=== PATIENT | female | born 1935 | race Caucasian/White ===

== ENCOUNTER → 2017-06-11 | Outpatient (CLI) | payer OTHER ==
[~2017-06-11] MED LIST: ASPEC325 PO; CALC600T37 PO; CHOL1000 PO; FERR325T5 PO; GATI0.5S OP; GLUCTAB32 PO; MULT-506 PO; PRED1SUS3 OP
--- NOTE | 2017-06-11 15:39 | MAMMOGRAPHY REPORT ---
BILATERAL DIGITAL SCREENING MAMMOGRAM WITH CAD: 06/11/2017 CLINICAL HISTORY: Routine screening. Patient has no complaints. TECHNIQUE: Bilateral CC and MLO views were obtained. Current study was also evaluated with a Compute r Aided Detection (CAD) system. COMPARISON: Comparison is made to exams dated: 06/06/2016 mammogram, 05/17/2015 mammogram, 03/30/2014 ma mmogram, 03/10/2013 mammogram, 03/07/2012 mammogram, and 02/27/2011 mammogram - [facility] er. BREAST COMPOSITION: There are scattered areas of fibroglandular density in both breasts. FINDINGS: There is a stable gricelda-shaped metallic biopsy marker in the 9:00 anterior left breast. No n ew suspicious mass, architectural distortion or cluster of microcalcifications is seen. IMPRESSION: ACR BI-RADS CATEGORY 1: NEGATIVE There is no mammographic evidence of malignancy. A 1 year screening mammogram is recommended. The pa tient will receive written notification of the results. Approximately 10% of breast cancers are not detected with mammography. A negative mammographic report should not delay biopsy if a clinically suggestive mass is present. Vivienne Sam M.D. ay/:06/11/2017 15:25:33 Chemistry Lecturer: Katalina OLIVAREZ(Bryce)(Parker), [facility] letter sent: Normal 1/2 BI-RADS Code: ACR BI-RADS Category 1: Negative
== END | disposition home or self-care (01) ==
LOC: C.MAMM 13:15
PROVIDERS: ATTEND Family Medicine
DX: Z12.31 Encounter for screening mammogram for malignant neoplasm of breast (principal)

== ENCOUNTER → 2018-07-10 | Outpatient (CLI) | payer OTHER ==
--- NOTE | 2018-07-11 15:28 | MAMMOGRAPHY REPORT ---
BILATERAL DIGITAL SCREENING MAMMOGRAM TOMOSYNTHESIS WITH CAD: 07/10/2018 CLINICAL HISTORY: Routine screening. Patient has no complaints. TECHNIQUE: The study was acquired using full field digital technology and interpreted from soft copy. Breast tomosynthesis in addition to standard 2D mammography was performed. Current study was also ev aluated with a Computer Aided Detection (CAD) system. COMPARISON: Comparison is made to exams dated: 06/11/2017 mammogram, 06/06/2016 mammogram, 05/17/2015 ma mmogram, 03/10/2013 mammogram, 03/07/2012 mammogram, and 02/27/2011 mammogram - [facility] er. BREAST COMPOSITION: There are scattered areas of fibroglandular density in both breasts. FINDINGS: No suspicious masses, calcifications, or areas of architectural distortion are noted in either breast . There has been no significant interval change compared to prior exams. A biopsy clip is again note d within the left medial breast. Left lateral breast asymmetry on the CC view is stable compared to multiple prior exams. IMPRESSION: ACR BI-RADS CATEGORY 2: BENIGN There is no mammographic evidence of malignancy. A 1 year screening mammogram is recommended.( 019) The patient will receive written notification of the results. Some breast cancers are not detected with mammography. A negative mammographic report should not james y biopsy if a clinically suggestive mass is present. Kell Little M.D. /:07/10/2018 15:21:29 Lidar Scientist: RT Tab(R)(M), [facility] letter sent: Normal 1/2 BI-RADS Code: ACR BI-RADS Category 2: Benign
== END | disposition home or self-care (01) ==
LOC: C.MAMM 14:08
PROVIDERS: ATTEND Family Medicine
DX: Z12.31 Encounter for screening mammogram for malignant neoplasm of breast (principal)

== ENCOUNTER 2018-12-27 15:43 | Inpatient (IN) ==
[2018-12-27] MEDS ORDERED: CEFEPIME 2,000 MG in SYRINGE 7.5 ML IV STA (16:07)
[2018-12-27] MEDS ORDERED: SODIUM CHLORIDE 0.9% 1000ML 1,000 ML IV ONE (16:09)
--- NOTE | 2018-12-27 16:31 | XRay Report ---
XR chest 1V portable HISTORY: 83 years-old Female Sepsis acute sepsis COMPARISON: Chest radiograph and CTA chest 10/31/2018 TECHNIQUE: Portable AP view of the chest FINDINGS: Cardiac silhouette is enlarged, unchanged. Large hiatal hernia, notably within the inferior right hem ithorax. Right internal jugular catheter is noted with distal tip within the region of the inferior S VC. Lungs are hyperinflated without pneumothorax, large pleural effusion or overt pulmonary edema. Pa tchy ill-defined left basilar opacities are noted. The right lung appears generally clear. Degenerati ve changes of the shoulders and spine. Sigmoidal scoliosis of the thoracolumbar spine. IMPRESSION: 1. Asymmetric left basilar opacities suggest atelectasis or pneumonia. 2. Cardiomegaly without overt pulmonary edema. 3. Large hiatal hernia. The above report was generated using voice recognition software. It may contain grammatical, syntax o r spelling errors. Electronically signed by: Jhonny Berumen M.D. 12/27/2018 4:30 PM
--- NOTE | 2018-12-27 16:35 | Emergency Department Note ---
Entered by Lea Dent acting as a scribe for History of Present Illness General Chief complaint: Fever Stated complaint: FEVER,DIARRHEA,CONSTIPATION Time Seen by Provider: 12/27/18 15:56 Source: patient History of Present Illness Onset (ago): day(s) (yesterday) Location: abdomen, upper extremity and lower extremity Pain Consistency: + other (after getting chemo this past week for AML) Maximum Pain Intensity: 7 Quality: + other (fever of 100.6) Associated symptoms: + other (Positive diarrhea, constipation, chills. Negative bruising, flu like symptoms, recent falls. ); no cough, no headaches and no nausea/vomiting The patient is a 83 year old female who presents to the Emergency Room with complaints of a fever beginning yesterday. 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 She reports she developed chills and a fever of 100.6 and has a "strange combination" of diarrhea and constipation. Pt denies a cough, headache , bruising, flu like symptoms, nausea, vomiting, recent falls. Home Medications Home Medications Medication Instructions Recorded Confirmed Type biotin 1 mg PO DAILY 10/31/18 12/27/18 History calcium carbonate-vitamin D3 1 tab PO DAILY 10/31/18 12/27/18 History [Calcium 600 + D(3)] multivitamin 1 tab PO QAM 10/31/18 12/27/18 History acyclovir [Zovirax] 400 mg PO BID 12/27/18 12/27/18 History ferrous sulfate 325 mg PO BID 12/27/18 12/27/18 History furosemide 10 mg PO Q2D PRN 12/27/18 12/27/18 History isavuconazonium sulfate 372 mg PO DAILY 12/27/18 12/27/18 History levofloxacin 500 mg PO DAILY 12/27/18 12/27/18 History loratadine 5 mg PO DAILY PRN 12/27/18 12/27/18 History lutein 20 mg PO DAILY 12/27/18 12/27/18 History metoprolol tartrate 50 mg PO Q12H 12/27/18 12/27/18 History midostaurin 50 mg PO BIDM 12/27/18 12/27/18 History Allergies Allergy/AdvReac Type Severity Reaction Status Date / Time No Known Allergies Allergy Unknown Verified 12/18/18 07:13 Past Med/Surg History Social History Current Living Situation: Alone current occupational status: retired Feels Safe at Home: Yes Smoking Status: Former smoker Preferred Language: Bulgarian Review of Systems See HPI for pertinent positives & negatives. and A total of 10 systems reviewed and were otherwise negative Physical Exam Vital Signs Vital Signs - 24 hr 12/27/18 15:50 12/27/18 17:45 12/27/18 17:53 Temperature 36.9 C Temperature Source Oral Sepsis Recent Fever Within 48 Hours Yes Sepsis New/Unexplained Change in Mental Status No Sepsis Action Taken by Nursing No Action Required Pulse Rate 92 H 91 H 94 H Pulse Rate [Apical] Respiratory Rate 20 26 H 24 Respiratory Effort / Characteristics Non-Labored Respiratory Depth Normal Blood Pressure 129/63 129/64 Blood Pressure [Right Arm] Blood Pressure Mean 85 85 Blood Pressure Mean [Right Arm] Blood Pressure Position Sitting Pulse Oximetry 96 98 98 Oxygen Delivery Method Room Air 12/27/18 18:00 12/27/18 18:15 12/27/18 18:30 Temperature Temperature Source Sepsis Recent Fever Within 48 Hours Sepsis New/Unexplained Change in Mental Status Sepsis Action Taken by Nursing Pulse Rate 90 92 H 93 H Pulse Rate [Apical] Respiratory Rate 22 20 22 Respiratory Effort / Characteristics Respiratory Depth Blood Pressure 125/63 124/62 130/63 Blood Pressure [Right Arm] Blood Pressure Mean 83 82 85 Blood Pressure Mean [Right Arm] Blood Pressure Position Pulse Oximetry 97 97 97 Oxygen Delivery Method 12/27/18 20:04 Temperature Temperature Source Sepsis Recent Fever Within 48 Hours Sepsis New/Unexplained Change in Mental Status Sepsis Action Taken by Nursing Pulse Rate Pulse Rate [Apical] 85 Respiratory Rate 18 Respiratory Effort / Characteristics Respiratory Depth Blood Pressure Blood Pressure [Right Arm] 143/57 H Blood Pressure Mean Blood Pressure Mean [Right Arm] 85 Blood Pressure Position Pulse Oximetry 96 Oxygen Delivery Method Room Air General: Non ill appearing older female. No acute distress. HEENT: Normal cephalic atraumatic. Pupils are equal round and reactive to light. Extraocular movements are intact. Oropharynx is pink with moist mucous membranes. No swelling of the mouth lips or tongue. Neck: Supple with a midline trachea. No meningeal signs or stiffness, no JVD or bruits. No Stridor. Chest: Clear to auscultation bilaterally. No wheezes or rhonchi. No increased work of breathing. Port in the right chest. Old clavicle fracture in the right chest. Heart: Regular rate and rhythm without murmurs or gallops. Abdomen: Soft nontender, nondistended without rebound guarding or rigidity. Extremities: No cyanosis clubbing or edema. No calf tenderness or assymetry Spine/Back. Non tender to palpation. No CVA tenderness Skin: Good turgor without rashes. Neurologic exam: Cranial nerves two through 12 are intact. Motor and sensation are intact and symmetrical throughout. Course 1559: Past medical records reviewed. The patient was evaluated in room B9, and a complete history and physical examination were performed. 1507: I checked on the patient at this time. She is doing well. 1735: I informed her of the treatment plan at this time. Her oxygen has dropped. She denies any SOB at present. I placed her on nasal canula. 1741: I reviewed the patient's case with Shama Acharya PA-C [facility] She will evaluate the patient for further management. 1855: I checked on the patient at this time. She is resting comfortably. Consultations Consultation #1: I reviewed the patient's case with Shama Acharya PA-C [facility] She will evaluate the patient for further management. Time: 17:41 Administered Medications Discontinued Medications Cefepime HCl (Maxipime) Confirm Administered Dose 2,000 mg .ROUTE .STK-MED ONE Stop: 12/27/18 17:29 Last Admin: 12/27/18 17:32 Dose: 2,000 mg Cefepime HCl 2,000 mg/ Syringe 20 mls @ 5.5 mls/min IV NOW STA Stop: 12/27/18 16:10 Last Admin: 12/27/18 17:32 Dose: Not Given Sodium Chloride (Nss 1000ml) 1,000 mls @ 999 mls/hr IV .Q1H1M ONE Stop: 12/27/18 17:09 Last Infusion: 12/27/18 18:44 Dose: 0 mls/hr Admin: 12/27/18 17:31 Dose: 999 mls/hr Medical Decision Making Differential Diagnosis The patient is a 83 year old female who presents to the Emergency Room with complaints of a fever beginning yesterday. Differential diagnosis includes sepsis, pneumonia, leukemia complication, electrolyte or metabolic abnormalities , UTI, as well as others were entertained. Medical Records Attestation: I reviewed the patient's medical records. Home Medications Current Medication List: was personally reviewed by me Laboratory Data Attestation: I reviewed the patient's lab results. Result diagrams: 12/27/18 16:45 12/27/18 16:21 Lab Results 12/27/18 12/27/18 12/27/18 Range/Units 16:21 16:21 16:21 WBC Cancelled RBC Cancelled Hgb Cancelled Hct Cancelled MCV Cancelled MCH Cancelled MCHC Cancelled RDW Std Deviation Cancelled RDW Coeff of Rangel Cancelled Plt Count Cancelled MPV Cancelled Immature Gran % (Auto) Cancelled Neut % (Auto) Cancelled Lymph % (Auto) Cancelled [place] % (Auto) Cancelled Eos % (Auto) Cancelled Baso % (Auto) Cancelled Immature Gran # (Auto) Cancelled Neut # (Auto) Cancelled Lymph # (Auto) Cancelled [place] # (Auto) Cancelled Eos # (Auto) Cancelled Baso # (Auto) Cancelled Absolute Nucleated RBC Cancelled Nucleated RBC % (auto) Cancelled Neutrophils % (Manual) Cancelled Band Neutrophils % Cancelled Lymphocytes % (Manual) Cancelled Prolymphocyte % Cancelled Reactive Lymphs % (Man) Cancelled Monocytes % (Manual) Cancelled Eosinophils % (Manual) Cancelled Basophils % (Manual) Cancelled Metamyelocytes % (Man) Cancelled Myelocytes % (Man) Cancelled Promyelocytes % (Man) Cancelled Blast Cells % (Manual) Cancelled Plasma Cell % (Manual) Cancelled Other Cells % Cancelled Nucleated RBC % Cancelled Neutrophils # (Manual) Cancelled Band Neutrophils # Cancelled Total Absolute Neuts Cancelled Lymphocytes # (Manual) Cancelled Prolymphocyte # Cancelled Reactive Lymphs # Cancelled Total Abs Lymphocytes Cancelled Monocytes # (Manual) Cancelled Eosinophils # (Manual) Cancelled Basophils # (Manual) Cancelled Metamyelocytes # (Man) Cancelled Myelocytes # (Manual) Cancelled Promyelocytes # (Man) Cancelled Blast Cells # (Man) Cancelled Plasma Cell # (Manual) Cancelled Other Cells # Cancelled Nucleated RBCs # (Man) Cancelled Hypersegmented Neuts Cancelled Hyposegmented Neuts Cancelled Hypogranular Neuts Cancelled Large Granular Lymphs Cancelled # Lrg Granular Lymphs Cancelled Hairy Cells Cancelled Smudge Cells Cancelled Toxic Granulation Cancelled Toxic Vacuolation Cancelled Dohle Bodies Cancelled Manolo Rods Cancelled Platelet Estimate Cancelled Hypogranular Platelets Cancelled Clumped Platelets Cancelled Giant Platelets Cancelled Platelet Satelliting Cancelled RBC Morphology Cancelled Polychromasia Cancelled Hypochromasia Cancelled Poikilocytosis Cancelled Basophilic Stippling Cancelled Anisocytosis Cancelled Microcytosis Cancelled Macrocytosis Cancelled Spherocytes Cancelled Pappenheimer Bodies Cancelled Sickle Cells Cancelled Target Cells Cancelled Tear Drop Cells Cancelled Ovalocytes Cancelled Stomatocytes Cancelled [place] Bodies Cancelled Echinocytes Cancelled Acanthocytes (Spur) Cancelled Rouleaux Cancelled RBC Agglutinates Cancelled Schistocytes Cancelled RBC Morph Comment Cancelled Sezary Cell Cancelled PT 11.3 (9.0-12.0) Seconds INR 1.1 (0.9-1.1) APTT 20.5 L (21.0-31.0) Seconds PTT Ratio 0.8 Sodium (136-145) mmol/L Potassium (3.5-5.1) mmol/L Chloride (98-107) mmol/L Carbon Dioxide (21-32) mmol/L Anion Gap (3-11) BUN (7-18) mg/dl Creatinine (0.6-1.2) mg/dl Est Cr Clr Drug Dosing ml/min Est GFR ( Amer) Est GFR (Non-Af Amer) BUN/Creatinine Ratio (10-20) Glucose (70-99) mg/dl Lactate (0.4-2.0) mmol/L Calcium (8.5-10.1) mg/dl Total Bilirubin (0.2-1) mg/dl AST (15-37) U/L ALT (12-78) U/L Alkaline Phosphatase (45-117) U/L Total Protein (6.4-8.2) gm/dl Albumin (3.4-5.0) gm/dl Globulin (2.5-4.0) gm/dl Albumin/Globulin Ratio (0.9-2) Procalcitonin < 0.05 (0-0.5) ng/ml Blood Type Antibody Screen Crossmatch 12/27/18 12/27/18 12/27/18 Range/Units 16:21 16:45 16:45 WBC 0.75 L* RBC 2.01 L Hgb 6.3 L* Hct 18.8 L* MCV 93.5 MCH 31.3 MCHC 33.5 RDW Std Deviation 46.7 H RDW Coeff of Rangel 14.2 Plt Count 32 L MPV 11.9 H Immature Gran % (Auto) Neut % (Auto) Lymph % (Auto) [place] % (Auto) Eos % (Auto) Baso % (Auto) Immature Gran # (Auto) Neut # (Auto) Lymph # (Auto) [place] # (Auto) Eos # (Auto) Baso # (Auto) Absolute Nucleated RBC Nucleated RBC % (auto) Neutrophils % (Manual) 12.4 Band Neutrophils % Lymphocytes % (Manual) 85.8 Prolymphocyte % Reactive Lymphs % (Man) Monocytes % (Manual) Eosinophils % (Manual) Basophils % (Manual) Metamyelocytes % (Man) Myelocytes % (Man) Promyelocytes % (Man) Blast Cells % (Manual) 1.8 Plasma Cell % (Manual) Other Cells % Nucleated RBC % Neutrophils # (Manual) 0.09 L Band Neutrophils # Total Absolute Neuts 0.09 L* Lymphocytes # (Manual) 0.64 L Prolymphocyte # Reactive Lymphs # Total Abs Lymphocytes 0.64 L Monocytes # (Manual) Eosinophils # (Manual) Basophils # (Manual) Metamyelocytes # (Man) Myelocytes # (Manual) Promyelocytes # (Man) Blast Cells # (Man) 0.01 H Plasma Cell # (Manual) Other Cells # Nucleated RBCs # (Man) Hypersegmented Neuts Hyposegmented Neuts Hypogranular Neuts Large Granular Lymphs # Lrg Granular Lymphs Hairy Cells Smudge Cells Toxic Granulation Toxic Vacuolation Dohle Bodies Manolo Rods Platelet Estimate Hypogranular Platelets Clumped Platelets Giant Platelets 1+ Platelet Satelliting RBC Morphology Polychromasia Hypochromasia Poikilocytosis Basophilic Stippling Anisocytosis Microcytosis Present Macrocytosis Spherocytes Pappenheimer Bodies Sickle Cells Target Cells Tear Drop Cells Ovalocytes Stomatocytes [place] Bodies Echinocytes Acanthocytes (Spur) Rouleaux RBC Agglutinates Schistocytes RBC Morph Comment Sezary Cell PT (9.0-12.0) Seconds INR (0.9-1.1) APTT (21.0-31.0) Seconds PTT Ratio Sodium 140 (136-145) mmol/L Potassium 4.0 (3.5-5.1) mmol/L Chloride 103 (98-107) mmol/L Carbon Dioxide 36 H (21-32) mmol/L Anion Gap 1.0 L (3-11) BUN 15 (7-18) mg/dl Creatinine 0.80 (0.6-1.2) mg/dl Est Cr Clr Drug Dosing 44.4 ml/min Est GFR ( Amer) 77.9 Est GFR (Non-Af Amer) 67.2 BUN/Creatinine Ratio 19.0 (10-20) Glucose 170 H (70-99) mg/dl Lactate 1.2 (0.4-2.0) mmol/L Calcium 7.9 L (8.5-10.1) mg/dl Total Bilirubin 0.6 (0.2-1) mg/dl AST 25 (15-37) U/L ALT 25 (12-78) U/L Alkaline Phosphatase 115 (45-117) U/L Total Protein 6.0 L (6.4-8.2) gm/dl Albumin 2.4 L (3.4-5.0) gm/dl Globulin 3.6 (2.5-4.0) gm/dl Albumin/Globulin Ratio 0.7 L (0.9-2) Procalcitonin (0-0.5) ng/ml Blood Type Antibody Screen Crossmatch 12/27/18 Range/Units 17:49 WBC RBC Hgb Hct MCV MCH MCHC RDW Std Deviation RDW Coeff of Rangel Plt Count MPV Immature Gran % (Auto) Neut % (Auto) Lymph % (Auto) [place] % (Auto) Eos % (Auto) Baso % (Auto) Immature Gran # (Auto) Neut # (Auto) Lymph # (Auto) [place] # (Auto) Eos # (Auto) Baso # (Auto) Absolute Nucleated RBC Nucleated RBC % (auto) Neutrophils % (Manual) Band Neutrophils % Lymphocytes % (Manual) Prolymphocyte % Reactive Lymphs % (Man) Monocytes % (Manual) Eosinophils % (Manual) Basophils % (Manual) Metamyelocytes % (Man) Myelocytes % (Man) Promyelocytes % (Man) Blast Cells % (Manual) Plasma Cell % (Manual) Other Cells % Nucleated RBC % Neutrophils # (Manual) Band Neutrophils # Total Absolute Neuts Lymphocytes # (Manual) Prolymphocyte # Reactive Lymphs # Total Abs Lymphocytes Monocytes # (Manual) Eosinophils # (Manual) Basophils # (Manual) Metamyelocytes # (Man) Myelocytes # (Manual) Promyelocytes # (Man) Blast Cells # (Man) Plasma Cell # (Manual) Other Cells # Nucleated RBCs # (Man) Hypersegmented Neuts Hyposegmented Neuts Hypogranular Neuts Large Granular Lymphs # Lrg Granular Lymphs Hairy Cells Smudge Cells Toxic Granulation Toxic Vacuolation Dohle Bodies Manolo Rods Platelet Estimate Hypogranular Platelets Clumped Platelets Giant Platelets Platelet Satelliting RBC Morphology Polychromasia Hypochromasia Poikilocytosis Basophilic Stippling Anisocytosis Microcytosis Macrocytosis Spherocytes Pappenheimer Bodies Sickle Cells Target Cells Tear Drop Cells Ovalocytes Stomatocytes [place] Bodies Echinocytes Acanthocytes (Spur) Rouleaux RBC Agglutinates Schistocytes RBC Morph Comment Sezary Cell PT (9.0-12.0) Seconds INR (0.9-1.1) APTT (21.0-31.0) Seconds PTT Ratio Sodium (136-145) mmol/L Potassium (3.5-5.1) mmol/L Chloride (98-107) mmol/L Carbon Dioxide (21-32) mmol/L Anion Gap (3-11) BUN (7-18) mg/dl Creatinine (0.6-1.2) mg/dl Est Cr Clr Drug Dosing ml/min Est GFR ( Amer) Est GFR (Non-Af Amer) BUN/Creatinine Ratio (10-20) Glucose (70-99) mg/dl Lactate (0.4-2.0) mmol/L Calcium (8.5-10.1) mg/dl Total Bilirubin (0.2-1) mg/dl AST (15-37) U/L ALT (12-78) U/L Alkaline Phosphatase (45-117) U/L Total Protein (6.4-8.2) gm/dl Albumin (3.4-5.0) gm/dl Globulin (2.5-4.0) gm/dl Albumin/Globulin Ratio (0.9-2) Procalcitonin (0-0.5) ng/ml Blood Type AB Positive Antibody Screen NEGATIVE Crossmatch See Detail Imaging Data Radiologist's Impression: Radiology results as stated below per my review and the radiologist's interpretation: XR chest 1V portable HISTORY: 83 years-old Female Sepsis acute sepsis COMPARISON: Chest radiograph and CTA chest 10/31/2018 TECHNIQUE: Portable AP view of the chest FINDINGS: Cardiac silhouette is enlarged, unchanged. Large hiatal hernia, notably within the inferior right hemithorax. Right internal jugular catheter is noted with distal tip within the region of the inferior SVC. Lungs are hyperinflated without pneumothorax, large pleural effusion or overt pulmonary edema. Patchy ill-defined left basilar opacities are noted. The right lung appears generally clear. Degenerative changes of the shoulders and spine. Sigmoidal scoliosis of the thoracolumbar spine. IMPRESSION: 1. Asymmetric left basilar opacities suggest atelectasis or pneumonia. 2. Cardiomegaly without overt pulmonary edema. 3. Large hiatal hernia. The above report was generated using voice recognition software. It may contain grammatical, syntax or spelling errors. Electronically signed by: Jhonny Berumen M.D. 12/27/2018 4:30 PM Blood Pressure Blood Pressure Findings: Normal blood pressure Blood Pressure Disposition: did not require urgent referral MDM Narrative This patient comes in as described above. She was placed in room B9. She is presently being treated for AML with IV chemotherapy done as an outpatient through her port. She is not sure what her meds are initially. She started to feel like she had chills today and checked her temperature is 100.6 orally. She has had no cough or flu-like symptoms. Denies urinary symptoms. She has had some diarrhea at times alternating with constipation. No blood in her stool. this has caused her to have some rectal discomfort. She has not been bleeding anywhere but she does have some bruising which is been going on since she had leukemia. IV access was established blood work was obtained including blood cultures. Given the concern for fever in the setting of leukemia being treated with IV antibiotics. She was given cefepime 2 g IV for empiric coverage. Chest x-ray shows some questionable infiltrate in the left base versus atelectasis. She was found to be significantly neutropenic with an ANC of 90. She was also found to be anemic with a hemoglobin of 6, she was typed and crossed for likely transfusion. Platelets are low at 31, she has no active bleeding. She has received IV hydration. Urinalysis is pending. I do think she needs to be admitted for inpatient IV antibiotics observation and further treatment and evaluation. Blood cultures have been obtained. The [facility] team saw her in the ER for these measures. Impression & Plan Neutropenic fever, Pneumonia, AML (acute myeloblastic leukemia) Discharge Plan Visit Data Chief Complaint: Fever Stated Complaint: FEVER,DIARRHEA,CONSTIPATION ED Provider: Crow Crane Discharge Problem: Neutropenic fever, Pneumonia, AML (acute myeloblastic leukemia) Patient Disposition: Being Evaluated by Hospitalist Discharge Instructions Interventions: ED Discharge Assessment Last Done: 12/27/18 20:32 Forms Stand Alone Forms: My [facility], Important Visit Information Prescriptions Prescriptions: No Action calcium carbonate-vitamin D3 [Calcium 600 + D(3)] 600 mg(1,500mg) -200 unit Tablet 1 tab PO DAILY RF: 0 multivitamin Tablet 1 tab PO QAM RF: 0 biotin 1 mg Tablet 1 mg PO DAILY RF: 0 acyclovir [Zovirax] 400 mg Tablet 400 mg PO BID RF: 0 ferrous sulfate 325 mg (65 mg iron) tablet 325 mg PO BID RF: 0 metoprolol tartrate 50 mg Tablet 50 mg PO Q12H RF: 0 furosemide 20 mg Tablet 10 mg PO Q2D PRN (Reason: Edema) RF: 0 levofloxacin 500 mg tablet 500 mg PO DAILY RF: 0 lutein 20 mg Capsule 20 mg PO DAILY RF: 0 loratadine 5 mg Tablet,Chewable 5 mg PO DAILY PRN (Reason: Runny Nose/Rhinitis) RF: 0 isavuconazonium sulfate 186 mg Capsule 372 mg PO DAILY RF: 0 midostaurin 25 mg Capsule 50 mg PO BIDM RF: 0 Referrals Referrals: Nydia Wei [Primary Care Provider] - The scribe's documentation has been prepared under my direction and personally reviewed by me in its entirety. I confirm that the note above accurately reflects all work, treatment, procedures, and medical decision making performed by me.
[2018-12-27 16:51] LABS: INR 1.1 (0.9-1.1); Partial Thromboplastin Ratio 0.8; Partial Thromboplastin Time 20.5 Seconds (21.0-31.0); Prothrombin Time 11.3 Seconds (9.0-12.0)
[2018-12-27 17:01] LABS: Albumin Level 2.4 gm/dl (3.4-5.0); Calcium 7.9 mg/dl (8.5-10.1); Creatinine Clr Calc Pharmacy 44.4 ml/min; Est GFR (African American) 77.9; Est GFR (Non-African American) 67.2
[2018-12-27 17:04] LABS: Albumin Globulin Ratio 0.7 (0.9-2); Bilirubin,Total 0.6 mg/dl (0.2-1); Globulin 3.6 gm/dl (2.5-4.0)
[2018-12-27 17:26] LABS: Hematocrit (blood only) 18.8 % (37-47); Hemoglobin 6.3 g/dL (12.0-16.0); Mean Corpuscular Hgb Conc 33.5 g/dL (32-36); Mean Corpuscular Volume 93.5 fL (80-100); Mean Platelet Volume 11.9 fL (7.4-10.4); Platelet Count 32 K/uL (130-400); RDW Coefficient of Variation 14.2 % (11.5-14.5); RDW Standard Deviation 46.7 fL (36.4-46.3); Red Blood Count 2.01 M/uL (4.2-5.4); White Blood Count 0.75 K/uL (4.8-10.8)
[2018-12-27] MEDS ORDERED: CEFEPIME 2,000 MG/20 ML VIAL ONE (17:28)
[2018-12-27 17:49] LABS: ALC (manual) 0.64 K/uL (1.2-3.4); Blast # (manual) 0.01 K/uL (0-0); Blast Cells % (manual) 1.8 %; Giant Platelets 1+; Lymphocytes # (manual) 0.64 K/uL (1.2-3.4); Lymphocytes % (manual) 85.8 %; Microcytosis Present; Neutrophils % (manual) 12.4 %
[2018-12-27] MEDS ORDERED: LORATADINE 10 MG TAB PO PRN (19:51)
--- NOTE | 2018-12-27 20:17 | History & Physical Report ---
Date of Service December 27, 2018 Assessment & Plan (1) Neutropenic fever: Just finished 1 week of chemotherapy yesterday. Temp at home was 100.6 � F. Chest x-ray reveals possible pneumonia, however patient is asymptomatic. She does have chronic shortness of breath but there have not been any changes recently. She is covered empirically on cefepime which was reviewed with Dr. Miranda. This is pending blood cultures and clinical improvement. She will continue on chronic immune suppression therapy including acyclovir and Isavuconazonium. Levaquin was held while giving cefepime. (2) Pneumonia: Treatment as above. (3) AML (acute myeloblastic leukemia): Just finished 5 days of chemotherapy. She is set this is to start taking Midostaurin on Saturday, this has been held per oncology. Would discuss with Dr. Miranda before resuming this. (4) Pancytopenia: H&H is 6.3/18. We will plan to give 2 units of irradiated packed red blood cells overnight and recheck H&H in the morning. Of note patient did report some rectal bleeding, however, this is in the setting of recent constipation and multiple episodes of diarrhea with an irritated rectum and clear hemorrhoids on exam. Would monitor clinically overnight and track H&H posttransfusion. As the patient is neutropenic would not recommend any digital rectal exam at this time. Platelets are 32; hold transfusion. Will monitor CBC in a.m. neutropenic precautions. (5) DVT prophylaxis: SCDs, chemoprophylaxis contraindicated in setting of severe and and thrombus cytopenia. DO NOT RESUSCITATE Disposition-PCU/telemetry Светлана Bill DO [facility] Hospitalist History of Present Illness Chief Complaint: fever Primary Care Provider: Nydia Wei 83-year-old female with AML presents with fever 100.6 �F at home. Last dose of chemo was yesterday. She underwent daily chemotherapy Saturday through Saturday of this past week. She denies any cough, abdominal pain, chest pain, headache, urinary tract symptoms. She does report some diarrhea and has been incontinent of stool since last evening. She did take a stool softener for constipation yesterday afternoon. She reports some bright red blood per rectum that is present along with hemorrhoids for which she denies having in the past. She reports that her anus is hurting because of frequent bowel movements. She reports "I am always short of breath." She denies any supplemental oxygen at home at this time but does report using it in the last few months. She was referred to pulmonary for this chronic shortness of breath by Dr. Miranda from oncology. She has not been febrile here and is well-appearing on exam. She is clearly neutropenic and chest x-ray reveals asymmetric left basilar opacities suggesting atelectasis versus pneumonia. She was started on cefepime empirically. Dr. Miranda was contacted and recommended continuation of all her meds except for the Midostaurin, which she was supposed to start Saturday, 12/29. She is also to continue Isavuconazonium, which is an antifungal. However, as this is nonformulary, if they patient cannot get this brought to the hospital, posaconazole may be an alternative empiric antifungal therapy, which should be reviewed with Dr. Miranda prior to starting. The patient does not appear septic. Allergies Allergy/AdvReac Type Severity Reaction Status Date / Time adhesive tape Allergy Unknown Verified 12/27/18 22:26 Home Medications Home Medications Medication Instructions Recorded Confirmed Type biotin 1 mg PO DAILY 10/31/18 12/27/18 History calcium carbonate-vitamin D3 1 tab PO DAILY 10/31/18 12/27/18 History [Calcium 600 + D(3)] multivitamin 1 tab PO QAM 10/31/18 12/27/18 History acyclovir [Zovirax] 400 mg PO BID 12/27/18 12/27/18 History ferrous sulfate 325 mg PO BID 12/27/18 12/27/18 History furosemide 10 mg PO Q2D PRN 12/27/18 12/27/18 History isavuconazonium sulfate 372 mg PO DAILY 12/27/18 12/27/18 History levofloxacin 500 mg PO DAILY 12/27/18 12/27/18 History loratadine 5 mg PO DAILY PRN 12/27/18 12/27/18 History lutein 20 mg PO DAILY 12/27/18 12/27/18 History metoprolol tartrate 50 mg PO Q12H 12/27/18 12/27/18 History midostaurin 50 mg PO BIDM 12/27/18 12/27/18 History Past Med/Surg History Medical History Ovarian cyst, left (Acute) removal Anemia (Acute) Leukemia (Acute) Surgical History History of cataract surgery (Acute) History of total hip arthroplasty (Acute) History of vascular access device (Acute) Family History Other No significant family history Social History Current Living Situation: Alone current occupational status: retired Feels Safe at Home: Yes Smoking Status: Never smoker Hx Alcohol Use: No Hx Substance Use: No Beliefs That Will Affect Care: None Preferred Language: Armenian Review of Systems At least ten systems were reviewed and negative except as indicated in HPI above. Physical Exam 2 Vital Signs (Past 24 Hours): Last Vital Signs Temp 36.9 C 12/27/18 15:50 Pulse 85 12/27/18 20:04 Resp 18 12/27/18 20:04 BP 143/57 H 12/27/18 20:04 Pulse Ox 96 12/27/18 20:04 CONSTITUTIONAL: WNWD, vitals as above, generally well-appearing EYES: PERRL, normal conjuctivae, no scleral icterus ENT: oropharynx clear, no TM abnormality, no maxillary or ethmoid sinus tenderness NECK: trachea midline, no lymphadenopathy RESPIRATORY: clear to auscultation bilaterally, no crackles, rales or wheezes, normal respiratory effort CARDIOVASCULAR: regular rate and rhythm, S1 and 2 heard without murmurs, gallops or rubs, no JVD, no peripheral edema CHEST: inspection of chest revealed an accessed port GASTROINTESTINAL: normal bowel sounds, soft, nontender, nondistended : hemorrhoids present, no skin breakdown MUSCULOSKELETAL: strength 5/5 throughout, head is normocephalic and atraumatic SKIN: warm and dry, some thin skin easily broken down but no evidence of skin infection or areas of cellulitis noted. NEUROLOGIC: CN 2-12 grossly intact, normal cognition PSYCHIATRIC: alert cooperative and oriented to person, place and time. Results & Data Laboratory Results Short CBC 12/27/18 12/27/18 Range/Units 16:21 16:45 WBC Cancelled 0.75 L* Hgb Cancelled 6.3 L* Hct Cancelled 18.8 L* Plt Count Cancelled 32 L BMP 12/27/18 16:21 Sodium 140 Potassium 4.0 Chloride 103 Carbon Dioxide 36 H BUN 15 Creatinine 0.80 Glucose 170 H Calcium 7.9 L Liver Function 12/27/18 Range/Units 16:21 Total Bilirubin 0.6 (0.2-1) mg/dl AST 25 (15-37) U/L ALT 25 (12-78) U/L Alkaline Phosphatase 115 (45-117) U/L Albumin 2.4 L (3.4-5.0) gm/dl Diagnostic Findings XR chest 1V portable HISTORY: 83 years-old Female Sepsis acute sepsis COMPARISON: Chest radiograph and CTA chest 10/31/2018 TECHNIQUE: Portable AP view of the chest FINDINGS: Cardiac silhouette is enlarged, unchanged. Large hiatal hernia, notably within the inferior right hemithorax. Right internal jugular catheter is noted with distal tip within the region of the inferior SVC. Lungs are hyperinflated without pneumothorax, large pleural effusion or overt pulmonary edema. Patchy ill-defined left basilar opacities are noted. The right lung appears generally clear. Degenerative changes of the shoulders and spine. Sigmoidal scoliosis of the thoracolumbar spine. IMPRESSION: 1. Asymmetric left basilar opacities suggest atelectasis or pneumonia. 2. Cardiomegaly without overt pulmonary edema. 3. Large hiatal hernia. Code Status & VTE Plan Code Status DNR as confirmed with her on admission. She has no children, so physician nephew who lives out of state is her med POA. VTE Prophylaxis Plan VTE Prophylaxis will be ordered: Yes Critical Care Time Critical Care Time: No _ (1) AML (acute myeloblastic leukemia) Leukemia Active/Remission status: without remission Qualified Code(s): C92.00 - Acute myeloblastic leukemia, not having achieved remission (2) Pneumonia Aspiration pneumonia type: Laterality: left Lung location: lower lobe of lung Pneumonia type: due to unspecified organism Qualified Code(s): J18.1 - Lobar pneumonia, unspecified organism
[2018-12-27] MEDS ORDERED: ONDANSETRON INJ 2 MG/ML 2 ML VIAL IV PRN (21:08)
[2018-12-27] MEDS ORDERED: ACETAMINOPHEN 325 MG TAB PO PRN (21:08)
[2018-12-27] MEDS ORDERED: CEFEPIME CONSULT ACTIVE PRN (22:24)
[2018-12-27] MEDS: METOPROLOL TARTRATE 50 MG TAB PO SCH (22:25)
[2018-12-27] MEDS: FERROUS SULFATE 325 MG TAB PO SCH (22:26)
[2018-12-27] MEDS: ACYCLOVIR 400 MG TAB PO SCH (22:26)
[2018-12-27 23:36] LABS: Appearance Urine Clear (Clear); Bacteria Urine Automated Negative (Negative); Bilirubin Urine Negative (Negative); Blood Urine Negative (Negative); Color Urine Dark Yellow; Epithelial Cell Urine Auto >30 /lpf (0-5); Glucose Urine UA Negative (Negative); Ketones Urine Trace (Negative); Leukocyte Esterase Urine Negative (Negative); Nitrite Urine Negative (Negative); Protein Urine Trace (Negative); RBC Urine Automated 0-4 /hpf (0-4); Specific Gravity Urine 1.019 (1.000-1.030); Urobilinogen Urine Negative (Negative); pH Urine 5.5 (4.5-7.5)
[2018-12-27] MEDS: [UNRECOGNIZED DRUG - REMARK] SCH (23:56)
[2018-12-28] MEDS ORDERED: FUROSEMIDE 40 MG in SYRINGE 0 ML IV ONE
[2018-12-28] MEDS ORDERED: ACETAMINOPHEN 325 MG TAB PO SCH
[2018-12-28] MEDS: CEFEPIME 2,000 MG in SYRINGE 7.5 ML IV SCH ×2 (05:45→17:43)
[2018-12-28 08:03] LABS: Hematocrit (blood only) 24.8 % (37-47); Hemoglobin 8.1 g/dL (12.0-16.0); Mean Corpuscular Hgb Conc 32.7 g/dL (32-36); Mean Corpuscular Volume 87.3 fL (80-100); Mean Platelet Volume 10.8 fL (7.4-10.4); RDW Standard Deviation 50.7 fL (36.4-46.3); Red Blood Count 2.84 M/uL (4.2-5.4); White Blood Count 0.73 K/uL (4.8-10.8)
[2018-12-28 08:07] LABS: BUN Creatinine Ratio 26.9 (10-20); Calcium 7.2 mg/dl (8.5-10.1); Creatinine Clr Calc Pharmacy 54.6 ml/min; Est GFR (African American) 93.8; Potassium 3.5 mmol/L (3.5-5.1)
[2018-12-28 08:10] LABS: Platelet Count 24 K/uL (130-400)
[2018-12-28 08:15] LABS: Giant Platelets 2+; Hypogranular Neutrophils 2+; Platelet Estimate SIGNIFIC DECREASED (Normal); Toxic Vacuolation 1+
[2018-12-28 08:16] LABS: ALC (manual) 0.65 K/uL (1.2-3.4); Blast # (manual) 0.01 K/uL (0-0); Blast Cells % (manual) 0.9 %; Lymphocytes # (manual) 0.65 K/uL (1.2-3.4); Lymphocytes % (manual) 89.3 %; Metamyelocytes # (manual) 0.01 K/uL (0-0); Metamyelocytes % (manual) 0.9 %; Monocytes # (manual) 0.01 K/uL (0.11-0.59); Monocytes % (manual) 0.9 %
[2018-12-28] MEDS: MULTIVITAMIN TAB PO SCH (08:33)
[2018-12-28] MEDS: FERROUS SULFATE 325 MG TAB PO SCH ×2 (08:34→21:15)
[2018-12-28] MEDS: CALCIUM 600MG + VIT D 400 IU TAB PO SCH (08:34)
[2018-12-28] MEDS: ACYCLOVIR 400 MG TAB PO SCH ×2 (08:35→21:15)
[2018-12-28] MEDS: METOPROLOL TARTRATE 50 MG TAB PO SCH ×2 (08:35→21:15)
[2018-12-28] MEDS: [UNRECOGNIZED DRUG - REMARK] SCH ×2 (08:36→11:12)
[2018-12-28] MEDS ORDERED: ENOXAPARIN INJ 40 MG/0.4 ML SYR SQ SCH (09:00)
[2018-12-28] MEDS ORDERED: NON-FORMULARY MEDICATION (Lutein [Lutein] 20 MG) PO SCH (09:00)
[2018-12-28] MEDS ORDERED: levoFLOXacin 500 MG TAB PO SCH (09:00)
[2018-12-28] MEDS ORDERED: NON-FORMULARY MEDICATION (Biotin [Biotin] 1 MG) PO SCH (09:00)
[2018-12-28] MEDS ORDERED: HYDROCORTISONE ACETATE 25 MG SUPP PR PRN (17:59)
--- NOTE | 2018-12-28 18:09 | Hospitalist Progress Note ---
Date of Service December 28, 2018 Assessment & Plan (1) Neutropenic fever: -finished 1 week of chemotherapyon 12/26/18. Temp at home was 100.6 �F -admission Chest x-ray reveals possible pneumonia "Cardiac silhouette is enlarged, unchanged. Large hiatal hernia, notably within the inferior right hemithorax. Right internal jugular catheter is noted with distal tip within the region of the inferior SVC. Lungs are hyperinflated without pneumothorax, large pleural effusion or overt pulmonary edema. Patchy ill-defined left basilar opacities are noted. The right lung appears generally clear. Degenerative changes of the shoulders and spine. Sigmoidal scoliosis of the thoracolumbar spine. IMPRESSION: 1. Asymmetric left basilar opacities suggest atelectasis or pneumonia. 2. Cardiomegaly without overt pulmonary edema. 3. Large hiatal hernia." -at home is on Levaquin, held on this admission -cefepime 2 grams q12h -pending blood cultures results. will repeat CXR on 11/08/19 -continue chronic immune suppression therapy including acyclovir. Hold Isavuconazonium for now (2) Pneumonia: Treatment as above. (3) AML (acute myeloblastic leukemia): had recently finished 5 days of chemotherapy as outpatient. She is set this is to start taking Midostaurin on Saturday, this has been held per oncology (4) Pancytopenia: admission hemoglobin 6.3 and s/p 2 units of PRBC on this admission with Hgb now 8.1 admission thrombocytopenia, 32,000 to 23,000 neutropenia, neutropenic precautions, on empiric antibiotics (5) DVT prophylaxis: SCD DO NOT RESUSCITATE Subjective patient denies subjective fevers today. Denies chest pain or shortness of breath. denies vomiting. Physical Exam 2 Vital Signs (Past 24 Hours): Last Vital Signs Temp 36.8 C 12/28/18 15:18 Pulse 81 12/28/18 15:18 Resp 21 12/28/18 15:18 BP 152/80 H 12/28/18 15:18 Pulse Ox 93 12/28/18 15:18 Constitutional: + thin Eyes: PERRL, conjunctivae normal, anicteric sclerae EOM intact bilaterally ENMT: external ear and nose normal, oropharynx normal Neck: trachea midline, no thyromegaly Respiratory: normal respiratory effort, lungs clear to auscultation Cardiovascular: RRR, no murmur, no edema Chest (Breasts): Chest: + vascular access device or port Gastrointestinal (Abdomen): normal bowel sounds, soft, nontender, no hepatosplenomegaly Musculoskeletal: no cyanosis or clubbing, extremities motor strength 5/5 Head/Neck/Chest: normocephalic and head atraumatic Neurologic: PERRL, EOMI, accommodation nl, no face palsy, no dysarthria CN' s II-XI intact bilaterally Psychiatric: A+Ox3, euthymic affect _ (1) AML (acute myeloblastic leukemia) Leukemia Active/Remission status: without remission Qualified Code(s): C92.00 - Acute myeloblastic leukemia, not having achieved remission (2) Pneumonia Aspiration pneumonia type: Laterality: left Lung location: lower lobe of lung Pneumonia type: due to unspecified organism Qualified Code(s): J18.1 - Lobar pneumonia, unspecified organism
[2018-12-29] MEDS: [UNRECOGNIZED DRUG - REMARK] SCH ×4 (02:11→23:28)
[2018-12-29] MEDS: CEFEPIME 2,000 MG in SYRINGE 7.5 ML IV SCH (05:41)
[2018-12-29 06:14] LABS: Basophils # (auto) 0.04 K/uL (0-0.2); Hematocrit (blood only) 24.8 % (37-47); Hemoglobin 8.1 g/dL (12.0-16.0); Immature Granulocytes # (auto) 0.02 K/uL (0.00-0.02); Lymphocytes # (auto) 0.88 K/uL (1.2-3.4); Lymphocytes % (auto) 88.9 %; Mean Corpuscular Hgb Conc 32.7 g/dL (32-36); Mean Corpuscular Volume 89.2 fL (80-100); Mean Platelet Volume 10.1 fL (7.4-10.4); Monocytes # (auto) 0.01 K/uL (0.11-0.59); Neutrophils # (auto) 0.04 K/uL (1.4-6.5); Neutrophils % (auto) 4.1 %; Platelet Count 25 K/uL (130-400); RDW Coefficient of Variation 15.4 % (11.5-14.5); RDW Standard Deviation 49.8 fL (36.4-46.3); Red Blood Count 2.78 M/uL (4.2-5.4); White Blood Count 0.99 K/uL (4.8-10.8)
[2018-12-29 06:16] LABS: Dohle Bodies 1+; Giant Platelets 1+; Hypogranular Neutrophils 1+; Platelet Estimate SIGNIFIC DECREASED (Normal)
[2018-12-29 06:20] LABS: Est GFR (African American) 100.3; Est GFR (Non-African American) 86.6
--- NOTE | 2018-12-29 08:41 | XRay Report ---
XR chest 2V routine CLINICAL HISTORY: follow up lung infiltrates COMPARISON STUDY: 12/27/2018 FINDINGS: The heart is enlarged. There is a retrocardiac opacity consistent with a hiatal hernia. The re is a right-sided A-Port catheter present. There are progressive airspace opacities within the left lower lobe. There is a probable small left pleural effusion. Developing airspace opacities within th e right apex are also suspected.[ IMPRESSION: 1. Progressive left lower lobe airspace opacities with a possible small left pleural effusion 2. Developing airspace opacities in the right lung apex. 3. Large hiatal hernia Electronically signed by: Prieto Ghotra M.D. 12/29/2018 8:39 AM
[2018-12-29] MEDS: FERROUS SULFATE 325 MG TAB PO SCH ×2 (08:52→20:42)
[2018-12-29] MEDS: CALCIUM 600MG + VIT D 400 IU TAB PO SCH (08:52)
[2018-12-29] MEDS: ACYCLOVIR 400 MG TAB PO SCH ×2 (08:52→20:43)
[2018-12-29] MEDS: MULTIVITAMIN TAB PO SCH (08:52)
[2018-12-29] MEDS: METOPROLOL TARTRATE 50 MG TAB PO SCH ×2 (08:52→20:42)
--- NOTE | 2018-12-29 14:24 | Hospitalist Progress Note ---
Date of Service December 29, 2018 Assessment & Plan (1) Neutropenic fever: -finished 1 week of chemotherapyon 12/26/18. Temp at home was 100.6 �F -admission portable Chest x-ray reveals pneumonia "Cardiac silhouette is enlarged, unchanged. Large hiatal hernia, notably within the inferior right hemithorax. Right internal jugular catheter is noted with distal tip within the region of the inferior SVC. Lungs are hyperinflated without pneumothorax, large pleural effusion or overt pulmonary edema. Patchy ill-defined left basilar opacities are noted. The right lung appears generally clear. Degenerative changes of the shoulders and spine. Sigmoidal scoliosis of the thoracolumbar spine. IMPRESSION: 1. Asymmetric left basilar opacities suggest atelectasis or pneumonia. 2. Cardiomegaly without overt pulmonary edema. 3. Large hiatal hernia." empirically have been on cefepime 2 grams q12 hours from admission to 12/29/18 when being transitioned to Augmentin and Azithromycin for pneumonia coverage as admission blood cultures have been negative 2 view CXr on 12/29/18 with 1. Progressive left lower lobe airspace opacities with a possible small left pleural effusion 2. Developing airspace opacities in the right lung apex. 3. Large hiatal hernia -besides being on antibiotics, patient should be given incentive spirometer in case of atelectasis White blood cell counts are rising from 750 to 1,000 -holding chronic Levaquin 500 mg daily while on respiratory antibiotics as above -continue chronic immune suppression therapy including acyclovir -Hold Isavuconazonium for now (2) Pneumonia: Treatment as above. (3) AML (acute myeloblastic leukemia): had recently finished 5 days of chemotherapy as outpatient prior to hospital presentation. She is set this is to start taking Midostaurin on Saturday , this has been held per oncology (4) Pancytopenia: admission hemoglobin 6.3 and s/p 2 units of PRBC on this admission with Hgb now 8.1 admission thrombocytopenia, stabilizedat 25,000 neutropenia, neutropenic precautions, on antibiotics as above, White blood cell counts are rising from 750 to 1,000 (5) DVT prophylaxis: SCD External hemorrhoids rectal pain and itch secondary to External hemorrhoids give anusol cream acute on chronic respiratory failure with hypoxia -patient reports she has home oxygen but uses intermittently, noted to have hypoxia when on room air and it is unclear whether she desaturates at home or whether this acute -will need 2 step test to re-assess oxygen needs when ready for discharge. disposition: continue to remain inpatient while antibiotics being transitioned and monitoring the blood counts Code Status: DO NOT RESUSCITATE Subjective patient denies subjective fevers today. Denies chest pain or shortness of breath. denies vomiting. patient has rectal pain and itch secondary to External hemorrhoids and Anusol cream is being given Physical Exam 2 Vital Signs (Past 24 Hours): Last Vital Signs Temp 36.7 C 12/29/18 12:00 Pulse 79 12/29/18 12:00 Resp 16 12/29/18 12:00 BP 132/72 12/29/18 12:00 Pulse Ox 88 L 12/29/18 12:00 Constitutional: + thin Eyes: PERRL, conjunctivae normal, anicteric sclerae EOM intact bilaterally ENMT: external ear and nose normal, oropharynx normal Neck: trachea midline, no thyromegaly Respiratory: normal respiratory effort, lungs clear to auscultation Cardiovascular: RRR, no murmur, no edema Chest (Breasts): Chest: + vascular access device or port Gastrointestinal (Abdomen): normal bowel sounds, soft, nontender, no hepatosplenomegaly Rectal Exam: + hemorrhoids External hemorrhoids Musculoskeletal: no cyanosis or clubbing, extremities motor strength 5/5 Head/Neck/Chest: normocephalic and head atraumatic Neurologic: PERRL, EOMI, accommodation nl, no face palsy, no dysarthria CN' s II-XI intact bilaterally Psychiatric: A+Ox3, euthymic affect _ (1) AML (acute myeloblastic leukemia) Leukemia Active/Remission status: without remission Qualified Code(s): C92.00 - Acute myeloblastic leukemia, not having achieved remission (2) Pneumonia Aspiration pneumonia type: Laterality: left Lung location: lower lobe of lung Pneumonia type: due to unspecified organism Qualified Code(s): J18.1 - Lobar pneumonia, unspecified organism
[2018-12-29] MEDS ORDERED: AZITHROMYCIN 250 MG TAB PO ONE (14:36)
[2018-12-29] MEDS: AMOXICILLIN/CLAVULANATE 875 MG TAB PO SCH (16:05)
[2018-12-29] MEDS: ZINC OXIDE 16% 45 APPLN, HYDROCORTISONE 1% 45 APPLN, ALUMINUM/MAGNESIUM SUSP 15 ML, BAR... TOP PRN (20:44)
[2018-12-29] MEDS ORDERED: XOPENEX/ATROVENT 1.25mg/0.5MG NEB COMBO NEB PRN (21:01)
[2018-12-29] MEDS ORDERED: LEVALBUTEROL 1.25MG/0.5ML NEB INH PRN (21:15)
[2018-12-29] MEDS ORDERED: IPRATROPIUM BROMIDE NEB SOLN 0.02% 2.5 ML VIAL INH PRN (21:15)
[2018-12-30] MEDS: ACYCLOVIR 400 MG TAB PO SCH ×2 (08:01→21:20)
[2018-12-30] MEDS: MULTIVITAMIN TAB PO SCH (08:01)
[2018-12-30] MEDS: CALCIUM 600MG + VIT D 400 IU TAB PO SCH (08:01)
[2018-12-30] MEDS: AZITHROMYCIN 250 MG TAB PO SCH (08:02)
[2018-12-30] MEDS: METOPROLOL TARTRATE 50 MG TAB PO SCH ×2 (08:02→21:21)
[2018-12-30] MEDS: AMOXICILLIN/CLAVULANATE 875 MG TAB PO SCH ×2 (08:02→17:13)
[2018-12-30] MEDS: FERROUS SULFATE 325 MG TAB PO SCH ×2 (08:02→21:20)
[2018-12-30 08:09] LABS: Hematocrit (blood only) 24.4 % (37-47); Mean Corpuscular Volume 89.4 fL (80-100); RDW Standard Deviation 48.7 fL (36.4-46.3); Red Blood Count 2.73 M/uL (4.2-5.4); White Blood Count 0.93 K/uL (4.8-10.8)
[2018-12-30 08:24] LABS: Creatinine Clr Calc Pharmacy 82.6 ml/min; Est GFR (African American) 107.5; Est GFR (Non-African American) 92.7
[2018-12-30 08:41] LABS: Mean Corpuscular Hgb Conc 32.8 g/dL (32-36); Mean Platelet Volume 11.6 fL (7.4-10.4); Platelet Count 21 K/uL (130-400)
[2018-12-30 08:42] LABS: Platelet Estimate SIGNIFIC DECREASED (Normal); RBC Morphology Unremarkable
[2018-12-30 08:50] LABS: ALC (manual) 0.85 K/uL (1.2-3.4); Basophils # (manual) 0.01 K/uL (0-0.2); Basophils % (manual) 0.9 %; Lymphocytes # (manual) 0.85 K/uL (1.2-3.4); Lymphocytes % (manual) 91.6 %; Neutrophils % (manual) 7.5 %
[2018-12-30 10:20] LABS: BUN Creatinine Ratio 31.1 (10-20); Calcium 7.8 mg/dl (8.5-10.1); Creatinine Clr Calc Pharmacy 80.7 ml/min; Est GFR (African American) 106.7; Magnesium 2.2 mg/dl (1.8-2.4); Potassium 3.3 mmol/L (3.5-5.1)
[2018-12-30] MEDS: [UNRECOGNIZED DRUG - REMARK] SCH ×2 (17:12→17:13)
--- NOTE | 2018-12-30 19:08 | Hospitalist Progress Note ---
Date of Service December 30, 2018 Assessment & Plan (1) Neutropenic fever: -finished 1 week of chemotherapyon 12/26/18. Temp at home was 100.6 �F -admission portable Chest x-ray reveals pneumonia "Cardiac silhouette is enlarged, unchanged. Large hiatal hernia, notably within the inferior right hemithorax. Right internal jugular catheter is noted with distal tip within the region of the inferior SVC. Lungs are hyperinflated without pneumothorax, large pleural effusion or overt pulmonary edema. Patchy ill-defined left basilar opacities are noted. The right lung appears generally clear. Degenerative changes of the shoulders and spine. Sigmoidal scoliosis of the thoracolumbar spine. IMPRESSION: 1. Asymmetric left basilar opacities suggest atelectasis or pneumonia. 2. Cardiomegaly without overt pulmonary edema. 3. Large hiatal hernia." empirically have been on cefepime 2 grams q12 hours from admission to 12/29/18 when being transitioned to Augmentin and Azithromycin for pneumonia coverage as admission blood cultures have been negative 2 view CXr on 12/29/18 with 1. Progressive left lower lobe airspace opacities with a possible small left pleural effusion 2. Developing airspace opacities in the right lung apex. 3. Large hiatal hernia -besides being on antibiotics, patient should be given incentive spirometer in case of atelectasis White blood cell counts are rising from 750 on admission and has plateau to above 900 but still less than 1,000 -holding chronic Levaquin 500 mg daily while on respiratory antibiotics as above -continue chronic immune suppression therapy including acyclovir -Hold Isavuconazonium for now (2) Pneumonia: Treatment as above. (3) AML (acute myeloblastic leukemia): had recently finished 5 days of chemotherapy as outpatient prior to hospital presentation. She was planned to start taking Midostaurin as outpatient but this has been held per oncology (4) Pancytopenia: admission hemoglobin 6.3 and s/p 2 units of PRBC on this admission with Hgb stabilized at 8 admission thrombocytopenia, 21K neutropenia, neutropenic precautions, on antibiotics as above, White blood cell counts are rising from 750 on admission and has plateau to above 900 but still less than 1,000 (5) DVT prophylaxis: SCD External hemorrhoids rectal pain and itch secondary to External hemorrhoids give anusol cream acute on chronic respiratory failure with hypoxia -patient reports she has home oxygen but uses intermittently, noted to have hypoxia when on room air and it is unclear whether she desaturates at home or whether this acute -will need 2 step test to re-assess oxygen needs when ready for discharge. disposition: continue to remain inpatient while awaiting higher WBC counts Code Status: DO NOT RESUSCITATE Subjective patient denies subjective fevers today. Denies chest pain or shortness of breath. denies vomiting. patient has rectal pain and itch secondary to External hemorrhoids and Anusol cream is being given antibiotics had been transitioned recently to orals and awaiting wbc counts to increase Physical Exam 2 Vital Signs (Past 24 Hours): Last Vital Signs Temp 36.6 C 12/30/18 15:11 Pulse 93 H 12/30/18 16:00 Resp 16 12/30/18 15:11 BP 135/76 12/30/18 15:11 Pulse Ox 98 12/30/18 15:11 Constitutional: + thin Eyes: PERRL, conjunctivae normal, anicteric sclerae EOM intact bilaterally ENMT: external ear and nose normal, oropharynx normal Neck: trachea midline, no thyromegaly Respiratory: normal respiratory effort, lungs clear to auscultation Cardiovascular: RRR, no murmur, no edema Chest (Breasts): Chest: + vascular access device or port Gastrointestinal (Abdomen): normal bowel sounds, soft, nontender, no hepatosplenomegaly Rectal Exam: + hemorrhoids Musculoskeletal: no cyanosis or clubbing, extremities motor strength 5/5 Head/Neck/Chest: normocephalic and head atraumatic Neurologic: PERRL, EOMI, accommodation nl, no face palsy, no dysarthria CN' s II-XI intact bilaterally Psychiatric: A+Ox3, euthymic affect _ (1) Pneumonia Aspiration pneumonia type: Laterality: left Lung location: lower lobe of lung Pneumonia type: due to unspecified organism Qualified Code(s): J18.1 - Lobar pneumonia, unspecified organism (2) AML (acute myeloblastic leukemia) Leukemia Active/Remission status: without remission Qualified Code(s): C92.00 - Acute myeloblastic leukemia, not having achieved remission
[2018-12-31] MEDS: [UNRECOGNIZED DRUG - REMARK] SCH ×4 (01:06→23:32)
[2018-12-31 07:47] LABS: Mean Platelet Volume 11.4 fL (7.4-10.4); Platelet Count 19 K/uL (130-400)
[2018-12-31 08:51] LABS: Hematocrit (blood only) 26.7 % (37-47); Hemoglobin 8.7 g/dL (12.0-16.0); Mean Corpuscular Hgb Conc 32.6 g/dL (32-36); Mean Corpuscular Volume 90.5 fL (80-100); RDW Coefficient of Variation 14.6 % (11.5-14.5); RDW Standard Deviation 48.2 fL (36.4-46.3); Red Blood Count 2.95 M/uL (4.2-5.4); White Blood Count 1.04 K/uL (4.8-10.8)
[2018-12-31 08:56] LABS: Dohle Bodies 1+; Giant Platelets 1+; Hypogranular Neutrophils 1+
[2018-12-31 08:58] LABS: ALC (manual) 0.95 K/uL (1.2-3.4); Basophils # (manual) 0.01 K/uL (0-0.2); Basophils % (manual) 0.9 %; Lymphocytes # (manual) 0.95 K/uL (1.2-3.4); Lymphocytes % (manual) 91.1 %
[2018-12-31] MEDS ORDERED: POLYETHYLENE (MIRALAX) 17 GM PACK PO PRN (09:12)
--- NOTE | 2018-12-31 10:01 | CT Scan Report ---
CT chest wo con CT DOSE: 191.23 mGy.cm HISTORY: Abnormal chest x-ray. left lower lobe opacity, effusion TECHNIQUE: Multiaxial CT images of the chest were performed without contrast. A dose lowering techni que was utilized adhering to the principles of ALARA. COMPARISON: Chest 12/29/2018. Chest CT 10/31/2018. FINDINGS: Patchy consolidative and groundglass airspace opacities within the lung apices, right great er than left. The central airways are patent. No pneumothorax. Stable 2 cm bleb within the lingula. T here is an additional small focal airspace opacity within the left upper lobe anteriorly which is sim ilar to the biapical opacities. Possible new 5 mm nodule within the right middle lobe on image 187. T his is suboptimally evaluated due to the respiratory motion. Small bilateral pleural effusions are ne w compared to the prior study. Small amount of consolidation within the bases of the lower lobes are nonspecific but favor compressive atelectasis from the pleural effusions. There is again noted a larg e hiatus hernia seen along the right lung base. Focal area of calcification along the posterior borde r of the gastroesophageal junction remains stable. This could be due to a diverticulum or an old cont ained perforation given the stability. No suspicious lytic or blastic osseous lesions. Right jugular Port-A-Cath terminates in the right atrium. The visualized unenhanced liver and spleen are unremarkab le. Mild elevation of the left hemidiaphragm, unchanged. The heart remains enlarged. Bilateral adrena l gland thickening is likely age-related. Normal caliber thoracic aorta. Mild body wall edema. No sig nificant mediastinal or hilar lymphadenopathy. IMPRESSION: 1. Patchy consolidative and groundglass airspace opacities within the bilateral upper lobes likely re presents a pneumonia. Continued chest x-ray follow-up is recommended to ensure resolution. 2. Interval development of small bilateral pleural effusions. Bibasilar consolidation is nonspecific but favors compressive atelectasis. 3. Stable cardiomegaly. 4. There are suggestion of a 5 mm nodule within the right middle lobe. Six-month chest CT follow-up r ecommended to ensure stability/resolution. 5. There is again noted a large hiatus hernia seen along the right lung base. Focal area of calcifica tion along the posterior border of the gastroesophageal junction remains stable. This favors a divert iculum or less likely an old contained perforation given the stability. 6. Additional findings as described above. Electronically signed by: Klever Zayas M.D. 12/31/2018 9:59 AM
[2018-12-31] MEDS: MULTIVITAMIN TAB PO SCH (10:24)
[2018-12-31] MEDS: AZITHROMYCIN 250 MG TAB PO SCH (10:24)
[2018-12-31] MEDS: CALCIUM 600MG + VIT D 400 IU TAB PO SCH (10:24)
[2018-12-31] MEDS: METOPROLOL TARTRATE 50 MG TAB PO SCH ×2 (10:24→21:46)
[2018-12-31] MEDS: FERROUS SULFATE 325 MG TAB PO SCH ×2 (10:24→21:45)
[2018-12-31] MEDS: AMOXICILLIN/CLAVULANATE 875 MG TAB PO SCH ×2 (10:24→18:18)
[2018-12-31] MEDS: ACYCLOVIR 400 MG TAB PO SCH ×2 (10:24→21:46)
--- NOTE | 2018-12-31 10:31 | Infectious Disease Consult ---
Date of Consultation December 31, 2018 Assessment & Plan (1) Neutropenic fever: She has been afebrile for several days. I agree with narrowing antibiotics. Azithromycin would be sufficient for 7 day course total for suspected community-acquired pneumonia. (2) Pneumonia: History of Present Illness Attending Physician: Jacobo Winston MD The patient presents with fever at home. She also had some shortness of breath. She is status post chemotherapy. She is pancytopenic. She initially had a low-grade fever of 37.6 in the ER on the 21/05 she has otherwise been afebrile since admission. Her counts are improving. Her chest x-ray on the did show left lower lobe opacity however she denies any coughing or shortness of breath at this time. She did have blood cultures done which have been negative. She was initially placed on cefepime but because she has been afebrile her counts are improving she was then changed to Augmentin and azithromycin to target community-acquired pneumonia. She has not had any and C done in several days however she has greater than 500. Her platelets remain low. She did have a CT scan of her chest done this morning and results are pending at the time of my exam. On my exam she is eating breakfast. She denies any chest pain cough shortness of breath she denies any wheezing. She does have port in the right chest she denies any pain in this area. She denies any bleeding warmth or drainage associated with this. She has been afebrile for several days. She is tolerating antibiotics well. Her only complaint is soreness on her buttocks which she is using a witch Mary Grace pads with some relief. Allergies Allergy/AdvReac Type Severity Reaction Status Date / Time adhesive tape Allergy Unknown Verified 12/27/18 22:26 Home Medications Home Medications Medication Instructions Recorded Confirmed Type biotin 1 mg PO DAILY 10/31/18 12/27/18 History calcium carbonate-vitamin D3 1 tab PO DAILY 10/31/18 12/27/18 History [Calcium 600 + D(3)] multivitamin 1 tab PO QAM 10/31/18 12/27/18 History acyclovir [Zovirax] 400 mg PO BID 12/27/18 12/27/18 History ferrous sulfate 325 mg PO BID 12/27/18 12/27/18 History furosemide 10 mg PO Q2D PRN 12/27/18 12/27/18 History isavuconazonium sulfate 372 mg PO DAILY 12/27/18 12/27/18 History levofloxacin 500 mg PO DAILY 12/27/18 12/27/18 History loratadine 5 mg PO DAILY PRN 12/27/18 12/27/18 History lutein 20 mg PO DAILY 12/27/18 12/27/18 History metoprolol tartrate 50 mg PO Q12H 12/27/18 12/27/18 History midostaurin 50 mg PO BIDM 12/27/18 12/27/18 History Patient History Medical History Ovarian cyst, left (Acute) removal Anemia (Acute) Leukemia (Acute) Surgical History History of cataract surgery (Acute) History of total hip arthroplasty (Acute) History of vascular access device (Acute) Family History Other No significant family history Social History marital status: Single Current Living Situation: Alone current occupational status: retired Feels Safe at Home: Yes Smoking Status: Never smoker Hx Alcohol Use: No Hx Substance Use: No Beliefs That Will Affect Care: None Communication Ability: Effective Review of Systems All remaining review of systems are reviewed and are unremarkable. Physical Exam 2 Vital Signs (Past 24 Hours): Last Vital Signs Temp 36.4 C L 12/31/18 07:34 Pulse 73 12/31/18 07:34 Resp 18 12/31/18 07:34 BP 139/70 12/31/18 07:34 Pulse Ox 97 12/31/18 07:34 Constitutional: WD/WN, vitals as above Eyes: PERRL, conjunctivae normal, anicteric sclerae ENMT: external ear and nose normal, oropharynx normal Neck: normal visual inspection Respiratory: normal respiratory effort, lungs clear to auscultation Cardiovascular: RRR, no murmur, no edema Gastrointestinal (Abdomen): normal bowel sounds, soft, nontender, no hepatosplenomegaly Musculoskeletal: no cyanosis or clubbing, extremities motor strength 5/5 Skin: no rashes, warm and dry Right chest wall port dressing is clean dry and intact there is no surrounding warmth tenderness erythema drainage or bleeding Psychiatric: A+Ox3, euthymic affect Results & Data Laboratory Results Microbiology 12/27/18 17:08 Blood Blood Culture - Preliminary No growth to date. 12/27/18 16:27 Blood Blood Culture - Preliminary No growth to date. _ (1) Pneumonia Aspiration pneumonia type: Laterality: left Lung location: lower lobe of lung Pneumonia type: due to unspecified organism Qualified Code(s): J18.1 - Lobar pneumonia, unspecified organism
[2018-12-31] MEDS: DOCUSATE SODIUM/SENNA 50/8.6MG TAB PO SCH (13:44)
--- NOTE | 2018-12-31 17:47 | Hospitalist Progress Note ---
Date of Service December 31, 2018 Assessment & Plan (1) Neutropenic fever: per Dr. Lunsford's Notes -finished 1 week of chemotherapyon 12/26/18. Temp at home was 100.6 �F -admission portable Chest x-ray reveals pneumonia "Cardiac silhouette is enlarged, unchanged. Large hiatal hernia, notably within the inferior right hemithorax. Right internal jugular catheter is noted with distal tip within the region of the inferior SVC. Lungs are hyperinflated without pneumothorax, large pleural effusion or overt pulmonary edema. Patchy ill-defined left basilar opacities are noted. The right lung appears generally clear. Degenerative changes of the shoulders and spine. Sigmoidal scoliosis of the thoracolumbar spine. IMPRESSION: 1. Asymmetric left basilar opacities suggest atelectasis or pneumonia. 2. Cardiomegaly without overt pulmonary edema. 3. Large hiatal hernia." empirically have been on cefepime 2 grams q12 hours from admission to 12/29/18 when being transitioned to Augmentin and Azithromycin for pneumonia coverage as admission blood cultures have been negative 2 view CXr on 12/29/18 with 1. Progressive left lower lobe airspace opacities with a possible small left pleural effusion 2. Developing airspace opacities in the right lung apex. 3. Large hiatal hernia 12/[address] chest: 1. Patchy consolidative and groundglass airspace opacities within the bilateral upper lobes likely represents a pneumonia. Continued chest x-ray follow-up is recommended to ensure resolution. 2. Interval development of small bilateral pleural effusions. Bibasilar consolidation is nonspecific but favors compressive atelectasis. 3. Stable cardiomegaly. 4. There are suggestion of a 5 mm nodule within the right middle lobe. Six- month chest CT follow-up recommended to ensure stability/resolution. 5. There is again noted a large hiatus hernia seen along the right lung base. Focal area of calcification along the posterior border of the gastroesophageal junction remains stable. This favors a diverticulum or less likely an old contained perforation given the stability. 6. Additional findings as described above. -- ID consulted continue Augmentin and Azithromycin -holding chronic Levaquin 500 mg daily while on respiratory antibiotics as above - Acyclovir continued -holding Isavuconazonium for now (2) Pneumonia: Acute on Chronic Respiratory Failure Treatment as above. - may need 2 step exercise test (3) AML (acute myeloblastic leukemia): had recently finished 5 days of chemotherapy as outpatient prior to hospital presentation. She was planned to start taking Midostaurin as outpatient but this has been held per oncology -- Oncologist consulted (4) Pancytopenia: admission hemoglobin 6.3 and s/p 2 units of PRBC on this admission with Hgb stabilized at 8 admission thrombocytopenia, 21K neutropenia, neutropenic precautions, on antibiotics as above, White blood cell counts are rising from 750 on admission - Hem/Onc consulted Constipation - added Senokot S, Miralax External hemorrhoids rectal pain and itch secondary to External hemorrhoids given anusol cream (5) DVT prophylaxis: SCD disposition: continue to remain inpatient while awaiting higher WBC counts Code Status: DO NOT RESUSCITATE Subjective ff up for neutropenic fever, pneumonia seen sitting up in bed, having breakfast not in distress states she feels about the same feels weak denies cough, sputum production no abdominal pain, nausea, changes with urination or BM denies bleeding no other symptoms Physical Exam 2 Vital Signs (Past 24 Hours): Last Vital Signs Temp 36.3 C L 12/31/18 15:03 Pulse 68 12/31/18 15:03 Resp 18 12/31/18 15:03 BP 147/69 H 12/31/18 15:03 Pulse Ox 99 12/31/18 15:03 Physical Exam: General- oriented x 3, not in distress, speaks in sentences with no effort or accessory muscle use Eyes- anicteric Neck- no JVD Lungs- clear breath sounds bilaterally, no rales/wheezes Heart- normal rate, regular rhythm; no murmurs Abdomen- normal bowel sounds, nondistended, soft, nontender Extremities- trace pretibial edema, no calf tenderness Neuro- alert, oriented x 3; no gross focal neurologic deficits Skin- warm & dry Results & Data Laboratory Results Laboratory Results - last 24 hr 12/31/18 07:21 WBC 1.04 L RBC 2.95 L Hgb 8.7 L Hct 26.7 L MCV 90.5 MCH 29.5 MCHC 32.6 RDW Std Deviation 48.2 H RDW Coeff of Rangel 14.6 H Plt Count 19 L* MPV 11.4 H Neutrophils % (Manual) 8.0 Lymphocytes % (Manual) 91.1 Basophils % (Manual) 0.9 Neutrophils # (Manual) 0.08 L Total Absolute Neuts 0.08 L* Lymphocytes # (Manual) 0.95 L Total Abs Lymphocytes 0.95 L Basophils # (Manual) 0.01 Hypogranular Neuts 1+ Dohle Bodies 1+ Giant Platelets 1+ _ (1) Pneumonia Aspiration pneumonia type: Laterality: left Lung location: lower lobe of lung Pneumonia type: due to unspecified organism Qualified Code(s): J18.1 - Lobar pneumonia, unspecified organism (2) AML (acute myeloblastic leukemia) Leukemia Active/Remission status: without remission Qualified Code(s): C92.00 - Acute myeloblastic leukemia, not having achieved remission
[2018-12-31] MEDS ORDERED: DOCUSATE SODIUM/SENNA 50/8.6MG TAB PO STA (20:12)
--- NOTE | 2018-12-31 20:36 | Oncology Consultation ---
Date of Consultation December 31, 2018 Imp: 83 year old female with AML non-M3 severe pancytopenia admitted with neutropenic fever, pneumonia continue prophylactic acyclovir antibiotics per ID for pneumonia - she is on zithromax and augmentin She takes cresemba at home.She will need antifungal coverage with prolonged severe neutropenia in setting of her AML I spoke to pharmacist and cresemba and posaconazole non formulary add voriconazole that is available until she is discharged when cresemba can be resumed Please monitor QTc while patient is on zithromax and antifungal transfuse if hemoglobin<[address]</=10 or bleeding Gave another dose of senokot for constipation recommend GI consult for her hemorrhoids, constipation - also was to see GI for hiatal hernia and oval structure at posterior gastric margin ?degenerated leiomyoma or gastric diverticulum on outpatient ct chest but said she canceled due to in hospital, I discussed overall poor fpc prognosis of AML and complications of pancytopenia with her including but not limited to life threatening infection complications from anemia and risk of bleeding with thrombocytopenia and . continue supportive transfusions. Hold midostaurin in setting of pneumonia and severe neutropenia. I discussed with her regarding obtain palliative care consult for support for patient and goals of care. Also recommend manager rn case consult and physical therapy and nutrition evaluation Patient states she wants to hold off on palliative care consult at this time but will let hospitalist know if she decides to have consult but her nephew Dr Lozada (Sanjay Quinonez is POA [phone]. 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 She received 1 cycle of decitabine and midostaurin in 11/2018 and she received second cycle of dectiabine 12/22/18 to 12/26/18. She had temperature of 100.6 at home and came to ER. CXR showed pneumonia. She was on levaquin prophylaxis out patient and cresemba and acyclovir. She was put on cefepime. Afebrile now and is on zithromax and augmentin She denies cough. She denies any change in breathing. She has chronic dyspnea. She states that overall she feels ok. Has fatigue. She denies any arthralgias. She states that does not have any arthralgias. She denies abdominal pain. She complain of constipation and hemorrhoidal pain. Denies any bleeding symptoms no sore throat no chest pain no dysuria or hematuria no nausea or vomiting appetite is fair no headache or paresthesias or dizziness Allergies Allergy/AdvReac Type Severity Reaction Status Date / Time adhesive tape Allergy Unknown Verified 12/27/18 22:26 Home Medications Home Medications Medication Instructions Recorded Confirmed Type biotin 1 mg PO DAILY 10/31/18 12/27/18 History calcium carbonate-vitamin D3 1 tab PO DAILY 10/31/18 12/27/18 History [Calcium 600 + D(3)] multivitamin 1 tab PO QAM 10/31/18 12/27/18 History acyclovir [Zovirax] 400 mg PO BID 12/27/18 12/27/18 History ferrous sulfate 325 mg PO BID 12/27/18 12/27/18 History furosemide 10 mg PO Q2D PRN 12/27/18 12/27/18 History isavuconazonium sulfate 372 mg PO DAILY 12/27/18 12/27/18 History levofloxacin 500 mg PO DAILY 12/27/18 12/27/18 History loratadine 5 mg PO DAILY PRN 12/27/18 12/27/18 History lutein 20 mg PO DAILY 12/27/18 12/27/18 History metoprolol tartrate 50 mg PO Q12H 12/27/18 12/27/18 History midostaurin 50 mg PO BIDM 12/27/18 12/27/18 History Patient History Medical History Ovarian cyst, left (Acute) removal Anemia (Acute) Leukemia (Acute) Surgical History History of cataract surgery (Acute) History of total hip arthroplasty (Acute) History of vascular access device (Acute) Family History Other No significant family history Social History marital status: Single Current Living Situation: Alone current occupational status: retired Feels Safe at Home: Yes Smoking Status: Never smoker Hx Alcohol Use: No Hx Substance Use: No Beliefs That Will Affect Care: None Communication Ability: Effective Review of Systems as stated per HPI Physical Exam 2 Vital Signs (Past 24 Hours): Last Vital Signs Temp 36.7 C 12/31/18 19:00 Pulse 71 12/31/18 19:00 Resp 18 12/31/18 19:00 BP 158/73 H 12/31/18 19:00 Pulse Ox 99 12/31/18 19:00 Gen: awake and alert NAD HEENT: Anicteric +pallor no erythema or exudate or mucositis Neck: no adenopathy Lungs: CTAB no wheezes or rhonchi CV: S1 S2 RRR Abd: +BS soft NT/ND no guarding or rebound Ext: 1+ edema Results & Data Laboratory Results on admission WBC 0.75 hgb 6.[address] 32 received PRBC transfusion on admission CBC today WBC 1.04 ANC0.08 HGB 8.[address] 19 Diagnostic Findings cxr 12/27/18 1. Asymmetric left basilar opacities suggest atelectasis or pneumonia. 2. Cardiomegaly without overt pulmonary edema. 3. Large hiatal hernia. 12/31/18 cxr 1. Progressive left lower lobe airspace opacities with a possible small left pleural effusion 2. Developing airspace opacities in the right lung apex. 3. Large hiatal hernia CT chest 1. Patchy consolidative and groundglass airspace opacities within the bilateral upper lobes likely represents a pneumonia. Continued chest x-ray follow-up is recommended to ensure resolution. 2. Interval development of small bilateral pleural effusions. Bibasilar consolidation is nonspecific but favors compressive atelectasis. 3. Stable cardiomegaly. 4. There are suggestion of a 5 mm nodule within the right middle lobe. Six- month chest CT follow-up recommended to ensure stability/resolution. 5. There is again noted a large hiatus hernia seen along the right lung base. Focal area of calcification along the posterior border of the gastroesophageal junction remains stable. This favors a diverticulum or less likely an old contained perforation given the stability. 6. Additional findings as described above.
[2018-12-31] MEDS: VORICONAZOLE 200 MG TABLET PO SCH (21:47)
[2019-01-01] MEDS: METOPROLOL TARTRATE 50 MG TAB PO SCH ×2 (08:44→21:07)
[2019-01-01] MEDS: AZITHROMYCIN 250 MG TAB PO SCH (08:44)
[2019-01-01] MEDS: FERROUS SULFATE 325 MG TAB PO SCH ×2 (08:44→21:07)
[2019-01-01] MEDS: ACYCLOVIR 400 MG TAB PO SCH ×2 (08:44→21:07)
[2019-01-01] MEDS: AMOXICILLIN/CLAVULANATE 875 MG TAB PO SCH ×2 (08:44→17:02)
[2019-01-01] MEDS: MULTIVITAMIN TAB PO SCH (08:44)
[2019-01-01] MEDS: [UNRECOGNIZED DRUG - REMARK] SCH ×2 (08:45→17:01)
[2019-01-01] MEDS: CALCIUM 600MG + VIT D 400 IU TAB PO SCH (08:45)
[2019-01-01] MEDS: VORICONAZOLE 200 MG TABLET PO SCH ×2 (08:45→21:07)
[2019-01-01] MEDS: DOCUSATE SODIUM/SENNA 50/8.6MG TAB PO SCH (08:45)
[2019-01-01] MEDS: ZINC OXIDE 16% 45 APPLN, HYDROCORTISONE 1% 45 APPLN, ALUMINUM/MAGNESIUM SUSP 15 ML, BAR... TOP PRN (08:46)
--- NOTE | 2019-01-01 09:51 | Gastrointestinal Consultation ---
Date of Consultation January 01, 2019 Assessment & Plan (1) Neutropenic fever: 83 year old female with AML admitted from home w/ severe pancytopenia, neutropenic fever, pneumonia - GI asked to evaluate for constipation, hemorrhiods, intrathoracic stomach. Imaging reviewed. Denies any UGI symptoms and is presently moving bowels given use of laxatives yesterday. 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 - No current role for endoscopy - Would recommend bowel regimen - Colace 100 mg twice daily - Miralax 1 capful one to two times daily - Add dietary fiber or PO metamucil - Trial of anusol suppository HS for a week - Intrathoracic stomach - Pt is asymptomatic - Can use Omeprazole 20 mg if needed - This is managed surgically - Discussed options with patient - Not interested in endoscopic evaluation or surgical intervention at this time GI to sign off. Thank you for allowing us to participate in the care of this patient. Please call with any acute changes, questions or concerns. Please see addendum below with additional recommendation from my supervising physician. Present on Admission?: Yes (2) Constipation: Present on Admission?: Yes Supervising Physician Co-Signing Physician Notes I performed a history and physical examination of the patient, including specifically on physical exam - soft, nontender abdomen. I have discussed the patient's management with Andreina. Please refer to the nurse practitioner's note for the documented findings and plan of care. GI consulted for constipation which resolved with Miralax and Prune juice. Also she has a known Hiatal hernia and management of hernia is solely surgical for which the patient is not interested as she is not symptomatic at this point. Recall GI if needed. History of Present Illness Reason for Consultation: constipation, hemorrhoids Requesting Physician: Catrachito Attending Physician: Jacobo Winston MD History of Present Illness 83 year old female w/ AML who present from home w/ fevers, admitted w/ neutropenic fever. GI was asked to evaluate for HH, constipation and hemorrhoids. Pt was seen and evaluated, chart reviewed. No family at bedside. Pt notes that she was going to be evaluated as an OP for HH. Notes she has had large HH for years. Not symptomatic. No epigastric pain. No GERD. No nausea, vomiting. Tolerates PO. No dysphagia. Has had bouts of constipation. Was moving bowels daily. Semi-formed. Over the past 1-2 weeks has had more formed stools w / straining. Notes return of hemorrhoids. Rectal pain/pressure. No bloody stools. Has dark stools on PO iron. Was given laxatives yesterday with good return and is moving bowels. No complaints. GI symptoms resolved. Today feels less weak. AM labs pending. No fever, chills, CP, SOB. CT Chest 12/31/18: There is again noted a large hiatus hernia seen along the right lung base. Focal area of calcification along the posterior border of the gastroesophageal junction remains stable. This could be due to a diverticulum or an old contained perforation given the stability. CT Chest 12/16/18: Intrathoracic stomach. Stable densely calcified 20 x 28 mm oval structure at the posterior gastric margin, possibly a degenerated leiomyoma or gastric diverticulum containing radiodense ingested contents. CT Chest 11/01/18: Moderate stool burden throughout the colon. Intrathoracic stomach. VCE 2014: normal EGD 2014: large HH, inlet patch, ring, duodenal lipoma Colonoscopy 2014: diverticulosis, angioectasia Colonoscopy 2012: diverticulosis, hemorrhoids, small polyp Colonosocpy 2011: diverticulsois, hemorrhiods, small polyps Colonoscopy 2007: polyp Allergies Allergy/AdvReac Type Severity Reaction Status Date / Time adhesive tape Allergy Unknown Verified 12/27/18 22:26 Home Medications Home Medications Medication Instructions Recorded Confirmed Type biotin 1 mg PO DAILY 10/31/18 12/27/18 History calcium carbonate-vitamin D3 1 tab PO DAILY 10/31/18 12/27/18 History [Calcium 600 + D(3)] multivitamin 1 tab PO QAM 10/31/18 12/27/18 History acyclovir [Zovirax] 400 mg PO BID 12/27/18 12/27/18 History ferrous sulfate 325 mg PO BID 12/27/18 12/27/18 History furosemide 10 mg PO Q2D PRN 12/27/18 12/27/18 History isavuconazonium sulfate 372 mg PO DAILY 12/27/18 12/27/18 History levofloxacin 500 mg PO DAILY 12/27/18 12/27/18 History loratadine 5 mg PO DAILY PRN 12/27/18 12/27/18 History lutein 20 mg PO DAILY 12/27/18 12/27/18 History metoprolol tartrate 50 mg PO Q12H 12/27/18 12/27/18 History midostaurin 50 mg PO BIDM 12/27/18 12/27/18 History Patient History Medical History Ovarian cyst, left (Acute) removal Anemia (Acute) Leukemia (Acute) Surgical History History of cataract surgery (Acute) History of total hip arthroplasty (Acute) History of vascular access device (Acute) Family History Other No significant family history Social History marital status: Single Current Living Situation: Alone current occupational status: retired Feels Safe at Home: Yes Smoking Status: Never smoker Hx Alcohol Use: No Hx Substance Use: No Beliefs That Will Affect Care: None Communication Ability: Effective Review of Systems Constitutional: + fatigue and + weakness; no fever and no chills Respiratory: no cough, no dyspnea, no hemoptysis and no wheezing Cardiovascular: no chest pain, no radiating jaw, neck or arm pain, no dyspnea on exertion and no palpitations Gastrointestinal: no abdominal pain, no belching, no early satiety, no heartburn and no vomiting Physical Exam 2 Vital Signs (Past 24 Hours): Last Vital Signs Temp 37.2 C 01/01/19 07:15 Pulse 68 01/01/19 07:15 Resp 16 01/01/19 07:15 BP 122/62 01/01/19 07:15 Pulse Ox 100 01/01/19 07:15 Constitutional: + thin, cooperative and comfortable; no acute distress Respiratory: normal respiratory effort, lungs clear to auscultation Cardiovascular: RRR, no murmur, no edema Gastrointestinal (Abdomen): normal bowel sounds, soft, nontender, no hepatosplenomegaly Skin: no rashes, warm and dry Results & Data Laboratory Results 01/01/19 01/01/19 Range/Units 09:26 09:26 WBC Pending RBC Pending Hgb Pending Hct Pending MCV Pending MCH Pending MCHC Pending Plt Count Pending Sodium Pending Potassium Pending Chloride Pending Carbon Dioxide Pending Anion Gap Pending BUN Pending Creatinine Pending Est Cr Clr Drug Dosing Pending Est GFR ( Amer) Pending Est GFR (Non-Af Amer) Pending BUN/Creatinine Ratio Pending Glucose Pending Calcium Pending
[2019-01-01 10:05] LABS: Hematocrit (blood only) 23.4 % (37-47); Hemoglobin 7.4 g/dL (12.0-16.0); Mean Corpuscular Hgb Conc 31.6 g/dL (32-36); Mean Corpuscular Volume 90.3 fL (80-100); Mean Platelet Volume 11.3 fL (7.4-10.4); Platelet Count 13 K/uL (130-400); RDW Coefficient of Variation 14.6 % (11.5-14.5); RDW Standard Deviation 47.7 fL (36.4-46.3); Red Blood Count 2.59 M/uL (4.2-5.4)
[2019-01-01 10:17] LABS: BUN Creatinine Ratio 33.9 (10-20); Calcium 7.6 mg/dl (8.5-10.1); Creatinine Clr Calc Pharmacy 91.1 ml/min; Est GFR (Non-African American) 95.8; Potassium 3.3 mmol/L (3.5-5.1)
[2019-01-01 10:22] LABS: Dohle Bodies 1+; Hypogranular Neutrophils 1+; Immature Granulocytes # (auto) 0.01 K/uL (0.00-0.02); Immature Granulocytes % (auto) 1.3 %; Lymphocytes # (auto) 0.71 K/uL (1.2-3.4); Lymphocytes % (auto) 88.8 %; Monocytes # (auto) 0.01 K/uL (0.11-0.59); Monocytes % (auto) 1.3 %; Neutrophils # (auto) 0.07 K/uL (1.4-6.5); Neutrophils % (auto) 8.6 %
[2019-01-01] MEDS ORDERED: POTASSIUM CHLORIDE 10 MEQ TABCR PO ONE (16:00)
--- NOTE | 2019-01-01 16:00 | Hospitalist Progress Note ---
Date of Service January 01, 2019 Assessment & Plan (1) Neutropenic fever: per Dr. Lunsford's Notes -finished 1 week of chemotherapyon 12/26/18. Temp at home was 100.6 �F -admission portable Chest x-ray reveals pneumonia "Cardiac silhouette is enlarged, unchanged. Large hiatal hernia, notably within the inferior right hemithorax. Right internal jugular catheter is noted with distal tip within the region of the inferior SVC. Lungs are hyperinflated without pneumothorax, large pleural effusion or overt pulmonary edema. Patchy ill-defined left basilar opacities are noted. The right lung appears generally clear. Degenerative changes of the shoulders and spine. Sigmoidal scoliosis of the thoracolumbar spine. IMPRESSION: 1. Asymmetric left basilar opacities suggest atelectasis or pneumonia. 2. Cardiomegaly without overt pulmonary edema. 3. Large hiatal hernia." empirically have been on cefepime 2 grams q12 hours from admission to 12/29/18 when being transitioned to Augmentin and Azithromycin for pneumonia coverage as admission blood cultures have been negative 2 view CXr on 12/29/18 with 1. Progressive left lower lobe airspace opacities with a possible small left pleural effusion 2. Developing airspace opacities in the right lung apex. 3. Large hiatal hernia 12/[address] chest: 1. Patchy consolidative and groundglass airspace opacities within the bilateral upper lobes likely represents a pneumonia. Continued chest x-ray follow-up is recommended to ensure resolution. 2. Interval development of small bilateral pleural effusions. Bibasilar consolidation is nonspecific but favors compressive atelectasis. 3. Stable cardiomegaly. 4. There are suggestion of a 5 mm nodule within the right middle lobe. Six- month chest CT follow-up recommended to ensure stability/resolution. 5. There is again noted a large hiatus hernia seen along the right lung base. Focal area of calcification along the posterior border of the gastroesophageal junction remains stable. This favors a diverticulum or less likely an old contained perforation given the stability. 6. Additional findings as described above. -- ID consulted respiratory status stable continue Augmentin and Azithromycin -holding chronic Levaquin 500 mg daily while on respiratory antibiotics as above - Acyclovir continued -holding Isavuconazonium for now--> Voriconazole started (2) Pneumonia: Acute on Chronic Respiratory Failure Treatment as above. - may need 2 step exercise test (3) AML (acute myeloblastic leukemia): had recently finished 5 days of chemotherapy as outpatient prior to hospital presentation. She was planned to start taking Midostaurin as outpatient but this has been held per oncology -- Oncologist consulted -- CBC: counts lower today will monitor closely (4) Pancytopenia: admission hemoglobin 6.3 and s/p 2 units of PRBC on this admission with Hgb stabilized at 8 admission thrombocytopenia, 21K neutropenia, neutropenic precautions, on antibiotics as above, White blood cell counts are rising from 750 on admission - Hem/Onc consulted -- CBC: counts lower today will monitor closely -- no signs of bleeding Constipation - added Colace BID, Miralax, Metamucil External hemorrhoids - Anusol HS x 1 week (5) DVT prophylaxis: SCD disposition: pending PT/OT in progress Code Status: DO NOT RESUSCITATE Subjective ff up for neutropenic fever, pneumonia resting in bed, not in distress states she feeels about the same feels tired denies dyspnea , cough, chest pain no bleeding (+) BMs less pain due to hemorrhoids no other symptoms Physical Exam 2 Vital Signs (Past 24 Hours): Last Vital Signs Temp 37.1 C 01/01/19 11:58 Pulse 67 01/01/19 11:58 Resp 16 01/01/19 11:58 BP 126/68 01/01/19 11:58 Pulse Ox 89 L 01/01/19 14:43 Physical Exam: General- oriented x 3, not in distress, speaks in sentences with no effort or accessory muscle use Eyes- anicteric Neck- no JVD Lungs- clear BS BL Heart- normal rate, regular rhythm; no murmurs Abdomen- normal bowel sounds, nondistended, soft, nontender Extremities- trace pretibial edema, no calf tenderness Neuro- alert, oriented x 3; no gross focal neurologic deficits Skin- warm & dry Results & Data Laboratory Results Laboratory Results - last 24 hr 01/01/19 01/01/19 09:26 09:26 WBC 0.80 L* RBC 2.59 L Hgb 7.4 L Hct 23.4 L MCV 90.3 MCH 28.6 MCHC 31.6 L RDW Std Deviation 47.7 H RDW Coeff of Rangel 14.6 H Plt Count 13 L* MPV 11.3 H Immature Gran % (Auto) 1.3 Neut % (Auto) 8.6 Lymph % (Auto) 88.8 Lucas % (Auto) 1.3 Eos % (Auto) 0.0 Baso % (Auto) 0.0 Immature Gran # (Auto) 0.01 Neut # (Auto) 0.07 L* Lymph # (Auto) 0.71 L Lucas # (Auto) 0.01 L Eos # (Auto) 0.00 Baso # (Auto) 0.00 Hypogranular Neuts 1+ Dohle Bodies 1+ Sodium 143 Potassium 3.3 L Chloride 103 Carbon Dioxide 35 H Anion Gap 6.0 BUN 13 Creatinine 0.39 L Est Cr Clr Drug Dosing 91.1 Est GFR ( Amer) 111.0 Est GFR (Non-Af Amer) 95.8 BUN/Creatinine Ratio 33.9 H Glucose 105 H Calcium 7.6 L _ (1) Pneumonia Aspiration pneumonia type: Laterality: left Lung location: lower lobe of lung Pneumonia type: due to unspecified organism Qualified Code(s): J18.1 - Lobar pneumonia, unspecified organism (2) AML (acute myeloblastic leukemia) Leukemia Active/Remission status: without remission Qualified Code(s): C92.00 - Acute myeloblastic leukemia, not having achieved remission
[2019-01-01] MEDS: POLYETHYLENE (MIRALAX) 17 GM PACK PO SCH ×2 (17:01→17:30)
[2019-01-01] MEDS ORDERED: FUROSEMIDE 20 MG in SYRINGE 0 ML IV SCH (18:00)
[2019-01-01] MEDS: DOCUSATE SODIUM 100 MG CAP PO SCH (21:08)
[2019-01-01] MEDS: HYDROCORTISONE ACETATE 25 MG SUPP PR SCH (21:08)
[2019-01-02] MEDS: [UNRECOGNIZED DRUG - REMARK] SCH ×3 (00:20→16:04)
[2019-01-02 06:53] LABS: Hematocrit (blood only) 26.4 % (37-47); Hemoglobin 8.6 g/dL (12.0-16.0); Mean Corpuscular Hgb Conc 32.6 g/dL (32-36); Mean Corpuscular Volume 89.2 fL (80-100); Mean Platelet Volume 11.3 fL (7.4-10.4); Platelet Count 12 K/uL (130-400); RDW Coefficient of Variation 15.6 % (11.5-14.5); RDW Standard Deviation 50.2 fL (36.4-46.3); Red Blood Count 2.96 M/uL (4.2-5.4)
[2019-01-02 07:11] LABS: BUN Creatinine Ratio 27.7 (10-20); Calcium 7.9 mg/dl (8.5-10.1); Est GFR (African American) 103.7; Est GFR (Non-African American) 89.4; Potassium 3.6 mmol/L (3.5-5.1)
[2019-01-02 07:22] LABS: Giant Platelets 2+; Hypogranular Neutrophils 2+
[2019-01-02 07:36] LABS: ALC (manual) 0.87 K/uL (1.2-3.4); Blast # (manual) 0.02 K/uL (0-0); Blast Cells % (manual) 1.7 %; Lymphocytes # (manual) 0.87 K/uL (1.2-3.4); Lymphocytes % (manual) 96.6 %; Neutrophils % (manual) 1.7 %
[2019-01-02] MEDS: AMOXICILLIN/CLAVULANATE 875 MG TAB PO SCH ×2 (09:50→17:35)
[2019-01-02] MEDS: ACYCLOVIR 400 MG TAB PO SCH ×2 (09:51→22:00)
[2019-01-02] MEDS: METOPROLOL TARTRATE 50 MG TAB PO SCH ×2 (09:51→21:58)
[2019-01-02] MEDS: AZITHROMYCIN 250 MG TAB PO SCH (09:51)
[2019-01-02] MEDS: CALCIUM 600MG + VIT D 400 IU TAB PO SCH (09:51)
[2019-01-02] MEDS: FERROUS SULFATE 325 MG TAB PO SCH ×2 (09:51→21:59)
[2019-01-02] MEDS: VORICONAZOLE 200 MG TABLET PO SCH ×2 (09:51→21:59)
[2019-01-02] MEDS: MULTIVITAMIN TAB PO SCH (09:51)
[2019-01-02] MEDS: PSYLLIUM 58.6% POWDER PACKET PO SCH (09:52)
[2019-01-02] MEDS: POLYETHYLENE (MIRALAX) 17 GM PACK PO SCH (09:52)
[2019-01-02] MEDS: DOCUSATE SODIUM/SENNA 50/8.6MG TAB PO SCH (09:52)
[2019-01-02] MEDS: DOCUSATE SODIUM 100 MG CAP PO SCH ×2 (09:52→21:54)
--- NOTE | 2019-01-02 17:25 | Hospitalist Progress Note ---
Date of Service January 02, 2019 Assessment & Plan (1) Neutropenic fever: per Dr. Lunsford's Notes -finished 1 week of chemotherapyon 12/26/18. Temp at home was 100.6 �F -admission portable Chest x-ray reveals pneumonia "Cardiac silhouette is enlarged, unchanged. Large hiatal hernia, notably within the inferior right hemithorax. Right internal jugular catheter is noted with distal tip within the region of the inferior SVC. Lungs are hyperinflated without pneumothorax, large pleural effusion or overt pulmonary edema. Patchy ill-defined left basilar opacities are noted. The right lung appears generally clear. Degenerative changes of the shoulders and spine. Sigmoidal scoliosis of the thoracolumbar spine. IMPRESSION: 1. Asymmetric left basilar opacities suggest atelectasis or pneumonia. 2. Cardiomegaly without overt pulmonary edema. 3. Large hiatal hernia." empirically have been on cefepime 2 grams q12 hours from admission to 12/29/18 when being transitioned to Augmentin and Azithromycin for pneumonia coverage as admission blood cultures have been negative 2 view CXr on 12/29/18 with 1. Progressive left lower lobe airspace opacities with a possible small left pleural effusion 2. Developing airspace opacities in the right lung apex. 3. Large hiatal hernia 12/[address] chest: 1. Patchy consolidative and groundglass airspace opacities within the bilateral upper lobes likely represents a pneumonia. Continued chest x-ray follow-up is recommended to ensure resolution. 2. Interval development of small bilateral pleural effusions. Bibasilar consolidation is nonspecific but favors compressive atelectasis. 3. Stable cardiomegaly. 4. There are suggestion of a 5 mm nodule within the right middle lobe. Six- month chest CT follow-up recommended to ensure stability/resolution. 5. There is again noted a large hiatus hernia seen along the right lung base. Focal area of calcification along the posterior border of the gastroesophageal junction remains stable. This favors a diverticulum or less likely an old contained perforation given the stability. 6. Additional findings as described above. -- ID consulted respiratory status stable continue Augmentin and Azithromycin x 2 more days -holding chronic Levaquin 500 mg daily while on respiratory antibiotics as above - Acyclovir continued -holding Isavuconazonium for now--> Voriconazole started (2) Pneumonia: Acute on Chronic Respiratory Failure Treatment as above. - may need 2 step exercise test (3) AML (acute myeloblastic leukemia): had recently finished 5 days of chemotherapy as outpatient prior to hospital presentation. She was planned to start taking Midostaurin as outpatient but this has been held per oncology -- Oncologist consulted -- CBC: Hg improved after transfusion will monitor closely (4) Pancytopenia: admission hemoglobin 6.3 and s/p 2 units of PRBC on this admission with Hgb stabilized at 8 admission thrombocytopenia, 21K neutropenia, neutropenic precautions, on antibiotics as above, White blood cell counts are rising from 750 on admission - Hem/Onc consulted -- CBC: Hg improved after transfusion of 1 unit pRBC will monitor closely -- no signs of bleeding Constipation - added Colace BID, Miralax, Metamucil - (+) BMs External hemorrhoids - Anusol HS x 1 week - rectal pain improved (5) DVT prophylaxis: SCDs disposition: PT/OT recommend d/c home anticipate d/c home when medically stable Code Status: DO NOT RESUSCITATE Subjective ff up for neutropenic fever, pneumonia resting in bed, sitting up comfortable in good spirits states she still feels "limp" but otherwise feels fine no dyspnea, cough (+) BMs no other symptoms Physical Exam 2 Vital Signs (Past 24 Hours): Last Vital Signs Temp 36.9 C 01/02/19 16:33 Pulse 67 01/02/19 16:33 Resp 19 01/02/19 16:33 BP 124/72 01/02/19 16:33 Pulse Ox 99 01/02/19 16:33 Physical Exam: General- oriented x 3, not in distress, speaks in sentences with no effort or accessory muscle use Eyes- anicteric Neck- no JVD Lungs- clear BS BL, no rales, no wheezing Heart- normal rate, regular rhythm; no murmurs Abdomen- normal bowel sounds, nondistended, soft, nontender Extremities- no pretibial edema, no calf tenderness Neuro- alert, oriented x 3; no gross focal neurologic deficits Skin- warm & dry Results & Data Laboratory Results Laboratory Results - last 24 hr 12/27/18 01/01/19 01/02/19 17:49 17:48 06:02 WBC 0.90 L* RBC 2.96 L Hgb 8.6 L Hct 26.4 L MCV 89.2 MCH 29.1 MCHC 32.6 RDW Std Deviation 50.2 H RDW Coeff of Rangel 15.6 H Plt Count 12 L* MPV 11.3 H Neutrophils % (Manual) 1.7 Lymphocytes % (Manual) 96.6 Blast Cells % (Manual) 1.7 Neutrophils # (Manual) 0.02 L Total Absolute Neuts 0.02 L* Lymphocytes # (Manual) 0.87 L Total Abs Lymphocytes 0.87 L Blast Cells # (Man) 0.02 H Hypogranular Neuts 2+ Giant Platelets 2+ Sodium Potassium Chloride Carbon Dioxide Anion Gap BUN Creatinine Est Cr Clr Drug Dosing Est GFR ( Amer) Est GFR (Non-Af Amer) BUN/Creatinine Ratio Glucose Calcium Blood Type AB Positive Antibody Screen NEGATIVE Crossmatch See Detail See Detail 01/02/19 06:02 WBC RBC Hgb Hct MCV MCH MCHC RDW Std Deviation RDW Coeff of Ranegl Plt Count MPV Neutrophils % (Manual) Lymphocytes % (Manual) Blast Cells % (Manual) Neutrophils # (Manual) Total Absolute Neuts Lymphocytes # (Manual) Total Abs Lymphocytes Blast Cells # (Man) Hypogranular Neuts Giant Platelets Sodium 143 Potassium 3.6 Chloride 105 Carbon Dioxide 37 H Anion Gap 1.0 L BUN 13 Creatinine 0.48 L Est Cr Clr Drug Dosing 74.0 Est GFR ( Amer) 103.7 Est GFR (Non-Af Amer) 89.4 BUN/Creatinine Ratio 27.7 H Glucose 91 Calcium 7.9 L Blood Type Antibody Screen Crossmatch _ (1) Pneumonia Aspiration pneumonia type: Laterality: left Lung location: lower lobe of lung Pneumonia type: due to unspecified organism Qualified Code(s): J18.1 - Lobar pneumonia, unspecified organism (2) AML (acute myeloblastic leukemia) Leukemia Active/Remission status: without remission Qualified Code(s): C92.00 - Acute myeloblastic leukemia, not having achieved remission
[2019-01-02] MEDS: HYDROCORTISONE ACETATE 25 MG SUPP PR SCH (21:58)
[2019-01-03] MEDS: [UNRECOGNIZED DRUG - REMARK] SCH ×3 (00:50→16:30)
[2019-01-03] MEDS: HEPARIN 100 UNIT/ML 5ML FLUSH FLUSH PRN (05:59)
[2019-01-03 06:43] LABS: Hematocrit (blood only) 24.1 % (37-47); Hemoglobin 7.9 g/dL (12.0-16.0); Mean Corpuscular Hgb Conc 32.8 g/dL (32-36); Mean Corpuscular Volume 89.9 fL (80-100); Mean Platelet Volume 11.5 fL (7.4-10.4); Platelet Count 9 K/uL (130-400); RDW Coefficient of Variation 15.4 % (11.5-14.5); RDW Standard Deviation 50.1 fL (36.4-46.3); Red Blood Count 2.68 M/uL (4.2-5.4); White Blood Count 0.96 K/uL (4.8-10.8)
[2019-01-03 07:01] LABS: BUN Creatinine Ratio 30.8 (10-20); Calcium 7.8 mg/dl (8.5-10.1); Est GFR (African American) 112.9; Est GFR (Non-African American) 97.4; Potassium 3.7 mmol/L (3.5-5.1)
[2019-01-03 07:30] LABS: Hypogranular Neutrophils 1+; Lymphocytes # (auto) 0.93 K/uL (1.2-3.4); Lymphocytes % (auto) 96.9 %; Monocytes # (auto) 0.01 K/uL (0.11-0.59); Neutrophils # (auto) 0.02 K/uL (1.4-6.5); Neutrophils % (auto) 2.1 %
[2019-01-03] MEDS: METOPROLOL TARTRATE 50 MG TAB PO SCH ×2 (08:30→20:17)
[2019-01-03] MEDS: ACYCLOVIR 400 MG TAB PO SCH ×2 (08:30→20:18)
[2019-01-03] MEDS: VORICONAZOLE 200 MG TABLET PO SCH ×2 (08:30→20:19)
[2019-01-03] MEDS: AZITHROMYCIN 250 MG TAB PO SCH (08:31)
[2019-01-03] MEDS: CALCIUM 600MG + VIT D 400 IU TAB PO SCH (08:31)
[2019-01-03] MEDS: FERROUS SULFATE 325 MG TAB PO SCH ×2 (08:31→20:18)
[2019-01-03] MEDS: AMOXICILLIN/CLAVULANATE 875 MG TAB PO SCH ×2 (08:32→16:31)
[2019-01-03] MEDS: MULTIVITAMIN TAB PO SCH (08:33)
[2019-01-03] MEDS: PSYLLIUM 58.6% POWDER PACKET PO SCH (08:33)
[2019-01-03] MEDS: DOCUSATE SODIUM 100 MG CAP PO SCH ×2 (08:36→20:17)
[2019-01-03] MEDS: POLYETHYLENE (MIRALAX) 17 GM PACK PO SCH (08:36)
[2019-01-03] MEDS: DOCUSATE SODIUM/SENNA 50/8.6MG TAB PO SCH (08:37)
[2019-01-03] MEDS ORDERED: SODIUM CHLORIDE 0.9% 250 ML IV PRN (10:50)
[2019-01-03] MEDS ORDERED: FUROSEMIDE 20 MG in SYRINGE 0 ML IV SCH (12:00)
--- NOTE | 2019-01-03 13:44 | Hospitalist Progress Note ---
Date of Service January 03, 2019 Assessment & Plan (1) Neutropenic fever: per Dr. Lunsford's Notes -finished 1 week of chemotherapyon 12/26/18. Temp at home was 100.6 �F -admission portable Chest x-ray reveals pneumonia "Cardiac silhouette is enlarged, unchanged. Large hiatal hernia, notably within the inferior right hemithorax. Right internal jugular catheter is noted with distal tip within the region of the inferior SVC. Lungs are hyperinflated without pneumothorax, large pleural effusion or overt pulmonary edema. Patchy ill-defined left basilar opacities are noted. The right lung appears generally clear. Degenerative changes of the shoulders and spine. Sigmoidal scoliosis of the thoracolumbar spine. IMPRESSION: 1. Asymmetric left basilar opacities suggest atelectasis or pneumonia. 2. Cardiomegaly without overt pulmonary edema. 3. Large hiatal hernia." empirically have been on cefepime 2 grams q12 hours from admission to 12/29/18 when being transitioned to Augmentin and Azithromycin for pneumonia coverage as admission blood cultures have been negative 2 view CXr on 12/29/18 with 1. Progressive left lower lobe airspace opacities with a possible small left pleural effusion 2. Developing airspace opacities in the right lung apex. 3. Large hiatal hernia 12/[address] chest: 1. Patchy consolidative and groundglass airspace opacities within the bilateral upper lobes likely represents a pneumonia. Continued chest x-ray follow-up is recommended to ensure resolution. 2. Interval development of small bilateral pleural effusions. Bibasilar consolidation is nonspecific but favors compressive atelectasis. 3. Stable cardiomegaly. 4. There are suggestion of a 5 mm nodule within the right middle lobe. Six- month chest CT follow-up recommended to ensure stability/resolution. 5. There is again noted a large hiatus hernia seen along the right lung base. Focal area of calcification along the posterior border of the gastroesophageal junction remains stable. This favors a diverticulum or less likely an old contained perforation given the stability. 6. Additional findings as described above. -- ID consulted respiratory status stable continue Augmentin and Azithromycin x 1 more day -holding chronic Levaquin 500 mg daily while on respiratory antibiotics as above - Acyclovir continued -holding Isavuconazonium for now--> Voriconazole started (2) Pneumonia: Acute on Chronic Respiratory Failure Treatment as above. - may need 2 step exercise test (3) AML (acute myeloblastic leukemia): had recently finished 5 days of chemotherapy as outpatient prior to hospital presentation. She was planned to start taking Midostaurin as outpatient but this has been held per oncology -- Oncologist consulted -- CBC: Hg 7.9, Plt 9k 1 unit PRBC and 1 unit Plt ordered (4) Pancytopenia: admission hemoglobin 6.3 and s/p 2 units of PRBC on this admission with Hgb stabilized at 8 admission thrombocytopenia, 21K neutropenia, neutropenic precautions, on antibiotics as above, White blood cell counts are rising from 750 on admission - Hem/Onc consulted -- CBC: Hg 7.9, Plt 9k 1 unit PRBC and 1 unit Plt ordered -- no signs of bleeding Constipation - added Colace BID, Miralax, Metamucil - (+) BMs External hemorrhoids - Anusol HS x 1 week - rectal pain improved (5) DVT prophylaxis: SCDs disposition: PT/OT recommend d/c home anticipate d/c home when medically stable Code Status: DO NOT RESUSCITATE Subjective ff up for neutropenic fever, pneumonia resting in bed, sitting up reading the papers in good spirits states she feels about the same denies dyspnea, chest pain, dizziness no bleeding (+) BMs no other symptoms Physical Exam 2 Vital Signs (Past 24 Hours): Last Vital Signs Temp 37.1 C 01/03/19 13:42 Pulse 68 01/03/19 13:42 Resp 18 01/03/19 13:42 BP 145/65 H 01/03/19 13:42 Pulse Ox 98 01/03/19 13:42 Physical Exam: General- oriented x 3, not in distress, speaks in sentences with no effort or accessory muscle use Eyes- anicteric Neck- no JVD Lungs- clear BS BL Heart- normal rate, regular rhythm; no murmurs Abdomen- normal bowel sounds, nondistended, soft, nontender Extremities- trace lower leg edema, no calf tenderness Neuro- alert, oriented x 3; no gross focal neurologic deficits Skin- warm & dry _ (1) AML (acute myeloblastic leukemia) Leukemia Active/Remission status: without remission Qualified Code(s): C92.00 - Acute myeloblastic leukemia, not having achieved remission (2) Pneumonia Aspiration pneumonia type: Laterality: left Lung location: lower lobe of lung Pneumonia type: due to unspecified organism Qualified Code(s): J18.1 - Lobar pneumonia, unspecified organism
[2019-01-03] MEDS: HYDROCORTISONE ACETATE 25 MG SUPP PR SCH (20:21)
[2019-01-04] MEDS: [UNRECOGNIZED DRUG - REMARK] SCH ×3 (00:09→12:36)
[2019-01-04] MEDS: HEPARIN 100 UNIT/ML 5ML FLUSH FLUSH PRN (05:47)
[2019-01-04 06:33] LABS: Hematocrit (blood only) 27.4 % (37-47); Hemoglobin 8.8 g/dL (12.0-16.0); Mean Corpuscular Hgb Conc 32.1 g/dL (32-36); Mean Platelet Volume 11.1 fL (7.4-10.4); Platelet Count 19 K/uL (130-400); RDW Coefficient of Variation 15.3 % (11.5-14.5); RDW Standard Deviation 49.6 fL (36.4-46.3); Red Blood Count 3.08 M/uL (4.2-5.4); White Blood Count 0.94 K/uL (4.8-10.8)
[2019-01-04 06:51] LABS: BUN Creatinine Ratio 30.4 (10-20); Creatinine Clr Calc Pharmacy 84.6 ml/min; Est GFR (African American) 108.3; Est GFR (Non-African American) 93.5; Potassium 3.5 mmol/L (3.5-5.1)
[2019-01-04 07:26] LABS: Giant Platelets 1+; Hypogranular Neutrophils 1+; Lymphocytes # (auto) 0.93 K/uL (1.2-3.4); Lymphocytes % (auto) 94.9 %; Neutrophils # (auto) 0.05 K/uL (1.4-6.5); Neutrophils % (auto) 5.1 %
[2019-01-04] MEDS: VORICONAZOLE 200 MG TABLET PO SCH ×2 (09:58→21:36)
[2019-01-04] MEDS: POLYETHYLENE (MIRALAX) 17 GM PACK PO SCH (09:58)
--- NOTE | 2019-01-04 09:58 | Magnetic Resonance Report ---
MR brain wo con HISTORY: Mental status change r/o cva TECHNIQUE: Multiplanar multisequence MRI of the brain was performed without the use of contrast. COMPARISON STUDY: None. FINDINGS: Diffusion images demonstrate vague small foci of increased signal superior right parietal l obe. This is superimposed upon considerable chronic small vessel change. Atrophy is present throughou t. Ventricular system is midline. Opacification of the mastoid air cells bilaterally. IMPRESSION: 1. Small punctate subacute infarcts right superior parietal lobe/right periventricular region. 2. This is superimposed upon considerable chronic small vessel change as well as cerebral atrophy. 3. Otherwise negative study. 4. Incidental note is made of opacification of the mastoid air cells bilaterally.. The above report was generated using voice recognition software. It may contain grammatical, syntax or spelling errors. Electronically signed by: Migue Ford M.D. 01/04/2019 9:57 AM
[2019-01-04] MEDS: CALCIUM 600MG + VIT D 400 IU TAB PO SCH (09:59)
[2019-01-04] MEDS: PSYLLIUM 58.6% POWDER PACKET PO SCH (09:59)
[2019-01-04] MEDS: ACYCLOVIR 400 MG TAB PO SCH ×2 (09:59→21:38)
[2019-01-04] MEDS: MULTIVITAMIN TAB PO SCH (10:00)
[2019-01-04] MEDS: DOCUSATE SODIUM 100 MG CAP PO SCH ×2 (10:00→21:38)
[2019-01-04] MEDS: AMOXICILLIN/CLAVULANATE 875 MG TAB PO SCH ×2 (10:00→17:06)
[2019-01-04] MEDS: METOPROLOL TARTRATE 50 MG TAB PO SCH ×2 (10:00→21:36)
[2019-01-04] MEDS: FERROUS SULFATE 325 MG TAB PO SCH ×2 (10:01→21:37)
[2019-01-04] MEDS: DOCUSATE SODIUM/SENNA 50/8.6MG TAB PO SCH (10:02)
--- NOTE | 2019-01-04 12:08 | Neurology Consultation ---
Date of Consultation January 04, 2019 Encephalopathy AML s/p Chemo Pancytopenia DNR Neuropenic Fever Pneumonia An 83 year old woman admitted on for neutropenic fever and pneumonia s/p chemotherapy. ID consulted and placed placed on broadspectrum antimicrobials for pancytopenia. She did not require transfusion for low hemoglobin. Her platelet count is 19,000 today. MRI was performed for encephalopathy and showed subacute punctate infarcts in right MCA territory. Neurology consulted for stroke. - MRI brain shows subtle diffusion restriction in right parietal perventricular region superimposed on chronic microvascular ischemic changes. Study is limited as there is no axial T2 FLAIR or NO contrast study. Possibly an incidental findings although patient states she noted left facial weakness earlier in the week. Most likely a subacte ischemic stroke. - No focal deficits noted at this time. Patient is NOT encephalopathic at this time. - Patients with AML have an elevated risk of CVA, and mortality in this population is high. - Patient does not appear to be a good candidate for antiplatlet therapy or anticoagulation due to severe pancytopenia. However, I would run this by Hem/ Onc to see if they are in agreement. - Recommend Carotid US and TTE with shunt study. - Telemetry - May benefit from repeat MRI brain with contrast as outpatient. Neurology will continue to follow. History of Present Illness Attending Physician: Jacobo Winston MD A 83 year old woman admited on 12/27/2018 for neuropenic fever and pneumonia s/p chemotherapy last week for her AML. ID, hemo/onc, and GI consulted on admission. Patient required 2 units of PRBCs for low hemoglobin. Also found to be pancytopenic with paltlet count < 50,000. MRI was completd during her stay for altered mental status and shows subacute right parietal and right perventricular stroke. Neurology consulted for further recommendations. Patient reports feeling left facial droop early in the week. Also noted her teeth chattering. Denies history of stroke, NV, or DVT. She was a former smoker but quit many years ago. She reports feeling ok Now. Remains optimistic. Allergies Allergy/AdvReac Type Severity Reaction Status Date / Time adhesive tape Allergy Unknown Verified 12/27/18 22:26 Home Medications Home Medications Medication Instructions Recorded Confirmed Type biotin 1 mg PO DAILY 10/31/18 12/27/18 History calcium carbonate-vitamin D3 1 tab PO DAILY 10/31/18 12/27/18 History [Calcium 600 + D(3)] multivitamin 1 tab PO QAM 10/31/18 12/27/18 History acyclovir [Zovirax] 400 mg PO BID 12/27/18 12/27/18 History ferrous sulfate 325 mg PO BID 12/27/18 12/27/18 History furosemide 10 mg PO Q2D PRN 12/27/18 12/27/18 History isavuconazonium sulfate 372 mg PO DAILY 12/27/18 12/27/18 History levofloxacin 500 mg PO DAILY 12/27/18 12/27/18 History loratadine 5 mg PO DAILY PRN 12/27/18 12/27/18 History lutein 20 mg PO DAILY 12/27/18 12/27/18 History metoprolol tartrate 50 mg PO Q12H 12/27/18 12/27/18 History midostaurin 50 mg PO BIDM 12/27/18 12/27/18 History Patient History Medical History Ovarian cyst, left (Acute) removal Anemia (Acute) Leukemia (Acute) Surgical History History of cataract surgery (Acute) History of total hip arthroplasty (Acute) History of vascular access device (Acute) Family History Other No significant family history Social History marital status: Single Current Living Situation: Alone current occupational status: retired Feels Safe at Home: Yes Smoking Status: Never smoker Hx Alcohol Use: No Hx Substance Use: No Beliefs That Will Affect Care: None Communication Ability: Effective Physical Exam 2 Vital Signs (Past 24 Hours): Last Vital Signs Temp 36.7 C 01/04/19 11:51 Pulse 77 01/04/19 11:51 Resp 18 01/04/19 11:51 BP 136/72 01/04/19 11:51 Pulse Ox 99 01/04/19 11:51 Physical Exam: EXAM: Constitutional: pleasant seated in bed talking on the phone, no distress, thin appearing female Head and Face: normocephalic and atraumatic Eyes: normal lids, normal conjunctiva Neck: supple Respiratory: normal effort Cardiovascular: normal pulses Abdomen: mildly distended Skin: no rashes, lesions, or ulcers noted Psychiatric: normal mood and normal affect NEUROLOGIC EXAMINATION: Appearance: no acute distress Orientation: awake, alert and oriented x 3 Mental Status: alert Memory: Good Attention: normal Knowledge: appropriate Language: no aphasia Speech: no dysarthria Cranial Nerves: CN 2 - no visual defect on confrontation and pupils round, equal, reactive to light CN 3, 4, 6 - extra-ocular movements intact and no nystagmus CN 5 - facial sensation intact CN 7 - no facial asymmetry CN 8 - intact hearing CN 9, 10 - palate symmetric CN 11 - good shoulder shrug CN 12 - tongue midline Gait: deferred Coordination: some mild ataxia with finger to nose bilateral Sensory: intact to light touch, no extinction Muscle Tone: normal Muscle exam: Reflexes: No clonus. negative saenz bilateral
[2019-01-04] MEDS ORDERED: PHARMACIST DISCHARGE MED REC CONSULT PRN (12:53)
--- NOTE | 2019-01-04 12:56 | Hospitalist Progress Note ---
Date of Service January 04, 2019 Assessment & Plan (1) Neutropenic fever: per Dr. Lunsford's Notes -finished 1 week of chemotherapyon 12/26/18. Temp at home was 100.6 �F -admission portable Chest x-ray reveals pneumonia "Cardiac silhouette is enlarged, unchanged. Large hiatal hernia, notably within the inferior right hemithorax. Right internal jugular catheter is noted with distal tip within the region of the inferior SVC. Lungs are hyperinflated without pneumothorax, large pleural effusion or overt pulmonary edema. Patchy ill-defined left basilar opacities are noted. The right lung appears generally clear. Degenerative changes of the shoulders and spine. Sigmoidal scoliosis of the thoracolumbar spine. IMPRESSION: 1. Asymmetric left basilar opacities suggest atelectasis or pneumonia. 2. Cardiomegaly without overt pulmonary edema. 3. Large hiatal hernia." empirically have been on cefepime 2 grams q12 hours from admission to 12/29/18 when being transitioned to Augmentin and Azithromycin for pneumonia coverage as admission blood cultures have been negative 2 view CXr on 12/29/18 with 1. Progressive left lower lobe airspace opacities with a possible small left pleural effusion 2. Developing airspace opacities in the right lung apex. 3. Large hiatal hernia 12/[address] chest: 1. Patchy consolidative and groundglass airspace opacities within the bilateral upper lobes likely represents a pneumonia. Continued chest x-ray follow-up is recommended to ensure resolution. 2. Interval development of small bilateral pleural effusions. Bibasilar consolidation is nonspecific but favors compressive atelectasis. 3. Stable cardiomegaly. 4. There are suggestion of a 5 mm nodule within the right middle lobe. Six- month chest CT follow-up recommended to ensure stability/resolution. 5. There is again noted a large hiatus hernia seen along the right lung base. Focal area of calcification along the posterior border of the gastroesophageal junction remains stable. This favors a diverticulum or less likely an old contained perforation given the stability. 6. Additional findings as described above. -- ID consulted respiratory status stable continue Augmentin and Azithromycin - last day today -holding chronic Levaquin 500 mg daily while on respiratory antibiotics as above - Acyclovir continued -holding Isavuconazonium for now--> Voriconazole started (2) Pneumonia: Acute on Chronic Respiratory Failure Treatment as above. - may need 2 step exercise test (3) AML (acute myeloblastic leukemia): had recently finished 5 days of chemotherapy as outpatient prior to hospital presentation. She was planned to start taking Midostaurin as outpatient but this has been held per oncology -- Oncologist consulted -- CBC: Hg 7.9, Plt 9k 1 unit PRBC and 1 unit Plt ordered -- Hg and Plt improved (4) Pancytopenia: admission hemoglobin 6.3 and s/p 2 units of PRBC on this admission with Hgb stabilized at 8 admission thrombocytopenia, 21K neutropenia, neutropenic precautions, on antibiotics as above, White blood cell counts are rising from 750 on admission - Hem/Onc consulted -- CBC: Hg 7.9, Plt 9k 1 unit PRBC and 1 unit Plt ordered Hg and Plt improved -- no signs of bleeding Constipation - added Colace BID, Miralax, Metamucil - (+) BMs External hemorrhoids - Anusol HS x 1 week - rectal pain improved (5) CVA (cerebral vascular accident): reporting left vision blurriness, left sided hearing impairment, left sided facial droop history of SVC during admission in [place] 10/19 brain MRI: punctate infarcts right parietal area symptoms resolved, except for mild blurriness, left eye Neuro consulted Carotid US and TTE with shunt ordered antiplatelets contraindicated due to severe thrombocytopenia will also discuss with Hem/Onc (6) DVT prophylaxis: SCDs disposition: PT/OT recommend d/c home anticipate d/c home when medically stable Code Status: DO NOT RESUSCITATE Subjective ff up for neutropenic fever, pneumonia seen resting in bed, doing puzzles states she feels about the same patient is conversant, animated, comfortable still has some left vision "blurriness", hearing back to baseline, denies new neuro changes denies chest pain, dyspnea, dizziness, bleeding still has some pain from hemorrhoids no other symptoms Physical Exam 2 Vital Signs (Past 24 Hours): Last Vital Signs Temp 36.7 C 01/04/19 11:51 Pulse 77 01/04/19 11:51 Resp 18 01/04/19 11:51 BP 136/72 01/04/19 11:51 Pulse Ox 99 01/04/19 11:51 Physical Exam: General- oriented x 3, not in distress, speaks in sentences with no effort or accessory muscle use Eyes- anicteric Neck- no JVD Lungs- clear breath sounds bilaterally Heart- normal rate, regular rhythm; no murmurs Abdomen- normal bowel sounds, nondistended, soft, nontender Extremities- no pretibial edema, no calf tenderness Neuro- alert, oriented x 3; CN 2-12 grossly intact, motor 5/5, sensation 100%, no gross focal neurologic deficits Skin- warm & dry Results & Data Laboratory Results Laboratory Results - last 24 hr 01/04/19 01/04/19 05:47 05:47 WBC 0.94 L* RBC 3.08 L Hgb 8.8 L Hct 27.4 L MCV 89.0 MCH 28.6 MCHC 32.1 RDW Std Deviation 49.6 H RDW Coeff of Rangel 15.3 H Plt Count 19 L* D MPV 11.1 H Immature Gran % (Auto) 0.0 Neut % (Auto) 5.1 Lymph % (Auto) 94.9 [place] % (Auto) 0.0 Eos % (Auto) 0.0 Baso % (Auto) 0.0 Immature Gran # (Auto) 0.00 Neut # (Auto) 0.05 L* Lymph # (Auto) 0.93 L [place] # (Auto) 0.00 L Eos # (Auto) 0.00 Baso # (Auto) 0.00 Hypogranular Neuts 1+ Giant Platelets 1+ Sodium 142 Potassium 3.5 Chloride 104 Carbon Dioxide 37 H Anion Gap 1.0 L BUN 13 Creatinine 0.42 L Est Cr Clr Drug Dosing 84.6 Est GFR ( Amer) 108.3 Est GFR (Non-Af Amer) 93.5 BUN/Creatinine Ratio 30.4 H Glucose 95 Calcium 8.0 L _ (1) AML (acute myeloblastic leukemia) Leukemia Active/Remission status: without remission Qualified Code(s): C92.00 - Acute myeloblastic leukemia, not having achieved remission (2) Pneumonia Aspiration pneumonia type: Laterality: left Lung location: lower lobe of lung Pneumonia type: due to unspecified organism Qualified Code(s): J18.1 - Lobar pneumonia, unspecified organism
--- NOTE | 2019-01-04 20:55 | Ultrasound Report ---
US carotid doppler BI HISTORY: Mental status change subacute CVA COMPARISON: None. TECHNIQUE: Real-time, grayscale, and color Doppler sonography of the carotid arteries was performed. Imaging reviewed in the transverse and longitudinal planes. All measurements were calculated based on NASCET criteria. FINDINGS: Antegrade flow is seen in the bilateral vertebral arteries. The brachial pressures are hemodynamically similar. The peak systolic velocity within the right ICA is 69. The right systolic ratio is 0.9. The peak systolic velocity within the left ICA is 65. The left systolic ratio is 1.0. IMPRESSION: No hemodynamically significant stenosis seen within the carotid arteries. The above report was generated using voice recognition software. It may contain grammatical, syntax or spelling errors. Electronically signed by: Migue Ford M.D. 01/04/2019 8:53 PM
[2019-01-04] MEDS: HYDROCORTISONE ACETATE 25 MG SUPP PR SCH (21:38)
[2019-01-05] MEDS: [UNRECOGNIZED DRUG - REMARK] SCH ×3 (04:07→15:36)
[2019-01-05] MEDS: HEPARIN 100 UNIT/ML 5ML FLUSH FLUSH PRN (06:07)
[2019-01-05 06:50] LABS: Estimated Average Glucose 146 mg/dl; Hemoglobin A1C 6.7 % (4.5-5.6)
[2019-01-05 07:00] LABS: Hematocrit (blood only) 26.5 % (37-47); Hemoglobin 8.6 g/dL (12.0-16.0); Mean Corpuscular Hgb Conc 32.5 g/dL (32-36); Mean Corpuscular Volume 91.1 fL (80-100); Mean Platelet Volume 10.4 fL (7.4-10.4); Platelet Count 13 K/uL (130-400); RDW Coefficient of Variation 14.7 % (11.5-14.5); RDW Standard Deviation 48.8 fL (36.4-46.3); Red Blood Count 2.91 M/uL (4.2-5.4); White Blood Count 0.99 K/uL (4.8-10.8)
[2019-01-05 07:07] LABS: BUN Creatinine Ratio 26.8 (10-20); Calcium 7.8 mg/dl (8.5-10.1); Creatinine Clr Calc Pharmacy 84.6 ml/min; Est GFR (African American) 108.3; Est GFR (Non-African American) 93.5; Potassium 3.4 mmol/L (3.5-5.1)
[2019-01-05 07:35] LABS: RBC Morphology Unremarkable
[2019-01-05 07:39] LABS: ALC (manual) 0.97 K/uL (1.2-3.4); Blast # (manual) 0.01 K/uL (0-0); Blast Cells % (manual) 0.9 %; Lymphocytes # (manual) 0.97 K/uL (1.2-3.4); Lymphocytes % (manual) 98.2 %; Neutrophils % (manual) 0.9 %
[2019-01-05] MEDS: METOPROLOL TARTRATE 50 MG TAB PO SCH ×2 (07:53→20:33)
[2019-01-05] MEDS: MULTIVITAMIN TAB PO SCH (07:53)
[2019-01-05] MEDS: ACYCLOVIR 400 MG TAB PO SCH ×2 (07:53→20:34)
[2019-01-05] MEDS: DOCUSATE SODIUM 100 MG CAP PO SCH ×2 (07:53→20:32)
[2019-01-05] MEDS: VORICONAZOLE 200 MG TABLET PO SCH ×2 (07:53→20:34)
[2019-01-05] MEDS: CALCIUM 600MG + VIT D 400 IU TAB PO SCH (07:53)
[2019-01-05] MEDS: POLYETHYLENE (MIRALAX) 17 GM PACK PO SCH (07:53)
[2019-01-05] MEDS: AMOXICILLIN/CLAVULANATE 875 MG TAB PO SCH (07:53)
[2019-01-05] MEDS: FERROUS SULFATE 325 MG TAB PO SCH ×2 (07:53→20:33)
[2019-01-05] MEDS: PSYLLIUM 58.6% POWDER PACKET PO SCH ×2 (07:54→08:00)
[2019-01-05] MEDS: DOCUSATE SODIUM/SENNA 50/8.6MG TAB PO SCH (07:55)
--- NOTE | 2019-01-05 13:28 | Neurology Progress Note ---
Date of Service January 05, 2019 Assessment & Plan (1) CVA (cerebral vascular accident): 1. MRI brain with R parietal lobe CVA 2. carotid doppler - no significant stenosis 3. TTE no ASD 4. medical management per primary team 5. oncology for further recommendation to treat AML 6. aspirin and plavix would medications of choice unfortunately due to severe pancytopenia no anti platelet therapy is recommended 7 PT/OT for discharge needs Supervising Physician Co-Signing Physician Notes I have seen and discussed above patient with Dr Mitchell Navas. Patient was seen by mself this afternoon on rounds. An 83 year old woman with possible right punctate MCA distribution infarct in the setting of AML and pancytopenia. Currently not a good candidate for antiplatlet therapy or anticoagulation. Carotid US shows no high grade stenosis. Echocardiogram completed - read pending. I will follow up the result of this test. Recommend to continue telemetry while patient is in the hospital. Otherwise, no further stroke work up necessary. Patient can follow up with Hem/Onc as outpatient. Please call me with any further questions. Subjective Nuvia 83 year old female with AML presents with fever 100.6 �F at home. She underwent daily chemotherapy Saturday through Saturday of this past week last dose was 12/26/2018. She is always short of breath. She sees pulmonary for this chronic shortness of breath by Dr. Miranda from oncology. She is chronicly neutropenic and chest x-ray reveals asymmetric left basilar opacities suggesting atelectasis versus pneumonia. She was continued on Isavuconazonium, which is an antifungal. Today she states she still feels weak, nothing has really changed. She understands that she had a stroke but does not think she has any symptoms of the stroke and was incidentally found with imaging. denies CP, SOB, abdominal pain, one sided weakness, numbness tingling, N, V. Physical Exam 2 Vital Signs (Past 24 Hours): Last Vital Signs Temp 36.6 C 01/05/19 12:00 Pulse 76 01/05/19 12:00 Resp 16 01/05/19 12:00 BP 163/80 H 01/05/19 12:00 Pulse Ox 93 01/05/19 12:00 Gen: alert NAD PERRL/EOMI gross peripheral field intact. lungs course breath sounds CV RRR strength equal UE biceps triceps hand water treatment specialist 4+/5, hip flex plantar flex ext 4+/5 bilaterally Results & Data Diagnostic Findings Abnormal lab results 01/04/19 01/05/19 01/05/19 Range/Units 05:47 06:07 06:07 WBC 0.99 L* (4.8-10.8) K/uL RBC 2.91 L (4.2-5.4) M/uL Hgb 8.6 L (12.0-16.0) g/dL Hct 26.5 L (37-47) % RDW Std Deviation 48.8 H (36.4-46.3) fL RDW Coeff of Rangel 14.7 H (11.5-14.5) % Plt Count 13 L* (130-400) K/uL Neutrophils # (Manual) 0.01 L (1.4-6.5) K/uL Total Absolute Neuts 0.01 L* (1.4-6.5) K/uL Lymphocytes # (Manual) 0.97 L (1.2-3.4) K/uL Total Abs Lymphocytes 0.97 L (1.2-3.4) K/uL Blast Cells # (Man) 0.01 H (0-0) K/uL Potassium 3.4 L (3.5-5.1) mmol/L Carbon Dioxide 37 H (21-32) mmol/L Anion Gap 2.0 L (3-11) Creatinine 0.42 L (0.6-1.2) mg/dl BUN/Creatinine Ratio 26.8 H (10-20) Hemoglobin A1c 6.7 H (4.5-5.6) % Calcium 7.8 L (8.5-10.1) mg/dl Medications Administered MRI brain Small punctate subacute infarcts right superior parietal lobe/right periventricular region. This is superimposed upon considerable chronic small vessel change as well as cerebral atrophy. Incidental note is made of opacification of the mastoid air cells bilaterally. carotid doppler- No hemodynamically significant stenosis seen within the carotid arteries. TTE - 55-60% EF. no ASD
--- NOTE | 2019-01-05 17:40 | Hospitalist Progress Note ---
Date of Service January 05, 2019 Assessment & Plan (1) Neutropenic fever: per Dr. Lunsford's Notes -finished 1 week of chemotherapyon 12/26/18. Temp at home was 100.6 �F -admission portable Chest x-ray reveals pneumonia "Cardiac silhouette is enlarged, unchanged. Large hiatal hernia, notably within the inferior right hemithorax. Right internal jugular catheter is noted with distal tip within the region of the inferior SVC. Lungs are hyperinflated without pneumothorax, large pleural effusion or overt pulmonary edema. Patchy ill-defined left basilar opacities are noted. The right lung appears generally clear. Degenerative changes of the shoulders and spine. Sigmoidal scoliosis of the thoracolumbar spine. IMPRESSION: 1. Asymmetric left basilar opacities suggest atelectasis or pneumonia. 2. Cardiomegaly without overt pulmonary edema. 3. Large hiatal hernia." empirically have been on cefepime 2 grams q12 hours from admission to 12/29/18 when being transitioned to Augmentin and Azithromycin for pneumonia coverage as admission blood cultures have been negative 2 view CXr on 12/29/18 with 1. Progressive left lower lobe airspace opacities with a possible small left pleural effusion 2. Developing airspace opacities in the right lung apex. 3. Large hiatal hernia 12/[address] chest: 1. Patchy consolidative and groundglass airspace opacities within the bilateral upper lobes likely represents a pneumonia. Continued chest x-ray follow-up is recommended to ensure resolution. 2. Interval development of small bilateral pleural effusions. Bibasilar consolidation is nonspecific but favors compressive atelectasis. 3. Stable cardiomegaly. 4. There are suggestion of a 5 mm nodule within the right middle lobe. Six- month chest CT follow-up recommended to ensure stability/resolution. 5. There is again noted a large hiatus hernia seen along the right lung base. Focal area of calcification along the posterior border of the gastroesophageal junction remains stable. This favors a diverticulum or less likely an old contained perforation given the stability. 6. Additional findings as described above. -- ID consulted respiratory status stable completed Augmentin and Azithromycin -holding chronic Levaquin 500 mg daily while on respiratory antibiotics as above - Acyclovir continued -holding Isavuconazonium for now--> Voriconazole started (2) Pneumonia: Acute on Chronic Respiratory Failure Treatment as above. - may need 2 step exercise test (3) AML (acute myeloblastic leukemia): had recently finished 5 days of chemotherapy as outpatient prior to hospital presentation. She was planned to start taking Midostaurin as outpatient but this has been held per oncology -- Oncologist consulted -- CBC: Hg 7.9, Plt 9k 1 unit PRBC and 1 unit Plt ordered -- Hg and Plt improved repeat tomorrow (4) Pancytopenia: admission hemoglobin 6.3 and s/p 2 units of PRBC on this admission with Hgb stabilized at 8 admission thrombocytopenia, 21K neutropenia, neutropenic precautions, on antibiotics as above, White blood cell counts are rising from 750 on admission - Hem/Onc consulted -- CBC: Hg 7.9, Plt 9k 1 unit PRBC and 1 unit Plt ordered Hg and Plt improved -- no signs of bleeding -- repeat CBC tomorrow Constipation - added Colace BID, Miralax, Metamucil - (+) BMs External hemorrhoids - Anusol HS x 1 week - rectal pain improved (5) CVA (cerebral vascular accident): reporting left vision blurriness, left sided hearing impairment, left sided facial droop history of SVC during admission in [place] 10/19 brain MRI: punctate infarcts right parietal area symptoms resolved, except for mild blurriness, left eye Neuro consulted Carotid US: no stenosis TTE: no shunt, ASD antiplatelets contraindicated due to severe thrombocytopenia (6) DVT prophylaxis: SCDs disposition: PT/OT recommend d/c home anticipate d/c home tomorrow Code Status: DO NOT RESUSCITATE Subjective ff up for neutropenic fever, pneumonia resting in bed, comfortable states she feels about the same denies new neuro symptoms no dyspnea, chest pain, dizziness no other symptoms Physical Exam 2 Vital Signs (Past 24 Hours): Last Vital Signs Temp 36.7 C 01/05/19 15:44 Pulse 69 01/05/19 15:44 Resp 16 01/05/19 12:00 BP 152/71 H 01/05/19 15:44 Pulse Ox 90 01/05/19 15:44 Physical Exam: General- oriented x 3, not in distress, speaks in sentences with no effort or accessory muscle use Eyes- anicteric Neck- no JVD Lungs- clear BS BL no rales/wheezes Heart- normal rate, regular rhythm; no murmurs Abdomen- normal bowel sounds, nondistended, soft, nontender Extremities- trace lower leg edema Neuro- alert, oriented x 3; no gross focal neurologic deficits Skin- warm & dry Results & Data Laboratory Results Laboratory Results - last 24 hr 01/04/19 01/05/19 01/05/19 05:47 06:07 06:07 WBC 0.99 L* RBC 2.91 L Hgb 8.6 L Hct 26.5 L MCV 91.1 MCH 29.6 MCHC 32.5 RDW Std Deviation 48.8 H RDW Coeff of Rangel 14.7 H Plt Count 13 L* MPV 10.4 Neutrophils % (Manual) 0.9 Lymphocytes % (Manual) 98.2 Blast Cells % (Manual) 0.9 Neutrophils # (Manual) 0.01 L Total Absolute Neuts 0.01 L* Lymphocytes # (Manual) 0.97 L Total Abs Lymphocytes 0.97 L Blast Cells # (Man) 0.01 H RBC Morphology Unremarkable Sodium 144 Potassium 3.4 L Chloride 105 Carbon Dioxide 37 H Anion Gap 2.0 L BUN 11 Creatinine 0.42 L Est Cr Clr Drug Dosing 84.6 Est GFR ( Amer) 108.3 Est GFR (Non-Af Amer) 93.5 BUN/Creatinine Ratio 26.8 H Glucose 94 Estimat Average Glucose 146 Hemoglobin A1c 6.7 H Calcium 7.8 L Triglycerides 135 Cholesterol 70 LDL Cholesterol, Calc 12 VLDL Cholesterol, Calc 27 HDL Cholesterol 31 Cholesterol/HDL Ratio 2 _ (1) Pneumonia Aspiration pneumonia type: Laterality: left Lung location: lower lobe of lung Pneumonia type: due to unspecified organism Qualified Code(s): J18.1 - Lobar pneumonia, unspecified organism (2) AML (acute myeloblastic leukemia) Leukemia Active/Remission status: without remission Qualified Code(s): C92.00 - Acute myeloblastic leukemia, not having achieved remission
[2019-01-05] MEDS: HYDROCORTISONE ACETATE 25 MG SUPP PR SCH (20:32)
[2019-01-06] MEDS: [UNRECOGNIZED DRUG - REMARK] SCH ×3 (00:18→15:21)
[2019-01-06] MEDS: HEPARIN 100 UNIT/ML 5ML FLUSH FLUSH PRN (06:01)
[2019-01-06 06:39] LABS: Hematocrit (blood only) 26.2 % (37-47); Hemoglobin 8.4 g/dL (12.0-16.0); Mean Corpuscular Hgb Conc 32.1 g/dL (32-36); Mean Platelet Volume 11.3 fL (7.4-10.4); Platelet Count 13 K/uL (130-400); RDW Coefficient of Variation 14.5 % (11.5-14.5); RDW Standard Deviation 47.2 fL (36.4-46.3); Red Blood Count 2.91 M/uL (4.2-5.4); White Blood Count 0.81 K/uL (4.8-10.8)
[2019-01-06 06:51] LABS: BUN Creatinine Ratio 21.2 (10-20); Calcium 7.7 mg/dl (8.5-10.1); Creatinine Clr Calc Pharmacy 61.2 ml/min; Est GFR (African American) 97.4; Potassium 3.5 mmol/L (3.5-5.1)
[2019-01-06 07:15] LABS: Immature Granulocytes # (auto) 0.01 K/uL (0.00-0.02); Immature Granulocytes % (auto) 1.2 %; Lymphocytes # (auto) 0.78 K/uL (1.2-3.4); Lymphocytes % (auto) 96.3 %; Monocytes # (auto) 0.01 K/uL (0.11-0.59); Monocytes % (auto) 1.2 %; Neutrophils # (auto) 0.01 K/uL (1.4-6.5); Neutrophils % (auto) 1.3 %
[2019-01-06] MEDS: MULTIVITAMIN TAB PO SCH (08:39)
[2019-01-06] MEDS: ACYCLOVIR 400 MG TAB PO SCH ×2 (08:39→20:05)
[2019-01-06] MEDS: VORICONAZOLE 200 MG TABLET PO SCH ×2 (08:39→20:07)
[2019-01-06] MEDS: CALCIUM 600MG + VIT D 400 IU TAB PO SCH (08:39)
[2019-01-06] MEDS: METOPROLOL TARTRATE 50 MG TAB PO SCH ×2 (08:40→20:06)
[2019-01-06] MEDS: DOCUSATE SODIUM 100 MG CAP PO SCH ×2 (08:40→20:05)
[2019-01-06] MEDS: FERROUS SULFATE 325 MG TAB PO SCH ×2 (08:40→20:04)
[2019-01-06] MEDS: DOCUSATE SODIUM/SENNA 50/8.6MG TAB PO SCH (08:42)
[2019-01-06] MEDS: POLYETHYLENE (MIRALAX) 17 GM PACK PO SCH (08:42)
[2019-01-06] MEDS: PSYLLIUM 58.6% POWDER PACKET PO SCH (08:42)
[2019-01-06] MEDS: HYDROCORTISONE ACETATE 25 MG SUPP PR SCH (20:05)
[2019-01-07] MEDS: [UNRECOGNIZED DRUG - REMARK] SCH ×2 (00:20→10:16)
[2019-01-07] MEDS: HEPARIN 100 UNIT/ML 5ML FLUSH FLUSH PRN (05:56)
[2019-01-07 06:34] LABS: Hematocrit (blood only) 25.7 % (37-47); Hemoglobin 8.2 g/dL (12.0-16.0); Mean Corpuscular Hgb Conc 31.9 g/dL (32-36); Mean Corpuscular Volume 89.9 fL (80-100); Mean Platelet Volume 10.6 fL (7.4-10.4); Platelet Count 44 K/uL (130-400); RDW Coefficient of Variation 14.4 % (11.5-14.5); RDW Standard Deviation 47.4 fL (36.4-46.3); Red Blood Count 2.86 M/uL (4.2-5.4); White Blood Count 0.89 K/uL (4.8-10.8)
[2019-01-07 06:40] LABS: BUN Creatinine Ratio 23.6 (10-20); Calcium 7.6 mg/dl (8.5-10.1); Creatinine Clr Calc Pharmacy 78.9 ml/min; Est GFR (African American) 105.9; Est GFR (Non-African American) 91.4; Potassium 3.5 mmol/L (3.5-5.1)
[2019-01-07 07:03] LABS: Giant Platelets 1+; Hypogranular Neutrophils 1+; Lymphocytes # (auto) 0.85 K/uL (1.2-3.4); Lymphocytes % (auto) 95.5 %; Monocytes # (auto) 0.03 K/uL (0.11-0.59); Monocytes % (auto) 3.4 %; Neutrophils # (auto) 0.01 K/uL (1.4-6.5); Neutrophils % (auto) 1.1 %
[2019-01-07] MEDS: MULTIVITAMIN TAB PO SCH (09:42)
[2019-01-07] MEDS: CALCIUM 600MG + VIT D 400 IU TAB PO SCH (09:42)
[2019-01-07] MEDS: ACYCLOVIR 400 MG TAB PO SCH (09:42)
[2019-01-07] MEDS: METOPROLOL TARTRATE 50 MG TAB PO SCH (09:43)
[2019-01-07] MEDS: PSYLLIUM 58.6% POWDER PACKET PO SCH (09:43)
[2019-01-07] MEDS: VORICONAZOLE 200 MG TABLET PO SCH (09:43)
[2019-01-07] MEDS: DOCUSATE SODIUM/SENNA 50/8.6MG TAB PO SCH (09:43)
[2019-01-07] MEDS: POLYETHYLENE (MIRALAX) 17 GM PACK PO SCH (09:43)
[2019-01-07] MEDS: FERROUS SULFATE 325 MG TAB PO SCH (09:43)
[2019-01-07] MEDS: DOCUSATE SODIUM 100 MG CAP PO SCH (09:43)
--- NOTE | 2019-01-07 11:21 | Hospitalist Progress Note ---
Date of Service January 07, 2019 delayed entry date of service 01/06/19 Assessment & Plan (1) Neutropenic fever: per Dr. Lunsford's Notes -finished 1 week of chemotherapyon 12/26/18. Temp at home was 100.6 �F -admission portable Chest x-ray reveals pneumonia "Cardiac silhouette is enlarged, unchanged. Large hiatal hernia, notably within the inferior right hemithorax. Right internal jugular catheter is noted with distal tip within the region of the inferior SVC. Lungs are hyperinflated without pneumothorax, large pleural effusion or overt pulmonary edema. Patchy ill-defined left basilar opacities are noted. The right lung appears generally clear. Degenerative changes of the shoulders and spine. Sigmoidal scoliosis of the thoracolumbar spine. IMPRESSION: 1. Asymmetric left basilar opacities suggest atelectasis or pneumonia. 2. Cardiomegaly without overt pulmonary edema. 3. Large hiatal hernia." empirically have been on cefepime 2 grams q12 hours from admission to 12/29/18 when being transitioned to Augmentin and Azithromycin for pneumonia coverage as admission blood cultures have been negative 2 view CXr on 12/29/18 with 1. Progressive left lower lobe airspace opacities with a possible small left pleural effusion 2. Developing airspace opacities in the right lung apex. 3. Large hiatal hernia 12/[address] chest: 1. Patchy consolidative and groundglass airspace opacities within the bilateral upper lobes likely represents a pneumonia. Continued chest x-ray follow-up is recommended to ensure resolution. 2. Interval development of small bilateral pleural effusions. Bibasilar consolidation is nonspecific but favors compressive atelectasis. 3. Stable cardiomegaly. 4. There are suggestion of a 5 mm nodule within the right middle lobe. Six- month chest CT follow-up recommended to ensure stability/resolution. 5. There is again noted a large hiatus hernia seen along the right lung base. Focal area of calcification along the posterior border of the gastroesophageal junction remains stable. This favors a diverticulum or less likely an old contained perforation given the stability. 6. Additional findings as described above. -- ID consulted respiratory status stable completed Augmentin and Azithromycin - respiratory status stable -resume chronic Levaquin 500 mg daily - Acyclovir continued - holding Isavuconazonium for now--> Voriconazole started while admitted--> resume Isavuconazonium on discharge (2) Pneumonia: Acute on Chronic Respiratory Failure Treatment as above. - may need 2 step (3) AML (acute myeloblastic leukemia): had recently finished 5 days of chemotherapy as outpatient prior to hospital presentation. She was planned to start taking Midostaurin as outpatient but this has been held per oncology -- Oncologist consulted -- CBC: Plt 13k discussed with Dr. Miranda 1 unit Plt ordered (4) Pancytopenia: admission hemoglobin 6.3 and s/p 2 units of PRBC on this admission with Hgb stabilized at 8 admission thrombocytopenia, 21K neutropenia, neutropenic precautions, on antibiotics as above, White blood cell counts are rising from 750 on admission - Hem/Onc consulted -- CBC: plan as noted above -- no signs of bleeding -- repeat CBC tomorrow Constipation - added Colace BID, Miralax, Metamucil - (+) BMs External hemorrhoids - Anusol HS x 1 week - rectal pain improved (5) CVA (cerebral vascular accident): reporting left vision blurriness, left sided hearing impairment, left sided facial droop history of SVC during admission in [place] 10/19 brain MRI: punctate infarcts right parietal area symptoms resolved, except for mild blurriness, left eye--> also improving Neuro consulted Carotid US: no stenosis TTE: no shunt, ASD antiplatelets contraindicated due to severe thrombocytopenia (6) DVT prophylaxis: SCDs disposition: d/c home patient declined home health services ff up with Oncologist 01/08/19 ff up with PCP Subjective ff up for neutropenic fever, pneumonia seen resting in bed, doing crossword puzzles states she feels fine over all -the same denies dyspnea, chest pain, dizziness, bleeding no other symptoms Physical Exam 2 Vital Signs (Past 24 Hours): Last Vital Signs Temp 36.7 C 01/07/19 03:56 Pulse 55 L 01/07/19 03:56 Resp 16 01/07/19 03:56 BP 137/56 L 01/07/19 03:56 Pulse Ox 98 01/07/19 03:56 Physical Exam: General- oriented x 3, not in distress, speaks in sentences with no effort or accessory muscle use Eyes- anicteric Neck- no JVD Lungs- clear breath sounds bilaterally Heart- normal rate, regular rhythm; no murmurs Abdomen- normal bowel sounds, nondistended, soft, nontender Extremities- trace pretibial edema, no calf tenderness Neuro- alert, oriented x 3; no gross focal neurologic deficits Skin- warm & dry Results & Data Laboratory Results Laboratory Results - last 24 hr 01/07/19 01/07/19 05:55 05:55 WBC 0.89 L* RBC 2.86 L Hgb 8.2 L Hct 25.7 L MCV 89.9 MCH 28.7 MCHC 31.9 L RDW Std Deviation 47.4 H RDW Coeff of Rangel 14.4 Plt Count 44 L D MPV 10.6 H Immature Gran % (Auto) 0.0 Neut % (Auto) 1.1 Lymph % (Auto) 95.5 [place] % (Auto) 3.4 Eos % (Auto) 0.0 Baso % (Auto) 0.0 Immature Gran # (Auto) 0.00 Neut # (Auto) 0.01 L* Lymph # (Auto) 0.85 L [place] # (Auto) 0.03 L Eos # (Auto) 0.00 Baso # (Auto) 0.00 Hypogranular Neuts 1+ Giant Platelets 1+ Sodium 146 H Potassium 3.5 Chloride 107 Carbon Dioxide 37 H Anion Gap 2.0 L BUN 11 Creatinine 0.45 L Est Cr Clr Drug Dosing 78.9 Est GFR ( Amer) 105.9 Est GFR (Non-Af Amer) 91.4 BUN/Creatinine Ratio 23.6 H Glucose 99 Calcium 7.6 L _ (1) AML (acute myeloblastic leukemia) Leukemia Active/Remission status: without remission Qualified Code(s): C92.00 - Acute myeloblastic leukemia, not having achieved remission (2) Pneumonia Aspiration pneumonia type: Laterality: left Lung location: lower lobe of lung Pneumonia type: due to unspecified organism Qualified Code(s): J18.1 - Lobar pneumonia, unspecified organism
--- NOTE | 2019-01-07 11:58 | Hospitalist Progress Note ---
Date of Service January 07, 2019 Assessment & Plan (1) Neutropenic fever: per Dr. Lunsford's Notes -finished 1 week of chemotherapyon 12/26/18. Temp at home was 100.6 �F -admission portable Chest x-ray reveals pneumonia "Cardiac silhouette is enlarged, unchanged. Large hiatal hernia, notably within the inferior right hemithorax. Right internal jugular catheter is noted with distal tip within the region of the inferior SVC. Lungs are hyperinflated without pneumothorax, large pleural effusion or overt pulmonary edema. Patchy ill-defined left basilar opacities are noted. The right lung appears generally clear. Degenerative changes of the shoulders and spine. Sigmoidal scoliosis of the thoracolumbar spine. IMPRESSION: 1. Asymmetric left basilar opacities suggest atelectasis or pneumonia. 2. Cardiomegaly without overt pulmonary edema. 3. Large hiatal hernia." empirically have been on cefepime 2 grams q12 hours from admission to 12/29/18 when being transitioned to Augmentin and Azithromycin for pneumonia coverage as admission blood cultures have been negative 2 view CXr on 12/29/18 with 1. Progressive left lower lobe airspace opacities with a possible small left pleural effusion 2. Developing airspace opacities in the right lung apex. 3. Large hiatal hernia 12/[address] chest: 1. Patchy consolidative and groundglass airspace opacities within the bilateral upper lobes likely represents a pneumonia. Continued chest x-ray follow-up is recommended to ensure resolution. 2. Interval development of small bilateral pleural effusions. Bibasilar consolidation is nonspecific but favors compressive atelectasis. 3. Stable cardiomegaly. 4. There are suggestion of a 5 mm nodule within the right middle lobe. Six- month chest CT follow-up recommended to ensure stability/resolution. 5. There is again noted a large hiatus hernia seen along the right lung base. Focal area of calcification along the posterior border of the gastroesophageal junction remains stable. This favors a diverticulum or less likely an old contained perforation given the stability. 6. Additional findings as described above. -- ID consulted respiratory status stable completed Augmentin and Azithromycin - respiratory status stable -resume chronic Levaquin 500 mg daily - Acyclovir continued - holding Isavuconazonium for now--> Voriconazole started while admitted--> resume Isavuconazonium on discharge (2) Pneumonia: Acute on Chronic Respiratory Failure - on 3 L nasal cannula - patient has portable oxygen at home (3) AML (acute myeloblastic leukemia): had recently finished 5 days of chemotherapy as outpatient prior to hospital presentation. She was planned to start taking Midostaurin as outpatient but this has been held per oncology -- Oncologist consulted Dr. Miranda -- patient transfused with prbc and plts -- CBC on discharge day wbc 0.89 Hg 8.2 Plt 44k -- ff up with Dr. Miranda on 01/08/19 (4) Pancytopenia: likely secondary to Chemotherapy admission hemoglobin 6.3 and s/p 3 units of PRBC on this admission with Hgb stabilized at 8 admission thrombocytopenia, 21K, given 2 units Plt, Plt improved to 44k - Hem/Onc consulted -- CBC: plan as noted above Constipation - added Colace BID, Miralax, Metamucil - (+) BMs External hemorrhoids - Anusol HS x 1 week - rectal pain improved - continue Anusol x 1 week (5) CVA (cerebral vascular accident): during admisison, ,reporting left vision blurriness, left sided hearing impairment, left sided facial droop history of SVT during admission in [place] 10/19 brain MRI: punctate infarcts right parietal area symptoms resolved, except for mild blurriness, left eye--> also improving Neuro consulted Dr. Navas Carotid US: no stenosis TTE: no shunt, ASD antiplatelets contraindicated due to severe thrombocytopenia (6) DVT prophylaxis: SCDs disposition: d/c home patient declined home health services ff up with Oncologist 01/08/19 ff up with PCP Dr. Wei 01/12/19 Subjective ff up for neutropenic fever, pneumonia seen resting in bed comfortable states she feels ok overall denies symptoms states she is ready and would like to be discharged today Physical Exam 2 Vital Signs (Past 24 Hours): Last Vital Signs Temp 36.8 C 01/07/19 11:46 Pulse 78 01/07/19 11:46 Resp 18 01/07/19 11:46 BP 165/73 H 01/07/19 11:46 Pulse Ox 98 01/07/19 11:46 Physical Exam: General- oriented x 3, not in distress, speaks in sentences with no effort or accessory muscle use Eyes- anicteric Neck- no JVD Lungs- clear breath sounds bilaterally no rales/wheezing Heart- normal rate, regular rhythm; no murmurs Abdomen- normal bowel sounds, nondistended, soft, nontender Extremities- no pretibial edema, no calf tenderness Neuro- alert, oriented x 3; no gross focal neurologic deficits Skin- warm & dry Results & Data Laboratory Results Laboratory Results - last 24 hr 01/07/19 01/07/19 05:55 05:55 WBC 0.89 L* RBC 2.86 L Hgb 8.2 L Hct 25.7 L MCV 89.9 MCH 28.7 MCHC 31.9 L RDW Std Deviation 47.4 H RDW Coeff of Rangel 14.4 Plt Count 44 L D MPV 10.6 H Immature Gran % (Auto) 0.0 Neut % (Auto) 1.1 Lymph % (Auto) 95.5 Andrews % (Auto) 3.4 Eos % (Auto) 0.0 Baso % (Auto) 0.0 Immature Gran # (Auto) 0.00 Neut # (Auto) 0.01 L* Lymph # (Auto) 0.85 L Andrews # (Auto) 0.03 L Eos # (Auto) 0.00 Baso # (Auto) 0.00 Hypogranular Neuts 1+ Giant Platelets 1+ Sodium 146 H Potassium 3.5 Chloride 107 Carbon Dioxide 37 H Anion Gap 2.0 L BUN 11 Creatinine 0.45 L Est Cr Clr Drug Dosing 78.9 Est GFR ( Amer) 105.9 Est GFR (Non-Af Amer) 91.4 BUN/Creatinine Ratio 23.6 H Glucose 99 Calcium 7.6 L _ (1) Pneumonia Aspiration pneumonia type: Laterality: left Lung location: lower lobe of lung Pneumonia type: due to unspecified organism Qualified Code(s): J18.1 - Lobar pneumonia, unspecified organism (2) AML (acute myeloblastic leukemia) Leukemia Active/Remission status: without remission Qualified Code(s): C92.00 - Acute myeloblastic leukemia, not having achieved remission
[2019-01-07] MEDS ORDERED: STROKE PATIENT DISCHARGE STA (12:04)
--- NOTE | 2019-01-07 12:05 | Discharge Summary ---
Date of Service January 07, 2019 Admission HPI Per Admitting Provider 83-year-old female with AML presents with fever 100.6 �F at home. Last dose of chemo was yesterday. She underwent daily chemotherapy Saturday through Saturday of this past week. She denies any cough, abdominal pain, chest pain, headache, urinary tract symptoms. She does report some diarrhea and has been incontinent of stool since last evening. She did take a stool softener for constipation yesterday afternoon. She reports some bright red blood per rectum that is present along with hemorrhoids for which she denies having in the past. She reports that her anus is hurting because of frequent bowel movements. She reports "I am always short of breath." She denies any supplemental oxygen at home at this time but does report using it in the last few months. She was referred to pulmonary for this chronic shortness of breath by Dr. Miranda from oncology. She has not been febrile here and is well-appearing on exam. She is clearly neutropenic and chest x-ray reveals asymmetric left basilar opacities suggesting atelectasis versus pneumonia. She was started on cefepime empirically. Dr. Miranda was contacted and recommended continuation of all her meds except for the Midostaurin, which she was supposed to start Saturday, 12/29. She is also to continue Isavuconazonium, which is an antifungal. However, as this is nonformulary, if they patient cannot get this brought to the hospital, posaconazole may be an alternative empiric antifungal therapy, which should be reviewed with Dr. Miranda prior to starting. The patient does not appear septic. Admission Exam Per Admitting Provider Vital Signs (Past 24 Hours): Last Vital Signs Temp 36.9 C 12/27/18 15:50 Pulse 85 12/27/18 20:04 Resp 18 12/27/18 20:04 BP 143/57 H 12/27/18 20:04 Pulse Ox 96 12/27/18 20:04 CONSTITUTIONAL: WNWD, vitals as above, generally well-appearing EYES: PERRL, normal conjuctivae, no scleral icterus ENT: oropharynx clear, no TM abnormality, no maxillary or ethmoid sinus tenderness NECK: trachea midline, no lymphadenopathy RESPIRATORY: clear to auscultation bilaterally, no crackles, rales or wheezes, normal respiratory effort CARDIOVASCULAR: regular rate and rhythm, S1 and 2 heard without murmurs, gallops or rubs, no JVD, no peripheral edema CHEST: inspection of chest revealed an accessed port GASTROINTESTINAL: normal bowel sounds, soft, nontender, nondistended : hemorrhoids present, no skin breakdown MUSCULOSKELETAL: strength 5/5 throughout, head is normocephalic and atraumatic SKIN: warm and dry, some thin skin easily broken down but no evidence of skin infection or areas of cellulitis noted. NEUROLOGIC: CN 2-12 grossly intact, normal cognition PSYCHIATRIC: alert cooperative and oriented to person, place and time. Principal Diagnosis PNEUMONIA, PANCYTOPENIA Discharge Exam Vital Signs (Past 24 Hours): Last Vital Signs Temp 36.8 C 01/07/19 11:46 Pulse 78 01/07/19 11:46 Resp 18 01/07/19 11:46 BP 165/73 H 01/07/19 11:46 Pulse Ox 98 01/07/19 11:46 Physical Exam: General- oriented x 3, not in distress, speaks in sentences with no effort or accessory muscle use Eyes- anicteric Neck- no JVD Lungs- clear breath sounds bilaterally no rales/wheezing Heart- normal rate, regular rhythm; no murmurs Abdomen- normal bowel sounds, nondistended, soft, nontender Extremities- no pretibial edema, no calf tenderness Neuro- alert, oriented x 3; no gross focal neurologic deficits Skin- warm & dry Discharge Data Allergies Allergy/AdvReac Type Severity Reaction Status Date / Time adhesive tape Allergy Unknown Verified 12/27/18 22:26 Consultations 12/27/18 17:45 ED Decision to Admit Stat 12/27/18 21:08 Consult Case Management - Discharge Planning Routine 12/31/18 08:59 Consult Infectious Diseases Routine 12/31/18 09:00 Consult Hematology Routine 01/01/19 09:08 Consult Gastroenterology Routine 01/04/19 11:41 Consult Neurology Routine 01/04/19 12:53 Consult Case Management - Discharge Planning Routine Ordered Studies 12/31/18 08:59 CT chest wo con Routine CT chest wo con CT DOSE: 191.23 mGy.cm HISTORY: Abnormal chest x-ray. left lower lobe opacity, effusion TECHNIQUE: Multiaxial CT images of the chest were performed without contrast. A dose lowering technique was utilized adhering to the principles of ALARA. COMPARISON: Chest 12/29/2018. Chest CT 10/31/2018. FINDINGS: Patchy consolidative and groundglass airspace opacities within the lung apices, right greater than left. The central airways are patent. No pneumothorax. Stable 2 cm bleb within the lingula. There is an additional small focal airspace opacity within the left upper lobe anteriorly which is similar to the biapical opacities. Possible new 5 mm nodule within the right middle lobe on image 187. This is suboptimally evaluated due to the respiratory motion. Small bilateral pleural effusions are new compared to the prior study. Small amount of consolidation within the bases of the lower lobes are nonspecific but favor compressive atelectasis from the pleural effusions. There is again noted a large hiatus hernia seen along the right lung base. Focal area of calcification along the posterior border of the gastroesophageal junction remains stable. This could be due to a diverticulum or an old contained perforation given the stability. No suspicious lytic or blastic osseous lesions. Right jugular Port-A-Cath terminates in the right atrium. The visualized unenhanced liver and spleen are unremarkable. Mild elevation of the left hemidiaphragm, unchanged. The heart remains enlarged. Bilateral adrenal gland thickening is likely age-related. Normal caliber thoracic aorta. Mild body wall edema. No significant mediastinal or hilar lymphadenopathy. IMPRESSION: 1. Patchy consolidative and groundglass airspace opacities within the bilateral upper lobes likely represents a pneumonia. Continued chest x-ray follow-up is recommended to ensure resolution. 2. Interval development of small bilateral pleural effusions. Bibasilar consolidation is nonspecific but favors compressive atelectasis. 3. Stable cardiomegaly. 4. There are suggestion of a 5 mm nodule within the right middle lobe. Six- month chest CT follow-up recommended to ensure stability/resolution. 5. There is again noted a large hiatus hernia seen along the right lung base. Focal area of calcification along the posterior border of the gastroesophageal junction remains stable. This favors a diverticulum or less likely an old contained perforation given the stability. 6. Additional findings as described above. 01/04/19 07:18 MR brain wo con Stat MR brain wo con HISTORY: Mental status change r/o cva TECHNIQUE: Multiplanar multisequence MRI of the brain was performed without the use of contrast. COMPARISON STUDY: None. FINDINGS: Diffusion images demonstrate vague small foci of increased signal superior right parietal lobe. This is superimposed upon considerable chronic small vessel change. Atrophy is present throughout. Ventricular system is midline. Opacification of the mastoid air cells bilaterally. IMPRESSION: 1. Small punctate subacute infarcts right superior parietal lobe/right periventricular region. 2. This is superimposed upon considerable chronic small vessel change as well as cerebral atrophy. 3. Otherwise negative study. 4. Incidental note is made of opacification of the mastoid air cells bilaterally.. 01/04/19 17:39 US carotid doppler BI Urgent IMPRESSION: No hemodynamically significant stenosis seen within the carotid arteries. Hospital Course (1) Neutropenic fever: per Dr. Lunsford's Notes -finished 1 week of chemotherapyon 12/26/18. Temp at home was 100.6 �F -admission portable Chest x-ray reveals pneumonia "Cardiac silhouette is enlarged, unchanged. Large hiatal hernia, notably within the inferior right hemithorax. Right internal jugular catheter is noted with distal tip within the region of the inferior SVC. Lungs are hyperinflated without pneumothorax, large pleural effusion or overt pulmonary edema. Patchy ill-defined left basilar opacities are noted. The right lung appears generally clear. Degenerative changes of the shoulders and spine. Sigmoidal scoliosis of the thoracolumbar spine. IMPRESSION: 1. Asymmetric left basilar opacities suggest atelectasis or pneumonia. 2. Cardiomegaly without overt pulmonary edema. 3. Large hiatal hernia." empirically have been on cefepime 2 grams q12 hours from admission to 12/29/18 when being transitioned to Augmentin and Azithromycin for pneumonia coverage as admission blood cultures have been negative 2 view CXr on 12/29/18 with 1. Progressive left lower lobe airspace opacities with a possible small left pleural effusion 2. Developing airspace opacities in the right lung apex. 3. Large hiatal hernia CT chest: 1. Patchy consolidative and groundglass airspace opacities within the bilateral upper lobes likely represents a pneumonia. Continued chest x-ray follow-up is recommended to ensure resolution. 2. Interval development of small bilateral pleural effusions. Bibasilar consolidation is nonspecific but favors compressive atelectasis. 3. Stable cardiomegaly. 4. There are suggestion of a 5 mm nodule within the right middle lobe. Six- month chest CT follow-up recommended to ensure stability/resolution. 5. There is again noted a large hiatus hernia seen along the right lung base. Focal area of calcification along the posterior border of the gastroesophageal junction remains stable. This favors a diverticulum or less likely an old contained perforation given the stability. 6. Additional findings as described above. -- ID consulted completed Augmentin and Azithromycin X 1 week -- respiratory status stable -resume usual prophylaxis Levaquin 500 mg daily , Acyclovir continued, Isavuconazonium on discharge (2) Pneumonia: Acute on Chronic Respiratory Failure - on 3 L nasal cannula - patient has portable oxygen at home (3) AML (acute myeloblastic leukemia): had recently finished 5 days of chemotherapy as outpatient prior to hospital presentation. She was planned to start taking Midostaurin as outpatient but this has been held per oncology -- Oncologist consulted Dr. Miranda -- patient transfused with prbc and plts -- CBC on discharge day wbc 0.89 Hg 8.2 Plt 44k -- ff up with Dr. Miranda on 01/08/19 (4) Pancytopenia: likely secondary to Chemotherapy admission hemoglobin 6.3 and s/p 3 units of PRBC on this admission with Hgb stabilized at 8 admission thrombocytopenia, 21K, given 2 units Plt, Plt improved to 44k - Hem/Onc consulted -- CBC: plan as noted above Constipation - added Colace BID, Miralax, Metamucil - (+) BMs External hemorrhoids - Anusol HS x 1 week - rectal pain improved - continue Anusol x 1 week (5) CVA (cerebral vascular accident): during admisison, ,reporting left vision blurriness, left sided hearing impairment, left sided facial droop history of SVT during admission in [place] 10/19 brain MRI: punctate infarcts right parietal area symptoms resolved, except for mild blurriness, left eye--> also improving Neuro consulted Dr. Navas Carotid US: no stenosis TTE: no shunt, ASD antiplatelets contraindicated due to severe thrombocytopenia Statin also contraindicated due to severe thrombocytopenia, LDL 12 (6) DVT prophylaxis: SCDs disposition: d/c home patient declined home health services ff up with Oncologist 01/08/19 ff up with PCP Dr. Wei 01/12/19 (7) Abnormal CT scan, chest: CT chest: -- . There are suggestion of a 5 mm nodule within the right middle lobe. Six- month chest CT follow-up recommended to ensure stability/resolution. -- There is again noted a large hiatus hernia seen along the right lung base. Focal area of calcification along the posterior border of the gastroesophageal junction remains stable. This favors a diverticulum or less likely an old contained perforation given the stability. -- repeat CT chest as noted above further work up and ff up as outpatient Total Time Total Time Spent Total Time Spent (In Minutes): 40 minutes Discharge Plan Discharge Items Patient Disposition: Home - Self-Care Reason For Visit: NEUTROPENIC Discharge Diagnosis: PNEUMONIA, LOW BLOOD COUNT Discharge Goals: Diagnostic testing Activity: As commented below Activity Comment: NO HEAVY EXERTION Lifting: Wait until after follow-up appointment Exercise/Sports: Wait until after follow-up appointment Driving/Machine Use Comment: ADVISE NOT TO DRIVE UNTIL RE-EVALUATED BY PRIMARY CARE PHYSICIAN Non-emergency contact: Primary Care Provider and Oncologist Call non-emergency contact if: you have any medication questions, your symptoms worsen, your pain is not controlled, your pain is worsening, your pain is unusual for you, your pain is concerning for you and you have a fever Follow-up/Referrals: Russ Miranda MD [Surgeon] - Nydia Wei [Primary Care Provider] - 01/12/19 2:45 pm Diet: Heart Healthy Addtl Provider Instructions: CALL YOUR PRIMARY CARE PHYSICIAN OR RETURN TO ER IMMEDIATELY IF WITH RECURRENCE/ WORSENING OF SYMPTOMS. Prescriptions: New hydrocortisone acetate [Anucort-HC] 25 mg Suppository 25 mg MN HS 7 Days Qty: 7 RF: 1 Continue calcium carbonate-vitamin D3 [Calcium 600 + D(3)] 600 mg(1,500mg) -200 unit Tablet 1 tab PO DAILY RF: 0 multivitamin Tablet 1 tab PO QAM RF: 0 biotin 1 mg Tablet 1 mg PO DAILY RF: 0 acyclovir [Zovirax] 400 mg Tablet 400 mg PO BID RF: 0 ferrous sulfate 325 mg (65 mg iron) tablet 325 mg PO BID RF: 0 metoprolol tartrate 50 mg Tablet 50 mg PO Q12H RF: 0 furosemide 20 mg Tablet 10 mg PO Q2D PRN (Reason: Edema) RF: 0 levofloxacin 500 mg tablet 500 mg PO DAILY RF: 0 lutein 20 mg Capsule 20 mg PO DAILY RF: 0 loratadine 5 mg Tablet,Chewable 5 mg PO DAILY PRN (Reason: Runny Nose/Rhinitis) RF: 0 isavuconazonium sulfate 186 mg Capsule 372 mg PO DAILY RF: 0 Discontinued midostaurin 25 mg Capsule 50 mg PO BIDM RF: 0 Stand-Alone Forms: Medications to Prevent Stroke, [facility] Discharge Orders: Discharge Order (Routine); Ordered 01/07/19 Ordered By: Jacobo Winston Admission Data Admit Date/Time: 12/27/18 20:11 Attending Provider: Angela Moreno Admit Provider: Светлана Bill Primary Care Provider: Nydia Wei Other Providers: Chinedu Lunsford ; Светлана Bill ; Jesse Santo ; Gali Kowalski ; Russ Miranda ; Moiz Palacios ; Quynh Joya ; Aura Lozada ; Ilia Jj ; Jessica Ramos ; See Rollins ; Kobi Maldonado ; Aries Salas ; Giulia Humphries ; Milan Decker ; Juan Shrestha ; Andreina Peraza ; Alysa Painting ; Addie Angeles ; Malathi Rodriguez ; He Braga ; Zoë Yang ; Ellis Mayes ; Zoë Yang ; Manjinder Prieto ; Jonas Navas ; Dayana Soto ; Jacobo Winston Service: Telemetry Medical
--- NOTE | 2019-01-07 13:06 | Pharmacy Report ---
Pharmacist Stroke Counseling - Date of Service January 07, 2019 - Scope: Pharmacy has been consulted to provide medication discharge counseling for this patient admitted with possible ischemic stroke as per the Pharmacist Discharge Counseling for Stroke Patients Protocol. - Medications on Discharge: Home Medications Medication Instructions Recorded Confirmed biotin 1 mg PO DAILY 10/31/18 12/27/18 calcium carbonate-vitamin D3 1 tab PO DAILY 10/31/18 12/27/18 [Calcium 600 + D(3)] multivitamin 1 tab PO QAM 10/31/18 12/27/18 acyclovir [Zovirax] 400 mg PO BID 12/27/18 12/27/18 ferrous sulfate 325 mg PO BID 12/27/18 12/27/18 furosemide 10 mg PO Q2D PRN 12/27/18 12/27/18 isavuconazonium sulfate 372 mg PO DAILY 12/27/18 12/27/18 levofloxacin 500 mg PO DAILY 12/27/18 12/27/18 loratadine 5 mg PO DAILY PRN 12/27/18 12/27/18 lutein 20 mg PO DAILY 12/27/18 12/27/18 metoprolol tartrate 50 mg PO Q12H 12/27/18 12/27/18 New Rx's Medication Instructions Recorded hydrocortisone acetate [Anucort-HC] 25 mg SD HS 7 Days #7 ea 01/07/19 - Action: The above medications, specifically ones for stroke treatment/prophylaxis, have been reviewed in detail with the patient prior to discharge. This includes indication, common adverse reactions, drug interactions, and medication administration. Medication counseling has been employed using the teach-back method to ensure understanding. - Outcome: The patient have demonstrated understanding of the medications. Please note, they are aware that the pharmacist will call them within 72 hours post-discharge to confirm that the appropriate medications are being taken and answer any further medication related questions the patient might have at that time. Contact information Individual to be contacted: Self Relationship to patient (if applicable): N/A Phone number: [phone] Best time to call: -- Additional comments: Patient will not be placed on any medications for stroke treatment/prophylaxis. Platelets are below 50K which precludes any antiplatelet or anticoagulant use. Patient also has extremely low LDL. This was discussed with Dr Winston who will note that patient does not quality for statin at this time. Thank you for allowing pharmacy to be involved in the care of this patient. Please call [phone] or [phone] with any additional questions
--- NOTE | 2019-01-09 10:22 | Pharmacy Report ---
Pharmacist Post D/C Phone Note - Phone Note: Date of phone call: January 09, 2019. Individual with whom pharmacist spoke to: LAKISHA CAVANAUGH The following questions were reviewed during the phone call with responses listed below each: Can you tell me the medications that you are currently taking as well as when and how you take each medication? -See Table Below When have you missed any doses of your medications? - N/A What side effects are you having from your medications, specifically, the new medications you were started on? - N/A What questions do you have about your medications? - N/A What problems are you having obtaining your medications? - N/A When is your next appointment with your primary care doctor? - Next week Additional comments: - none As per the Pharmacist Discharge Counseling for Stroke Patients Protocol, this phone call has been completed within 72 hours of discharge. Thank you for allowing us to be involved in the care of this patient. - Home Medications: Home Medications Medication Instructions Recorded Confirmed biotin 1 mg PO DAILY 10/31/18 12/27/18 calcium carbonate-vitamin D3 1 tab PO DAILY 10/31/18 12/27/18 [Calcium 600 + D(3)] multivitamin 1 tab PO QAM 10/31/18 12/27/18 acyclovir [Zovirax] 400 mg PO BID 12/27/18 12/27/18 ferrous sulfate 325 mg PO BID 12/27/18 12/27/18 furosemide 10 mg PO Q2D PRN 12/27/18 12/27/18 isavuconazonium sulfate 372 mg PO DAILY 12/27/18 12/27/18 levofloxacin 500 mg PO DAILY 12/27/18 12/27/18 loratadine 5 mg PO DAILY PRN 12/27/18 12/27/18 lutein 20 mg PO DAILY 12/27/18 12/27/18 metoprolol tartrate 50 mg PO Q12H 12/27/18 12/27/18 New Rx's Medication Instructions Recorded hydrocortisone acetate [Anucort-HC] 25 mg NE HS 7 Days #7 ea 01/07/19
== END 2019-01-07 14:38 | disposition home or self-care (01) | DRG 808 ==
LOC: ED 15:43 → SUATTDRO 20:11 → 2S 20:11 → 4E 12-31 21:09 → 2N 01-04 14:51

== ENCOUNTER 2019-01-28 14:45 | Inpatient (IN) ==
[2019-01-28] MEDS ORDERED: SODIUM CHLORIDE 0.9% 250 ML IV PRN (16:25)
--- NOTE | 2019-01-28 16:56 | History & Physical Report ---
Date of Service January 28, 2019 Assessment & Plan (1) Symptomatic anemia: This is a 83yo F with a PMH of AML (on Decitabine), symptomatic anemia requiring frequent transfusions, SVT and other medical problems listed below who presents as a direct admit from heme onc clinic with neutropenic fever and severe anemia. -Weak, progressive SOB -Hgb of 6.5 in setting of LATA, AML leukemia (baseline hgb 7-8) -Has received several transfusions in the past -Type and cross for 2u irradiated prbcs -Continue oral iron -Monitor H/H (2) Neutropenic fever: Reported fever of "at least 100" at home upon waking, with chills. Afebrile now. -No evidence of infiltrates in PNA, urine without infection, flu PCR pending -Blood and urine cultures collected. Starting on Cefepime 2g Q8H, per Dr. Miranda. 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 Follows with Dr. Miranda -Continue Isavuconazole, acyclovir (5) SVT (supraventricular tachycardia): EKG with SR with sinus arrhythmia at 72 bpm -Continue Lopressor with hold parameters -Monitor on telemetry (6) Chronic respiratory failure: Has home O2 but refuses to use. States she feels SOB either way -Hypoxic at 82-86% on room air. Improved to 92% on 3L NC O2 DVT Ppx: No pharmaceutical VTE in setting of thrombocytopenia Code status: DNR PCP: Eriberto Dispo: Admitted to [facility]. Plan to return home once medically stable. Patient seen in collaboration with Dr. Lunsford. Please see addendum. History of Present Illness Primary Care Provider: Nydia Wei This is a 83yo F with a PMH of AML (on Decitabine), symptomatic anemia requiring frequent transfusions, SVT and other medical problems listed below who presents as a direct admit from heme onc clinic with neutropenic fever and severe anemia. Went to clinic for 3rd cycle of Decitabine but mentioned that she had awoken with shaking chills that morning and a fever over 100 F (unsure of exact temperature). Feels weak, fatigued and SOB. Denies visual changes, sore throat, cough, chest pain, palpitations, nausea, vomiting, abdominal pain, dysuria, diarrhea or constipation. Chronic lower extremity edema for which she takes Lasix PRN. Was found to be hypoxic at 86% in office. Has not been using home oxygen. Was found to have hemoglobin of 6.7 in clinic and was sent for transfusion and neutropenic fever work up. Refused to come by EMS so patient drove herself to hospital. Now saturating at 93% on 3L NC O2. We will obtain blood and urine cultures and then start on Cefepime 2g Q8H, per Dr. Miranda. Allergies Allergy/AdvReac Type Severity Reaction Status Date / Time adhesive tape Allergy Unknown Verified 01/20/19 10:26 Home Medications Home Medications Medication Instructions Recorded Confirmed Type biotin 1 mg PO DAILY 10/31/18 01/28/19 History calcium carbonate-vitamin D3 1 tab PO DAILY 10/31/18 01/28/19 History [Calcium 600 + D(3)] multivitamin 1 tab PO QAM 10/31/18 01/28/19 History acyclovir [Zovirax] 400 mg PO BID 12/27/18 01/28/19 History ferrous sulfate 325 mg PO BID 12/27/18 01/28/19 History furosemide 10 mg PO Q2D PRN 12/27/18 01/28/19 History isavuconazonium sulfate 372 mg PO DAILY 12/27/18 01/28/19 History levofloxacin 500 mg PO DAILY 12/27/18 01/28/19 History loratadine 5 mg PO DAILY PRN 12/27/18 01/28/19 History lutein 20 mg PO DAILY 12/27/18 01/28/19 History metoprolol tartrate 50 mg PO Q12H 12/27/18 01/28/19 History cholecalciferol (vitamin D3) 1,000 unit PO DAILY 01/28/19 01/28/19 History [Vitamin D3] Past Med/Surg History Medical History LATA (iron deficiency anemia) (Chronic) AML (acute myeloblastic leukemia) (Chronic) SVT (supraventricular tachycardia) (Chronic) CVA (cerebral vascular accident) (Resolved) Pancytopenia (Chronic) Anemia (Acute) Leukemia (Acute) Ovarian cyst, left removal Surgical History Hx of removal of ovary (Resolved) History of total hip replacement (Resolved) History of cataract surgery (Acute) History of total hip arthroplasty (Acute) History of vascular access device (Acute) Family History Mother Lymphoma Other No significant family history Social History Preferred Language: Mexican Communication Ability: Effective [employer] Supervisor Required: No Beliefs That Will Affect Care: None marital status: Single Current Living Situation: Alone current occupational status: retired Feels Safe at Home: Yes Smoking Status: Never smoker Hx Alcohol Use: No Hx Substance Use: No Review of Systems All systems reviewed & are unremarkable except as noted in HPI & below Physical Exam Vital Signs (Past 24 Hours): General Appearance: WD/WN, no apparent distress, chronically ill appearing, pale Head: normocephalic, atraumatic Eyes: normal inspection, PERRL, EOMI ENT: hearing grossly normal, pharynx normal (moist mucous membranes) Neck: supple, no JVD, no adenopathy Respiratory/Chest: lungs clear to auscultation. No wheezes, rales or rhonci. No respiratory distress or accessory muscle use Cardiovascular: regular rate, rhythm, no murmur, normal peripheral pulses Abdomen/GI: normal bowel sounds, soft, non-tender to palpation Extremities/Musculoskelatal: normal inspection, no calf tenderness, normal capillary refill, 2+ BLE edema Neurologic/Psych: alert, normal mood/affect, oriented x 3 Skin: normal color, warm/dry Results & Data Laboratory Results Short CBC 01/28/19 Range/Units 16:49 WBC 1.00 L (4.8-10.8) K/uL Hgb 6.5 L* (12.0-16.0) g/dL Hct 19.3 L* (37-47) % Plt Count 24 L* (130-400) K/uL BMP 01/28/19 16:49 Sodium 141 Potassium 4.1 Chloride 104 Carbon Dioxide 36 H BUN 15 Creatinine 0.64 Glucose 82 Calcium 7.7 L Liver Function 01/28/19 Range/Units 16:49 Total Bilirubin 0.7 (0.2-1) mg/dl AST 40 H (15-37) U/L ALT 36 (12-78) U/L Alkaline Phosphatase 111 (45-117) U/L Albumin 2.4 L (3.4-5.0) gm/dl Urine 01/28/19 Range/Units 18:00 Urine Color Yellow Urine Appearance Cloudy H (Clear) Urine pH 8.0 H (4.5-7.5) Ur Specific [place] 1.014 (1.000-1.030) Urine Protein Negative (Negative) Urine Glucose (UA) Negative (Negative) Diagnostic Findings CXR: IMPRESSION: 1. Improved aeration of the lung bases. 2. Findings consistent with emphysema. No new focal infiltrate to suggest pneumonia. 3. Cardiomegaly. 4. Hiatal hernia. Code Status & VTE Plan Code Status DNR Supervising Physician Co-Signing Physician Notes I have seen and examined the patient with our team's physician compounding assistant and would like to comment that this is a patient with malignancy as acute myeloid leukemia on current chemotherapy who was directed to the hospital by hematology clinic because of pancytopenia - more specifically as anemia less than 7, with current inpatient Hgb as 6.5. Patient also reported subjective elevated temperature and possibly it was above 100 F according to the patient and currently empirically receiving broad spectrum cefepime for possible neutropenic fever. patient has blood culture pending and normal urinalysis. patient had a previous admission for neutropenic fever evaluation and conclusion of that hospital stay was that no source of bacterial infection was found. it is unclear whether these patient truly has bacterial infection as source of fever of perhaps this is a fever of malignancy and coincidentally with neutropenia. the prudent course of action is likely to await for negative blood cultures while on antibiotics before discharging the patient. patient does express some irritation with these cycles of hospital admissions but she agrees to this plan and to receive 2 units of PRBCs with Lasix. Of note, patient reports that she has stopped using home oxygen because she feels that she does not really need it even though her O2 saturations as measured by pulse oximetry have been less than optimal while on room air. Will need to monitor this chronic respiratory failure and re-assess on any additional pulmonary interventions. Chest X ray is without infiltrates agree with other medical management of health issues as listed by physician compounding assistant On physical exam General: no acute distress Lungs: on nasal cannula, clear to auscultation, no wheezing Heart: regular rate Abdomen: soft, nontender, bowel sounds present Extremities: moves all extremities, chronic swelling of lower extremities with chronic skin changes Dr. Lunsford is admitting physician on 01/28/19. Colleague Dr. Florence will continue to manage the patient's health care starting on 01/29/19 as hospitalist
[2019-01-28 17:42] LABS: Alanine Aminotransferase 36 U/L (12-78); Albumin Level 2.4 gm/dl (3.4-5.0); Aspartate Aminotransferase 40 U/L (15-37); BUN Creatinine Ratio 23.7 (10-20); Blood Urea Nitrogen 15 mg/dl (7-18); Calcium 7.7 mg/dl (8.5-10.1); Carbon Dioxide 36 mmol/L (21-32); Chloride 104 mmol/L (98-107); Est GFR (African American) 94.3; Est GFR (Non-African American) 81.4; Glucose 82 mg/dl (70-99); Potassium 4.1 mmol/L (3.5-5.1); Sodium 141 mmol/L (136-145)
[2019-01-28 17:44] LABS: Albumin Globulin Ratio 0.7 (0.9-2); Alkaline Phosphatase 111 U/L (45-117); Bilirubin,Total 0.7 mg/dl (0.2-1); Globulin 3.5 gm/dl (2.5-4.0); Total Protein 5.9 gm/dl (6.4-8.2)
[2019-01-28] MEDS ORDERED: FUROSEMIDE 20 MG TAB PO PRN (18:19)
[2019-01-28 18:41] LABS: Appearance Urine Cloudy (Clear); Bacteria Urine Automated Negative (Negative); Bilirubin Urine Negative (Negative); Blood Urine Negative (Negative); Cast Urine Automated 0 /lpf (0-5); Color Urine Yellow; Epithelial Cell Urine Auto >30 /lpf (0-5); Glucose Urine UA Negative (Negative); Ketones Urine Negative (Negative); Leukocyte Esterase Urine Negative (Negative); Nitrite Urine Negative (Negative); Protein Urine Negative (Negative); RBC Urine Automated 0-4 /hpf (0-4); Specific Gravity Urine 1.014 (1.000-1.030); Urobilinogen Urine Negative (Negative)
--- NOTE | 2019-01-28 18:42 | XRay Report ---
XR chest 2V routine CLINICAL HISTORY: 83 years-old Female presenting with neutropenic fever, source unknown. TECHNIQUE: PA and lateral views of the chest were obtained. COMPARISON: Chest CT from and chest x-ray from 12/29/2018. FINDINGS: The patient is LOWRY rotated. Additionally scoliosis degrades evaluation. Right internal jugular Medipo rt terminates in the lower SVC. Atherosclerosis of aortic arch. Cardiac silhouette moderately enlarge d. Lungs are hyperinflated. Bibasilar opacities decreased from prior though a bandlike opacity persis ts at the left lung base. No large effusion or pneumothorax. Posttraumatic deformity of the right cla vicle suggested. Dextroscoliosis and degenerative changes of the spine. Hiatal hernia. Numerous exter nal leads overlie the thorax degrading evaluation. IMPRESSION: 1. Improved aeration of the lung bases. 2. Findings consistent with emphysema. No new focal infiltrate to suggest pneumonia. 3. Cardiomegaly. 4. Hiatal hernia. Electronically signed by: Christopher Arroyo M.D. 01/28/2019 6:40 PM
[2019-01-28 18:55] LABS: Hematocrit (blood only) 19.3 % (37-47); Hemoglobin 6.5 g/dL (12.0-16.0); Mean Corpuscular Hgb Conc 33.7 g/dL (32-36); Mean Corpuscular Volume 93.2 fL (80-100); Mean Platelet Volume 11.1 fL (7.4-10.4); Nucleated RBC # (auto) 0.03 K/uL (0-0); Nucleated RBC % (auto) 3.2 %; Platelet Count 24 K/uL (130-400); RDW Coefficient of Variation 15.2 % (11.5-14.5); RDW Standard Deviation 50.5 fL (36.4-46.3); Red Blood Count 2.07 M/uL (4.2-5.4)
[2019-01-28] MEDS ORDERED: LORATADINE 10 MG TAB PO PRN (19:15)
[2019-01-28 19:39] LABS: Lymphocytes # (auto) 0.95 K/uL (1.2-3.4); Monocytes # (auto) 0.02 K/uL (0.11-0.59); Neutrophils # (auto) 0.03 K/uL (1.4-6.5); Platelet Estimate Decreased (Normal); RBC Morphology Unremarkable
[2019-01-28 19:56] LABS: Influenza A virus by PCR Neg for Influ A (Neg); Influenza B virus by PCR Neg for Influ B (Neg)
[2019-01-28] MEDS ORDERED: FUROSEMIDE 20 MG in SYRINGE 0 ML IV ONE (20:00)
[2019-01-28] MEDS: ACYCLOVIR 400 MG TAB PO SCH (22:38)
[2019-01-28] MEDS: CEFEPIME 2,000 MG in SYRINGE 7.5 ML IV SCH (22:38)
[2019-01-28] MEDS: METOPROLOL TARTRATE 50 MG TAB PO SCH (22:38)
[2019-01-29] MEDS ORDERED: FUROSEMIDE 20 MG in SYRINGE 0 ML IV ONE (02:15)
[2019-01-29] MEDS: CEFEPIME 2,000 MG in SYRINGE 7.5 ML IV SCH ×3 (05:11→21:25)
[2019-01-29 06:25] LABS: Hematocrit (blood only) 25.5 % (37-47); Hemoglobin 8.4 g/dL (12.0-16.0); Mean Corpuscular Hgb Conc 32.9 g/dL (32-36); Mean Corpuscular Volume 89.5 fL (80-100); Mean Platelet Volume 11.3 fL (7.4-10.4); Platelet Count 35 K/uL (130-400); RDW Coefficient of Variation 15.3 % (11.5-14.5); RDW Standard Deviation 49.4 fL (36.4-46.3); Red Blood Count 2.85 M/uL (4.2-5.4); White Blood Count 0.92 K/uL (4.8-10.8)
[2019-01-29 06:50] LABS: BUN Creatinine Ratio 28.3 (10-20); Calcium 7.3 mg/dl (8.5-10.1); Creatinine Clr Calc Pharmacy 55.6 ml/min; Est GFR (African American) 95.3; Est GFR (Non-African American) 82.2; Potassium 3.6 mmol/L (3.5-5.1)
[2019-01-29 07:01] LABS: Dohle Bodies 1+; Giant Platelets 2+
[2019-01-29 07:03] LABS: ALC (manual) 0.81 K/uL (1.2-3.4); Lymphocytes # (manual) 0.68 K/uL (1.2-3.4); Lymphocytes % (manual) 73.4 %; Monocytes # (manual) 0.02 K/uL (0.11-0.59); Monocytes % (manual) 1.8 %; Myelocytes # (manual) 0.01 K/uL (0-0); Myelocytes % (manual) 0.9 %; Neutrophils % (manual) 9.7 %; Reactive Lymphocytes # (manual) 0.13 K/uL
[2019-01-29] MEDS ORDERED: FERROUS SULFATE 325 MG TAB PO SCH (08:00)
[2019-01-29] MEDS ORDERED: NON-FORMULARY MEDICATION (Biotin 1 MG) PO SCH (09:00)
[2019-01-29] MEDS ORDERED: NON-FORMULARY MEDICATION (Lutein 20 MG) PO SCH (09:00)
[2019-01-29] MEDS: CALCIUM 600MG + VIT D 400 IU TAB PO SCH (09:08)
[2019-01-29] MEDS: MULTIVITAMIN TAB PO SCH (09:08)
[2019-01-29] MEDS: CRESEMBA 186 MG PO SCH (09:12)
[2019-01-29] MEDS: METOPROLOL TARTRATE 50 MG TAB PO SCH ×2 (09:12→21:24)
[2019-01-29] MEDS: ACYCLOVIR 400 MG TAB PO SCH ×2 (09:15→21:24)
[2019-01-29] MEDS: CHOLECALCIFEROL 1,000 UNITS TAB PO SCH (09:15)
--- NOTE | 2019-01-29 17:03 | Hospitalist Progress Note ---
Date of Service January 29, 2019 Assessment & Plan (1) Symptomatic anemia: This is a 83yo F with a PMH of AML (on Decitabine), symptomatic anemia requiring frequent transfusions, SVT and other medical problems listed below who presents as a direct admit from heme onc clinic with neutropenic fever and severe anemia. -Weak, progressive SOB on presentaion -Hgb of 6.5 in setting of LATA, AML leukemia (baseline hgb 7-8) -Has received several transfusions in the past -s/p 2u irradiated prbcs transfusion HB improved 8.4 with improvement of symptom -Continue oral iron -Monitor H/H (2) Neutropenic fever: Reported fever of "at least 100" at home upon waking, with chills. Afebrile now. -No evidence of infiltrates in PNA, urine without infection, flu PCR pending -Blood and urine cultures collected. Starting on Cefepime 2g Q8H, per Dr. Miranda. 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 Follows with Dr. Miranda -Continue Isavuconazole, acyclovir (5) SVT (supraventricular tachycardia): EKG with SR with sinus arrhythmia at 72 bpm due to anemia /fever correction of anemia with PRBc tx abx tx as outlined above of neutropenic fever (6) Chronic respiratory failure: Has home O2 but refuses to use. States she feels SOB either way presented with acute on chronic resp failure due to anemia -Hypoxic at 82-86% on room air. Improved to 92% on 3L NC O2 SOB and ALEJANDRO much improved after PRBC tx DVT Ppx: No pharmaceutical VTE in setting of thrombocytopenia Code status: DNR PCP: Eriberto DISPOSITION : will need PT/OT eval prior to dc home Subjective pt reports of feeling better , less , ALEJANDRO afebrile feels tired and weak -which has been going on for months no complain of abdominal pain or nausea , no cough or SOB very pleasant Physical Exam Vital Signs (Past 24 Hours): Last Vital Signs Temp 37.6 C H 01/29/19 15:11 Pulse 62 01/29/19 16:00 Resp 18 01/29/19 15:11 BP 118/55 L 01/29/19 15:11 Pulse Ox 94 01/29/19 15:11 Physical Exam: GENERAL: No sign of distress,very pleasant HEENT: Sclera nonicteric, pink-purple bilateral equal reactive to light extraocular muscle intact Normal oral mucosa, neck: No JVD, no thyromegaly, trachea midline Lungs: Clear to auscultate, no wheeze or rales Cardiovascular: Regular S1 and S2, no murmur or gallop, no JVD,+ 2 bilat extremity edema Abdomen: Soft, nontender, bowel sounds active, no hepatosplenomegaly Extremities: No rash or deformity, normal joint, Neuro: No focal neurological deficit, no dysarthria, no facial droop Psych: Alert awake oriented x3: Euthymic Skin: No rash LYMPH NODES: No cervical lymphadenopathy
[2019-01-30] MEDS: CEFEPIME 2,000 MG in SYRINGE 7.5 ML IV SCH ×2 (06:02→14:18)
[2019-01-30 06:27] LABS: BUN Creatinine Ratio 24.6 (10-20); Calcium 7.3 mg/dl (8.5-10.1); Creatinine Clr Calc Pharmacy 67.6 ml/min; Est GFR (African American) 101.6; Est GFR (Non-African American) 87.7; Potassium 3.5 mmol/L (3.5-5.1)
[2019-01-30] MEDS: ACYCLOVIR 400 MG TAB PO SCH ×2 (09:17→21:46)
[2019-01-30] MEDS: CRESEMBA 186 MG PO SCH (09:17)
[2019-01-30] MEDS: METOPROLOL TARTRATE 50 MG TAB PO SCH ×2 (09:18→21:46)
[2019-01-30] MEDS: MULTIVITAMIN TAB PO SCH (09:18)
[2019-01-30] MEDS: CHOLECALCIFEROL 1,000 UNITS TAB PO SCH (09:18)
[2019-01-30] MEDS: CALCIUM 600MG + VIT D 400 IU TAB PO SCH (09:18)
--- NOTE | 2019-01-30 15:34 | Hospitalist Progress Note ---
Date of Service January 30, 2019 Assessment & Plan (1) Symptomatic anemia: per admitting service notes: This is a 83yo F with a PMH of AML (on Decitabine), symptomatic anemia requiring frequent transfusions, SVT and other medical problems listed below who presents as a direct admit from heme onc clinic with neutropenic fever and severe anemia. -Weak, progressive SOB -Hgb of 6.5 in setting of LATA, AML leukemia (baseline hgb 7-8) -s/p 2 units PRBC Hg stable at 9.4 clinically improved (2) Neutropenic fever: per admitting SVC: Reported fever of "at least 100" at home upon waking, with chills. Afebrile now. -No evidence of infiltrates in PNA, urine without infection, flu PCR negative Started on Cefepime 2g Q8H, per Dr. Miranda. Will hold home dose Levaquin Blood cultures: negative so far Urine culture: (+) staph, 10k ff up cultures afebrile, continue Cefepime IV for now (3) Pancytopenia: likely from chemo CBC trending up monitor (4) AML (acute myeloblastic leukemia): On cycle 3 of Decitabine. Follows with Dr. Miranda -Continue Isavuconazole, acyclovir patient does not have enought Cresemba at this time, will order Voriconazole tomorrow (5) SVT (supraventricular tachycardia): EKG with SR with sinus arrhythmia at 72 bpm -Continue Lopressor with hold parameters -Monitor on telemetry (6) Chronic respiratory failure: Has home O2 but refuses to use. States she feels SOB either way -Hypoxic at 82-86% on room air. Improved to 92% on 3L NC O2 DVT Ppx: No pharmaceutical VTE in setting of thrombocytopenia Code status: DNR PCP: Eriberto Dispo: Admitted to [facility]. Plan to return home once medically stable. Subjective ff up for anemia, fever seen resting in bed, comfortable in good spirits states she feels improved today denies chills, headache, cough, dyspnea, abdominal pain, dysuria, diarrhea no dizziness, weakness no other symptoms Physical Exam Vital Signs (Past 24 Hours): Last Vital Signs Temp 36.7 C 01/30/19 12:14 Pulse 72 01/30/19 12:14 Resp 16 01/30/19 12:14 BP 124/61 01/30/19 12:14 Pulse Ox 91 01/30/19 12:14 Physical Exam: General- oriented x 3, not in distress, speaks in sentences with no effort or accessory muscle use Eyes- anicteric Neck- no JVD Lungs- clear breath sounds bilaterally Heart- normal rate, regular rhythm; no murmurs Abdomen- normal bowel sounds, nondistended, soft, nontender Extremities- no pretibial edema, no calf tenderness Neuro- alert, oriented x 3; no gross focal neurologic deficits Skin- warm & dry Results & Data Laboratory Results Laboratory Results - last 24 hr 01/30/19 01/30/19 05:54 15:46 WBC 1.25 L RBC 3.21 L Hgb 9.4 L Hct 29.0 L MCV 90.3 MCH 29.3 MCHC 32.4 RDW Std Deviation 50.2 H RDW Coeff of Rangel 15.6 H Plt Count 42 L MPV 11.8 H Immature Gran % (Auto) 0.8 Neut % (Auto) 8.0 Lymph % (Auto) 89.6 [place] % (Auto) 1.6 Eos % (Auto) 0.0 Baso % (Auto) 0.0 Immature Gran # (Auto) 0.01 Neut # (Auto) 0.10 L* Lymph # (Auto) 1.12 L [place] # (Auto) 0.02 L Eos # (Auto) 0.00 Baso # (Auto) 0.00 Sodium 142 Potassium 3.5 Chloride 103 Carbon Dioxide 39 H Anion Gap 0 L BUN 13 Creatinine 0.51 L Est Cr Clr Drug Dosing 67.6 Est GFR ( Amer) 101.6 Est GFR (Non-Af Amer) 87.7 BUN/Creatinine Ratio 24.6 H Glucose 101 H Calcium 7.3 L
[2019-01-30 16:52] LABS: Hemoglobin 9.4 g/dL (12.0-16.0); Mean Corpuscular Hgb Conc 32.4 g/dL (32-36); Mean Corpuscular Volume 90.3 fL (80-100); Mean Platelet Volume 11.8 fL (7.4-10.4); Platelet Count 42 K/uL (130-400); RDW Coefficient of Variation 15.6 % (11.5-14.5); RDW Standard Deviation 50.2 fL (36.4-46.3); Red Blood Count 3.21 M/uL (4.2-5.4); White Blood Count 1.25 K/uL (4.8-10.8)
[2019-01-30 16:53] LABS: Immature Granulocytes # (auto) 0.01 K/uL (0.00-0.02); Immature Granulocytes % (auto) 0.8 %; Lymphocytes # (auto) 1.12 K/uL (1.2-3.4); Lymphocytes % (auto) 89.6 %; Monocytes # (auto) 0.02 K/uL (0.11-0.59); Monocytes % (auto) 1.6 %
[2019-01-30] MEDS: HEPARIN 100 UNIT/ML 5ML FLUSH FLUSH SCH (19:11)
[2019-01-31] MEDS ORDERED: ACETAMINOPHEN 325 MG TAB PO PRN (00:01)
[2019-01-31] MEDS: HEPARIN 100 UNIT/ML 5ML FLUSH FLUSH SCH (06:15)
[2019-01-31] MEDS ORDERED: HEPARIN 100 UNIT/ML 5ML FLUSH FLUSH PRN (06:47)
[2019-01-31 06:52] LABS: Hematocrit (blood only) 25.4 % (37-47); Hemoglobin 8.2 g/dL (12.0-16.0); Mean Corpuscular Hgb Conc 32.3 g/dL (32-36); Mean Corpuscular Volume 91.4 fL (80-100); Mean Platelet Volume 11.5 fL (7.4-10.4); Platelet Count 35 K/uL (130-400); RDW Coefficient of Variation 15.4 % (11.5-14.5); RDW Standard Deviation 51.7 fL (36.4-46.3); Red Blood Count 2.78 M/uL (4.2-5.4)
[2019-01-31 06:55] LABS: Giant Platelets 1+; Lymphocytes # (auto) 0.72 K/uL (1.2-3.4); Monocytes # (auto) 0.02 K/uL (0.11-0.59); Monocytes % (auto) 2.5 %; Neutrophils % (auto) 7.5 %
[2019-01-31 07:03] LABS: BUN Creatinine Ratio 30.8 (10-20); Calcium 7.4 mg/dl (8.5-10.1); Creatinine Clr Calc Pharmacy 88.4 ml/min; Est GFR (Non-African American) 95.8; Potassium 3.7 mmol/L (3.5-5.1)
[2019-01-31] MEDS: ACYCLOVIR 400 MG TAB PO SCH ×2 (09:23→20:11)
[2019-01-31] MEDS: METOPROLOL TARTRATE 50 MG TAB PO SCH ×2 (09:23→20:10)
[2019-01-31] MEDS: MULTIVITAMIN TAB PO SCH (09:25)
[2019-01-31] MEDS: CALCIUM 600MG + VIT D 400 IU TAB PO SCH (09:25)
[2019-01-31] MEDS: CHOLECALCIFEROL 1,000 UNITS TAB PO SCH (09:25)
[2019-01-31] MEDS: CRESEMBA 186 MG PO SCH (09:26)
--- NOTE | 2019-01-31 09:30 | Hospitalist Progress Note ---
Date of Service January 31, 2019 Assessment & Plan (1) Symptomatic anemia: per admitting service notes: This is a 83yo F with a PMH of AML (on Decitabine), symptomatic anemia requiring frequent transfusions, SVT and other medical problems listed below who presents as a direct admit from heme onc clinic with neutropenic fever and severe anemia. -Weak, progressive SOB -Hgb of 6.5 in setting of LATA, AML leukemia (baseline hgb 7-8) -s/p 2 units PRBC Hg stable 8-9 no signs of active bleeding (2) Neutropenic fever: per admitting SVC: Reported fever of "at least 100" at home upon waking, with chills. Afebrile now. -No evidence of infiltrates in PNA, urine without infection, flu PCR negative Started on Cefepime 2g Q8H, per Dr. Miranda. 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 Follows with Dr. Miranda -Continue Cresemba, Acyclovir (5) SVT (supraventricular tachycardia): EKG with SR with sinus arrhythmia at 72 bpm -Continue Lopressor with hold parameters -Monitor on telemetry (6) Chronic respiratory failure: Has home O2 but refuses to use. States she feels SOB either way -Hypoxic at 82-86% on room air. Improved to 92% on 3L NC O2 DVT Ppx: No pharmaceutical VTE in setting of thrombocytopenia Code status: DNR PCP: Eriberto Dispo: Admitted to [facility]. Plan to return home once medically stable. Subjective ff up for anemia, fever resting comfortably tmax 37.9, woke up with sweats states she feels the same, low energy which is chronic no headache, dizziness, cough, chest pain, dyspnea, no abdominal pain/nausea denies urinary symptoms no other symptoms Physical Exam Vital Signs (Past 24 Hours): Last Vital Signs Temp 36.9 C 01/31/19 07:38 Pulse 65 01/31/19 07:38 Resp 20 01/31/19 07:38 BP 105/46 L 01/31/19 07:38 Pulse Ox 95 01/31/19 07:38 Physical Exam: General- oriented x 3, not in distress, speaks in sentences with no effort or accessory muscle use Eyes- anicteric Neck- no JVD Lungs- clear breath sounds no rales no wheezing Heart- normal rate, regular rhythm; no murmurs Abdomen- normal bowel sounds, nondistended, soft, nontender Extremities- no pretibial edema, no calf tenderness Neuro- alert, oriented x 3; no gross focal neurologic deficits Skin- warm & dry Results & Data Laboratory Results Laboratory Results - last 24 hr 01/30/19 01/31/19 01/31/19 15:46 06:18 06:18 WBC 1.25 L 0.80 L* RBC 3.21 L 2.78 L Hgb 9.4 L 8.2 L Hct 29.0 L 25.4 L MCV 90.3 91.4 MCH 29.3 29.5 MCHC 32.4 32.3 RDW Std Deviation 50.2 H 51.7 H RDW Coeff of Rangel 15.6 H 15.4 H Plt Count 42 L 35 L MPV 11.8 H 11.5 H Immature Gran % (Auto) 0.8 0.0 Neut % (Auto) 8.0 7.5 Lymph % (Auto) 89.6 90.0 [place] % (Auto) 1.6 2.5 Eos % (Auto) 0.0 0.0 Baso % (Auto) 0.0 0.0 Immature Gran # (Auto) 0.01 0.00 Neut # (Auto) 0.10 L* 0.06 L* Lymph # (Auto) 1.12 L 0.72 L [place] # (Auto) 0.02 L 0.02 L Eos # (Auto) 0.00 0.00 Baso # (Auto) 0.00 0.00 Giant Platelets 1+ Sodium 143 Potassium 3.7 Chloride 105 Carbon Dioxide 37 H Anion Gap 1.0 L BUN 12 Creatinine 0.39 L Est Cr Clr Drug Dosing 88.4 Est GFR ( Amer) 111.0 Est GFR (Non-Af Amer) 95.8 BUN/Creatinine Ratio 30.8 H Glucose 102 H Calcium 7.4 L
--- NOTE | 2019-01-31 11:04 | Infectious Disease Consult ---
Date of Consultation January 31, 2019 Assessment & Plan (1) Neutropenic fever: Unclear significance of HVAC MECHANIC in urine culture, suspect contaminant but with neurtopenia would suggest short course of dapto, 3 days total. blood cultures remain negative. History of Present Illness Attending Physician: Jacobo Winston MD pt admitted from heme/onc office on 01/28 due to fever reported of 100. She has had neutropenia dating back to late Dec. She was admitted and started on IV abx. blood cultures negative to date. UA negative, >30 ep cell, culture now growing 10,000 HVAC MECHANIC, sensitive to vanco and dapto, she remains on levaquin. tolerating well. undergoing chemo for AML, port on left chest wall, placed in Dec. working well. no pain, no bleeding, no drainage. denies cp, sob, cough, no n/v/d/abd pain, denies any gu symptoms. ambulating in room on my exam. has no complaints. eating well. wbc today 0.8. ANC remains low. flu swab negative, cxr negative, no resp complaints. has had intermittent low grade fever since admission, tmax overnight 37.9. Allergies Allergy/AdvReac Type Severity Reaction Status Date / Time adhesive tape Allergy Unknown Verified 01/20/19 10:26 Home Medications Home Medications Medication Instructions Recorded Confirmed Type biotin 1 mg PO DAILY 10/31/18 01/28/19 History calcium carbonate-vitamin D3 1 tab PO DAILY 10/31/18 01/28/19 History [Calcium 600 + D(3)] multivitamin 1 tab PO QAM 10/31/18 01/28/19 History acyclovir [Zovirax] 400 mg PO BID 12/27/18 01/28/19 History ferrous sulfate 325 mg PO BID 12/27/18 01/28/19 History furosemide 10 mg PO Q2D PRN 12/27/18 01/28/19 History isavuconazonium sulfate 372 mg PO DAILY 12/27/18 01/28/19 History levofloxacin 500 mg PO DAILY 12/27/18 01/28/19 History loratadine 5 mg PO DAILY PRN 12/27/18 01/28/19 History lutein 20 mg PO DAILY 12/27/18 01/28/19 History metoprolol tartrate 50 mg PO Q12H 12/27/18 01/28/19 History cholecalciferol (vitamin D3) 1,000 unit PO DAILY 01/28/19 01/28/19 History [Vitamin D3] Patient History Medical History LATA (iron deficiency anemia) (Chronic) AML (acute myeloblastic leukemia) (Chronic) SVT (supraventricular tachycardia) (Chronic) CVA (cerebral vascular accident) (Resolved) Pancytopenia (Chronic) Anemia (Acute) Leukemia (Acute) Ovarian cyst, left removal Surgical History Hx of removal of ovary (Resolved) History of total hip replacement (Resolved) History of cataract surgery (Acute) History of total hip arthroplasty (Acute) History of vascular access device (Acute) Family History Mother Lymphoma Other No significant family history Social History Communication Ability: Effective Beliefs That Will Affect Care: None marital status: Single Current Living Situation: Alone current occupational status: retired Feels Safe at Home: Yes Smoking Status: Never smoker Hx Alcohol Use: No Hx Substance Use: No Review of Systems all remaining ros reviewed and are negative Physical Exam Vital Signs (Past 24 Hours): Last Vital Signs Temp 36.9 C 01/31/19 07:38 Pulse 65 01/31/19 07:38 Resp 20 01/31/19 07:38 BP 105/46 L 01/31/19 07:38 Pulse Ox 95 01/31/19 07:38 Constitutional: WD/WN, vitals as above Eyes: PERRL, conjunctivae normal, anicteric sclerae ENMT: external ear and nose normal, oropharynx normal Neck: normal visual inspection Respiratory: normal respiratory effort, lungs clear to auscultation Cardiovascular: RRR, no murmur, no edema Gastrointestinal (Abdomen): normal bowel sounds, soft, nontender, no hepatosplenomegaly Musculoskeletal: no cyanosis or clubbing, extremities motor strength 5/5 Skin: no rashes, warm and dry left chest wall port dressing c/d/i, no surrounding warmth, tenderness, no bleeding no drainage Psychiatric: A+Ox3, euthymic affect Results & Data Laboratory Results Microbiology 01/28/19 18:00 Urine,Clean Catch Urine Culture - Preliminary Coag neg staph not saprophytic 01/28/19 17:02 Blood Blood Culture - Preliminary No growth to date. 01/28/19 16:49 Blood Blood Culture - Preliminary No growth to date.
[2019-01-31 12:52] LABS: Neutrophils # (auto) 0.06 K/uL (1.4-6.5)
[2019-01-31] MEDS: levoFLOXacin 500 MG TAB PO SCH (12:55)
[2019-01-31] MEDS ORDERED: DAPTOMYCIN CONSULT ACTIVE PRN (19:38)
[2019-01-31] MEDS: DAPTOmycin 225 MG in SYRINGE 0 ML IV SCH (20:08)
[2019-02-01] MEDS: CALCIUM 600MG + VIT D 400 IU TAB PO SCH (08:52)
[2019-02-01] MEDS: METOPROLOL TARTRATE 50 MG TAB PO SCH ×2 (08:52→20:17)
[2019-02-01] MEDS: CHOLECALCIFEROL 1,000 UNITS TAB PO SCH (08:53)
[2019-02-01] MEDS: CRESEMBA 186 MG PO SCH (08:53)
[2019-02-01] MEDS: MULTIVITAMIN TAB PO SCH (08:53)
[2019-02-01] MEDS: ACYCLOVIR 400 MG TAB PO SCH ×2 (08:53→20:17)
[2019-02-01] MEDS: levoFLOXacin 500 MG TAB PO SCH (11:26)
--- NOTE | 2019-02-01 18:08 | Hospitalist Progress Note ---
Date of Service February 01, 2019 Assessment & Plan (1) Symptomatic anemia: This is a 83yo F with a PMH of AML (on Decitabine), symptomatic anemia requiring frequent transfusions, SVT and other medical problems listed below who presents as a direct admit from heme onc clinic with neutropenic fever and severe anemia. -Weak, progressive SOB on presentaion -Hgb of 6.5 in setting of LATA, AML leukemia (baseline hgb 7-8) -Has received several transfusions in the past -s/p 2u irradiated prbcs transfusion hg stable repeat CBC tomorrow (2) Neutropenic fever: Urine culture growing Staph ID consulted Dapto x 3 days ordered (3) Pancytopenia: WBC at 1, platelets of 24 - both close to baseline -due to AML s/p 2 units of PRBC tx stable so far repeat CBC tomorrow (4) AML (acute myeloblastic leukemia): On cycle 3 of Decitabine. Follow[address] with Dr. Miranda -Continue Irene, Acyclovir (5) SVT (supraventricular tachycardia): EKG with SR with sinus arrhythmia at 72 bpm stable (6) Chronic respiratory failure: Has home O2 but refuses to use. States she feels SOB either way presented with acute on chronic resp failure due to anemia -Hypoxic at 82-86% on room air. Improved to 92% on 3L NC O2 SOB and ALEJANDRO much improved after PRBC tx DVT Ppx: No pharmaceutical VTE in setting of thrombocytopenia Code status: DNR PCP: Eriberto DISPOSITION : will need PT/OT eval prior to dc home Subjective ff up for anemia, UTI seen resting in bed, comfortable states she feels somewhat weak but ok overall denies abdominal pain, urinary symptoms no other symptoms Physical Exam Vital Signs (Past 24 Hours): Last Vital Signs Temp 37.0 C 02/01/19 15:19 Pulse 82 02/01/19 15:19 Resp 18 02/01/19 15:19 BP 126/63 02/01/19 15:19 Pulse Ox 97 02/01/19 15:19 Physical Exam: General- oriented x 3, not in distress, speaks in sentences with no effort or accessory muscle use Eyes- anicteric Neck- no JVD Lungs- clear BS BL, no rales/wheezes Heart- normal rate, regular rhythm; no murmurs Abdomen- normal bowel sounds, nondistended, soft, nontender Extremities- no pretibial edema, no calf tenderness Neuro- alert, oriented x 3; no gross focal neurologic deficits Skin- warm & dry
[2019-02-01] MEDS: DAPTOmycin 225 MG in SYRINGE 0 ML IV SCH (20:17)
[2019-02-02] MEDS: METOPROLOL TARTRATE 50 MG TAB PO SCH ×2 (09:52→20:32)
[2019-02-02] MEDS: CALCIUM 600MG + VIT D 400 IU TAB PO SCH (09:52)
[2019-02-02] MEDS: ACYCLOVIR 400 MG TAB PO SCH ×2 (09:52→20:32)
[2019-02-02] MEDS: CHOLECALCIFEROL 1,000 UNITS TAB PO SCH (09:52)
[2019-02-02] MEDS: CRESEMBA 186 MG PO SCH (09:53)
[2019-02-02] MEDS: MULTIVITAMIN TAB PO SCH (09:53)
[2019-02-02] MEDS: levoFLOXacin 500 MG TAB PO SCH (13:46)
[2019-02-02 16:00] LABS: Hematocrit (blood only) 26.4 % (37-47); Hemoglobin 8.4 g/dL (12.0-16.0); Mean Corpuscular Hgb Conc 31.8 g/dL (32-36); Mean Corpuscular Volume 93.6 fL (80-100); Mean Platelet Volume 11.5 fL (7.4-10.4); RDW Coefficient of Variation 15.4 % (11.5-14.5); RDW Standard Deviation 51.9 fL (36.4-46.3); Red Blood Count 2.82 M/uL (4.2-5.4); White Blood Count 0.88 K/uL (4.8-10.8)
[2019-02-02 17:12] LABS: Platelet Estimate SIGNIFIC DECREASED (Normal); RBC Morphology Unremarkable
[2019-02-02 17:13] LABS: Platelet Count 27 K/uL (130-400)
[2019-02-02 17:14] LABS: ALC (manual) 0.81 K/uL (1.2-3.4); Lymphocytes # (manual) 0.57 K/uL (1.2-3.4); Lymphocytes % (manual) 65.2 %; Monocytes # (manual) 0.02 K/uL (0.11-0.59); Monocytes % (manual) 1.8 %; Neutrophils % (manual) 5.8 %; Reactive Lymphocytes # (manual) 0.24 K/uL
--- NOTE | 2019-02-02 19:33 | Hospitalist Progress Note ---
Date of Service February 02, 2019 Assessment & Plan (1) Symptomatic anemia: This is a 83yo F with a PMH of AML (on Decitabine), symptomatic anemia requiring frequent transfusions, SVT and other medical problems listed below who presents as a direct admit from heme onc clinic with neutropenic fever and severe anemia. -Weak, progressive SOB on presentaion -Hgb of 6.5 in setting of LATA, AML leukemia (baseline hgb 7-8) -Has received several transfusions in the past -s/p 2u irradiated prbcs transfusion hg 8.4 asymptomatic follow (2) Neutropenic fever: UTI Urine culture growing Staph ID consulted Dapto x 3 days ordered, 3rd dose today (3) Pancytopenia: secondary to Chemotherapy WBC at 1, platelets of 24 - both close to baseline -due to AML s/p 2 units of PRBC tx - WBC and HG stable Plt trending down, no bleeding, monitor (4) AML (acute myeloblastic leukemia): On cycle 3 of Decitabine. Follow[address] with Dr. Miranda -Continue Cresemba, Acyclovir (5) SVT (supraventricular tachycardia): EKG with SR with sinus arrhythmia at 72 bpm stable (6) Chronic respiratory failure: Has home O2 but refuses to use. States she feels SOB either way presented with acute on chronic resp failure due to anemia -Hypoxic at 82-86% on room air. Improved to 92% on 3L NC O2 SOB and ALEJANDRO much improved after PRBC tx DVT Ppx: No lovenox/heparin in setting of thrombocytopenia Code status: DNR PCP: Eriberto DISPOSITION : will need PT/OT eval prior to dc home Subjective ff up for anemia, UTI states she feels ok overall no urinary symptoms no bleeding, chest pain, dyspnea, dizziness no other symptoms Physical Exam Vital Signs (Past 24 Hours): Last Vital Signs Temp 36.8 C 02/02/19 15:00 Pulse 71 02/02/19 16:00 Resp 16 02/02/19 15:00 BP 130/70 02/02/19 15:00 Pulse Ox 95 02/02/19 15:00 Physical Exam: General- oriented x 3, not in distress, speaks in sentences with no effort or accessory muscle use Eyes- anicteric Neck- no JVD Lungs- clear breath sounds bilaterally Heart- normal rate, regular rhythm; no murmurs Abdomen- normal bowel sounds, nondistended, soft, nontender Extremities- no pretibial edema, no calf tenderness Neuro- alert, oriented x 3; no gross focal neurologic deficits Skin- warm & dry Results & Data Laboratory Results Laboratory Results - last 24 hr 02/02/19 15:01 WBC 0.88 L* RBC 2.82 L Hgb 8.4 L Hct 26.4 L MCV 93.6 MCH 29.8 MCHC 31.8 L RDW Std Deviation 51.9 H RDW Coeff of Rangel 15.4 H Plt Count 27 L* MPV 11.5 H Neutrophils % (Manual) 5.8 Lymphocytes % (Manual) 65.2 Reactive Lymphs % (Man) 27.2 Monocytes % (Manual) 1.8 Neutrophils # (Manual) 0.05 L Total Absolute Neuts 0.05 L* Lymphocytes # (Manual) 0.57 L Reactive Lymphs # 0.24 Total Abs Lymphocytes 0.81 L Monocytes # (Manual) 0.02 L Platelet Estimate SIGNIFIC DECREASED RBC Morphology Unremarkable
[2019-02-02] MEDS: DAPTOmycin 225 MG in SYRINGE 0 ML IV SCH (20:32)
[2019-02-03] MEDS: CRESEMBA 186 MG PO SCH (08:24)
[2019-02-03] MEDS: METOPROLOL TARTRATE 50 MG TAB PO SCH ×2 (08:24→20:40)
[2019-02-03] MEDS: MULTIVITAMIN TAB PO SCH (08:24)
[2019-02-03] MEDS: ACYCLOVIR 400 MG TAB PO SCH ×2 (08:24→20:40)
[2019-02-03] MEDS: CHOLECALCIFEROL 1,000 UNITS TAB PO SCH (08:24)
[2019-02-03 08:49] LABS: Hematocrit (blood only) 24.7 % (37-47); Hemoglobin 7.8 g/dL (12.0-16.0); Mean Corpuscular Hgb Conc 31.6 g/dL (32-36); Mean Corpuscular Volume 92.9 fL (80-100); Mean Platelet Volume 11.1 fL (7.4-10.4); Platelet Count 26 K/uL (130-400); RDW Coefficient of Variation 15.4 % (11.5-14.5); RDW Standard Deviation 51.7 fL (36.4-46.3); Red Blood Count 2.66 M/uL (4.2-5.4)
[2019-02-03] MEDS: CALCIUM 600MG + VIT D 400 IU TAB PO SCH (08:58)
[2019-02-03 09:15] LABS: BUN Creatinine Ratio 27.3 (10-20); Calcium 7.6 mg/dl (8.5-10.1); Creatinine Clr Calc Pharmacy 82.9 ml/min; Est GFR (African American) 110.1; Giant Platelets 1+; Potassium 3.5 mmol/L (3.5-5.1)
[2019-02-03 09:16] LABS: ALC (manual) 0.83 K/uL (1.2-3.4); Lymphocytes % (manual) 77.8 %; Monocytes # (manual) 0.02 K/uL (0.11-0.59); Monocytes % (manual) 1.8 %; Neutrophils % (manual) 6.2 %; Reactive Lymphocytes # (manual) 0.13 K/uL
[2019-02-03] MEDS: levoFLOXacin 500 MG TAB PO SCH (10:50)
--- NOTE | 2019-02-03 19:51 | Hospitalist Progress Note ---
Date of Service February 03, 2019 Assessment & Plan (1) Symptomatic anemia: This is a 83yo F with a PMH of AML (on Decitabine), symptomatic anemia requiring frequent transfusions, SVT and other medical problems listed below who presents as a direct admit from heme onc clinic with neutropenic fever and severe anemia. -Weak, progressive SOB on presentaion -Hgb of 6.5 in setting of LATA, AML leukemia (baseline hgb 7-8) -Has received several transfusions in the past -s/p 2u irradiated prbcs transfusion Hg 7.8, asymptomatic monitor (2) Neutropenic fever: UTI Urine culture growing Staph ID consulted Dapto x 3 days ordered remains afebrile continue to monitor off antibiotic (3) Pancytopenia: secondary to Chemotherapy WBC at 1, platelets of 24 - both close to baseline -due to AML s/p 2 units of PRBC tx - WBC and HG stable Plt trending down, no bleeding, monitor (4) AML (acute myeloblastic leukemia): On cycle 3 of Decitabine. Follow[address] with Dr. Miranda -Continue Earnestembremberto, Acyclovir (5) SVT (supraventricular tachycardia): had non sustained Vtach overnight lasting a few seconds associated with mild dizziness resolved no recurrence continue Metoprolol monitor (6) Chronic respiratory failure: Has home O2 but refuses to use. States she feels SOB either way presented with acute on chronic resp failure due to anemia -Hypoxic at 82-86% on room air. Improved to 92% on 3L NC O2 SOB and ALEJANDRO much improved after PRBC tx DVT Ppx: No lovenox/heparin in setting of thrombocytopenia Code status: DNR PCP: Eriberto DISPOSITION : will need PT/OT eval prior to dc home Subjective ff up for anemia, UTI Seen resting in bed, comfortable, feeling improved In good spirits Remains afebrile Denies abdominal pain, nausea, urinary symptoms Shortness of breath no chest pain dizziness no bleeding No other symptoms Physical Exam Vital Signs (Past 24 Hours): Last Vital Signs Temp 36.8 C 02/03/19 15:23 Pulse 88 02/03/19 15:23 Resp 18 02/03/19 15:23 BP 130/77 02/03/19 15:23 Pulse Ox 98 02/03/19 15:23 Physical Exam: General- oriented x 3, not in distress, speaks in sentences with no effort or accessory muscle use Eyes- anicteric Neck- no JVD Lungs- clear BS bi laterally no rales or wheezing Heart- normal rate, regular rhythm; no murmurs Abdomen- normal bowel sounds, nondistended, soft, nontender Extremities- no pretibial edema, no calf tenderness Neuro- alert, oriented x 3; no gross focal neurologic deficits Skin- warm & dry Results & Data Laboratory Results Laboratory Results - last 24 hr 02/03/19 02/03/19 08:30 08:30 WBC 0.90 L* RBC 2.66 L Hgb 7.8 L Hct 24.7 L MCV 92.9 MCH 29.3 MCHC 31.6 L RDW Std Deviation 51.7 H RDW Coeff of Rangel 15.4 H Plt Count 26 L* MPV 11.1 H Neutrophils % (Manual) 6.2 Lymphocytes % (Manual) 77.8 Reactive Lymphs % (Man) 14.2 Monocytes % (Manual) 1.8 Neutrophils # (Manual) 0.06 L Total Absolute Neuts 0.06 L* Lymphocytes # (Manual) 0.70 L Reactive Lymphs # 0.13 Total Abs Lymphocytes 0.83 L Monocytes # (Manual) 0.02 L Giant Platelets 1+ Sodium 145 Potassium 3.5 Chloride 104 Carbon Dioxide 38 H Anion Gap 2.0 L BUN 11 Creatinine 0.40 L Est Cr Clr Drug Dosing 82.9 Est GFR ( Amer) 110.1 Est GFR (Non-Af Amer) 95.0 BUN/Creatinine Ratio 27.3 H Glucose 99 Calcium 7.6 L
[2019-02-04] MEDS: CHOLECALCIFEROL 1,000 UNITS TAB PO SCH (07:53)
[2019-02-04] MEDS: ACYCLOVIR 400 MG TAB PO SCH (07:53)
[2019-02-04] MEDS: METOPROLOL TARTRATE 50 MG TAB PO SCH (07:54)
[2019-02-04] MEDS: CALCIUM 600MG + VIT D 400 IU TAB PO SCH (07:54)
[2019-02-04] MEDS: MULTIVITAMIN TAB PO SCH (07:54)
[2019-02-04] MEDS: CRESEMBA 186 MG PO SCH (07:55)
[2019-02-04 08:46] LABS: Hematocrit (blood only) 24.8 % (37-47); Hemoglobin 7.9 g/dL (12.0-16.0); Mean Corpuscular Hgb Conc 31.9 g/dL (32-36); Mean Corpuscular Volume 93.2 fL (80-100); Mean Platelet Volume 11.2 fL (7.4-10.4); Platelet Count 19 K/uL (130-400); RDW Coefficient of Variation 15.3 % (11.5-14.5); RDW Standard Deviation 51.7 fL (36.4-46.3); Red Blood Count 2.66 M/uL (4.2-5.4); White Blood Count 0.86 K/uL (4.8-10.8)
[2019-02-04 09:09] LABS: Giant Platelets 3+
[2019-02-04 09:36] LABS: Blast # (manual) 0.01 K/uL (0-0); Blast Cells % (manual) 0.9 %; Lymphocytes % (manual) 93.5 %; Monocytes # (manual) 0.01 K/uL (0.11-0.59); Monocytes % (manual) 0.9 %; Neutrophils % (manual) 4.7 %
[2019-02-04] MEDS: levoFLOXacin 500 MG TAB PO SCH (10:38)
--- NOTE | 2019-02-04 10:49 | Hospitalist Progress Note ---
Date of Service February 04, 2019 Assessment & Plan (1) Symptomatic anemia: This is a 83yo F with a PMH of AML (on Decitabine), symptomatic anemia requiring frequent transfusions, SVT and other medical problems listed below who presents as a direct admit from heme onc clinic with neutropenic fever and severe anemia. -Weak, progressive SOB on presentaion -Hgb of 6.5 in setting of LATA, AML leukemia (baseline hgb 7-8) -Has received several transfusions in the past -s/p 2u irradiated prbcs transfusion Hg 7.9, asymptomatic monitor CBC closely as outpatient (2) Neutropenic fever: UTI Urine culture growing Staph ID consulted Dapto x 3 days ordered remains afebrile afebrile off antibiotics monitor (3) Pancytopenia: secondary to Chemotherapy WBC at 1, platelets of 24 - both close to baseline -due to AML s/p 2 units of PRBC tx - WBC and HG stable Plt trending down, no bleeding, monitor- 19k on discharge - monitor CBC closely as outpatient (4) AML (acute myeloblastic leukemia): On cycle 3 of Decitabine. Follows with Dr. Miranda -Continue Cresemba, Acyclovir (5) SVT (supraventricular tachycardia): had non sustained Vtach overnight lasting a few seconds associated with mild dizziness resolved no recurrence continue Metoprolol monitor (6) Chronic respiratory failure: Has home O2 but refuses to use. States she feels SOB either way presented with acute on chronic resp failure due to anemia -Hypoxic at 82-86% on room air. Improved to 92% on 3L NC O2 SOB and ALEJANDRO much improved after PRBC tx DVT Ppx: No lovenox/heparin in setting of thrombocytopenia Code status: DNR PCP: Eriberto DISPOSITION : Hem/Onc 02/05/19 9am PCP ff up on 145pm Dr. Cotto 02/10 Cardio and GI as scheduled Subjective ff up for anemia, UTI Seen resting in bed, comfortable states she feels fine overall no new symptoms denies chills, dyspnea, urinary symptoms no other symptoms states she is ready and would like to be discharged today Physical Exam Vital Signs (Past 24 Hours): Last Vital Signs Temp 36.9 C 02/04/19 07:20 Pulse 73 02/04/19 07:20 Resp 16 02/04/19 07:20 BP 143/72 H 02/04/19 07:20 Pulse Ox 95 02/04/19 07:20 Physical Exam: General- oriented x 3, not in distress, speaks in sentences with no effort or accessory muscle use Eyes- anicteric Neck- no JVD Lungs- clear breath sounds bilaterally Heart- normal rate, regular rhythm; no murmurs Abdomen- normal bowel sounds, nondistended, soft, nontender Extremities- no pretibial edema, no calf tenderness Neuro- alert, oriented x 3; no gross focal neurologic deficits Skin- warm & dry Results & Data Laboratory Results Laboratory Results - last 24 hr 02/04/19 08:12 WBC 0.86 L* RBC 2.66 L Hgb 7.9 L Hct 24.8 L MCV 93.2 MCH 29.7 MCHC 31.9 L RDW Std Deviation 51.7 H RDW Coeff of Rangel 15.3 H Plt Count 19 L* MPV 11.2 H Neutrophils % (Manual) 4.7 Lymphocytes % (Manual) 93.5 Monocytes % (Manual) 0.9 Blast Cells % (Manual) 0.9 Neutrophils # (Manual) 0.04 L Total Absolute Neuts 0.04 L* Lymphocytes # (Manual) 0.80 L Total Abs Lymphocytes 0.80 L Monocytes # (Manual) 0.01 L Blast Cells # (Man) 0.01 H Giant Platelets 3+
--- NOTE | 2019-02-04 11:01 | Discharge Summary ---
Date of Service February 04, 2019 Admission HPI Per Admitting Provider This is a 83yo F with a PMH of AML (on Decitabine), symptomatic anemia requiring frequent transfusions, SVT and other medical problems listed below who presents as a direct admit from heme onc clinic with neutropenic fever and severe anemia. Went to clinic for 3rd cycle of Decitabine but mentioned that she had awoken with shaking chills that morning and a fever over 100 F (unsure of exact temperature). Feels weak, fatigued and SOB. Denies visual changes, sore throat, cough, chest pain, palpitations, nausea, vomiting, abdominal pain, dysuria, diarrhea or constipation. Chronic lower extremity edema for which she takes Lasix PRN. Was found to be hypoxic at 86% in office. Has not been using home oxygen. Was found to have hemoglobin of 6.7 in clinic and was sent for transfusion and neutropenic fever work up. Refused to come by EMS so patient drove herself to hospital. Now saturating at 93% on 3L NC O2. We will obtain blood and urine cultures and then start on Cefepime 2g Q8H, per Dr. Miranda. Admission Exam Per Admitting Provider Vital Signs (Past 24 Hours): General Appearance: WD/WN, no apparent distress, chronically ill appearing, pale Head: normocephalic, atraumatic Eyes: normal inspection, PERRL, EOMI ENT: hearing grossly normal, pharynx normal (moist mucous membranes) Neck: supple, no JVD, no adenopathy Respiratory/Chest: lungs clear to auscultation. No wheezes, rales or rhonci. No respiratory distress or accessory muscle use Cardiovascular: regular rate, rhythm, no murmur, normal peripheral pulses Abdomen/GI: normal bowel sounds, soft, non-tender to palpation Extremities/Musculoskelatal: normal inspection, no calf tenderness, normal capillary refill, 2+ BLE edema Neurologic/Psych: alert, normal mood/affect, oriented x 3 Skin: normal color, warm/dry Principal Diagnosis FEBRILE NEUTROPENIA, POSSIBLE STAPH UTI Discharge Exam Vital Signs (Past 24 Hours): Last Vital Signs Temp 36.9 C 02/04/19 07:20 Pulse 73 02/04/19 07:20 Resp 16 02/04/19 07:20 BP 143/72 H 02/04/19 07:20 Pulse Ox 95 02/04/19 07:20 Physical Exam: General- oriented x 3, not in distress, speaks in sentences with no effort or accessory muscle use Eyes- anicteric Neck- no JVD Lungs- clear breath sounds bilaterally Heart- normal rate, regular rhythm; no murmurs Abdomen- normal bowel sounds, nondistended, soft, nontender Extremities- no pretibial edema, no calf tenderness Neuro- alert, oriented x 3; no gross focal neurologic deficits Skin- warm & dry Discharge Data Allergies Allergy/AdvReac Type Severity Reaction Status Date / Time adhesive tape Allergy Unknown Verified 01/20/19 10:26 Consultations 01/28/19 16:24 Consult Case Management - Discharge Planning Routine 01/31/19 09:04 Consult Infectious Diseases Routine Hospital Course (1) Symptomatic anemia: This is a 83yo F with a PMH of AML (on Decitabine), symptomatic anemia r equiring frequent transfusions, SVT and other medical problems listed below who presents as a direct admit from heme onc clinic with neutropenic fever and severe anemia. -Weak, progressive SOB on presentaion -Hgb of 6.5 in setting of LATA, AML leukemia (baseline hgb 7-8) -Has received several transfusions in the past -s/p 2u irradiated prbcs transfusion Hg remained statble, 7.9, asymptomatic monitor CBC closely as outpatient, maintain > 8 bnmjgfc vvg bnmv hbnm, x/kiujhm kip;lokijuhgb njmkjnb vbnmhnb n m,n nnb nb jhn fv =-;pok (2) Neutropenic fever: secondary to UTI Urine culture growing Staph: coag neg, not Saprophyticus ID consulted Dr. Kowalski in the setting of severe neutoprenia, decided to treat with 3 days of Daptomycin IV remained afebrile no urinary stymptoms advised to call PCP/Oncologist if with recurrence of fever (3) Pancytopenia: secondary to Chemotherapy WBC at 1, platelets of 24 - both close to baseline -due to AML s/p 2 units of PRBC tx - WBC and HG stable Plt trending down, no bleeding, monitor- 19k on discharge - monitor CBC closely as outpatient (4) AML (acute myeloblastic leukemia): On cycle 3 of Decitabine. Follow[address] with Dr. Miranda -Continue Irene, Acyclovir (5) SVT (supraventricular tachycardia): had non sustained Vtach overnight lasting a few seconds x 1 episode associated with mild dizziness resolved no recurrence continue Metoprolol monitor (6) Chronic respiratory failure: Has home O2 but refuses to use. States she feels SOB either way presented with acute on chronic resp failure due to anemia -Hypoxic at 82-86% on room air. Improved to 92% on 3L NC O2 SOB and ALEJANDRO much improved after PRBC tx continue usual home oxygen supplement DVT Ppx: No lovenox/heparin in setting of thrombocytopenia Code status: DNR PCP: Eriberto DISPOSITION : Hem/Onc 02/05/19 9am PCP ff up on 145pm Dr. Vaughn 02/10 Cardio and GI as scheduled Total Time Total Time Spent Total Time Spent (In Minutes): 35 minutes Discharge Plan Discharge Items Patient Disposition: Home - Self-Care Reason For Visit: NEURTOPENIC FEVER, SYMPTOMATIC ANEMIA Discharge Diagnosis: NEUTROPENIC FEVER, POSSIBLE URINARY TRACT INFECTION Discharge Goals: Diagnostic testing and Therapeutic intervention Activity: As commented below Activity Comment: NO HEAVY EXERTION Lifting: Wait until after follow-up appointment Exercise/Sports: Wait until after follow-up appointment Driving/Machine Use Comment: NO DRIVING UNTIL FOLLOW UP WITH PRIMARY CARE PHYSICIAN Non-emergency contact: Primary Care Provider and Oncologist Call non-emergency contact if: you have any medication questions, your symptoms worsen and you have a fever Follow-up/Referrals: Russ Miranda MD [Surgeon] - 02/05/19 9:00 am Ellis Vaughn [Physician] - 02/10/19 1:45 pm Diet: Regular Addtl Provider Instructions: FOLLOW UP WITH [facility] [employer] FOLDING MACHINE OPERATOR/ONCOLOGIST AND PCP OUTLINED ABOVE. FOLLOW UP WITH CARDIOLOGY CLINIC ON Saturday02/12/2019 AT 8:45AM. FOLLOW UP WITH GI CLINIC ON 03/06/19 AT 11:15AM. CALL PRIMARY CARE PHYSICIAN OR RETURN TO ER IMMEDIATELY IF WITH RECURRENCE OF SYMPTOMS, FEVER, WEAKNESS, BLEEDING. ALWAYS STAY WELL HYDRATED. Prescriptions: Continued calcium carbonate-vitamin D3 [Calcium 600 + D(3)] 600 mg(1,500mg) -200 unit Tablet 1 tab PO DAILY RF: 0 multivitamin Tablet 1 tab PO QAM RF: 0 biotin 1 mg Tablet 1 mg PO DAILY RF: 0 acyclovir [Zovirax] 400 mg Tablet 400 mg PO BID RF: 0 ferrous sulfate 325 mg (65 mg iron) tablet 325 mg PO BID RF: 0 metoprolol tartrate 50 mg Tablet 50 mg PO Q12H RF: 0 furosemide 20 mg Tablet 10 mg PO Q2D PRN (Reason: Edema) RF: 0 levofloxacin 500 mg tablet 500 mg PO DAILY RF: 0 lutein 20 mg Capsule 20 mg PO DAILY RF: 0 loratadine 5 mg Tablet,Chewable 5 mg PO DAILY PRN (Reason: Runny Nose/Rhinitis) RF: 0 isavuconazonium sulfate 186 mg Capsule 372 mg PO DAILY RF: 0 cholecalciferol (vitamin D3) [Vitamin D3] 1,000 unit Tablet 1,000 unit PO DAILY RF: 0 Stand-Alone Forms: [facility] Discharge Orders: Discharge Order (Routine); Ordered 02/04/19 Ordered By: Jacobo Winston Admission Data Admit Date/Time: 01/28/19 15:55 Attending Provider: Jacobo Winston Admit Provider: Malgorzata Yu Primary Care Provider: Nydia Wei Other Providers: Chinedu Lunsford ; Jesse Santo ; Gali Kowalski Service: Telemetry Medical
== END 2019-02-04 11:35 | disposition home or self-care (01) | DRG 808 ==
LOC: 2N 15:55 → SUATTDRO 15:55 → 2N 16:10

== ENCOUNTER 2019-04-16 13:34 | Inpatient (IN) ==
--- OUTSIDE RECORDS SUMMARY | 2019-04-16 13:38 | External Medical Summary | Continuity of Care Document ---
:1935 Author Name Ino Frank, Provider Address Unavailable Unavailable , Care Team Providers Name Role Phone Gali [email or web address] [email or web address], UNKNOWN Unavailable Unavailable Problems Active medical history not documented Allergies and Adverse Reactions Allergy history not documented Medications Medications not documented Procedures Procedures not documented Immunizations Immunizations not documented Plan of Treatment Planned Observations Planned Goals not documented Results No Known Results Results not documented
[2019-04-16 14:40] LABS: Hematocrit (blood only) 24.4 % (37-47); Hemoglobin 7.8 g/dL (12.0-16.0); Mean Corpuscular Volume 110.4 fL (80-100); RDW Coefficient of Variation 27.2 % (11.5-14.5); RDW Standard Deviation 104.1 fL (36.4-46.3); Red Blood Count 2.21 M/uL (4.2-5.4); White Blood Count 3.82 K/uL (4.8-10.8)
[2019-04-16 14:49] LABS: INR 1.2 (0.9-1.1); Partial Thromboplastin Ratio 0.9; Partial Thromboplastin Time 24.2 Seconds (21.0-31.0); Prothrombin Time 12.5 Seconds (9.0-12.0)
--- NOTE | 2019-04-16 14:51 | XRay Report ---
XR chest 1V portable CLINICAL HISTORY: Dyspnea COMPARISON STUDY: 01/28/2019 FINDINGS: Mild increase in cardiac size. Interval development of a small left pleural effusion. Incre ased pulmonary vasculature. Interposed bowel between the right hemidiaphragm and liver. Probable hiat al hernia. IMPRESSION: 1. Congestive heart failure. 2. Small left pleural effusion. The above report was generated using voice recognition software. It may contain grammatical, syntax or spelling errors. Electronically signed by: Migue Ford M.D. 04/16/2019 2:50 PM
[2019-04-16 14:56] LABS: Alanine Aminotransferase 25 U/L (12-78); Albumin Level 2.1 gm/dl (3.4-5.0); Aspartate Aminotransferase 25 U/L (15-37); BUN Creatinine Ratio 20.3 (10-20); Blood Urea Nitrogen 17 mg/dl (7-18); Calcium 7.7 mg/dl (8.5-10.1); Carbon Dioxide 35 mmol/L (21-32); Chloride 104 mmol/L (98-107); Creatinine Clr Calc Pharmacy 43.3 ml/min; Est GFR (African American) 75.6; Est GFR (Non-African American) 65.3; Glucose 199 mg/dl (70-99); Potassium 4.1 mmol/L (3.5-5.1); Sodium 142 mmol/L (136-145)
[2019-04-16 15:01] LABS: Albumin Globulin Ratio 0.6 (0.9-2); Alkaline Phosphatase 87 U/L (45-117); Bilirubin,Total 0.2 mg/dl (0.2-1); Globulin 3.6 gm/dl (2.5-4.0); Total Protein 5.7 gm/dl (6.4-8.2); Troponin I < 0.015 ng/ml (0-0.045)
[2019-04-16 15:19] LABS: Anisocytosis Present; Basophilic Stippling 1+; Mean Platelet Volume 10.5 fL (7.4-10.4); Nucleated RBC # (auto) 0.42 K/uL (0-0); Platelet Count 70 K/uL (130-400); Polychromasia 1+; Toxic Vacuolation 1+
--- NOTE | 2019-04-16 15:24 | Ultrasound Report ---
US venous doppler LE BI CLINICAL HISTORY: Comment leukemia, possible DVT. COMPARISON STUDY: No previous studies for comparison. FINDINGS: Real-time and color flow Doppler imaging were performed. Flow was seen within the femoral, popliteal and calf veins with no intraluminal thrombus demonstrated. The saphenous vein is patent. The waveforms demonstrate prominent pulsatility. This raises the possibility of elevated right heart pressures. There is lower extremity soft tissue edema. IMPRESSION: No evidence of lower extremity DVT. Electronically signed by: Prieto Ghotra M.D. 04/16/2019 3:23 PM
[2019-04-16 15:43] LABS: ALC (manual) 1.46 K/uL (1.2-3.4); Blast # (manual) 0.27 K/uL (0-0); Blast Cells % (manual) 7.1 %; Lymphocytes # (manual) 1.46 K/uL (1.2-3.4); Lymphocytes % (manual) 38.1 %; Metamyelocytes % (manual) 2.7 %; Monocytes % (manual) 2.7 %; Myelocytes # (manual) 0.07 K/uL (0-0); Myelocytes % (manual) 1.8 %; Neutrophils % (manual) 47.6 %
[2019-04-16] MEDS ORDERED: OPTIRAY 320 125ml IV PRN (17:01)
--- NOTE | 2019-04-16 17:13 | CT Scan Report ---
CT ANGIOGRAM OF THE CHEST CLINICAL HISTORY: Atypical chest pain COMPARISON STUDY: Noncontrast chest CT dated 12/31/2018 TECHNIQUE: Following the IV administration of 99 mL of Optiray-320, CT angiogram of the thorax was pe rformed from the thoracic inlet to the lung bases utilizing the pulmonary embolus protocol. Images ar e reviewed in the axial, sagittal, and coronal planes. IV contrast was administered without complicat ion. MIP imaging was performed. A dose lowering technique was utilized adhering to the principles of ALARA. CT DOSE: 357.24 mGycm FINDINGS: Mediastinal lymph nodes are the upper limits of normal in size. There is no hilar or axillary lymphad enopathy. The ascending thoracic aorta measures 32 mm. There were no pulmonary artery filling defects to indicate acute pulmonary embolism. There is a small right pleural effusion, and small to moderate left pleural effusion. There is evidence for septal edema. There are dependent pulmonary airspace opacities, statistically a telectatic although a superimposed infectious/inflammatory process could appear similar. There is a l arge hiatal hernia occupying the base of the right hemithorax. There is mild associated esophageal wa ll thickening. There is generalized body wall edema. IMPRESSION: 1. No evidence of acute pulmonary embolism 2. CT evidence for interstitial pulmonary edema. 3. Smaller to moderate left pleural effusion and small right pleural effusion 4. Dependent pulmonary airspace opacities likely atelectatic 5. Large hiatal hernia Electronically signed by: Prieto Ghotra M.D. 04/16/2019 5:12 PM
[2019-04-16] MEDS ORDERED: FUROSEMIDE 40 MG/4 ML VIAL IV STA (17:42)
--- NOTE | 2019-04-16 18:35 | Emergency Department Note ---
Entered by Jax Villa acting as a scribe for Dianne Loredo MD History of Present Illness General Chief complaint: Shortness of Breath/Dyspnea Time Seen by Provider: 04/16/19 14:09 Source: patient and old records reviewed History of Present Illness Onset (ago): hour(s) (this morning) Location: chest (lungs) Pain Consistency: + other (persistent) Quality: + other (shortness of breath) Associated symptoms: + other (hypotension prior to arrival; leg swelling; denies fevers) The patient is an 83 year old female with AML who presents to the Emergency Room with persistent shortness of breath this morning. Per medical records, the patient went for blood work at the oncology clinic today prior to arrival. She has a history of chronic respiratory failure and does not normally wear her supplemental oxygen, but she did last night. In the clinic her blood pressure w as 83/46 with a heart rate of 70 bpm. She recently had gained 10 pounds. She was refusing to come over, but EMS was called after evaluation by Dr. Wei. The patient states that she has been short of breath for the past three years. She reports worsening leg swelling beginning a few months ago. She notes hot flashes but denies fevers. Per medical records the patient also has a history of basal cell carcinoma, pleural effusion, SVT, chronic malnutrition, and rosacea. Home Medications Home Medications Medication Instructions Recorded Confirmed Type biotin 1 mg PO PM 10/31/18 04/16/19 History calcium carbonate-vitamin D3 1 tab PO QAM 10/31/18 04/16/19 History [Calcium 600 + D(3)] multivitamin 1 tab PO QAM 10/31/18 04/16/19 History acyclovir [Zovirax] 400 mg PO BID 12/27/18 04/16/19 History isavuconazonium sulfate 372 mg PO QAM 12/27/18 04/16/19 History levofloxacin 500 mg PO QAM 12/27/18 04/16/19 History lutein 20 mg PO PM 12/27/18 04/16/19 History metoprolol tartrate 75 mg PO BID 12/27/18 04/16/19 History Allergies Allergy/AdvReac Type Severity Reaction Status Date / Time adhesive tape Allergy Unknown Verified 04/16/19 17:01 Past Med/Surg History Medical History Diabetes mellitus, type II (Chronic) Chronic respiratory failure with hypoxia (Chronic) Pancytopenia (Chronic) AML (acute myeloblastic leukemia) (Chronic) Rosacea (Chronic) SVT (supraventricular tachycardia) (Chronic) Pleural effusion (Chronic) Basal cell carcinoma (Chronic) AML (acute myeloblastic leukemia) CVA (cerebral vascular accident) LATA (iron deficiency anemia) Ovarian cyst, left removal Pancytopenia SVT (supraventricular tachycardia) Surgical History History of total hip arthroplasty (Chronic) History of cataract surgery (Chronic) History of total hip replacement Hx of removal of ovary Family History Mother Lymphoma Social History Preferred Language: Luxembourgish Communication Ability: Effective Visual Impairment: No Limitations Control Room Supervisor Required: No Beliefs That Will Affect Care: None marital status: Single Current Living Situation: Alone current occupational status: retired Other Information That Helps Us Care for You: No Feels Safe at Home: Yes Safety Concerns: Feels Safe At This Time Smoking Status: Former smoker Smoking End Date: 1967 Second Hand Exposure: No Hx Alcohol Use: Yes Alcohol type: beer, wine and hard liquor Hx Substance Use: No Review of Systems See HPI for pertinent positives & negatives. and A total of 10 systems reviewed and were otherwise negative Physical Exam Vital Signs Vital Signs - 24 hr 04/16/19 19:30 Pulse Rate [Apical] 91 H Respiratory Rate 22 Blood Pressure [Right Arm] 114/68 Blood Pressure Mean [Right Arm] 83 Pulse Oximetry 96 Oxygen Delivery Method Nasal Cannula Oxygen Flow Rate 2 Vital signs reviewed. General: Elderly and chronically ill-appearing female in no significant distress, nasal cannula oxygen in place. HEENT: Pale conjunctiva, no scleral icterus, PERRLA, neck supple. Atraumatic. Cardiovascular: Regular rate and rhythm, no extra sounds. Pulmonary: Coarse breath sounds at the right base, normal work of breathing. Abdomen: Soft, nontender, nondistended, positive bowel sounds. Musculoskeletal: Atraumatic. There is 4+ pitting edema of the bilateral lower extremities with some skin breakdown and serous drainage along the mid right calf. There is a right subclavian indwelling port. Chronic deformity of the thoracic spine and right clavicle. Neurologic: Patient awake alert and oriented x 3 Skin: Pale, warm, some skin breakdown and serous drainage along the mid right calf. Course 1426: The patient was evaluated in room B10. A complete history and physical examination were performed. 1617: I updated the patient on results. She is agreeable with the plan. 1824: I consulted Malgorzata Yu PA-C: [facility] Hospitalist with Dr. Jang. The patient will be reevaluated for hospitalization. Administered Medications Acyclovir (Zovirax) 400 mg PO BID TYREE Stop: 05/16/19 21:59 Last Admin: 04/17/19 08:23 Dose: 400 mg Documented by: [id number] Admin: 04/16/19 22:37 Dose: 400 mg Documented by: [id number] Furosemide 40 mg/ Syringe 4 mls @ 4 mls/min IV [id number] TYREE Stop: 05/17/19 08:59 Last Admin: 04/17/19 17:27 Dose: 4 mls/min Documented by: [id number] Admin: 04/17/19 08:22 Dose: 4 mls/min Documented by: [id number] Insulin Aspart (Novolog Flexpen) 0 units SC ACHS TYREE Stop: 05/16/19 20:59 Last Admin: 04/17/19 17:40 Dose: Not Given Documented by: [id number] Cosigned by: [id number] Admin: 04/17/19 12:23 Dose: Not Given Documented by: [id number] Cosigned by: [id number] Admin: 04/17/19 08:43 Dose: 1 units Documented by: [id number] Cosigned by: [id number] Admin: 04/16/19 22:40 Dose: Not Given Documented by: [id number] Levofloxacin (Levaquin) 500 mg PO QAM TYREE Stop: 05/17/19 08:59 Last Admin: 04/17/19 08:24 Dose: 500 mg Documented by: [id number] Metoprolol Tartrate (Lopressor) 75 mg PO BID [facility] Stop: 05/16/19 21:59 Last Admin: 04/17/19 08:23 Dose: Not Given Documented by: [id number] Admin: 04/16/19 22:37 Dose: 75 mg Documented by: [id number] Miscellaneous (Order Awaiting Action) 1 ea N/A QS [facility] Stop: 05/17/19 00:00 Last Admin: 04/17/19 16:42 Dose: Not Given Documented by: [id number] Admin: 04/17/19 08:25 Dose: Not Given Documented by: [id number] Admin: 04/16/19 23:37 Dose: Not Given Documented by: [id number] Multivitamins (Multivitamin Tab) 1 tab PO QAM TYREE Stop: 05/17/19 08:59 Last Admin: 04/17/19 08:24 Dose: 1 tab Documented by: [id number] Multivitamins/Minerals (Caltrate Plus) 1 tab PO QAM TYREE Stop: 05/17/19 08:59 Last Admin: 04/17/19 08:24 Dose: 1 tab Documented by: [id number] Discontinued Medications Furosemide (Lasix) 40 mg IV NOW STA Stop: 04/16/19 17:43 Last Admin: 04/16/19 18:16 Dose: 40 mg Documented by: [id number] Ioversol (Optiray 320 125ml) 99 ml IV ONCE PRN PRN Reason: Interaction Checking Stop: 04/20/19 17:00 Last Admin: 04/16/19 17:02 Dose: 99 ml Documented by: [id number] Medical Decision Making Differential Diagnosis Differential diagnosis includes: infections, reactive airway disease, pneumonia, pneumothorax, COPD, CHF, cardiac ischemia, pulmonary embolism, musculoskeletal, gastrointestinal, as well as others were entertained. Medical Records Attestation: I reviewed the patient's medical records. Home Medications Current Medication List: was personally reviewed by me Laboratory Data Attestation: I reviewed the patient's lab results. Result diagrams: 04/17/19 05:19 04/17/19 05:19 Lab Results 04/16/19 04/16/19 04/16/19 Range/Units 14:24 14:24 14:24 WBC 3.82 L (4.8-10.8) K/uL RBC 2.21 L (4.2-5.4) M/uL Hgb 7.8 L (12.0-16.0) g/dL Hct 24.4 L (37-47) % MCV 110.4 H (80-100) fL MCH 35.3 H (25-34) pg MCHC 32.0 (32-36) g/dL RDW Std Deviation 104.1 H (36.4-46.3) fL RDW Coeff of Rangel 27.2 H (11.5-14.5) % Plt Count 70 L (130-400) K/uL MPV 10.5 H (7.4-10.4) fL Absolute Nucleated RBC 0.42 H (0-0) K/uL Nucleated RBC % (auto) 11.0 % Neutrophils % (Manual) 47.6 % Lymphocytes % (Manual) 38.1 % Monocytes % (Manual) 2.7 % Metamyelocytes % (Man) 2.7 % Myelocytes % (Man) 1.8 % Blast Cells % (Manual) 7.1 % Neutrophils # (Manual) 1.82 (1.4-6.5) K/uL Total Absolute Neuts 1.82 (1.4-6.5) K/uL Lymphocytes # (Manual) 1.46 (1.2-3.4) K/uL Total Abs Lymphocytes 1.46 (1.2-3.4) K/uL Monocytes # (Manual) 0.10 L (0.11-0.59) K/uL Metamyelocytes # (Man) 0.10 H (0-0) K/uL Myelocytes # (Manual) 0.07 H (0-0) K/uL Blast Cells # (Man) 0.27 H (0-0) K/uL Toxic Vacuolation 1+ Platelet Estimate Decreased L (Normal) Polychromasia 1+ Basophilic Stippling 1+ Anisocytosis Present PT 12.5 H (9.0-12.0) Seconds INR 1.2 H (0.9-1.1) APTT 24.2 (21.0-31.0) Seconds PTT Ratio 0.9 Sodium 142 (136-145) mmol/L Potassium 4.1 (3.5-5.1) mmol/L Chloride 104 (98-107) mmol/L Carbon Dioxide 35 H (21-32) mmol/L Anion Gap 3.0 (3-11) BUN 17 (7-18) mg/dl Creatinine 0.82 (0.6-1.2) mg/dl Est Cr Clr Drug Dosing 43.3 ml/min Est GFR ( Amer) 75.6 Est GFR (Non-Af Amer) 65.3 BUN/Creatinine Ratio 20.3 H (10-20) Glucose 199 H (70-99) mg/dl Calcium 7.7 L (8.5-10.1) mg/dl Magnesium 2.0 (1.8-2.4) mg/dl Total Bilirubin 0.2 (0.2-1) mg/dl AST 25 (15-37) U/L ALT 25 (12-78) U/L Alkaline Phosphatase 87 (45-117) U/L Troponin I < 0.015 (0-0.045) ng/ml Total Protein 5.7 L (6.4-8.2) gm/dl Albumin 2.1 L (3.4-5.0) gm/dl Globulin 3.6 (2.5-4.0) gm/dl Albumin/Globulin Ratio 0.6 L (0.9-2) /16 Range/Units 17:30 WBC (4.8-10.8) K/uL RBC (4.2-5.4) M/uL Hgb (12.0-16.0) g/dL Hct (37-47) % MCV (80-100) fL MCH (25-34) pg MCHC (32-36) g/dL RDW Std Deviation (36.4-46.3) fL RDW Coeff of Rangel (11.5-14.5) % Plt Count (130-400) K/uL MPV (7.4-10.4) fL Absolute Nucleated RBC (0-0) K/uL Nucleated RBC % (auto) % Neutrophils % (Manual) % Lymphocytes % (Manual) % Monocytes % (Manual) % Metamyelocytes % (Man) % Myelocytes % (Man) % Blast Cells % (Manual) % Neutrophils # (Manual) (1.4-6.5) K/uL Total Absolute Neuts (1.4-6.5) K/uL Lymphocytes # (Manual) (1.2-3.4) K/uL Total Abs Lymphocytes (1.2-3.4) K/uL Monocytes # (Manual) (0.11-0.59) K/uL Metamyelocytes # (Man) (0-0) K/uL Myelocytes # (Manual) (0-0) K/uL Blast Cells # (Man) (0-0) K/uL Toxic Vacuolation Platelet Estimate (Normal) Polychromasia Basophilic Stippling Anisocytosis PT (9.0-12.0) Seconds INR (0.9-1.1) APTT (21.0-31.0) Seconds PTT Ratio Sodium (136-145) mmol/L Potassium (3.5-5.1) mmol/L Chloride (98-107) mmol/L Carbon Dioxide (21-32) mmol/L Anion Gap (3-11) BUN (7-18) mg/dl Creatinine (0.6-1.2) mg/dl Est Cr Clr Drug Dosing ml/min Est GFR ( Amer) Est GFR (Non-Af Amer) BUN/Creatinine Ratio (10-20) Glucose (70-99) mg/dl Calcium (8.5-10.1) mg/dl Magnesium (1.8-2.4) mg/dl Total Bilirubin (0.2-1) mg/dl AST (15-37) U/L ALT (12-78) U/L Alkaline Phosphatase (45-117) U/L Troponin I 0.018 (0-0.045) ng/ml Total Protein (6.4-8.2) gm/dl Albumin (3.4-5.0) gm/dl Globulin (2.5-4.0) gm/dl Albumin/Globulin Ratio (0.9-2) Imaging Data Radiologist's Impression: Radiology results as stated below per my review and the radiologist's interpr etation: CT ANGIOGRAM OF THE CHEST CLINICAL HISTORY: Atypical chest pain COMPARISON STUDY: Noncontrast chest CT dated 12/31/2018 TECHNIQUE: Following the IV administration of 99 mL of Optiray-320, CT angiogram of the thorax was performed from the thoracic inlet to the lung bases utilizing the pulmonary embolus protocol. Images are reviewed in the axial, sagittal, and coronal planes. IV contrast was administered without complication. MIP imaging was performed. A dose lowering technique was utilized adhering to the principles of ALARA. CT DOSE: 357.24 mGycm FINDINGS: Mediastinal lymph nodes are the upper limits of normal in size. There is no hilar or axillary lymphadenopathy. The ascending thoracic aorta measures 32 mm. There were no pulmonary artery filling defects to indicate acute pulmonary embolism. There is a small right pleural effusion, and small to moderate left pleural effusion. There is evidence for septal edema. There are dependent pulmonary airspace opacities, statistically atelectatic although a superimposed infectious/inflammatory process could appear similar. There is a large hiatal hernia occupying the base of the right hemithorax. There is mild associated esophageal wall thickening. There is generalized body wall edema. IMPRESSION: 1. No evidence of acute pulmonary embolism 2. CT evidence for interstitial pulmonary edema. 3. Smaller to moderate left pleural effusion and small right pleural effusion 4. Dependent pulmonary airspace opacities likely atelectatic 5. Large hiatal hernia Electronically signed by: Prieto Ghotra M.D. 04/16/2019 5:12 PM XR chest 1V portable CLINICAL HISTORY: Dyspnea COMPARISON STUDY: 01/28/2019 FINDINGS: Mild increase in cardiac size. Interval development of a small left pleural effusion. Increased pulmonary vasculature. Interposed bowel between the right hemidiaphragm and liver. Probable hiatal hernia. IMPRESSION: 1. Congestive heart failure. 2. Small left pleural effusion. The above report was generated using voice recognition software. It may contain grammatical, syntax or spelling errors. Electronically signed by: Migue Ford M.D. 04/16/2019 2:50 PM US venous doppler LE CLINICAL HISTORY: Comment leukemia, possible DVT. COMPARISON STUDY: No previous studies for comparison. FINDINGS: Real-time and color flow Doppler imaging were performed. Flow was seen within the femoral, popliteal and calf veins with no intraluminal thrombus demonstrated. The saphenous vein is patent. The waveforms demonstrate prominent pulsatility. This raises the possibility of elevated right heart pressures. There is lower extremity soft tissue edema. IMPRESSION: No evidence of lower extremity DVT. Electronically signed by: Prieto Ghotra M.D. 04/16/2019 3:23 PM ECG Data Attestation: I personally reviewed and interpreted this ECG as follows: Indication: SOB/dyspnea Rate (beats per minute): 76 Rhythm: normal sinus Findings: + other (likely prior septal infarct) and + T-wave inversion (anteriorly; T-wave flattening inferiorly) Comparison ECG Date: from (01/28/19) Change: the following changes noted (T-wave abnormalities in the inferior leads are new.) Blood Pressure Blood Pressure Findings: Low blood pressure Blood Pressure Disposition: further management by hospitalist ARIEL Suh This patient was evaluated and appeared to be chronically ill but in no distress. She was resting comfortably on nasal cannula oxygen. Patient's chest x-ray reveals chronic changes including CHF/pleural effusion. Ultrasound of the bilateral lower extremities were performed and revealed no evidence of DVT. There is a concern for elevated right heart pressures. CT angiogram was performed and reveals no evidence of PE. Patient was given 40 mg of IV Lasix. Laboratory work was drawn and is significant for an improving thrombocytopenia. She is not neutropenic currently. She does have a chronic anemia although stable. Patient was markedly hypoxic and found to be in CHF, she will be evaluated by the hospitalist service for further management. Patient is aware of the plan and agrees. Impression & Plan CHF (congestive heart failure), AML (acute myeloblastic leukemia), Hypoxia Discharge Plan Visit Data *Final* Discharge Date/Time: 04/16/19 20:43 Chief Complaint: Shortness of Breath/Dyspnea ED Provider: Dianne Loredo Discharge Problem: CHF (congestive heart failure), AML (acute myeloblastic leukemia), Hypoxia Patient Disposition: Admitted As Inpatient Discharge Instructions Interventions: ED Discharge Assessment Last Done: 04/16/19 20:43 Discharge Problem: AML (acute myeloblastic leukemia) Qualifiers: Leukemia Active/Remission status: without remission Qualified Code(s): C92.00 - Acute myeloblastic leukemia, not having achieved remission The gurdeepibe's documentation has been prepared under my direction and personally reviewed by me in its entirety. I confirm that the note above accurately reflects all work, treatment, procedures, and medical decision making performed by me.
--- NOTE | 2019-04-16 20:13 | History & Physical Report ---
Date of Service April 16, 2019 Assessment & Plan (1) Heart failure, diastolic, with acute decompensation: This is a 83yo F with a PMH of AML (on Decitabine), symptomatic anemia requiring frequent transfusions, chronic respiratory failure on 2L O2, SVT, DM II and other medical problems listed below who presents from heme-onc clinic after being found to be hypoxic and short of breath and was found to have acute decompensated diastolic heart failure. -Hypoxic at 83%, short of breath, weight gain, bilateral lower extremity edema -In setting of chronic respiratory failure and noncompliance with home oxygen -CXR with evidence of congestive heart failure, Chest CTA with evidence of interstitial pulm edema, no evidence of PE -Work up: ECG with NSR, T wave flattening in inferior leads, troponin negative -Echo from Jan 2019 with concentric LVH, preserved EF 55-60%, grade 1 diastolic dysfunction -Repeat echo ordered, repeat labs and ECG in AM -Low sodium diet, monitor daily weights, strict I&Os -Lasix 40mg x 1 given in ED. 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 Miranda heme-onc -Status post 2 full cycles of decitabine, last received in Jan 2019 -During heme onc visit earlier this month, treatment was continued to be held due to chronic hypoxia with oxygen noncompliance as well as recurrent pneumonia -Continue antifungal and antiviral for chronic suppression -Currently receiving Levaquin for antibiotic prophylaxis in setting of recurrent pneumonia. Consider switching to antibiotic with lower side effect profile due to history of arrhythmia -Was instructed to follow-up with Dr. Palacios once decided whether to go palliative route versus continued treatment -Is agreeable to blood products (5) Diabetes mellitus, type II: A1c of 6.7 in January 2019 -Repeat A1c -Not currently on home agents -SSI while in-patient -BSG AC HS (6) SVT (supraventricular tachycardia): Normal sinus rhythm on EKG. Monitor on telemetry DVT Ppx: SCDs. Chemical prophylaxis contraindicated in setting of thrombocytopenia Code status: DNR/DNI per discussion with patient PCP: Eriberto Dispo: Admitted to [facility]. Discharge planning, PT and OT ordered. Patient seen in collaboration with Dr. Jang. Please see addendum. History of Present Illness Chief Complaint: Hypoxia, volume overload Primary Care Provider: Nydia Wei DO This is a 83yo F with a PMH of AML (on Decitabine), symptomatic anemia requiring frequent transfusions, chronic respiratory failure on 2L O2, SVT, DM II and other medical problems listed below who presents from heme-onc clinic after being found to be hypoxic and short of breath. Patient has history of chronic respiratory failure but is noncompliant with 2 L of home O2, stating that she does not like to wear the oxygen tank and that the cannula irritates her nostrils. In clinic today was found to have cyanotic fingertips and seemed short of breath, so sent to ED for further evaluation. Patient endorses feeling short of breath for the past 3 years, but does not like to wear her oxygen. Has felt more short of breath for the past 2 days with associated weight gain and increased swelling in lower extremities. Has also noticed weeping of bilateral legs with one small wound opening. Echo from January 2019 shows preserved EF of 55 to 60% but grade 1 diastolic dysfunction. Was prescribed Lasix 20 mg as needed for edema but patient does not remember this and has not used it at home to her recollection. Endorses orthopnea, denies PND. No lightheadedness, headache, cough, chest pain, palpitations or wheezing. Has had recurrent pneumonia and recently completed course of Augmentin a few days ago. Has also been on 2 months of Levaquin for chronic suppression therapy due to AML. Follows with Dr. Miranda for history of AML (dx in Oct 2018) and has completed almost 3 cycles of Decitabine but the third was interrupted due to neutropenic fever in late January 2019. Has not received chemo since then due to chronic respiratory failure with noncompliance to her oxygen as well as recurrent pneumonia. Is currently feeling weak, fatigued and SOB. Has runny nose. Denies fever, chills, sore throat, cough, nausea, vomiting, abdominal pain, dysuria or constipation. Has been having diarrhea while on Augmentin antibiotic. Seems chronic, with negative C diff toxin screen on 04/10/2019. Allergies Allergy/AdvReac Type Severity Reaction Status Date / Time adhesive tape Allergy Unknown Verified 04/16/19 17:01 Home Medications Home Medications Medication Instructions Recorded Confirmed Type biotin 1 mg PO PM 10/31/18 04/16/19 History calcium carbonate-vitamin D3 1 tab PO QAM 10/31/18 04/16/19 History [Calcium 600 + D(3)] multivitamin 1 tab PO QAM 10/31/18 04/16/19 History acyclovir [Zovirax] 400 mg PO BID 12/27/18 04/16/19 History isavuconazonium sulfate 372 mg PO QAM 12/27/18 04/16/19 History levofloxacin 500 mg PO QAM 12/27/18 04/16/19 History lutein 20 mg PO PM 12/27/18 04/16/19 History metoprolol tartrate 75 mg PO BID 12/27/18 04/16/19 History Past Med/Surg History Medical History Diabetes mellitus, type II (Chronic) Chronic respiratory failure with hypoxia (Chronic) Pancytopenia (Chronic) AML (acute myeloblastic leukemia) (Chronic) Rosacea (Chronic) SVT (supraventricular tachycardia) (Chronic) Pleural effusion (Chronic) Basal cell carcinoma (Chronic) AML (acute myeloblastic leukemia) CVA (cerebral vascular accident) LATA (iron deficiency anemia) Ovarian cyst, left removal Pancytopenia SVT (supraventricular tachycardia) Surgical History History of total hip arthroplasty (Chronic) History of cataract surgery (Chronic) History of total hip replacement Hx of removal of ovary Family History Mother Lymphoma Social History Preferred Language: Slovak Communication Ability: Effective Visual Impairment: No Limitations Beliefs That Will Affect Care: None marital status: Single Current Living Situation: Alone current occupational status: retired Feels Safe at Home: Yes Smoking Status: Former smoker Second Hand Exposure: No Hx Alcohol Use: No Hx Substance Use: No Review of Systems Review of Systems: At least ten systems reviewed and negative except as noted in the HPI. Physical Exam Physical Exam: General Appearance: WD/WN, no apparent distress, chronically ill appearing, short of breath when speaking Head: normocephalic, atraumatic Eyes: normal inspection, PERRL, EOMI ENT: hearing grossly normal, pharynx normal (moist mucous membranes) Neck: supple, no JVD, no adenopathy Respiratory/Chest: Bibasilar crackles, decreased lung sounds. No wheezes or rhonci. No respiratory distress or accessory muscle use. Saturating at 96% on 2 L NC O2 Cardiovascular: regular rate, rhythm, diastolic murmur, normal peripheral pulses, 3+ pitting edema bilaterally, peripheral cyanosis improved with O2 Abdomen/GI: normal bowel sounds, soft, non-tender to palpation Extremities/Musculoskelatal: normal inspection, no calf tenderness, normal capillary refill, BLE with edema, superficial skin tear on left anterior graf,, +serous weeping Neurologic/Psych: alert, normal mood/affect, oriented x 3 Skin: Pale, warm/dry Results & Data Vital Signs (Past 12 Hours) Vital Signs Temp Pulse Pulse Resp BP BP Pulse Ox 04/16/19 19:30 91 H 22 114/68 96 04/16/19 18:17 83 22 109/52 L 96 04/16/19 17:35 91/55 L 04/16/19 17:31 63 17 85/49 L 98 04/16/19 17:09 68 19 104/62 97 04/16/19 17:08 77 32 H 04/16/19 16:30 74 26 H 98 04/16/19 16:00 74 22 98 04/16/19 15:50 69 22 105/49 L 97 04/16/19 14:30 76 23 98 04/16/19 14:00 68 20 99 04/16/19 13:54 75 19 98 04/16/19 13:50 99 04/16/19 13:45 77 19 99 04/16/19 13:41 36.6 C 68 22 105/54 L 99 Laboratory Results Short CBC 04/16/19 Range/Units 14:24 WBC 3.82 L (4.8-10.8) K/uL Hgb 7.8 L (12.0-16.0) g/dL Hct 24.4 L (37-47) % Plt Count 70 L (130-400) K/uL BMP 04/16/19 14:24 Sodium 142 Potassium 4.1 Chloride 104 Carbon Dioxide 35 H BUN 17 Creatinine 0.82 Glucose 199 H Calcium 7.7 L Cardiac Enzymes 04/16/19 04/16/19 Range/Units 14:24 17:30 Troponin I < 0.015 0.018 (0-0.045) ng/ml Liver Function 04/16/19 Range/Units 14:24 Total Bilirubin 0.2 (0.2-1) mg/dl AST 25 (15-37) U/L ALT 25 (12-78) U/L Alkaline Phosphatase 87 (45-117) U/L Albumin 2.1 L (3.4-5.0) gm/dl Diagnostic Findings CXR: IMPRESSION: 1. Congestive heart failure. 2. Small left pleural effusion. Chest CTA: IMPRESSION: 1. No evidence of acute pulmonary embolism 2. CT evidence for interstitial pulmonary edema. 3. Smaller to moderate left pleural effusion and small right pleural effusion 4. Dependent pulmonary airspace opacities likely atelectatic 5. Large hiatal hernia Venous doppler: IMPRESSION: No evidence of lower extremity DVT. Code Status & VTE Plan Code Status DNR Supervising Physician Co-Signing Physician Notes Patient is an 83-year-old female with history of AML currently not in remission, chemotherapy held due to recurrent infections, chronic symptomatic anemia, chronic respiratory failure on home O2--noncompliant, history of SVT and other problems presents with history of worsening shortness of breath since 1 day duration. Reports associated generalized weakness and tiredness with minimal exertion. She denies any history of chest pain, dizziness. She admits to have worsening lower extremity edema, weight gain. She also reports her rhinitis. Patient was evaluated in her hematology office today and was found to be hypoxic and had peripheral cyanosis and was sent to ED for further evaluation. Please review HPI for complete details of presentation. She was found to be hypoxic and low 80s while in ED, which improved with 2 L of supplemental oxygen. CTA showed no PE, showed interstitial pulmonary edema, bilateral pleural effusion. Venous Dopplers are negative for DVT. Hemoglobin is at baseline. Troponinx2 is negative. EKG showed normal sinus rhythm, nonspecific T wave changes in the inferior leads. Last echo in January suggestive of normal EF, grade 1 diastolic dysfunction. Peripheral cyanosis improved with supplemental oxygen while in ED. On exam patient is chronically appearing, thin, frail, normocephalic atraumatic, lungs-bilateral basal crackles, decreased breath sounds,chest: Chemo-Port on right side of the chest, S1-S2, regular rhythm, diastolic murmur, abdomen soft nontender, grossly no neurological focal deficits, bilateral 2-3+ lower extremity edema. Patient is admitted for management of volume overload secondary to acute on chronic diastolic heart failure. Was started on on IV Lasix 40 mg twice daily, will check I's and O's, daily weight, monitor renal function and electrolytes. Will update echo. Will check flu screen to rule out influenza. Will type and cross blood and give PRBCs as needed if patient continues to be having symptomatic anemia despite diuresis. Consider cardiology evaluation as needed. Director Online Marketing the importance of using supplemental oxygen and Lasix at home. Monitor on telemetry to rule out arrhythmias. Consider changing Levaquin for chronic suppression to a different agent after discussing with ID. I personally reviewed the record. Patient is interviewed and examined at bedside. Patient's care is coordinated with Malgorzata Yu PA-C. Please refer to the documentation above for details of patient's p resentation and for discussion of other issues. (1) AML (acute myeloblastic leukemia) Leukemia Active/Remission status: without remission Qualified Code(s): C92.00 - Acute myeloblastic leukemia, not having achieved remission
[2019-04-16] MEDS ORDERED: GLUCOSE 10 TABS/TUBE PO PRN (21:43)
[2019-04-16] MEDS ORDERED: NON-FORMULARY MEDICATION (Lutein 20 MG) PO SCH (21:43)
[2019-04-16] MEDS ORDERED: CARBOHYDRATES FOR HYPOGLYCEMIA PO PRN (21:43)
[2019-04-16] MEDS ORDERED: DEXTROSE 50% 50 ML SYRINGE IV PRN (21:43)
[2019-04-16] MEDS ORDERED: SODIUM CHLORIDE 0.9% 250 ML IV PRN (21:43)
[2019-04-16] MEDS ORDERED: ACETAMINOPHEN 325 MG TAB PO PRN (21:43)
[2019-04-16] MEDS ORDERED: ALBUTEROL 0.083% NEBU SOLN 3 ML VIAL NEB PRN (21:43)
[2019-04-16] MEDS ORDERED: POLYETHYLENE (MIRALAX) 17 GM PACK PO PRN (21:43)
[2019-04-16] MEDS ORDERED: GLUCOSE 40% GEL 15 GM TUBE PO PRN (21:43)
[2019-04-16] MEDS ORDERED: ONDANSETRON INJ 2 MG/ML 2 ML VIAL IV PRN (21:43)
[2019-04-16] MEDS ORDERED: GLUCAGON FOR INJ 1 MG VIAL SQ PRN (21:43)
[2019-04-16] MEDS ORDERED: NON-FORMULARY MEDICATION (Biotin 1 MG) PO SCH (21:43)
[2019-04-16] MEDS: ACYCLOVIR 400 MG TAB PO SCH (22:37)
[2019-04-16] MEDS: METOPROLOL TARTRATE 25 MG TAB PO SCH (22:37)
[2019-04-16] MEDS: INSULIN ASPART 100 UNITS/ML 3 ML PEN SC SCH (22:40)
[2019-04-17 05:33] LABS: Hematocrit (blood only) 24.3 % (37-47); Hemoglobin 7.6 g/dL (12.0-16.0); Mean Corpuscular Hgb Conc 31.3 g/dL (32-36); RDW Standard Deviation 105.2 fL (36.4-46.3); Red Blood Count 2.19 M/uL (4.2-5.4); White Blood Count 4.07 K/uL (4.8-10.8)
[2019-04-17 05:56] LABS: BUN Creatinine Ratio 20.4 (10-20); Calcium 7.4 mg/dl (8.5-10.1); Creatinine Clr Calc Pharmacy 44.4 ml/min; Est GFR (African American) 77.9; Est GFR (Non-African American) 67.2; Magnesium 2.1 mg/dl (1.8-2.4); Potassium 4.1 mmol/L (3.5-5.1)
[2019-04-17 06:05] LABS: Mean Platelet Volume 10.4 fL (7.4-10.4); Nucleated RBC # (auto) 0.57 K/uL (0-0); Nucleated RBC % (auto) 13.9 %; Platelet Count 65 K/uL (130-400)
[2019-04-17 06:08] LABS: Estimated Average Glucose 128 mg/dl
[2019-04-17 06:29] LABS: Appearance Urine Clear (Clear); Bilirubin Urine Negative (Negative); Color Urine Yellow; Glucose Urine UA Negative (Negative); Ketones Urine Negative (Negative); Leukocyte Esterase Urine Negative (Negative); Nitrite Urine Negative (Negative); Protein Urine Trace (Negative); Specific Gravity Urine 1.015 (1.000-1.030); Urobilinogen Urine Negative (Negative); pH Urine 5.5 (4.5-7.5)
[2019-04-17 06:40] LABS: Hyaline Casts Urine 0-5 /lpf (0-5)
[2019-04-17 06:41] LABS: Bacteria Urine Negative (Negative); Calcium Oxalate Crystals Urine Present (None Prsent); RBC Urine 0-4 /hpf (0-4); WBC Urine 0-5 /hpf (0-5)
[2019-04-17 07:27] LABS: Influenza A virus by PCR Neg for Influ A (Neg); Influenza B virus by PCR Neg for Influ B (Neg)
[2019-04-17] MEDS: FUROSEMIDE 40 MG in SYRINGE 0 ML IV SCH ×2 (08:22→17:27)
[2019-04-17] MEDS: METOPROLOL TARTRATE 25 MG TAB PO SCH ×2 (08:23→21:10)
[2019-04-17] MEDS: ACYCLOVIR 400 MG TAB PO SCH ×2 (08:23→21:10)
[2019-04-17] MEDS: CALCIUM 600MG + VIT D 400 IU TAB PO SCH (08:24)
[2019-04-17] MEDS: levoFLOXacin 500 MG TAB PO SCH (08:24)
[2019-04-17] MEDS: MULTIVITAMIN TAB PO SCH (08:24)
[2019-04-17] MEDS: INSULIN ASPART 100 UNITS/ML 3 ML PEN SC SCH ×4 (08:43→21:09)
--- NOTE | 2019-04-17 09:16 | Hospitalist Progress Note ---
Date of Service April 17, 2019 Assessment & Plan (1) Heart failure, diastolic, with acute decompensation: Hypoxic with bilateral LE edema over the past 2-3 weeks. Interstitial edema on CXR. CT chest negative for PE. No ACS described, SR on EKG with no evidence of acute ischemia. Troponin negative. Recently finished course of antibiotics a few days ago for a pneumonia. Exercise intolerance difficult to gauge because low at baseline. Cont Lasix, monitor daily labwork. Chronic respiratory failure with oxygen noncompliance. She reports using it at night only. Echo pending. Low sodium diet, monitor daily weights. (2) Chronic respiratory failure with hypoxia: Noncompliant at home, cont oxygen supplementation while inpatient. (3) Pancytopenia: h/o AML s/p chemotherapy which has been on hold for several weeks in the setting of illnesses and hospital admissions. Currently improved from where she has been running, not neutropenic at this time, will cont to monitor for transfusion needs. 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 Treatment most recently held for a pneumonia. -Status post 2 full cycles of decitabine, last received in Jan 2019 -Continue antifungal and antiviral for chronic suppression -Currently receiving Levaquin for antibiotic prophylaxis in setting of recurrent pneumonia. (5) Diabetes mellitus, type II: A1C currently 6.1 and blood sugar has been well below goal. Not currently on home antiglycemics and patient has lost 30 lbs in the last 6 months. Will stop blood sugar checks and liberalize diet. (6) SVT (supraventricular tachycardia): No events on telemetry overnight (7) DVT prophylaxis: DVT Ppx: SCDs. Chemical prophylaxis contraindicated in setting of thrombocytopenia Code status: DNR/DNI PCP: Eriberto Dispo: cont hospitalization. Pt lives alone, PT/OT ordered. Pt encouraged to ambulate to avoid deconditioning. 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 tolerating PO somewhat decreased exercise tolerance but this is difficult to quantify. Review of Systems Review of Systems: All systems reviewed & are unremarkable except as noted in HPI & below Physical Exam Physical Exam: CONSTITUTIONAL: thin, vitals as above, generally well-appearin g EYES: normal conjuctivae, no scleral icterus ENT: MMM RESPIRATORY: crackles at lung bases present, no wheezing, normal respiratory effort CARDIOVASCULAR: regular rate and rhythm, S1 and 2 heard without murmurs, gallops or rubs, no JVD, trace bilateral peripheral edema CHEST: +port GASTROINTESTINAL: soft, NTND MUSCULOSKELETAL: strength 5/5 throughout, head is normocephalic and atraumatic SKIN: warm and dry NEUROLOGIC: CN 2-12 grossly intact, normal cognition, normal speech, no tremor, no gross focal deficit. PSYCHIATRIC: alert cooperative and oriented to person, place and time. Results & Data Vital Signs (Past 12 Hours) Vital Signs Temp Pulse Pulse Resp BP BP Pulse Ox 04/17/19 07:04 36.8 C 75 20 94/49 L 94 04/17/19 06:25 75 04/17/19 03:48 36.6 C 78 18 100/54 L 95 04/17/19 00:00 04/16/19 23:26 36.8 C 80 18 101/61 93 04/16/19 22:45 85 04/16/19 21:43 36.7 C 96 H 16 121/65 99 Pulse Ox 04/17/19 07:04 04/17/19 06:25 04/17/19 03:48 04/17/19 00:00 91 04/16/19 23:26 04/16/19 22:45 04/16/19 21:43 99 Laboratory Results Short CBC 04/16/19 04/17/19 Range/Units 14:24 05:19 WBC 3.82 L 4.07 L (4.8-10.8) K/uL Hgb 7.8 L 7.6 L (12.0-16.0) g/dL Hct 24.4 L 24.3 L (37-47) % Plt Count 70 L 65 L (130-400) K/uL BMP 04/16/19 04/17/19 14:24 05:19 Sodium 142 141 Potassium 4.1 4.1 Chloride 104 102 Carbon Dioxide 35 H 40 H BUN 17 16 Creatinine 0.82 0.80 Glucose 199 H 92 Calcium 7.7 L 7.4 L Cardiac Enzymes 04/16/19 04/16/19 Range/Units 14:24 17:30 Troponin I < 0.015 0.018 (0-0.045) ng/ml Liver Function 04/16/19 Range/Units 14:24 Total Bilirubin 0.2 (0.2-1) mg/dl AST 25 (15-37) U/L ALT 25 (12-78) U/L Alkaline Phosphatase 87 (45-117) U/L Albumin 2.1 L (3.4-5.0) gm/dl Urine 04/17/19 Range/Units 06:20 Urine Color Yellow Urine Appearance Clear (Clear) Urine pH 5.5 (4.5-7.5) Ur Specific [place] 1.015 (1.000-1.030) Urine Protein Trace H (Negative) Urine Glucose (UA) Negative (Negative) Medications Administered Current Inpatient Medications Acetaminophen (Tylenol) 650 mg PO Q4H PRN PRN Reason: Pain or Fever Stop: 05/16/19 21:42 Acyclovir (Zovirax) 400 mg PO BID [facility] Stop: 05/16/19 21:59 Last Admin: 04/17/19 08:23 Dose: 400 mg Documented by: Albuterol (Ventolin 0.083% 2.5mg/3ml) 2.5 mg NEB Q6R PRN PRN Reason: Shortness Of Breath Or Wheezing Stop: 05/16/19 21:42 Dextrose (Dextrose 50%) 25 - 50 ml IV UD PRN; Protocol PRN Reason: Hypoglycemia Protocol Stop: 05/16/19 21:42 Glucagon (Glucagen) 1 mg SQ UD PRN; Protocol PRN Reason: Hypoglycemia Protocol Stop: 05/16/19 21:42 Glucose (Dex4 Glucose) 4 - 8 tabs PO UD PRN; Protocol PRN Reason: Hypoglycemia Protocol Stop: 05/16/19 21:42 Glucose (Glucose 40%) 15 - 30 gm PO UD PRN; Protocol PRN Reason: Hypoglycemia Protocol Stop: 05/16/19 21:42 Furosemide 40 mg/ Syringe 4 mls @ 4 mls/min IV [id number] TYREE Stop: 05/17/19 08:59 Last Admin: 04/17/19 08:22 Dose: 4 mls/min Documented by: Sodium Chloride (Nss) 250 mls @ 15 mls/hr IV .[id number] PRN PRN Reason: For Transfusion Stop: 05/16/19 21:42 Insulin Aspart (Novolog Flexpen) 0 units SC ACHS [facility] Stop: 05/16/19 20:59 Last Admin: 04/17/19 08:43 Dose: 1 units Documented by: Levofloxacin (Levaquin) 500 mg PO QAM [facility] Stop: 05/17/19 08:59 Last Admin: 04/17/19 08:24 Dose: 500 mg Documented by: Metoprolol Tartrate (Lopressor) 75 mg PO BID [facility] Stop: 05/16/19 21:59 Last Admin: 04/17/19 08:23 Dose: Not Given Documented by: Miscellaneous (Order Awaiting Action) 1 ea N/A QS [facility] Stop: 05/17/19 00:00 Last Admin: 04/17/19 08:25 Dose: Not Given Documented by: Miscellaneous (Carbohydrates For Hypoglycemia) 15 - 30 gm PO UD PRN PRN Reason: Hypoglycemia Treatment Stop: 05/16/19 21:42 Multivitamins (Multivitamin Tab) 1 tab PO QAM [facility] Stop: 05/17/19 08:59 Last Admin: 04/17/19 08:24 Dose: 1 tab Documented by: Multivitamins/Minerals (Caltrate Plus) 1 tab PO QAM [facility] Stop: 05/17/19 08:59 Last Admin: 04/17/19 08:24 Dose: 1 tab Documented by: Ondansetron HCl (Zofran) 4 mg IV Q6H PRN PRN Reason: Nausea Stop: 05/16/19 21:42 Polyethylene Glycol (Miralax Powder Packet) 17 gm PO DAILY PRN PRN Reason: Constipation Stop: 05/16/19 21:42 (1) AML (acute myeloblastic leukemia) Leukemia Active/Remission status: without remission Qualified Code(s): C92.00 - Acute myeloblastic leukemia, not having achieved remission
[2019-04-18] MEDS ORDERED: HEPARIN 100 UNIT/ML 5ML FLUSH FLUSH PRN (01:54)
[2019-04-18 05:47] LABS: Hematocrit (blood only) 25.1 % (37-47); Hemoglobin 7.9 g/dL (12.0-16.0); Mean Corpuscular Hgb Conc 31.5 g/dL (32-36); Mean Corpuscular Volume 112.1 fL (80-100); Nucleated RBC # (auto) 0.36 K/uL (0-0); Nucleated RBC % (auto) 8.7 %; RDW Coefficient of Variation 26.7 % (11.5-14.5); RDW Standard Deviation 103.3 fL (36.4-46.3); Red Blood Count 2.24 M/uL (4.2-5.4); White Blood Count 4.16 K/uL (4.8-10.8)
[2019-04-18 05:53] LABS: Mean Platelet Volume 11.1 fL (7.4-10.4); Platelet Count 69 K/uL (130-400)
[2019-04-18 06:31] LABS: BUN Creatinine Ratio 24.4 (10-20); Calcium 7.8 mg/dl (8.5-10.1); Est GFR (African American) 85.6; Est GFR (Non-African American) 73.9; Potassium 3.9 mmol/L (3.5-5.1)
[2019-04-18] MEDS: CALCIUM 600MG + VIT D 400 IU TAB PO SCH (08:07)
[2019-04-18] MEDS: FUROSEMIDE 40 MG in SYRINGE 0 ML IV SCH (08:08)
[2019-04-18] MEDS: ACYCLOVIR 400 MG TAB PO SCH ×2 (08:08→20:29)
[2019-04-18] MEDS: MULTIVITAMIN TAB PO SCH (08:08)
[2019-04-18] MEDS: levoFLOXacin 500 MG TAB PO SCH (08:08)
[2019-04-18] MEDS: METOPROLOL TARTRATE 25 MG TAB PO SCH ×2 (08:08→20:29)
[2019-04-18] MEDS: INSULIN ASPART 100 UNITS/ML 3 ML PEN SC SCH (09:43)
--- NOTE | 2019-04-18 11:27 | Hospitalist Progress Note ---
Date of Service April 18, 2019 Assessment & Plan (1) Right heart 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 hypertension: Still appears volume overloaded with crackles at bases and peripheral edema. Hypoxia persists but this is chronic. Will cont with diuresis but hesitate to be more aggressive as bicarb is up to 41 today. With this and complex lung history, will ask Cardiology's help to optimize her. She is also hypotensive on occasion. Echo reveals normal LV size and EF 55 to 60% with a flattened septum consistent with RV pressure overload. She has mildly reduced RV function and evidence of pulmonary hypertension. Compared to prior study in January, pulmonary hypertension and RV dysfunction is new. Will await further cardiac recommendations. (2) Chronic respiratory failure with hypoxia: Noncompliant at home, cont oxygen supplementation while inpatient. Pulmonary following her as outpatient and was working up her chronic shortness of breath, which is now related to cor pulmonale. Cardiology to help optimize patient and will plan to continue outpatient pulmonology care at discharge. (3) Pancytopenia: h/o AML s/p chemotherapy which has been on hold for several weeks in the setting of illnesses and hospital admissions. Currently improved from where she has been running, not neutropenic at this time, will cont to monitor for transfusion needs. I discussed with Oncology their threshold to transfuse which would be Hb<7 or PLT <15-20. (4) AML (acute myeloblastic leukemia): Diagnosed in October 2018, follows with [facility]. Treatment most recently held for a pneumonia. -Status post 2 full cycles of decitabine, last received in Jan 2019 -Continue antifungal and antiviral for chronic suppression -Currently receiving Levaquin for antibiotic prophylaxis in setting of recurrent pneumonia. (5) Diabetes mellitus, type II: She has not been on anti-glycemic's and is lost 30 pounds over the last 6 months related to her AML diagnosis and treatment. While admitted she has had goal blood sugars. Therefore blood sugar checks were discontinued and sliding scale coverage was also discontinued. Diet was liberalized in the setting of weight loss. (6) SVT (supraventricular tachycardia): 1 small burst of SVT at 8:40 AM on telemetry. (7) DVT prophylaxis: DVT Ppx: SCDs. Chemical prophylaxis contraindicated in setting of thrombocytopenia Code status: DNR/DNI PCP: Eriberto Dispo: cont hospitalization. Pt lives alone, PT/OT ordered. Pt encouraged to ambulate to avoid deconditioning. Светлана Bill DO [facility] Hospitalist Subjective Patient feels the same today. She reports that her recent treatment for pneumonia was based on a CT scan and she never had symptoms so she cannot tell me if there is been an improvement. She never felt short of breath although she did say once compliant with the oxygen supplementation she did feel better overall prior to arrival. She feels her legs are still swollen. She declines ambulation because she does not have the right shoes and feels her feet are too swollen to fit into shoes. She declines wanting to walk around in her socks. Therefore she has not ambulated much since admission. As she lives at home this was encouraged to avoid deconditioning while hospitalized. Otherwise she denies any chest pain, fevers, chills, cough. We did talk about overarching goals of treatment and she is unclear of her current direction. At this time we define goals of care to be optimizing her from a fluid standpoint to get her back to pulmonary and figure out what is going on with the lungs. Once cleared by pulmonary, then going back to the oncologist for a conversation of treatment options at that time. She is tolerating p.o. Review of Systems Review of Systems: All systems reviewed & are unremarkable except as noted in HPI & below Physical Exam Physical Exam: CONSTITUTIONAL: thin, vitals as above, generally well- appearing EYES: normal conjuctivae, no scleral icterus ENT: MMM RESPIRATORY: crackles at lung bases present R>L, no wheezing, normal respiratory effort CARDIOVASCULAR: regular rate and rhythm, S1 and 2 heard without murmurs, gall ops or rubs, no JVD, 1+ bilateral peripheral edema CHEST: +port GASTROINTESTINAL: soft, NTND MUSCULOSKELETAL: strength 5/5 throughout, head is normocephalic and atraumatic SKIN: warm and dry NEUROLOGIC: CN 2-12 grossly intact, normal cognition, normal speech, no tremor, no gross focal deficit. PSYCHIATRIC: alert cooperative and oriented to person, place and time. Results & Data Vital Signs (Past 12 Hours) Vital Signs Temp Pulse Pulse Resp BP BP Pulse Ox 04/18/19 11:17 36.8 C 77 18 87/50 L 95 04/18/19 07:25 37 C 80 18 113/63 93 04/18/19 03:41 36.3 C L 81 16 104/56 L 97 04/18/19 00:45 87 04/18/19 00:04 36.8 C 72 18 98/58 L 99 Laboratory Results Short CBC 04/18/19 Range/Units 05:34 WBC 4.16 L (4.8-10.8) K/uL Hgb 7.9 L (12.0-16.0) g/dL Hct 25.1 L (37-47) % Plt Count 69 L (130-400) K/uL BMP 04/18/19 05:34 Sodium 141 Potassium 3.9 Chloride 99 Carbon Dioxide 41 H* BUN 18 Creatinine 0.74 Glucose 103 H Calcium 7.8 L v (1) AML (acute myeloblastic leukemia) Leukemia Active/Remission status: without remission Qualified Code(s): C92.00 - Acute myeloblastic leukemia, not having achieved remission
--- NOTE | 2019-04-18 21:17 | Consultation Report ---
DATE OF CONSULTATION: 04/18/2019 REFERRING PHYSICIAN: Светлана Bill DO INDICATIONS: Elevated pulmonary pressure with lower extremity edema. HISTORY OF PRESENT ILLNESS: The patient is a very complex 83-year-old female who is currently undergoing therapies for acute myeloid leukemia. Her underlying medical problems include history of chronic lung disease, O2 requiring, though with patient using it sporadically with associated kyphoscoliotic lung cavity, history of past atrioventricular arrhythmias observed incidentally while in hospitalizations, type 2 diabetes mellitus, and worsening of her lower extremity edema recently. Patient is referred now after patient presented to the Emergency Room for hospitalization last evening with signs and symptoms of increasing lower extremity edema and fatigue. She was noted to be hypoxic. She has responded to IV diuretics since admission. Lower extremity edema is easing with some climbing bicarbonate levels. She is referred for ongoing assistance. Echocardiogram done on admission demonstrated preserved LV systolic function with some increased right heart size and elevated pulmonary pressures. The patient denies any specific complaints currently. Dyspnea is chronic per patient. She notes no chest pain or discomfort. Notes no dizziness or lightheadedness. Notes no syncope or near syncope. Notes no bleeding difficulties. Notes chronic nausea and anorexia with appetite fair at best. ALLERGIES: ADHESIVE TAPE. MEDICATIONS: At home were acyclovir 400 mg b.i.d., biotin 1 mg daily, calcium carbonate, isavuconazonium sulphate 372 q.a.m., levofloxacin 500 mg q.a.m., metoprolol 75 mg b.i.d., and a multivitamin per day. PAST SURGICAL HISTORY: Notable for prior tonsillectomy, oophorectomy. FAMILY HISTORY: Noncontributory other than mother with history of lymphoma in her 90s. SOCIAL HISTORY: The patient is a nonsmoker, nondrinker other than a rare alcoholic beverage. PHYSICAL EXAMINATION: GENERAL: The patient is an elderly thin patient with marked kyphoscoliotic changes of her chest and left-sided head deviation due to configuration. VITAL SIGNS: Heart rate is 78, blood pressure is 97/55, O2 saturations 92% on 2 liters nasal cannula. HEENT: Normocephalic, atraumatic. NECK: Thin and cachectic. There is minimal jugular venous distention at 30 degrees. LUNGS: Reveal coarse crackles at the right base, blunting of the breath sounds at the left base. CARDIOVASCULAR: Regular with a grade 1/6 systolic murmur. There is no S3 gallop. ABDOMEN: Soft, nontender. EXTREMITIES: Reveal 2+ edema to the knees, though nondistended and easily compressible. There is poor tissue turgor. DATA: Chest x-ray revealed atelectatic changes and effusion in the left, mild increase in interstitial markings on a poor technical quality study. The patient has had CT scan of the chest done on 04/16/2019 as well as 04/08/2019, both without pulmonary emboli, slight increase in interstitial markings observed. LABORATORY STUDIES: White cell count is 4.1, hemoglobin is 7.9, platelet count is 69,000. Sodium is 141, potassium is 3.9, chloride is 99, bicarbonate is 41, BUN is 18, creatinine is 0.74, glucose is 103. Notably, albumin level is 2.1. DATA: Additional EKG reveals on presentation sinus rhythm with nonspecific ST segment changes. Echocardiogram performed on 04/17/2019 revealed mildly dilated right ventricle with reduced function, normal LV systolic function, and a flattened septum consistent with RV pressure overload. Estimated PA systolic pressure of 50-55 mmHg. IMPRESSION AND PLAN: An 83-year-old female with multiple complex underlying history, issues including chronic lung disease, O2 requiring, though patient openly notes not using oxygen at home. Presented with hypoxia and lower extremity edema. Edema appears to be secondary to underlying pulmonary issues and increased right heart pressures. Right heart pressures are contributed to by restrictive configuration of chest with marked kyphoscoliosis. The patient has responded to diuretics. Would discontinue IV diuretics after next dose. Review electrolytes and renal function in a.m. Would recommend to decide on oral diuretic dosing. Would recommend continued oxygen around the clock with maintaining oxygen saturations above 92%. Support stockings to aid in lower extremity edema being mitigated by pulmonary issues and hypoalbuminemia.
[2019-04-19 06:22] LABS: Hematocrit (blood only) 25.4 % (37-47); Hemoglobin 7.8 g/dL (12.0-16.0); Mean Corpuscular Hgb Conc 30.7 g/dL (32-36); Mean Corpuscular Volume 112.9 fL (80-100); Nucleated RBC # (auto) 0.38 K/uL (0-0); Nucleated RBC % (auto) 8.1 %; RDW Standard Deviation 101.7 fL (36.4-46.3); Red Blood Count 2.25 M/uL (4.2-5.4)
[2019-04-19 06:23] LABS: Mean Platelet Volume 11.7 fL (7.4-10.4); Platelet Count 59 K/uL (130-400)
[2019-04-19 06:51] LABS: BUN Creatinine Ratio 27.7 (10-20); Calcium 7.6 mg/dl (8.5-10.1); Creatinine Clr Calc Pharmacy 60.2 ml/min; Est GFR (African American) 96.9; Est GFR (Non-African American) 83.6; Potassium 3.6 mmol/L (3.5-5.1)
[2019-04-19] MEDS: CALCIUM 600MG + VIT D 400 IU TAB PO SCH (08:22)
[2019-04-19] MEDS: ACYCLOVIR 400 MG TAB PO SCH ×2 (08:23→20:55)
[2019-04-19] MEDS: levoFLOXacin 500 MG TAB PO SCH (08:23)
[2019-04-19] MEDS: METOPROLOL TARTRATE 25 MG TAB PO SCH ×2 (08:23→20:55)
[2019-04-19] MEDS: MULTIVITAMIN TAB PO SCH (08:23)
[2019-04-19] MEDS: FUROSEMIDE 40 MG in SYRINGE 0 ML IV SCH (08:44)
--- NOTE | 2019-04-19 10:49 | Hospitalist Progress Note ---
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 and spironolactone added by cardiology. Patient refuses to ambulate for various reasons. She has some improvement in the swelling of her legs but still appears volume overloaded with an increase in pulmonary rhonchi/crackles. Continue to monitor response after adjustment of medications. Ultimate treatment goals are not clear as it appears the patient is somewhat apathetic to recovery. We discussed palliative treatment options and she agreed with consultation. (2) Chronic respiratory failure with hypoxia: (3) Pancytopenia: h/o AML s/p chemotherapy which has been on hold for several weeks in the setting of illnesses and hospital admissions. Currently improved from where she has been running, not neutropenic at this time, will cont to monitor for transfusion needs. I discussed with Oncology their threshold to transfuse which would be Hb<7 or PLT <15-20. (4) AML (acute myeloblastic leukemia): Diagnosed in October 2018, follows with [facility]ology. Treatment most recently held for a pneumonia. -Status post 2 full cycles of decitabine, last received in Jan 2019 -Continue antifungal and antiviral for chronic suppression -Currently receiving Levaquin for antibiotic prophylaxis in setting of recurrent pneumonia. (5) Diabetes mellitus, type II: She has not been on anti-glycemic's and is lost 30 pounds over the last 6 months related to her AML diagnosis and treatment. While admitted she has had goal blood sugars. Therefore blood sugar checks were discontinued and sliding scale coverage was also discontinued. Diet was liberalized in the setting of weight loss. (6) SVT (supraventricular tachycardia): h/o SVT in the past. Cont Metoprolol. (7) DVT prophylaxis: DVT Ppx: SCDs. Chemical prophylaxis contraindicated in setting of thrombocytopenia Code status: DNR/DNI PCP: Eriberto Dispo: cont hospitalization. Pt lives alone, PT/OT ordered. Pt encouraged to ambulate to avoid deconditioning. Светлана Bill DO [facility] Hospitalist Subjective Tolerating p.o. Refuses to ambulate as she does not walk and socks and feels her feet are too swollen to put in her shoes. Encouraged to ambulate as she lives alone and is very deconditioned. Lower extremity swelling is improved with stockings with some residual 2+ pitting edema in her thighs. She denies any chest pain or worsening trouble breathing. She has been on continuous oxygen while admitted. Elevated bicarbonate has prevented further IV diuretics. Spironolactone n.p.o. Lasix added by cardiology today. We discussed if a palliative consult would be appropriate for her and she thought it would. Review of Systems Review of Systems: All systems reviewed & are unremarkable except as noted in HPI & below Physical Exam Physical Exam: CONSTITUTIONAL: thin, vitals as above, generally well- appearing EYES: normal conjuctivae, no scleral icterus ENT: MMM RESPIRATORY: Worsening rhonchi today left greater than right, no wheezing, normal respiratory effort CARDIOVASCULAR: regular rate and rhythm, S1 and 2 heard without murmurs, gall ops or rubs, no JVD, teds in place with no pitting edema on lower extremities to the knee. 2+ pitting edema on the lateral thighs bilaterally. CHEST: +port, chest wall abnormality secondary to severe kyphoscoliosis GASTROINTESTINAL: soft, NTND MUSCULOSKELETAL: strength 5/5 throughout, head is normocephalic and atraumatic SKIN: warm and dry NEUROLOGIC: CN 2-12 grossly intact, normal cognition, normal speech, no tremor, no gross focal deficit. PSYCHIATRIC: alert cooperative and oriented to person, place and time. Results & Data Vital Signs (Past 12 Hours) Vital Signs Temp Pulse Pulse Resp BP Pulse Ox 04/19/19 10:10 82 04/19/19 07:07 37 C 82 16 104/55 L 97 04/19/19 03:13 37.4 C 73 18 92/47 L 99 04/18/19 23:31 37.2 C 77 20 102/65 96 04/18/19 23:01 91 H Laboratory Results Short CBC 04/19/19 Range/Units 05:52 WBC 4.70 L (4.8-10.8) K/uL Hgb 7.8 L (12.0-16.0) g/dL Hct 25.4 L (37-47) % Plt Count 59 L (130-400) K/uL BMP 04/19/19 05:52 Sodium 141 Potassium 3.6 Chloride 96 L Carbon Dioxide 44 H* BUN 16 Creatinine 0.59 L Glucose 119 H Calcium 7.6 L Medications Administered Current Inpatient Medications Acetaminophen (Tylenol) 650 mg PO Q4H PRN PRN Reason: Pain or Fever Stop: 05/16/19 21:42 Acyclovir (Zovirax) 400 mg PO BID [facility] Stop: 05/16/19 21:59 Last Admin: 04/19/19 08:23 Dose: 400 mg Documented by: Albuterol (Ventolin 0.083% 2.5mg/3ml) 2.5 mg NEB Q6R PRN PRN Reason: Shortness Of Breath Or Wheezing Stop: 05/16/19 21:42 Heparin Sodium (Porcine) (Heparin Sod 100 Unit/Ml Flush) 5 ml FLUSH PRN PRN PRN Reason: Flush Stop: 05/18/19 01:59 [facility] [place] Stop: 05/17/19 08:59 Last Admin: 04/19/19 08:23 Dose: 500 mg Documented by: Metoprolol Tartrate (Lopressor) 75 mg PO BID [facility] Stop: 05/16/19 21:59 Last Admin: 04/19/19 08:23 Dose: 75 mg Documented by: Miscellaneous (Order Awaiting Action) 1 ea N/A QS [facility] Stop: 05/17/19 00:00 Last Admin: 04/19/19 03:30 Dose: Not Given Documented by: Multivitamins ([facility]ivitamin Tab) [facility] [place] Stop: 05/17/19 08:59 Last Admin: 04/19/19 08:23 Dose: 1 tab Documented by: Multivitamins/Minerals (Caltrate Plus) 1 tab PO QAM [facility] Stop: 05/17/19 08:59 Last Admin: 04/19/19 08:22 Dose: 1 tab Documented by: Ondansetron HCl (Zofran) 4 mg IV Q6H PRN PRN Reason: Nausea Stop: 05/16/19 21:42 Polyethylene Glycol (Miralax Powder Packet) 17 gm PO DAILY PRN PRN Reason: Constipation Stop: 05/16/19 21:42 (1) AML (acute myeloblastic leukemia) Leukemia Active/Remission status: without remission Qualified Code(s): C92.00 - Acute myeloblastic leukemia, not having achieved remission
--- NOTE | 2019-04-19 11:37 | Cardiology Progress Note ---
Date of Service April 19, 2019 Assessment & Plan (1) Edema: Improved continue support stockings (2) Right heart 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 hypertension: Add spironolactone 12.5 mill grams p.o. daily with addition of oral furosemide 20 mill grams daily (3) Hypoalbuminemia: Nutritional support (4) Chronic respiratory failure with hypoxia: Continue oxygen supplementation (5) SVT (supraventricular tachycardia): Continue current beta-eleno dosing Subjective Patient was seen and examined, chart, telemetry reviewed. Lower leg edema less pronounced with support stockings in place. No acute changes in pulmonary status no tachypalpitations syncope or near syncope. Review of Systems Review of Systems: As per HPI Physical Exam 2 Constitutional: Thin cachectic elderly female with marked kyphoscoliosis Respiratory: Diminished breath sounds with scattered crackles right base Cardiovascular: Rate/Rhythm: regular rate and regular rhythm Heart Sounds: normal S1, normal S2 and + murmur (Grade 1/6 systolic) Vessels: no JVD Extremities: no edema Gastrointestinal (Abdomen): normal bowel sounds, soft, nontender, no hepatosplenomegaly Skin: no rashes, warm and dry Results & Data Vital Signs (Past 12 Hours) Vital Signs Temp Pulse Pulse Resp BP Pulse Ox 04/19/19 10:58 37.1 C 70 18 98/62 L 100 04/19/19 10:10 82 04/19/19 07:07 37 C 82 16 104/55 L 97 04/19/19 03:13 37.4 C 73 18 92/47 L 99 Laboratory Results Laboratory Results - last 24 hr 04/19/19 04/19/19 05:52 05:52 WBC 4.70 L RBC 2.25 L Hgb 7.8 L Hct 25.4 L MCV 112.9 H MCH 34.7 H MCHC 30.7 L RDW Std Deviation 101.7 H RDW Coeff of Rangel 26.0 H Plt Count 59 L MPV 11.7 H Absolute Nucleated RBC 0.38 H Nucleated RBC % (auto) 8.1 Sodium 141 Potassium 3.6 Chloride 96 L Carbon Dioxide 44 H* Anion Gap 1.0 L BUN 16 Creatinine 0.59 L Est Cr Clr Drug Dosing 60.2 Est GFR ( Amer) 96.9 Est GFR (Non-Af Amer) 83.6 BUN/Creatinine Ratio 27.7 H Glucose 119 H Calcium 7.6 L Magnesium 2.0
[2019-04-19] MEDS ORDERED: CRESEMBA PO SCH (11:45)
[2019-04-19] MEDS ORDERED: FUROSEMIDE 20 MG TAB PO SCH (11:45)
[2019-04-19] MEDS: SPIRONOLACTONE 25 MG TAB PO SCH (12:30)
[2019-04-20 08:09] LABS: BUN Creatinine Ratio 24.6 (10-20); Calcium 7.8 mg/dl (8.5-10.1); Creatinine Clr Calc Pharmacy 58.2 ml/min; Est GFR (African American) 95.8; Est GFR (Non-African American) 82.7; Potassium 3.7 mmol/L (3.5-5.1)
[2019-04-20] MEDS: MULTIVITAMIN TAB PO SCH (08:36)
[2019-04-20] MEDS: CALCIUM 600MG + VIT D 400 IU TAB PO SCH (08:36)
[2019-04-20] MEDS: SPIRONOLACTONE 25 MG TAB PO SCH (08:37)
[2019-04-20] MEDS: ACYCLOVIR 400 MG TAB PO SCH ×2 (08:37→19:59)
[2019-04-20] MEDS: levoFLOXacin 500 MG TAB PO SCH (08:37)
[2019-04-20] MEDS: METOPROLOL TARTRATE 25 MG TAB PO SCH ×2 (08:38→19:59)
[2019-04-20] MEDS: CRESEMBA PO SCH (08:43)
[2019-04-20 09:13] LABS: HCO3 ABG 47 mmol/L (19-24); Oxygen Saturation ABG 91.4 % (90-95); PCO2 ABG 92 mmHg (35-46); PO2 ABG 65 mm/Hg (80-95); pH ABG 7.33 (7.35-7.45)
[2019-04-20 09:25] LABS: Allen Test Pos (Pos)
--- NOTE | 2019-04-20 10:56 | Palliative Care Consultation ---
Date of Consultation April 20, 2019 Assessment & Plan (1) Goals of care, counseling/discussion: -83 year old female with PMH CVA, htn, AML, symptomatic anemia requiring PRN transfusions, presented to the hospital a few days ago from her heme/onc office for SOB and hypoxia. Patient was diagnosed with AML in October 2018, has been receiving Decitabine. Patient has had issues with pneumonia recently as well as anemia. She has chronic respiratory failure, supposed to be on home oxygen but is non-compliant with it. Her oxygen saturation was 84% on room air at heme/onc's office, which is why she came in. Her oxygen saturation and comfort level is improved with oxygen therapy. Patient also with pulmonary hypertension and right sided heart failure causing her volume overload on admission. She has been diuresed. Patient is also losing weight, 30lb in last 6 months. Patient has also been declining to walk or work with PT/OT as her legs were swollen and would not fit in her shoes. Uncertain of goals of care at this point, palliative care is consulted. -Met with patient in room 232. Patient is awake, alert and oriented x4, very pleasant. Patient states that up until this point she has been quite functional and living independently. Patient is uncertain of whether or not she plans to co ntinue on chemotherapy. However, she doesn't want to do any aggressive treatment if it's not going to be of benefit or if symptom burden is too high. -Patient is willing to wear her oxygen at home, however, she states that if it gets to the point that she needs it 24/7 she feels that it will negatively affect her quality of life. -Patient's goal is to live as long as she can, but live comfortably. Her plan is to return home. We did discuss options such as hospice for the future, she is open to this idea. Hospice of course would not start until she is done with chemo and done with transfusions. -Her nephew, Jose Alberto, who is a radiologist, is her medical POA. -Plan at this time is to continue with current medical treatment and I will follow during this hospitalization to see how patient does and continue to assist with medical decision making and goals of care. 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 Patient was diagnosed with AML in October 2018, has been receiving Decitabine. Patient has had issues with pneumonia recently as well as anemia. She has chronic respiratory failure, supposed to be on home oxygen but is non-compliant with it. Her oxygen saturation was 84% on room air at heme/onc's office, which is why she came in. Her oxygen saturation and comfort level is improved with oxygen therapy. Patient also with pulmonary hypertension and right sided heart failure causing her volume overload on admission. She has been diuresed. Patient is also losing weight, 30lb in last 6 months. Patient has also been declining to walk or work with PT/OT as her legs were swollen and would not fit in her shoes. Uncertain of goals of care at this point, palliative care is consulted. Thank you kindly for this consult. I will follow as needed. Allergies Allergy/AdvReac Type Severity Reaction Status Date / Time adhesive tape Allergy Unknown Verified 04/16/19 17:01 Home Medications Home Medications Medication Instructions Recorded Confirmed Type biotin 1 mg PO PM 10/31/18 04/16/19 History calcium carbonate-vitamin D3 1 tab PO QAM 10/31/18 04/16/19 History [Calcium 600 + D(3)] multivitamin 1 tab PO QAM 10/31/18 04/16/19 History acyclovir [Zovirax] 400 mg PO BID 12/27/18 04/16/19 History isavuconazonium sulfate 372 mg PO QAM 12/27/18 04/16/19 History levofloxacin 500 mg PO QAM 12/27/18 04/16/19 History lutein 20 mg PO PM 12/27/18 04/16/19 History metoprolol tartrate 75 mg PO BID 12/27/18 04/16/19 History Patient History Medical History Diabetes mellitus, type II (Chronic) Chronic respiratory failure with hypoxia (Chronic) Pancytopenia (Chronic) AML (acute myeloblastic leukemia) (Chronic) Rosacea (Chronic) SVT (supraventricular tachycardia) (Chronic) Pleural effusion (Chronic) Basal cell carcinoma (Chronic) AML (acute myeloblastic leukemia) CVA (cerebral vascular accident) LATA (iron deficiency anemia) Ovarian cyst, left removal Pancytopenia SVT (supraventricular tachycardia) Surgical History History of total hip arthroplasty (Chronic) History of cataract surgery (Chronic) History of total hip replacement Hx of removal of ovary Family History Mother Lymphoma Social History Preferred Language: British Communication Ability: Effective Visual Impairment: No Limitations [place] Required: No Beliefs That Will Affect Care: None marital status: Single Current Living Situation: Alone current occupational status: retired Other Information That Helps Us Care for You: No Feels Safe at Home: Yes Safety Concerns: Feels Safe At This Time Smoking Status: Former smoker Smoking End Date: 1967 Second Hand Exposure: No Hx Alcohol Use: Yes Alcohol type: beer, wine and hard liquor Hx Substance Use: No Physical Exam Constitutional: + thin and + frail appearing ENMT: external ear and nose normal, oropharynx normal Neck: normal visual inspection Respiratory: normal respiratory effort Auscultation: + diminished lung sounds and + crackles (BL bases, R>L) Cardiovascular: Rate/Rhythm: regular rate and regular rhythm Heart Sounds: + murmur Gastrointestinal (Abdomen): normal bowel sounds, soft, nontender, no hepatosplenomegaly Skin: no rashes, warm and dry Neurologic: moves all extremities and awake; not confused Psychiatric: A+Ox3, euthymic affect Results & Data Vital Signs (Past 12 Hours) Vital Signs Temp Pulse Pulse Resp BP BP Pulse Ox 04/20/19 10:52 36.9 C 72 18 94/55 L 94 04/20/19 07:32 36.9 C 66 16 99/57 L 97 04/20/19 04:00 37 C 76 16 101/52 L 96 04/19/19 23:39 37.4 C 79 74 18 110/61 100 Time Spent Midlevel 105 minutes with >50% of time spent at bedside with patient discussing plan and goals of care.
--- NOTE | 2019-04-20 12:19 | Hospitalist Progress Note ---
Date of Service April 20, 2019 Assessment & Plan (1) Respiratory acidosis: 2/2 restrictive lung disease 2/2 scoliosis per pulm. Cont trial of Lasix and spironolactone. Attempted bipap because she appeared tachypneic, however, she was unable to tolerate the mask more than 30 mins. (2) Right heart 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 hypertension: Continuous oxygen, diuretics changed to p.o. and spironolactone added by cardiology. Ultimate treatment goals are not clear as it appears the patient is somewhat apathetic to recovery. We discussed palliative treatment options and she agreed with consultation. (3) Chronic respiratory failure with hypoxia: Noncompliant at home, cont oxygen supplementation while inpatient. Pulmonary following her as outpatient and was working up her chronic shortness of breath. Cardiology to help optimize patient and will plan to continue outpatient pulmonology care at discharge. (4) Pancytopenia: h/o AML s/p chemotherapy which has been on hold for several weeks in the setting of illnesses and hospital admissions. Currently improved from where she has been running, not neutropenic at this time, will cont to monitor for transfusion needs. I discussed with Oncology their threshold to transfuse which would be Hb<7 or PLT <15-20. (5) AML (acute myeloblastic leukemia): Diagnosed in October 2018, follows with [facility]ology. Treatment most recently held for a pneumonia. -Status post 2 full cycles of decitabine, last received in Jan 2019 -Continue antifungal and antiviral for chronic suppression -Currently receiving Levaquin for antibiotic prophylaxis in setting of recurrent pneumonia. (6) Diabetes mellitus, type II: She has not been on anti-glycemic's and is lost 30 pounds over the last 6 months related to her AML diagnosis and treatment. While admitted she has had goal blood sugars. Therefore blood sugar checks were discontinued and sliding scale coverage was also discontinued. Diet was liberalized in the setting of weight loss. (7) SVT (supraventricular tachycardia): h/o SVT in the past. Cont Metoprolol. (8) DVT prophylaxis: DVT Ppx: SCDs. Chemical prophylaxis contraindicated in setting of thrombocytopenia Code status: DNR/DNI PCP: Eriberto Dispo: cont hospitalization. Pt lives alone, PT/OT ordered. Pt encouraged to ambulate to avoid deconditioning. Светлана Bill DO [facility] Hospitalist Subjective no acute issues today pt appears to be somewhat tachypneic today denies any issues per nursing they state that she is ambulating around her room with ease. Review of Systems Review of Systems: All systems reviewed & are unremarkable except as noted in HPI & below Physical Exam Physical Exam: CONSTITUTIONAL: thin, vitals as above, generally well- appearing EYES: normal conjuctivae, no scleral icterus ENT: MMM RESPIRATORY: Worsening rhonchi today left greater than right, no wheezing, normal respiratory effort CARDIOVASCULAR: regular rate and rhythm, S1 and 2 heard without murmurs, gallops or rubs, no JVD, teds in place with no pitting edema on lower extremities to the knee. 2+ pitting edema on the lateral thighs bilaterally. CHEST: +port, chest wall abnormality secondary to severe kyphoscoliosis GASTROINTESTINAL: soft, NTND MUSCULOSKELETAL: strength 5/5 throughout, head is normocephalic and atraumatic SKIN: warm and dry NEUROLOGIC: CN 2-12 grossly intact, normal cognition, normal speech, no tremor, no gross focal deficit. PSYCHIATRIC: alert cooperative and oriented to person, place and time. Results & Data Vital Signs (Past 12 Hours) Vital Signs Temp Pulse Pulse Resp BP BP Pulse Ox 04/20/19 11:00 65 04/20/19 10:52 36.9 C 72 18 94/55 L 94 04/20/19 07:32 36.9 C 66 16 99/57 L 97 04/20/19 04:00 37 C 76 16 101/52 L 96 Laboratory Results [facility] 04/20/19 06:31 Sodium 142 Potassium 3.7 Chloride 98 Carbon Dioxide 49 H* BUN 15 Creatinine 0.61 Glucose 97 Calcium 7.8 L Medications Administered Current Inpatient Medications Acetaminophen (Tylenol) 650 mg PO Q4H PRN PRN Reason: Pain or Fever Stop: 05/16/19 21:42 Acyclovir (Zovirax) 400 mg PO BID TYREE Stop: 05/16/19 21:59 Last Admin: 04/20/19 19:59 Dose: 400 mg Documented by: Albuterol (Ventolin 0.083% 2.5mg/3ml) 2.5 mg NEB Q6R PRN PRN Reason: Shortness Of Breath Or Wheezing Stop: 05/16/19 21:42 Furosemide (Lasix) 20 mg PO QAM TYREE Stop: 05/19/19 11:44 Last Admin: 04/19/19 12:31 Dose: 20 mg Documented by: Heparin Sodium (Porcine) (Heparin Sod 100 Unit/Ml Flush) 5 ml FLUSH PRN PRN PRN Reason: Flush Stop: 05/18/19 01:59 Last Admin: 04/20/19 20:07 Dose: 5 ml Documented by: Levofloxacin (Levaquin) 500 mg PO QAM [facility] Stop: 05/17/19 08:59 Last Admin: 04/20/19 08:37 Dose: 500 mg Documented by: Metoprolol Tartrate (Lopressor) 75 mg PO BID [facility] Stop: 05/16/19 21:59 Last Admin: 04/20/19 19:59 Dose: 75 mg Documented by: Multivitamins (Multivitamin Tab) 1 tab PO QAM [facility] Stop: 05/17/19 08:59 Last Admin: 04/20/19 08:36 Dose: 1 tab Documented by: Multivitamins/Minerals (Caltrate Plus) 1 tab PO QAM [facility] Stop: 05/17/19 08:59 Last Admin: 04/20/19 08:36 Dose: 1 tab Documented by: ~Brisaa-Non- (Formulary Pt Own Med) 1 ea PO DAILY [facility] Stop: 05/19/19 11:44 Last Admin: 04/20/19 08:43 Dose: 2 cap Documented by: Ondansetron HCl (Zofran) 4 mg IV Q6H PRN PRN Reason: Nausea Stop: 05/16/19 21:42 Polyethylene Glycol (Miralax Powder Packet) 17 gm PO DAILY PRN PRN Reason: Constipation Stop: 05/16/19 21:42 Spironolactone (Aldactone) 12.5 mg PO DAILY [facility] Stop: 05/19/19 11:44 Last Admin: 04/20/19 08:37 Dose: 12.5 mg Documented by: (1) AML (acute myeloblastic leukemia) Leukemia Active/Remission status: without remission Qualified Code(s): C92.00 - Acute myeloblastic leukemia, not having achieved remission
--- NOTE | 2019-04-20 15:22 | Cardiology Progress Note ---
Date of Service April 20, 2019 Assessment & Plan (1) Edema: Improved continue support stockings (2) Right heart 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 hypertension: Add spironolactone 12.5 mill grams p.o. daily with addition of oral furosemide 20 mill grams daily ultimate goal potassium greater than 4 to help with contraction alkalosis (3) Hypoalbuminemia: Nutritional support (4) Chronic respiratory failure with hypoxia: Continue oxygen supplementation will need to be cautious given chronic CO2 retention (5) SVT (supraventricular tachycardia): Continue current beta-eleno dosing Subjective Patient seen and examined, chart, telemetry, laboratory studies reviewed Patient "the same denies any chest pain or discomfort. Notes no worsening edema. Notes no dizziness or light headedness still feels "puffy" Physical Exam Constitutional: + ill appearing and + cachectic ENMT: external ear and nose normal, oropharynx normal Respiratory: Auscultation: + bronchovesicular breath sounds (Right base) Cardiovascular: Rate/Rhythm: regular rate and regular rhythm Heart Sounds: normal S1, normal S2 and + murmur (Grade 1/6 systolic) Gastrointestinal (Abdomen): normal bowel sounds, soft, nontender, no hepatosplenomegaly Musculoskeletal: no cyanosis or clubbing, extremities motor strength 5/5 Results & Data Vital Signs (Past 12 Hours) Vital Signs Temp Pulse Pulse Resp BP BP Pulse Ox 04/20/19 12:35 77 16 98 04/20/19 11:00 65 04/20/19 10:52 36.9 C 72 18 94/55 L 94 04/20/19 07:32 36.9 C 66 16 99/57 L 97 04/20/19 04:00 37 C 76 16 101/52 L 96 Laboratory Results Laboratory Results - last 24 hr 04/16/19 04/20/19 04/20/19 22:04 06:31 08:56 ABG pH 7.33 L ABG pCO2 92 H ABG pO2 65 L ABG HCO3 47 H ABG O2 Saturation 91.4 ABG Base Excess 17.6 H Stefano Test Pos Barometric Pressure 727.9 Oxygen Given 4L Sodium 142 Potassium 3.7 Chloride 98 Carbon Dioxide 49 H* Anion Gap -5.0 L BUN 15 Creatinine 0.61 Est Cr Clr Drug Dosing 58.2 Est GFR ( Amer) 95.8 Est GFR (Non-Af Amer) 82.7 BUN/Creatinine Ratio 24.6 H Glucose 97 Calcium 7.8 L Magnesium 2.0 Crossmatch See Detail
--- NOTE | 2019-04-20 22:10 | Consultation Report ---
DATE OF CONSULTATION: 04/20/2019 REASON FOR CONSULTATION: Bilateral pleural effusions with basilar atelectasis/acute on chronic hypoxic and hypercarbic respiratory failure and pulmonary arterial hypertension. HISTORY OF PRESENT ILLNESS: An 83-year-old white female with complex past medical history, but with history of acute myeloid leukemia under the care of Dr. Russ Miranda with the [facility] [address]. The patient has been on chronic oxygen on admission; she is not utilized the oxygen at home prior to this hospitalization. She was seen in the ER by Dr. Dianne Loredo on 04/16/2019 admitted onto the hospitalist service. I received a call earlier today from Dr. Bill to see patient in consultation from a pulmonary standpoint. She reportedly has chronic obstructive lung disease, clearly has severe kyphoscoliosis and a past history of atrioventricular arrhythmia, type 2 diabetes mellitus and worsening upper and lower extremity edema. She states she lost over 50 pounds within the past year but gained 15-30 pounds of water weight in the past several months. The patient was noted to be hypoxic in the past and certainly during this admission. She is chronically dyspneic and extremely weak, stating even raising her arms is problematic. Her appetite is poor. She was seen earlier this week by Dr. Avinash Leyva in consultation. He felt that the patient's severe edema was from elevated right heart pressure and pulmonary hypertension and he attributed this to her severe restrictive lung ventilatory issues secondary to her chest wall abnormality. She states she has a cough and feels congested but does not have the strength to expectorate any phlegm. She denies hemoptysis. He added spironolactone to her regimen and suggested support stockings. She is markedly hypoalbuminemic and she also was on beta eleno for history of paroxysmal supraventricular tachycardia. I have been asked to see patient in consultation as well. A palliative consultation with Shanique Rider has been obtained. She is under care for acute myeloblastic leukemia. For details of past medical history, medications, family and social history, I refer you to current and past record. PHYSICAL EXAMINATION: GENERAL: Reveals an elderly cachectic white female, very weak but with good sense of humor and appearing stable at rest. VITAL SIGNS: Blood pressure 94/55, pulse 65 and regular, respiratory rate 18, temperature 36.9, O2 sat 94% on current O2 supplementation. SKIN: Without lesion. HEENT: Atraumatic, normocephalic, PERRLA, EOMI. Conjunctivae pale. Sclerae nonicteric. Fundi poorly visualized. NECK: Neck veins are not distended. There is jugular venous distention at 45 degrees, 2-3 cm above the jugular notch. LUNGS: Decreased breath sounds at both bases with coarse rhonchi at the right base and dullness at the left, kyphoscoliosis clearly noted. CARDIAC: Regular rate and rhythm. I do not appreciate a gallop. Grade 1/6 systolic murmur heard at the lower left sternal border. ABDOMEN: Soft, protuberant. EXTREMITIES: 2-3+ edema with mild anasarca. NEUROLOGIC: No lateralizing signs. LABORATORY DATA: Calculated CO2 49, BUN 15, creatinine 0.6. Last 2 days, calculated CO2 was risen. Calcium is slightly low, but appropriate for level of hypoalbuminemia. ABGs today pH 7.33, pCO2 92, pO2 of 65, bicarbonate 47. White count 4700, H and H 7.8 and 25.4, platelet count 59,000. CTA on the was reviewed, B cell lymph nodes are upper limits of normal. No obvious evidence for pulmonary thromboembolism. Small right pleural effusion, but moderate left-sided pleural effusion with atelectasis noted. Hiatal hernia was noted. OVERALL ASSESSMENT: An 83-year-old with acute myeloid leukemia admitted with acute on chronic hypoxic and hypercarbic respiratory failure with mostly right-sided heart failure with pulmonary arterial hypertension. I suspect patient's underlying lung disease is simply a marked restrictive ventilatory defect often seen secondary to severe kyphoscoliosis as well as COPD secondary to a significant but remote smoking history(quit in 1967) with pulmonary hypertension as a result. I suspect an obstructive component to her lung disease. The combination of the acute myeloid leukemia, severe malnutrition/inanition with hypoalbuminemia has led to anasarca and right-sided heart failure with well preserved left ventricular function. The calculated CO2 has risen steadily and the ABGs are certainly compatible with a partially compensated chronic respiratory acidosis. While she may benefit from BiPAP therapy or noninvasive positive pressure ventilation,(she has poorly tolerated Non-invasive positive pressure ventilation and refuses further attempts) I suspect she would not tolerate this long-term and does not appear to be in any distress currently. The difficulty with diuresing patients like this too aggressively adding to a contraction alkalosis and you can render them hypotensive and more symptomatic. I agree with the use of a potassium sparing diuretic. Her platelet count is low which would make problematic a therapeutic thoracentesis to help her with her breathing. I do think palliative care and consultation was appropriate and I see unfortunately very little reversibility to this patient's disease process. MTDD
[2019-04-21 06:24] LABS: Hematocrit (blood only) 25.4 % (37-47); Hemoglobin 7.8 g/dL (12.0-16.0); Mean Corpuscular Hgb Conc 30.7 g/dL (32-36); Mean Corpuscular Volume 112.9 fL (80-100); Nucleated RBC # (auto) 0.46 K/uL (0-0); Nucleated RBC % (auto) 7.7 %; RDW Coefficient of Variation 25.6 % (11.5-14.5); Red Blood Count 2.25 M/uL (4.2-5.4); White Blood Count 5.97 K/uL (4.8-10.8)
[2019-04-21 06:28] LABS: Mean Platelet Volume 11.3 fL (7.4-10.4); Platelet Count 55 K/uL (130-400)
[2019-04-21 07:02] LABS: BUN Creatinine Ratio 26.4 (10-20); Calcium 8.4 mg/dl (8.5-10.1); Creatinine Clr Calc Pharmacy 64.6 ml/min; Est GFR (African American) 99.1; Est GFR (Non-African American) 85.5; Potassium 3.8 mmol/L (3.5-5.1)
[2019-04-21] MEDS: SPIRONOLACTONE 25 MG TAB PO SCH (07:50)
[2019-04-21] MEDS: levoFLOXacin 500 MG TAB PO SCH (07:51)
[2019-04-21] MEDS: ACYCLOVIR 400 MG TAB PO SCH ×2 (07:51→19:45)
[2019-04-21] MEDS: METOPROLOL TARTRATE 25 MG TAB PO SCH ×2 (07:51→19:44)
[2019-04-21] MEDS: CALCIUM 600MG + VIT D 400 IU TAB PO SCH (07:52)
[2019-04-21] MEDS: MULTIVITAMIN TAB PO SCH (07:52)
[2019-04-21] MEDS: CRESEMBA PO SCH (07:52)
--- NOTE | 2019-04-21 08:37 | Hospitalist Progress Note ---
Date of Service April 21, 2019 Assessment & Plan (1) Respiratory acidosis: 2/2 restrictive lung disease 2/2 scoliosis per pulm. Chronic process. Cont trial of Lasix and spironolactone. Bicarb improved one point today. Attempted bipap on 04/20 because she appeared tachypneic, however, she was unable to tolerate the mask more than 30 mins. Morphine PRN shortness of breath (2) Right heart 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 hypertension: Continuous oxygen, diuretics changed to p.o. and spironolactone added by cardiology. Ultimate treatment goals are not clear as it appears the patient is considering options. We discussed palliative treatment options and she agreed with consultation. (3) Chronic respiratory failure with hypoxia: Noncompliant at home, cont oxygen supplementation while inpatient. Pulmonary following her as outpatient and was working up her chronic shortness of breath. Cardiology to help optimize patient and will plan to continue outpatient pulmonology care at discharge. (4) Pancytopenia: h/o AML s/p chemotherapy which has been on hold for several weeks in the setting of illnesses and hospital admissions. Currently improved from where she has been running, not neutropenic at this time, will cont to monitor for transfusion needs. I discussed with Oncology their threshold to transfuse which would be Hb<7 or PLT <15-20. (5) AML (acute myeloblastic leukemia): Diagnosed in October 2018, follows with [facility] Hematology. Treatment most recently held for a pneumonia. -Status post 2 full cycles of decitabine, last received in Jan 2019 -Continue antifungal and antiviral for chronic suppression -Currently receiving Levaquin for antibiotic prophylaxis in setting of recurrent pneumonia. (6) Diabetes mellitus, type II: She has not been on anti-glycemic's and is lost 30 pounds over the last 6 months related to her AML diagnosis and treatment. While admitted she has had goal blood sugars. Therefore blood sugar checks were discontinued and sliding scale coverage was also discontinued. Diet was liberalized in the setting of weight loss. (7) SVT (supraventricular tachycardia): h/o SVT in the past. Cont Metoprolol. (8) DVT prophylaxis: DVT Ppx: SCDs. Chemical prophylaxis contraindicated in setting of thrombocytopenia and Oncology agrees with this Code status: DNR/DNI PCP: Eriberto Dispo: cont hospitalization. Pt lives alone, PT/OT ordered. Pt encouraged to ambulate to avoid deconditioning. Светлана Bill, [facility] Hospitalist Subjective one episode of diarrhea and she hasn't gotten cleaned up fully so is uncomfortable diaphoresis overnight which isn't new for her feels more short of breath this morning lungs sound clearer on exam. has some general blurry vision present since admission We discussed thoroughly all options for care directions including continuing making little inputs here and there to her regimen to try to optimize her-this may take days, allow her to go home with hospice services. She is talking with Palliative, also and told them she wants to speak with her Oncologist prior to any major decisions about her care. Review of Systems Review of Systems: All systems reviewed & are unremarkable except as noted in HPI & below Physical Exam Physical Exam: CONSTITUTIONAL: thin, vitals as above, generally well-yaz earing EYES: normal conjuctivae, no scleral icterus ENT: MMM RESPIRATORY: some rhonchi at bases, however, improved from yesterday. Slightly more tachypneic today. No overt respiratory distress. CARDIOVASCULAR: regular rate and rhythm, S1 and 2 heard without murmurs, gallops or rubs, no JVD, teds in place with no pitting edema on lower extremities to the knee. 2+ pitting edema on the lateral thighs bilaterally. CHEST: +port, chest wall abnormality secondary to severe kyphoscoliosis GASTROINTESTINAL: soft, NTND MUSCULOSKELETAL: strength 5/5 throughout, head is normocephalic and atraumatic SKIN: warm and dry NEUROLOGIC: CN 2-12 grossly intact, normal cognition, normal speech, no tremor, no gross focal deficit. PSYCHIATRIC: alert cooperative and oriented to person, place and time. Results & Data Vital Signs (Past 12 Hours) Vital Signs Temp Pulse Resp BP BP Pulse Ox 04/21/19 07:29 36.7 C 70 18 106/62 95 04/21/19 04:26 37.2 C 60 18 100/55 L 97 04/20/19 23:42 36.7 C 78 20 126/65 94 Laboratory Results Short CBC 04/21/19 Range/Units 05:51 WBC 5.97 (4.8-10.8) K/uL Hgb 7.8 L (12.0-16.0) g/dL Hct 25.4 L (37-47) % Plt Count 55 L (130-400) K/uL BMP 04/21/19 05:51 Sodium 143 Potassium 3.8 Chloride 98 Carbon Dioxide 48 H* BUN 15 Creatinine 0.55 L Glucose 98 Calcium 8.4 L Medications Administered Current Inpatient Medications Acetaminophen (Tylenol) 650 mg PO Q4H PRN PRN Reason: Pain or Fever Stop: 05/16/19 21:42 Acyclovir (Zovirax) 400 mg PO BID TYREE Stop: 05/16/19 21:59 Last Admin: 04/21/19 07:51 Dose: 400 mg Documented by: Albuterol (Ventolin 0.083% 2.5mg/3ml) 2.5 mg NEB Q6R PRN PRN Reason: Shortness Of Breath Or Wheezing Stop: 05/16/19 21:42 Furosemide (Lasix) 20 mg PO QAM [facility] Stop: 05/19/19 11:44 Last Admin: 04/19/19 12:31 Dose: 20 mg Documented by: Levofloxacin (Levaquin) 500 mg PO QAM [facility] Stop: 05/17/19 08:59 Last Admin: 04/21/19 07:51 Dose: 500 mg Documented by: Metoprolol Tartrate (Lopressor) 75 mg PO BID [facility] Stop: 05/16/19 21:59 Last Admin: 04/21/19 07:51 Dose: 75 mg Documented by: Multivitamins (Multivitamin Tab) 1 tab PO QAM [facility] Stop: 05/17/19 08:59 Last Admin: 04/21/19 07:52 Dose: 1 tab Documented by: Multivitamins/Minerals (Caltrate Plus) 1 tab PO QAM [facility] Stop: 05/17/19 08:59 Last Admin: 04/21/19 07:52 Dose: 1 tab Documented by: ~Cresemba-Non- (Formulary Pt Own Med) 1 ea PO DAILY [facility] Stop: 05/19/19 11:44 Last Admin: 04/21/19 07:52 Dose: 2 cap Documented by: Ondansetron HCl (Zofran) 4 mg IV Q6H PRN PRN Reason: Nausea Stop: 05/16/19 21:42 Polyethylene Glycol (Miralax Powder Packet) 17 gm PO DAILY PRN PRN Reason: Constipation Stop: 05/16/19 21:42 Spironolactone (Aldactone) 12.5 mg PO DAILY [facility] Stop: 05/19/19 11:44 Last Admin: 04/21/19 07:50 Dose: 12.5 mg Documented by: (1) AML (acute myeloblastic leukemia) Leukemia Active/Remission status: without remission Qualified Code(s): C92.00 - Acute myeloblastic leukemia, not having achieved remission
[2019-04-21] MEDS ORDERED: MoRPHine SULFATE 2 MG/ML CARP IV STA (11:57)
--- NOTE | 2019-04-21 13:35 | Palliative Care Progress Note ---
Date of Service April 21, 2019 Assessment & Plan (1) Goals of care, counseling/discussion: -Patient was seen by cosmetic consultant last evening. No new recommendations at this time. Likely restrictive lung disease due to severe kyphoscoliosis and possibly an element of obstructive disease. Remote history of smoking. She was trialed on bipap for hypercapnia, only tolerated for about 20 minutes. -Patient stated to me today that she hopes to just "sleep her life away," and continue to just fade away. -Discussed hospice care as an option. Patient stated that she would be amenable to this after she talks to her oncologist and makes a decision on whether or not she will trial any chemo. -Encouraged patient to work with PT/OT to see if she is at her baseline and can go home. She may need some rehab or PT/OT on discharge. -No symptom management needs at this time. -Did ask bottle caser to see if a palliative provider through [facility] in home could visit with her, or possibly a social work therapist, to continue conversation about goals of care. -Will continue to follow this yonathan patient as needed. (2) Right heart 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 hypertension: (3) AML (acute myeloblastic leukemia): Subjective Patient is alert and oriented. Pleasantly talkative. No pain or distress at this time. Review of Systems Review of Systems: Did c/o a bout of diarrhea this morning, has some mild SOB at rest and with activity. No pain, chest pain or N/V. Physical Exam Constitutional: + thin and + frail appearing ENMT: external ear and nose normal, oropharynx normal Neck: + trachea not midline (severe kyphoscoliosis. Neck and clavicles are asymmetrical) Respiratory: normal respiratory effort Auscultation: + diminished lung sounds and + crackles (BL bases, R>L) Cardiovascular: Rate/Rhythm: regular rate and regular rhythm Heart Sounds: + murmur Gastrointestinal (Abdomen): normal bowel sounds, soft, nontender, no hepatosplenomegaly Skin: no rashes, warm and dry Neurologic: moves all extremities and awake; not confused Psychiatric: A+Ox3, euthymic affect Results & Data Vital Signs (Past 12 Hours) Vital Signs Temp Pulse Pulse Resp BP BP Pulse Ox 04/21/19 10:51 36.7 C 80 18 104/66 97 04/21/19 10:05 67 04/21/19 07:29 36.7 C 70 18 106/62 95 04/21/19 04:26 37.2 C 60 18 100/55 L 97 Time Spent Midlevel 35 minutes with >50% of time spent at bedside with patient discussing condition and GOC. (1) AML (acute myeloblastic leukemia) Leukemia Active/Remission status: without remission Qualified Code(s): C92.00 - Acute myeloblastic leukemia, not having achieved remission
[2019-04-21] MEDS: MoRPHine SULFATE 2 MG/ML CARP IV PRN (23:12)
[2019-04-22] MEDS: MULTIVITAMIN TAB PO SCH (08:11)
[2019-04-22] MEDS: METOPROLOL TARTRATE 25 MG TAB PO SCH ×2 (08:11→19:34)
[2019-04-22] MEDS: levoFLOXacin 500 MG TAB PO SCH (08:11)
[2019-04-22] MEDS: CALCIUM 600MG + VIT D 400 IU TAB PO SCH (08:11)
[2019-04-22] MEDS: SPIRONOLACTONE 25 MG TAB PO SCH (08:11)
[2019-04-22] MEDS: ACYCLOVIR 400 MG TAB PO SCH ×2 (08:11→19:35)
[2019-04-22] MEDS: CRESEMBA PO SCH (08:15)
--- NOTE | 2019-04-22 09:39 | Palliative Care Progress Note ---
Date of Service April 22, 2019 Assessment & Plan (1) Goals of care, counseling/discussion: -Patient continues to be weak. Is able to get to bedside commode. She is uncertain if she could go home and care for herself as she was prior to arrival. -Talked with attending physician about possibly reaching out to patient's oncologist for some guidance on her care. -With her current performance status, uncertain if patient would even be chemo candidate. She does not seem overly interested in going to rehab either. -Patient's goal is to go home and be comfortable. I feel that hospice would be of great benefit to her if that is what she decides to do. -Will continue to follow. (2) Right heart 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 hypertension: (3) AML (acute myeloblastic leukemia): Subjective Patient feeling about the same today. No new complaints. Review of Systems Review of Systems: SOB at rest and with activity. No pain, chest pain or N/V. Physical Exam Constitutional: + thin and + frail appearing ENMT: external ear and nose normal, oropharynx normal Neck: + trachea not midline (severe kyphoscoliosis. Neck and clavicles are asymmetrical) Respiratory: normal respiratory effort Auscultation: + diminished lung sounds and + crackles (BL bases, R>L) Cardiovascular: Rate/Rhythm: regular rate and regular rhythm Heart Sounds: + murmur Gastrointestinal (Abdomen): normal bowel sounds, soft, nontender, no hepatosplenomegaly Skin: no rashes, warm and dry Neurologic: moves all extremities and awake; not confused Psychiatric: A+Ox3, euthymic affect Results & Data Vital Signs (Past 12 Hours) Vital Signs Temp Pulse Pulse Resp BP BP Pulse Ox 04/22/19 08:00 68 18 109/64 04/22/19 07:05 36.6 C 68 22 107/65 98 04/22/19 03:29 36.7 C 72 18 98/52 L 95 04/21/19 23:27 36.5 C 71 18 120/70 99 Time Spent Midlevel 35 minutes with >50% of time spent at bedside with patient discussing condition and GOC. (1) AML (acute myeloblastic leukemia) Leukemia Active/Remission status: without remission Qualified Code(s): C92.00 - Acute myeloblastic leukemia, not having achieved remission
[2019-04-22] MEDS: MoRPHine SULFATE 2 MG/ML CARP IV PRN (12:37)
--- NOTE | 2019-04-22 16:39 | Oncology Consultation ---
Date of Consultation April 22, 2019 Assessment & Plan (1) AML (acute myeloblastic leukemia): 83-year-old female, a case of acute myeloid leukemia, non-M3, had received 2 treatment with Dacogen and only 2 days of cycle 3 chemotherapy with Dacogen, last treatment received in January 2018, had pancytopenia, neutropenia in the last few months, had received blood and platelet transfusions, receiving antiviral and antifungal prophylaxis, now admitted for hypoxemia and low blood pressure, leg edema, no evidence of DVT, no disciplinary embolism, no fever, hemodynamically otherwise stable. Looking at her age and the overall poor prognosis with the acute myeloid leukemia, I would not suggest additional chemotherapy treatment, I had discussion with her about that and she is in the agreement for that. We should focus on the supportive and symptomatic treatment. Already seen by palliative care team. She can have periodic CBCD checkup as an outpatient and consider for blood and platelet transfusion as needed. Thanks for the consultation. Moiz Palacios MD Hem/Onc History of Present Illness Attending Physician: Adriano Jang MD 83-year-old female, a case of acute myeloid leukemia, non-M3, FLT3 positive, zane gnosed in October/November 2018. She received 1st cycle of chemotherapy with Dacogen and Midostaurin in November 2018, 2nd cycle in December 2018. She received 3rd cycle for 2 days only, over the last few months, she was admitted at [facility] on 3 different occasions, for neutropenia, infectious complications,. Last treatment was received in January 2019. Now she's admitted hospital for low blood pressure, increasing leg edema, hypoxemia. I saw her at bedside, she sitting comfortable in the bed, no fever, on oxygen treatment on a regular basis, seen by pathologist Dr. Graves, denies any new increasing coughing, no fever, no night sweats, fair appetite, some intermittent hemorrhoidal bleeding noted, no bleeding from other sites, some bruising present with trivial injury, no abdominal symptoms. Allergies Allergy/AdvReac Type Severity Reaction Status Date / Time adhesive tape Allergy Unknown Verified 04/16/19 17:01 Home Medications Home Medications Medication Instructions Recorded Confirmed Type biotin 1 mg PO PM 10/31/18 04/16/19 History calcium carbonate-vitamin D3 1 tab PO QAM 10/31/18 04/16/19 History [Calcium 600 + D(3)] multivitamin 1 tab PO QAM 10/31/18 04/16/19 History acyclovir [Zovirax] 400 mg PO BID 12/27/18 04/16/19 History isavuconazonium sulfate 372 mg PO QAM 12/27/18 04/16/19 History levofloxacin 500 mg PO QAM 12/27/18 04/16/19 History lutein 20 mg PO PM 12/27/18 04/16/19 History metoprolol tartrate 75 mg PO BID 12/27/18 04/16/19 History Patient History Medical History Diabetes mellitus, type II (Chronic) Chronic respiratory failure with hypoxia (Chronic) Pancytopenia (Chronic) AML (acute myeloblastic leukemia) (Chronic) Rosacea (Chronic) SVT (supraventricular tachycardia) (Chronic) Pleural effusion (Chronic) Basal cell carcinoma (Chronic) AML (acute myeloblastic leukemia) CVA (cerebral vascular accident) LATA (iron deficiency anemia) Ovarian cyst, left removal Pancytopenia SVT (supraventricular tachycardia) Surgical History History of total hip arthroplasty (Chronic) History of cataract surgery (Chronic) History of total hip replacement Hx of removal of ovary Family History Mother Lymphoma Social History Preferred Language: Swedish Communication Ability: Effective Visual Impairment: No Limitations Health Care Marketing Manager Required: No Beliefs That Will Affect Care: None marital status: Single Current Living Situation: Alone current occupational status: retired Other Information That Helps Us Care for You: No Feels Safe at Home: Yes Safety Concerns: Feels Safe At This Time Smoking Status: Former smoker Smoking End Date: 1967 Second Hand Exposure: No Hx Alcohol Use: Yes Alcohol type: beer, wine and hard liquor Hx Substance Use: No Review of Systems Review of Systems: REVIEW OF SYSTEMS: GENERAL: her weight has remained on the lower side, feeling weak and tired, no fever or chills . SKIN: No skin rash, easy bruising with trivial injury in the lower extremities noted.. HEAD: No new/increasing headache, no dizziness. EYES: No change in the vision, no diplopia, EARS: No earache ,no tinnitus, NOSE: No epistaxis, No nasal discharge or stuffiness, MOUTH: No sores, no dysphagia, no hoarseness of voice, NECK: No lumps, No swelling in thyroid area. No stiffness. PULMONARY: No cough, shortness of breath on minimal exertion present, no hemoptysis, no chest pain, No wheezing. CARDIOVASCULAR: No anginal chest pain, no PND, no orthopnea. No palpitation, bilateral leg edema. No syncope. GASTRIINTESTINAL: No abdominal pain, no nausea or vomiting. No diarrhea, No constipation. Some hemorrhoidal bleeding noted. No abdominal distention. UROLOGIC: No burning urination. No hematuria. MUSCULOSKELETAL: No joint pain, No joint swelling, no muscle weakness. HEMATOLOGIC: anemia present,, no bleeding disorder, she had received blood and platelet in the past. NEUROLOGIC: No seizures, no focal weakness, no speech difficulty, No memory disturbances. No tingling or numbness of the extremities. PSYCHRIATRIC: No depression. Some anxiety present.. No psychosis. Physical Exam Physical Exam: On exam: - Alert and oriented x3, thin built woman, not in any distress. She is on oxygen treatment at 2 L per minute, - HEENT: no icterus, pallor noted, Throat: Normal. - Neck: No palpable cervical lymphadenopathy. - Chest: emphysematous chest noted. Scoliosis noted. - Abdomen: soft, nontender, no hepatomegaly, no splenomegaly. - No focal neuro deficit. - Extremities: no finger clubbing, mild leg edema present. Bruising in the lower extremities noted.. Results & Data Vital Signs (Past 12 Hours) Vital Signs Temp Pulse Pulse Resp BP BP Pulse Ox 04/22/19 15:16 36.7 C 73 16 95/60 L 98 04/22/19 12:32 16 96 04/22/19 11:33 36.5 C 74 18 90/51 L 98 04/22/19 08:00 68 18 109/64 04/22/19 07:05 36.6 C 68 22 107/65 98 LABS: - White blood cell count has remained between 3.8-5.9, hemoglobin level on the lower side around 7.8 g/dL, platelet count is around 55,000-17,000. - WBC 5900, H&H of 7.8/25.4, MCV 112, Platelet count of 55,000. (04/21/2019) - BUN/creatinine: 15/0.5, calcium 8.4. - Normal liver function test other than low albumin level 2.1 (04/16/2019). IMAGING: CT chest (04/16/2019) > No evidence of pulmonary embolism. Interstitial pulmonary edema noted, small to moderate left pleural effusion and small right pleural effusion. Atelectatic changes noted. Large hiatal hernia noted Bilateral lower extremity doppler evaluation (04/16/2018) > No evidence of DVT. (1) AML (acute myeloblastic leukemia) Leukemia Active/Remission status: without remission Qualified Code(s): C92.00 - Acute myeloblastic leukemia, not having achieved remission
--- NOTE | 2019-04-22 17:17 | Hospitalist Progress Note ---
Date of Service April 22, 2019 Assessment & Plan (1) Respiratory acidosis: Acute on chronic hypoxic and hypercapnic respiratory failure Chronic Oxygen dependency--Patient Non complaint with Oxygen use Likely due to restrictive lung disease due to scoliosis/right-sided heart failure with pulmonary arterial hypertension Poorly tolrated noninvasive positive pressure ventilation Lasix currently held due to alkalosis Continue spironolactone Appreciate Pulmnology Input Palliative care following (2) Right heart 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 hypertension: Continuous oxygen Continue spironolactone Goals supportive and symptomatic treatment Palliative care on board (3) Chronic respiratory failure with hypoxia: Noncompliant at home Management as above (4) Pancytopenia: H/O AML s/p chemotherapy which has been on hold for several weeks in the setting of illnesses and hospital admissions. Plan to transfuse if Hb<7 or PLT <15-20 Appreciate Oncology Input Given overall poor prognosis/age, no plan for additional chemotherapy Supportive and symptomatic treatment Palliative care following (5) AML (acute myeloblastic leukemia): Diagnosed in October 2018, follows with [facility]ology. Status post 2 full cycles of decitabine, last received in Jan 2019 Given overall poor prognosis/age, no plan for additional chemotherapy Supportive and symptomatic treatment Palliative care following Continue antifungal and antiviral for chronic suppression Also on chronic Levaquin for antibiotic prophylaxis in setting of recurrent pneumonia (6) Diabetes mellitus, type II: A1C:6.1 Currently not on meds (7) SVT (supraventricular tachycardia): h/o SVT in the past Continue Metoprolol (8) DVT prophylaxis: DVT Px: SCDs Re: Thrombocytopenia Code status: DNR/DNI PCP: [facility] Dispo: Patient refuses rehab placement To be determined Subjective Patient is seen and examined at bedside She states her SOB is about the same as prior Denies chest pain, dizziness, abd pain, nausea Offers no other complaints Discussed with Oncology and Palliative Care today Review of Systems Review of Systems: All systems reviewed & are unremarkable except as noted in HPI & below Physical Exam Physical Exam: Physical Exam: Vitals signs as noted above General Appearance:Chronic ill appearing, Thin, frail Head: normocephalic, Atraumatic Eyes: normal inspection, EOMI Neck: supple, Trachea midline Respiratory/Chest: Decreased breath sounds, + B/L crackles Chest: Chemo port on Right side Cardiovascular: S1, S2, no murmur Abdomen/GI:Soft, Non tender, Bowel sounds present Extremities/Musculoskelatal:normal inspection, 2+ B/L LE edema Neurologic/Psych:AAOX3, grossly no focal neurological deficits Skin: normal color, warm Results & Data Vital Signs (Past 12 Hours) Vital Signs Temp Pulse Pulse Resp BP BP Pulse Ox 04/22/19 15:16 36.7 C 73 16 95/60 L 98 04/22/19 12:32 16 96 04/22/19 11:33 36.5 C 74 18 90/51 L 98 04/22/19 08:00 68 18 109/64 04/22/19 07:05 36.6 C 68 22 107/65 98 (1) AML (acute myeloblastic leukemia) Leukemia Active/Remission status: without remission Qualified Code(s): C92.00 - Acute myeloblastic leukemia, not having achieved remission
[2019-04-23 05:49] LABS: Hematocrit (blood only) 24.8 % (37-47); Hemoglobin 7.6 g/dL (12.0-16.0); Mean Corpuscular Hgb Conc 30.6 g/dL (32-36); Mean Corpuscular Volume 114.3 fL (80-100); Nucleated RBC # (auto) 0.36 K/uL (0-0); Nucleated RBC % (auto) 5.7 %; RDW Coefficient of Variation 25.5 % (11.5-14.5); RDW Standard Deviation 103.4 fL (36.4-46.3); Red Blood Count 2.17 M/uL (4.2-5.4); White Blood Count 6.39 K/uL (4.8-10.8)
[2019-04-23 06:21] LABS: Mean Platelet Volume 10.6 fL (7.4-10.4); Platelet Count 48 K/uL (130-400)
[2019-04-23 06:36] LABS: BUN Creatinine Ratio 24.5 (10-20); Calcium 7.9 mg/dl (8.5-10.1); Creatinine Clr Calc Pharmacy 72.5 ml/min; Est GFR (Non-African American) 88.8; Potassium 4.2 mmol/L (3.5-5.1)
[2019-04-23] MEDS: METOPROLOL TARTRATE 25 MG TAB PO SCH ×2 (08:03→20:44)
[2019-04-23] MEDS: levoFLOXacin 500 MG TAB PO SCH (08:03)
[2019-04-23] MEDS: CALCIUM 600MG + VIT D 400 IU TAB PO SCH (08:03)
[2019-04-23] MEDS: MULTIVITAMIN TAB PO SCH (08:03)
[2019-04-23] MEDS: ACYCLOVIR 400 MG TAB PO SCH ×2 (08:03→20:44)
[2019-04-23] MEDS: SPIRONOLACTONE 25 MG TAB PO SCH (08:03)
[2019-04-23] MEDS: CRESEMBA PO SCH (08:04)
--- NOTE | 2019-04-23 11:50 | Palliative Care Progress Note ---
Date of Service April 23, 2019 Assessment & Plan (1) Goals of care, counseling/discussion: -Heme/onc came and spoke with patient last evening. Based on poor functional status and progression of illness, no plans for further chemo. -After lengthy discussion today with patient, myself, and Dr. Jang, patient has decided to go home with hospice. Need to decide if patient will go home with hospice and hire private duty caregivers or go to a nursing facility. If patient does want to go home now and decide later, I think she is probably safe to go home at this time. This was all discussed with Dr. Jang-- he will call patient's nephew/POA to update him on patient's wishes and plan, as well as ask for his input on living situation. -Will ask case management to follow up choosing a hospice agency and with discharge planning. -No symptom management needs at this time, but if SOB increases could use Roxanol 5mg PO/SL Q3h PRN pain or SOB. -Will follow. (2) Right heart 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 hypertension: (3) AML (acute myeloblastic leukemia): Subjective Patient feels about the same today. No new complaints. Review of Systems Review of Systems: SOB at rest and with activity. No pain, chest pain or N/V. Physical Exam Constitutional: + thin and + frail appearing ENMT: external ear and nose normal, oropharynx normal Neck: + trachea not midline (severe kyphoscoliosis. Neck and clavicles are asymmetrical) Respiratory: normal respiratory effort Cardiovascular: Rate/Rhythm: regular rate and regular rhythm Skin: no rashes, warm and dry Neurologic: moves all extremities and awake; not confused Psychiatric: A+Ox3, euthymic affect Results & Data Vital Signs (Past 12 Hours) Vital Signs Temp Pulse Resp BP BP Pulse Ox 04/23/19 11:25 36.5 C 69 18 88/55 L 98 04/23/19 07:59 36.7 C 75 18 106/53 L 96 04/23/19 03:52 36.9 C 73 18 108/62 98 Time Spent Midlevel 65 minutes with >50% of time spent at bedside with patient and MD discussing condition and GOC. (1) AML (acute myeloblastic leukemia) Leukemia Active/Remission status: without remission Qualified Code(s): C92.00 - Acute myeloblastic leukemia, not having achieved remission
[2019-04-23] MEDS ORDERED: HEPARIN 100 UNIT/ML 5ML FLUSH FLUSH SCH (14:45)
--- NOTE | 2019-04-23 17:49 | Hospitalist Progress Note ---
Date of Service April 23, 2019 Assessment & Plan (1) Respiratory acidosis: Acute on chronic hypoxic and hypercapnic respiratory failure Chronic Oxygen dependency--Patient Non complaint with Oxygen use Likely due to restrictive lung disease due to scoliosis/right-sided heart failure with pulmonary arterial hypertension Poorly tolerated noninvasive positive pressure ventilation Lasix currently held due to alkalosis Continue spironolactone Appreciate Pulmonology Input Palliative care following Respiratory status has not improved Patient prefers to be transitioned to Hospice services Updated Patent's POA---He would like to discuss with the patient himself and come up with a plan tomorrow Patient prefers no aggressive measures (2) Right heart 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 hypertension: Continue Oxygen Continue spironolactone Goals supportive and symptomatic treatment Palliative care on board (3) Chronic respiratory failure with hypoxia: Noncompliant at home Management as above (4) Pancytopenia: H/O AML s/p chemotherapy which has been on hold for several weeks in the setting of illnesses and hospital admissions. Plan to transfuse if Hb<7 or PLT <15-20 Appreciate Oncology Input Given overall poor prognosis/age, no plan for additional chemotherapy Supportive and symptomatic treatment Palliative care following (5) AML (acute myeloblastic leukemia): Diagnosed in October 2018, follows with [facility]. Status post 2 full cycles of decitabine, last received in Jan 2019 Given overall poor prognosis/age, no plan for additional chemotherapy Supportive and symptomatic treatment Palliative care following Continue antifungal and antiviral for chronic suppression Also on chronic Levaquin for antibiotic prophylaxis in setting of recurrent pneumonia Patient prefers to be transitioned to hospice services upon discharge (6) Diabetes mellitus, type II: A1C:6.1 Currently not on meds (7) SVT (supraventricular tachycardia): h/o SVT in the past Continue Metoprolol (8) DVT prophylaxis: DVT Px: SCDs Re: Thrombocytopenia Code status: DNR/DNI PCP: [facility] Dispo: To be determined POA- Dr.Tom Quinonez [phone] Subjective Patient is seen and examined at bedside No improvement of dyspnea as per patient Discussed with Patient, Her POA (Dr.Tom Quinonez) and palliative care today Patient prefers to be transitioned to hospice services upon discharge Goal is comfort as per patient Denies chest pain, dizziness, abd pain, nausea Review of Systems Review of Systems: All systems reviewed & are unremarkable except as noted in HPI & below Physical Exam Physical Exam: Physical Exam: Vitals signs as noted above General Appearance:Chronic ill appearing, Thin, frail Head: normocephalic, Atraumatic Eyes: normal inspection, EOMI Neck: supple, Trachea midline Respiratory/Chest: Decreased breath sounds, + B/L basal crackles Chest: Chemo port on Right side Cardiovascular: S1, S2, no murmur Abdomen/GI:Soft, Non tender, Bowel sounds present Extremities/Musculoskelatal:normal inspection, 2+ B/L LE edema Neurologic/Psych:AAOX3, grossly no focal neurological deficits Skin: normal color, warm Results & Data Vital Signs (Past 12 Hours) Vital Signs Temp Pulse Pulse Resp BP BP Pulse Ox 04/23/19 15:39 36.9 C 85 20 118/68 94 04/23/19 11:25 36.5 C 69 18 88/55 L 98 04/23/19 07:59 36.7 C 75 18 106/53 L 96 (1) AML (acute myeloblastic leukemia) Leukemia Active/Remission status: without remission Qualified Code(s): C92.00 - Acute myeloblastic leukemia, not having achieved remission
[2019-04-24] MEDS: CALCIUM 600MG + VIT D 400 IU TAB PO SCH (08:58)
[2019-04-24] MEDS: METOPROLOL TARTRATE 25 MG TAB PO SCH (08:58)
[2019-04-24] MEDS: SPIRONOLACTONE 25 MG TAB PO SCH (08:58)
[2019-04-24] MEDS: levoFLOXacin 500 MG TAB PO SCH (08:59)
[2019-04-24] MEDS: ACYCLOVIR 400 MG TAB PO SCH (08:59)
[2019-04-24] MEDS: CRESEMBA PO SCH (08:59)
[2019-04-24] MEDS: MULTIVITAMIN TAB PO SCH (08:59)
--- NOTE | 2019-04-24 14:12 | Hospitalist Progress Note ---
Date of Service April 24, 2019 Assessment & Plan (1) Respiratory acidosis: Acute on chronic hypoxic and hypercapnic respiratory failure Chronic Oxygen dependency--Patient Non complaint with Oxygen use Likely due to restrictive lung disease due to scoliosis/right-sided heart failure with pulmonary arterial hypertension Poorly tolerated noninvasive positive pressure ventilation Lasix currently held due to alkalosis Continue spironolactone Appreciate Pulmonology Input Palliative care following Respiratory status has not improved Patient and her POA --- agrees with the plan of patient being transitioned to home with hospice services Patient prefers no aggressive measures and goal is comfort (2) Right heart 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 hypertension: Continue Oxygen Continue spironolactone Goals supportive and symptomatic treatment Palliative care on board (3) Chronic respiratory failure with hypoxia: Noncompliant at home Management as above (4) Pancytopenia: H/O AML s/p chemotherapy which has been on hold for several weeks in the setting of illnesses and hospital admissions. Plan to transfuse if Hb<7 or PLT <15-20 Appreciate Oncology Input Given overall poor prognosis/age, no plan for additional chemotherapy Supportive and symptomatic treatment Palliative care following (5) AML (acute myeloblastic leukemia): Diagnosed in October 2018, follows with [facility] Hematology. Status post 2 full cycles of decitabine, last received in Jan 2019 Given overall poor prognosis/age, no plan for additional chemotherapy Supportive and symptomatic treatment Palliative care following Continue antifungal and antiviral for chronic suppression Also on chronic Levaquin for antibiotic prophylaxis in setting of recurrent pneumonia Patient prefers to be transitioned to hospice services upon discharge (6) Diabetes mellitus, type II: A1C:6.1 Currently not on meds (7) SVT (supraventricular tachycardia): h/o SVT in the past Continue Metoprolol (8) DVT prophylaxis: DVT Px: SCDs Re: Thrombocytopenia Code status: DNR/DNI PCP: [facility] Dispo: Home with Hospice services POA- Dr.Tom Quinonez [phone] Subjective Patient is seen and examined at bedside No significant change from yesterday No improvement of dyspnea as per patient Discussed with Patient, Her POA (Dr.Tom Quinonez) and palliative care today as well Patient prefers to be discharged home with home hospice services Denies chest pain, dizziness, abd pain, nausea Review of Systems Review of Systems: All systems reviewed & are unremarkable except as noted in HPI & below Physical Exam Physical Exam: Physical Exam: Vitals signs as noted above General Appearance:Chronic ill appearing, Thin, frail Head: normocephalic, Atraumatic Eyes: normal inspection, EOMI Neck: supple, Trachea midline Respiratory/Chest: Decreased breath sounds, mild basal crackles Chest: Chemo port on Right side Cardiovascular: S1, S2, no murmur Abdomen/GI:Soft, Non tender, Bowel sounds present Extremities/Musculoskelatal:normal inspection, B/L LE edema Neurologic/Psych:AAOX3, grossly no focal neurological deficits Skin: normal color, warm Results & Data Vital Signs (Past 12 Hours) Vital Signs Temp Pulse Resp BP Pulse Ox 04/24/19 07:22 36.7 C 64 18 96/53 L 98 (1) AML (acute myeloblastic leukemia) Leukemia Active/Remission status: without remission Qualified Code(s): C92.00 - Acute myeloblastic leukemia, not having achieved remission
--- NOTE | 2019-04-24 14:16 | Discharge Summary ---
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 Patient has history of chronic respiratory failure but is noncompliant with 2 L of home O2, stating that she does not like to wear the oxygen tank and that the cannula irritates her nostrils. In clinic today was found to have cyanotic fingertips and seemed short of breath, so sent to ED for further evaluation. Patient endorses feeling short of breath for the past 3 years, but does not like to wear her oxygen. Has felt more short of breath for the past 2 days with associated weight gain and increased swelling in lower extremities. Has also noticed weeping of bilateral legs with one small wound opening. Echo from January 2019 shows preserved EF of 55 to 60% but grade 1 diastolic dysfunction. Was prescribed Lasix 20 mg as needed for edema but patient does not remember this and has not used it at home to her recollection. Endorses orthopnea, denies PND. No lightheadedness, headache, cough, chest pain, palpitations or wheezing. Has had recurrent pneumonia and recently completed course of Augmentin a few days ago. Has also been on 2 months of Levaquin for chronic suppression therapy due to AML. Follows with Dr. Miranda for history of AML (dx in Oct 2018) and has completed almost 3 cycles of Decitabine but the third was interrupted due to neutropenic fever in late January 2019. Has not received chemo since then due to chronic respiratory failure with noncompliance to her oxygen as well as recurrent pneumonia. Is currently feeling weak, fatigued and SOB. Has runny nose. Denies fever, chills, sore throat, cough, nausea, vomiting, abdominal pain, dysuria or constipation. Has been having diarrhea while on Augmentin antibiotic. Seems chronic, with negative C diff toxin screen on 04/10/2019. Admission Exam Per Admitting Provider General Appearance: WD/WN, no apparent distress, chronically ill appearing, short of breath when speaking Head: normocephalic, atraumatic Eyes: normal inspection, PERRL, EOMI ENT: hearing grossly normal, pharynx normal (moist mucous membranes) Neck: supple, no JVD, no adenopathy Respiratory/Chest: Bibasilar crackles, decreased lung sounds. No wheezes or rhonci. No respiratory distress or accessory muscle use. Saturating at 96% on 2 L NC O2 Cardiovascular: regular rate, rhythm, diastolic murmur, normal peripheral pulses, 3+ pitting edema bilaterally, peripheral cyanosis improved with O2 Abdomen/GI: normal bowel sounds, soft, non-tender to palpation Extremities/Musculoskelatal: normal inspection, no calf tenderness, normal capillary refill, BLE with edema, superficial skin tear on left anterior graf,, +serous weeping Neurologic/Psych: alert, normal mood/affect, oriented x 3 Skin: Pale, warm/dry Principal Diagnosis Discharge Information Discharge Diagnosis Acute on chronic hypoxic and hypercapnic respiratory failure Right heart 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 hypertension Pancytopenia Acute myeloblastic leukemia Discharge Goals Decrease discomfort,Improve function Discharge Activity Limitations Resume your previous activity Discharge Data Allergies Allergy/AdvReac Type Severity Reaction Status Date / Time adhesive tape Allergy Unknown Verified 04/16/19 17:01 Consultations 04/16/19 18:25 ED Decision to Admit Stat 04/16/19 21:43 Consult Case Management - Discharge Planning Routine 04/18/19 11:23 Consult Cardiology Routine 04/19/19 14:06 Consult Palliative Care Routine 04/20/19 10:38 Consult Pulmonology Routine 04/22/19 14:49 Consult Oncology Routine Procedures Performed CTA: 1. No evidence of acute pulmonary embolism 2. CT evidence for interstitial pulmonary edema. 3. Smaller to moderate left pleural effusion and small right pleural effusion 4. Dependent pulmonary airspace opacities likely atelectatic 5. Large hiatal hernia Venous Doppler: No evidence of lower extremity DVT. Ordered Studies 04/16/19 14:27 US venous doppler LE BI Stat 04/16/19 15:57 CT angio chest PE protocol Stat Hospital Course (1) Respiratory acidosis: Acute on chronic hypoxic and hypercapnic respiratory failure Chronic Oxygen dependency--Patient Non complaint with Oxygen use Likely due to restrictive lung disease due to scoliosis/right-sided heart failure with pulmonary arterial hypertension Poorly tolerated noninvasive positive pressure ventilation Lasix currently held due to alkalosis Continue spironolactone Appreciate Pulmonology Input Palliative care following Respiratory status has not improved Patient and her POA --- agrees with the plan of patient being transitioned to home with hospice services Patient prefers no aggressive measures and goal is comfort (2) Right heart 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 hypertension: Continue Oxygen Continue spironolactone Goals supportive and symptomatic treatment Palliative care on board (3) Chronic respiratory failure with hypoxia: Noncompliant at home Management as above (4) Pancytopenia: H/O AML s/p chemotherapy which has been on hold for several weeks in the setting of illnesses and hospital admissions. Plan to transfuse if Hb<7 or PLT <15-20 Appreciate Oncology Input Given overall poor prognosis/age, no plan for additional chemotherapy Supportive and symptomatic treatment Palliative care following (5) AML (acute myeloblastic leukemia): Diagnosed in October 2018, follows with [facility]. Status post 2 full cycles of decitabine, last received in Jan 2019 Given overall poor prognosis/age, no plan for additional chemotherapy Supportive and symptomatic treatment Palliative care following Continue antifungal and antiviral for chronic suppression Also on chronic Levaquin for antibiotic prophylaxis in setting of recurrent pneumonia Patient prefers to be transitioned to hospice services upon discharge (6) Diabetes mellitus, type II: A1C:6.1 Currently not on meds (7) SVT (supraventricular tachycardia): h/o SVT in the past Continue Metoprolol (8) DVT prophylaxis: DVT Px: SCDs Re: Thrombocytopenia Code status: DNR/DNI PCP: Eriberto Dispo: Home with Hospice services POA- Dr.Tom Quinonez [phone] Total Time Total Time Spent Total Time Spent (In Minutes): 38 minutes Total Time Includes: Examination of the Patient, Discharge Planning, Medication Reconciliation, Communication With Other Providers and Other Discharge Plan Discharge Items Patient Disposition: Hospice - Home Reason For Visit: HYPOXIA,VOLUME OVERLOAD Discharge Diagnosis: Acute on chronic hypoxic and hypercapnic respiratory failure Right heart 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 hypertension Pancytopenia Acute myeloblastic leukemia Discharge Goals: Decrease discomfort and Improve function Activity: Resume your previous activity Exercise/Sports: Gradually increase as tolerated Non-emergency contact: Primary Care Provider and Oncologist Call non-emergency contact if: you have any medication questions, your symptoms worsen, your pain is not controlled, your pain is worsening, your pain is unusual for you, your pain is concerning for you and you have a fever Follow-up/Referrals: Nydia Wei, [Primary Care Provider] - Diet: Regular and Low Sodium (2gm) Addtl Provider Instructions: Follow-up with your primary care physician on May 01, 2019 at 12:45 PM Follow-up with your oncologist Dr. Palacios on April 29, 2019 at 9:00 AM Seek immediate medical attention if your symptoms reoccur or worsen Prescriptions: New spironolactone 25 mg Tablet 12.5 mg PO DAILY 30 Days Qty: 15 RF: 0 Continued calcium carbonate-vitamin D3 [Calcium 600 + D(3)] 600 mg(1,500mg) -200 unit Tablet 1 tab PO QAM RF: 0 multivitamin Tablet 1 tab PO QAM RF: 0 biotin 1 mg Tablet 1 mg PO PM RF: 0 acyclovir [Zovirax] 400 mg Tablet 400 mg PO BID RF: 0 metoprolol tartrate 50 mg Tablet 75 mg PO BID RF: 0 levofloxacin 500 mg tablet 500 mg PO QAM RF: 0 lutein 20 mg Capsule 20 mg PO PM RF: 0 isavuconazonium sulfate 186 mg Capsule 372 mg PO QAM RF: 0 Stand-Alone Forms: [facility] Discharge Orders: Discharge Order (Routine); Ordered 04/24/19 Ordered By: Adriano Jang Admission Data Admit Date/Time: 04/16/19 19:41 Attending Provider: Adriano Jang Admit Provider: Adriano Jang Primary Care Provider: Nydia Wei. Other Providers: Светлана Bill ; Adriano Jang ; Avinash Lyeva ; Katalina Wilson ; Milan Graves ; Moiz Palacios Service: Oncology Other Interventions: Discharge Summary Assessment (RN) Last Done: 04/24/19 16:45 Pending Studies at Discharge: No
== END 2019-04-24 17:50 | disposition hospice, home (50) | DRG 189 ==
LOC: ED 13:34 → SUATTDRO 19:41 → 2S 19:41 → 4E 04-23 17:35

== ENCOUNTER 2019-05-14 18:42 | Inpatient (IN) ==
[2019-05-14] MEDS ORDERED: ALBUT/IPRATROP 3MG/0.5MG NEB 3 ML VIAL INH STA (19:28)
--- NOTE | 2019-05-14 19:28 | Emergency Department Note ---
Entered by Olga Wallis acting as a scribe for History of Present Illness General Chief complaint: Shortness of Breath/Dyspnea Stated complaint: SOB Time Seen by Provider: 05/14/19 19:11 Source: patient History of Present Illness Provider complaint: Shortness of breath Onset (ago): hour(s) Location: chest Severity: similar to prior episodes Pain Consistency: + intermittent Quality: + other (shortness of breath) The patient is an 83 year old female who presents to the ED with intermittent shortness of breath that began today. The patient states that she has a history of Leukemia and hearing problems. The patient states that this feeling is similar to prior episodes. The patient notes that she lives alone on hospice. Home Medications Home Medications Medication Instructions Recorded Confirmed Type calcium carbonate-vitamin D3 1 tab PO QAM 10/31/18 05/14/19 History [Calcium 600 + D(3)] multivitamin 1 tab PO QAM 10/31/18 05/14/19 History acyclovir [Zovirax] 400 mg PO BID 12/27/18 05/14/19 History isavuconazonium sulfate 372 mg PO QAM 12/27/18 05/14/19 History levofloxacin 500 mg PO QAM 12/27/18 05/14/19 History metoprolol tartrate 75 mg PO BID 12/27/18 05/14/19 History spironolactone 12.5 mg PO DAILY 30 Days #15 tab 04/24/19 05/14/19 Rx Allergies Allergy/AdvReac Type Severity Reaction Status Date / Time adhesive tape Allergy Unknown Verified 04/16/19 17:01 Past Med/Surg History Medical History Diabetes mellitus, type II (Chronic) Chronic respiratory failure with hypoxia (Chronic) Pancytopenia (Chronic) AML (acute myeloblastic leukemia) (Chronic) Rosacea (Chronic) SVT (supraventricular tachycardia) (Chronic) Pleural effusion (Chronic) Basal cell carcinoma (Chronic) AML (acute myeloblastic leukemia) CVA (cerebral vascular accident) LATA (iron deficiency anemia) Ovarian cyst, left removal Pancytopenia SVT (supraventricular tachycardia) Surgical History History of total hip arthroplasty (Chronic) History of cataract surgery (Chronic) History of total hip replacement Hx of removal of ovary Family History Mother Lymphoma Other Family history non-contributory Social History Preferred Language: Cym[place] Communication Ability: Effective Visual Impairment: No Limitations Hearing Ability: Hard of Hearing Clinical Training Specialist Required: No Beliefs That Will Affect Care: None marital status: Single Current Living Situation: Alone Current Living Situation Comment: hospice current occupational status: retired Feels Safe at Home: Yes Smoking Status: Unknown if ever smoked Hx Alcohol Use: Yes Alcohol type: beer, wine and hard liquor Hx Substance Use: No Review of Systems See HPI for pertinent positives & negatives. and A total of 10 systems reviewed and were otherwise negative Physical Exam Vital Signs Vital Signs - 24 hr 05/14/19 18:47 05/14/19 18:50 05/14/19 18:51 Temperature 37.1 C Temperature Source Oral Sepsis Recent Fever Within 48 Hours No Sepsis New/Unexplained Change in Mental Status No Sepsis Action Taken by Nursing No Action Required Pulse Rate 104 H 107 H 104 H Pulse Rate [Right Apical] Pulse Rate from SpO2 Sensor 102 H 105 H Respiratory Rate 20 18 17 Respiratory Effort / Characteristics Respiratory Depth Normal Respiratory Pattern Regular Blood Pressure 142/69 H 142/69 H Blood Pressure Mean 93 93 Pulse Oximetry 95 93 95 Oxygen Delivery Method Nasal Cannula Oxygen Flow Rate 4 05/14/19 19:00 05/14/19 19:30 05/14/19 19:42 Temperature Temperature Source Sepsis Recent Fever Within 48 Hours Sepsis New/Unexplained Change in Mental Status Sepsis Action Taken by Nursing Pulse Rate 103 H 110 H Pulse Rate [Right Apical] Pulse Rate from SpO2 Sensor 102 H 101 H Respiratory Rate 20 24 Respiratory Effort / Characteristics Respiratory Depth Respiratory Pattern Blood Pressure Blood Pressure Mean Pulse Oximetry 98 96 90 Oxygen Delivery Method Nasal Cannula Oxygen Flow Rate 4 05/14/19 19:49 05/14/19 20:00 05/14/19 20:30 Temperature Temperature Source Sepsis Recent Fever Within 48 Hours Sepsis New/Unexplained Change in Mental Status Sepsis Action Taken by Nursing Pulse Rate 108 H 104 H Pulse Rate [Right Apical] 104 H Pulse Rate from SpO2 Sensor 107 H 104 H Respiratory Rate 22 33 H Respiratory Effort / Characteristics Non-Labored Spontaneous Respiratory Depth Respiratory Pattern Blood Pressure Blood Pressure Mean Pulse Oximetry 96 97 98 Oxygen Delivery Method Nasal Cannula Oxygen Flow Rate 4 05/14/19 20:45 Temperature Temperature Source Sepsis Recent Fever Within 48 Hours Sepsis New/Unexplained Change in Mental Status Sepsis Action Taken by Nursing Pulse Rate 106 H Pulse Rate [Right Apical] Pulse Rate from SpO2 Sensor 106 H Respiratory Rate 27 H Respiratory Effort / Characteristics Respiratory Depth Respiratory Pattern Blood Pressure 145/63 H Blood Pressure Mean 90 Pulse Oximetry 95 Oxygen Delivery Method Oxygen Flow Rate CONSTITUTIONAL/VITAL SIGNS: Reviewed / noted above. GENERAL: Non-toxic in appearance. Cachectic in appearance. INTEGUMENTARY: Warm, dry, and [place]. HEAD: Normocephalic. EYES: without scleral icterus or trauma. ENT/OROPHARYNX: clear and moist. LYMPHADENOPATHY/NECK: Is supple without lymphadenopathy or meningismus. RESPIRATORY: Lungs diminished on the left compared to the right. Minimal crackles in the bases. CARDIOVASCULAR: Regular rate and rhythm. GI/ABDOMEN: Soft and nontender. No organomegaly or pulsatile mass. No rebound or guarding. Normal bowel sounds. EXTREMITIES: Warm and well perfused. BACK: No CVA tenderness. NEUROLOGICAL: Intact without focal deficits. PSYCHIATRIC: normal affect. MUSCULOSKELETAL: Normally developed with good muscle tone. TRIAGE NURSING DOCUMENTATION REVIEWED. Course 1909: Past medical records reviewed. The patient was evaluated in room C10. A complete history and physical exam was performed. 2110: I reevaluated the patient and updated them on their test results. 2146: I [facility] the [facility] They will evaluate the patient for further management. Administered Medications Discontinued Medications Albuterol (Duoneb) 3 ml INH NOW STA Stop: 05/14/19 19:29 Last Admin: 05/14/19 19:48 Dose: 3 ml Documented by: [id number] Furosemide (Lasix) 40 mg IV NOW STA Stop: 05/14/19 20:24 Last Admin: 05/14/19 20:41 Dose: 40 mg Documented by: [id number] Medical Decision Making Differential Diagnosis The differential was considered includes acute myocardial infarction, acute coronary syndrome, myocarditis, pericarditis, pericardial effusions /tamponad, esophageal perforation, pulmonary embolism, pneumonia, pneumothorax, cardiomyopathy, congestive heart, anemia , COPD/asthma exacerbation. Medical Records Attestation: I reviewed the patient's medical records. Home Medications Current Medication List: was personally reviewed by me Laboratory Data Attestation: I reviewed the patient's lab results. Result diagrams: 05/14/19 20:06 05/14/19 20:06 Lab Results 05/14/19 05/14/19 05/14/19 Range/Units 20:06 20:06 20:06 WBC 73.37 H* (4.8-10.8) K/uL RBC 1.56 L (4.2-5.4) M/uL Hgb 5.3 L* (12.0-16.0) g/dL Hct 17.1 L* (37-47) % MCV 109.6 H (80-100) fL MCH 34.0 (25-34) pg MCHC 31.0 L (32-36) g/dL RDW Std Deviation 92.7 H (36.4-46.3) fL RDW Coeff of Rangel 23.6 H (11.5-14.5) % Plt Count 26 L* (130-400) K/uL MPV 11.6 H (7.4-10.4) fL Absolute Nucleated RBC 0.08 H (0-0) K/uL Nucleated RBC % (auto) 0.1 % PT 12.4 H (9.0-12.0) Seconds INR 1.2 H (0.9-1.1) APTT 22.5 (21.0-31.0) Seconds PTT Ratio 0.8 Sodium 144 (136-145) mmol/L Potassium 4.4 (3.5-5.1) mmol/L Chloride 98 (98-107) mmol/L Carbon Dioxide 44 H* (21-32) mmol/L Anion Gap 1.0 L (3-11) BUN 22 H (7-18) mg/dl Creatinine 0.77 (0.6-1.2) mg/dl Est Cr Clr Drug Dosing 44.2 ml/min Est GFR ( Amer) 81.6 Est GFR (Non-Af Amer) 70.4 BUN/Creatinine Ratio 28.0 H (10-20) Glucose 207 H (70-99) mg/dl Calcium 8.2 L (8.5-10.1) mg/dl Total Bilirubin 0.4 (0.2-1) mg/dl AST 24 (15-37) U/L ALT 16 (12-78) U/L Alkaline Phosphatase 77 (45-117) U/L Total Protein 6.3 L (6.4-8.2) gm/dl Albumin 2.4 L (3.4-5.0) gm/dl Globulin 3.9 (2.5-4.0) gm/dl Albumin/Globulin Ratio 0.6 L (0.9-2) Urine Color Urine Appearance (Clear) Urine pH (4.5-7.5) Ur Specific [place] (1.000-1.030) Urine Protein (Negative) Urine Glucose (UA) (Negative) Urine Ketones (Negative) Urine Blood (Negative) Urine Nitrite (Negative) Urine Bilirubin (Negative) Urine Urobilinogen (Negative) Ur Leukocyte Esterase (Negative) Urine WBC (Auto) (0-5) /hpf Urine RBC (Auto) (0-4) /hpf U Hyaline Cast (Auto) (0-5) /lpf U Epithel Cells (Auto) (0-5) /lpf Urine Bacteria (Auto) (Negative) Urine Crystals Calcium Oxalate Crystal (None Prsent) 05/14/19 Range/Units 20:07 WBC (4.8-10.8) K/uL RBC (4.2-5.4) M/uL Hgb (12.0-16.0) g/dL Hct (37-47) % MCV (80-100) fL MCH (25-34) pg MCHC (32-36) g/dL RDW Std Deviation (36.4-46.3) fL RDW Coeff of Rangel (11.5-14.5) % Plt Count (130-400) K/uL MPV (7.4-10.4) fL Absolute Nucleated RBC (0-0) K/uL Nucleated RBC % (auto) % PT (9.0-12.0) Seconds INR (0.9-1.1) APTT (21.0-31.0) Seconds PTT Ratio Sodium (136-145) mmol/L Potassium (3.5-5.1) mmol/L Chloride (98-107) mmol/L Carbon Dioxide (21-32) mmol/L Anion Gap (3-11) BUN (7-18) mg/dl Creatinine (0.6-1.2) mg/dl Est Cr Clr Drug Dosing ml/min Est GFR ( Amer) Est GFR (Non-Af Amer) BUN/Creatinine Ratio (10-20) Glucose (70-99) mg/dl Calcium (8.5-10.1) mg/dl Total Bilirubin (0.2-1) mg/dl AST (15-37) U/L ALT (12-78) U/L Alkaline Phosphatase (45-117) U/L Total Protein (6.4-8.2) gm/dl Albumin (3.4-5.0) gm/dl Globulin (2.5-4.0) gm/dl Albumin/Globulin Ratio (0.9-2) Urine Color Dark Yellow Urine Appearance Cloudy A (Clear) Urine pH 5.5 (4.5-7.5) Ur Specific [place] 1.023 (1.000-1.030) Urine Protein 2+ H (Negative) Urine Glucose (UA) Negative (Negative) Urine Ketones Negative (Negative) Urine Blood 1+ H (Negative) Urine Nitrite Negative (Negative) Urine Bilirubin Negative (Negative) Urine Urobilinogen Negative (Negative) Ur Leukocyte Esterase Negative (Negative) Urine WBC (Auto) 1-5 (0-5) /hpf Urine RBC (Auto) 5-10 H (0-4) /hpf U Hyaline Cast (Auto) 1-5 (0-5) /lpf U Epithel Cells (Auto) >30 H (0-5) /lpf Urine Bacteria (Auto) Negative (Negative) Urine Crystals Not Reportable Calcium Oxalate Crystal Present A (None Prsent) Imaging Data Radiologist's Impression: Radiology results as stated below per my review and the radiologist's interpretation: XR chest 1V portable CLINICAL HISTORY: 83 years-old Female presenting with Dyspnea. TECHNIQUE: Portable upright AP view of the chest was obtained. COMPARISON: 04/16/2019. FINDINGS: The patient is LOWRY rotated. Positioning is suboptimal mildly limiting assessment. Right internal jugular Mediport terminates in the superior cavoatrial junction. Atherosclerosis of the aortic arch. Cardiac silhouette is likely enlarged though the right and left heart borders are obscured by bibasilar opacities and effusions. Small right and moderate left pleural effusions. Extensive basilar predominant nodular opacities. No pneumothorax. Exaggerated thoracic kyphosis may be present. Upper abdomen normal. IMPRESSION: 1. Bilateral pleural effusions greater on the left with significant bibasilar infiltrates, likely extensive atelectasis. A component of volume overload and congestive change may be present. 2. Positioning limits evaluation. Electronically signed by: Christopher Arroyo M.D. 05/14/2019 7:51 PM ECG Data Attestation: I personally reviewed and interpreted this ECG as follows: Indication: SOB/dyspnea Rate (beats per minute): 106 Rhythm: sinus tachycardia Findings: no PAC, no PVC, no ST elevation and no ectopy Blood Pressure Blood Pressure Findings: Elevated blood pressure MDM Narrative This is a 83-year-old female who presents to the ED with a chief complaint of shortness of breath. She states that shortness of breath comes and goes. She states that she is on hospice for leukemia. She is normally on 2 L of oxygen at home. Her oxygen saturations here was 87% on 2 L when I evaluated the patient. The patient denies any other symptoms. The patient's hemoglobin is 5.3. White blood cell count was 73.3. Platelets are 26. Chest x-ray reveals bilateral pleural effusions with extensive atelectasis left greater than right. Urine did not show infection. The patient was treated with a DuoNeb treatment as well as Lasix IV. She was ordered a blood transfusion for 1 unit of packed RBCs. The patient is on hospice. We spoke to the hospice nurse legal operations manager tonight. She stated that it seems appropriate that the patient would be admitted and treated and if her labor supervisor felt that she would drop off of hospice for this adm ission, the patient can get back on hospice when she is discharged. The patient was told the results. She will be seen by the hospitalist. Impression & Plan Anemia, Acute dyspnea Discharge Plan Visit Data Chief Complaint: Shortness of Breath/Dyspnea Stated Complaint: SOB ED Provider: Andrey Armenta Discharge Problem: Anemia, Acute dyspnea Patient Disposition: Being Evaluated by Hospitalist Forms Stand Alone Forms: [facility] [employer] Prescriptions Prescriptions: No Action spironolactone 25 mg Tablet 12.5 mg PO DAILY 30 Days Qty: 15 RF: 0 calcium carbonate-vitamin D3 [Calcium 600 + D(3)] 600 mg(1,500mg) -200 unit Tablet 1 tab PO QAM RF: 0 multivitamin Tablet 1 tab PO QAM RF: 0 acyclovir [Zovirax] 400 mg Tablet 400 mg PO BID RF: 0 metoprolol tartrate 50 mg Tablet 75 mg PO BID RF: 0 levofloxacin 500 mg tablet 500 mg PO QAM RF: 0 isavuconazonium sulfate 186 mg Capsule 372 mg PO QAM RF: 0 Referrals Referrals: Nydia Wei DO [Primary Care Provider] - Discharge Problem: Anemia Qualifiers: Anemia type: unspecified type Qualified Code(s): D64.9 - Anemia, unspecified The scribe's documentation has been prepared under my direction and personally reviewed by me in its entirety. I confirm that the note above accurately reflects all work, treatment, procedures, and medical decision making performed by me.
--- NOTE | 2019-05-14 19:53 | XRay Report ---
XR chest 1V portable CLINICAL HISTORY: 83 years-old Female presenting with Dyspnea. TECHNIQUE: Portable upright AP view of the chest was obtained. COMPARISON: 04/16/2019. FINDINGS: The patient is LOWRY rotated. Positioning is suboptimal mildly limiting assessment. Right internal jugular Mediport terminates in the superior cavoatrial junction. Atherosclerosis of th e aortic arch. Cardiac silhouette is likely enlarged though the right and left heart borders are obsc ured by bibasilar opacities and effusions. Small right and moderate left pleural effusions. Extensive basilar predominant nodular opacities. No pneumothorax. Exaggerated thoracic kyphosis may be present . Upper abdomen normal. IMPRESSION: 1. Bilateral pleural effusions greater on the left with significant bibasilar infiltrates, likely ex tensive atelectasis. A component of volume overload and congestive change may be present. 2. Positioning limits evaluation. Electronically signed by: Christopher Arroyo M.D. 05/14/2019 7:51 PM
[2019-05-14] MEDS ORDERED: FUROSEMIDE 40 MG/4 ML VIAL IV STA (20:23)
[2019-05-14 20:38] LABS: Appearance Urine Cloudy (Clear); Bacteria Urine Automated Negative (Negative); Bilirubin Urine Negative (Negative); Blood Urine 1+ (Negative); Color Urine Dark Yellow; Epithelial Cell Urine Auto >30 /lpf (0-5); Glucose Urine UA Negative (Negative); Ketones Urine Negative (Negative); Leukocyte Esterase Urine Negative (Negative); Nitrite Urine Negative (Negative); Protein Urine 2+ (Negative); Specific Gravity Urine 1.023 (1.000-1.030); Urobilinogen Urine Negative (Negative); pH Urine 5.5 (4.5-7.5)
[2019-05-14 20:42] LABS: INR 1.2 (0.9-1.1); Partial Thromboplastin Ratio 0.8; Partial Thromboplastin Time 22.5 Seconds (21.0-31.0); Prothrombin Time 12.4 Seconds (9.0-12.0)
[2019-05-14 20:59] LABS: Hematocrit (blood only) 17.1 % (37-47); Hemoglobin 5.3 g/dL (12.0-16.0); Mean Corpuscular Volume 109.6 fL (80-100); Mean Platelet Volume 11.6 fL (7.4-10.4); Nucleated RBC # (auto) 0.08 K/uL (0-0); Nucleated RBC % (auto) 0.1 %; Platelet Count 26 K/uL (130-400); RDW Coefficient of Variation 23.6 % (11.5-14.5); RDW Standard Deviation 92.7 fL (36.4-46.3); Red Blood Count 1.56 M/uL (4.2-5.4); White Blood Count 73.37 K/uL (4.8-10.8)
[2019-05-14 21:02] LABS: Calcium Oxalate Crystals Urine Present (None Prsent)
[2019-05-14 21:30] LABS: Albumin Globulin Ratio 0.6 (0.9-2); Albumin Level 2.4 gm/dl (3.4-5.0); Bilirubin,Total 0.4 mg/dl (0.2-1); Calcium 8.2 mg/dl (8.5-10.1); Creatinine Clr Calc Pharmacy 44.2 ml/min; Est GFR (African American) 81.6; Est GFR (Non-African American) 70.4; Globulin 3.9 gm/dl (2.5-4.0); Potassium 4.4 mmol/L (3.5-5.1); Total Protein 6.3 gm/dl (6.4-8.2)
[2019-05-14] MEDS ORDERED: SODIUM CHLORIDE 0.9% 250 ML IV PRN (21:45)
[2019-05-14 22:27] LABS: ALC (manual) 10.64 K/uL (1.2-3.4); Blast # (manual) 58.33 K/uL (0-0); Blast Cells % (manual) 79.5 %; Lymphocytes # (manual) 10.64 K/uL (1.2-3.4); Lymphocytes % (manual) 14.5 %; Monocytes # (manual) 0.73 K/uL (0.11-0.59); Neutrophils % (manual) 1.5 %; Promyelocytes # (manual) 2.57 K/uL (0-0); Promyelocytes % (manual) 3.5 %; Spherocytes 2+; Stomatocytes 1+
[2019-05-14 22:48] LABS: Anisocytosis Present
[2019-05-15] MEDS ORDERED: SODIUM CHLORIDE 0.9% 250 ML IV PRN ×2 (00:28→05:19)
[2019-05-15] MEDS ORDERED: ACETAMINOPHEN 325 MG TAB PO PRN (00:28)
[2019-05-15] MEDS ORDERED: POLYETHYLENE (MIRALAX) 17 GM PACK PO PRN (00:28)
[2019-05-15] MEDS ORDERED: ACETAMINOPHEN 500 MG TAB PO STA (00:28)
[2019-05-15] MEDS ORDERED: ONDANSETRON INJ 2 MG/ML 2 ML VIAL IV PRN (00:28)
[2019-05-15] MEDS ORDERED: FUROSEMIDE 20 MG in SYRINGE 0 ML IV ONE (01:00)
--- NOTE | 2019-05-15 02:31 | History and Physical Report ---
DATE OF ADMISSION: 05/14/2019 CHIEF COMPLAINT: Shortness of breath. 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 Not on any chemo. History of symptomatic anemia requiring frequent transfusion in the past, chronic respiratory failure on 2 liters oxygen, history of supraventricular tachycardia, diabetes type 2, history of pleural effusions, history of nonmelanoma skin cancer, history of right-sided heart failure, hypertension, presents with shortness of breath. The patient was here in the hospital, admitted on 04/16/2019 with acute on chronic respiratory failure secondary to right-sided heart failure and pulmonary hypertension. During that time, Lasix was held because of alkalosis and Aldactone was continued and at that time it was determined the patient to be in a hospice care. The patient lives alone. Hospice nurse checks on her every day. She walks with help of cane but lately she is getting more weak and tired. She has to sit for 5 minutes to think about what to do next. Someone helps her with groceries and she cooks her own food. Today, in the morning hospice nurse came and checked on her and she was feeling good, but later in the afternoon she suddenly became short of breath and having acid reflux symptoms with combination made her feel worse and she called the hospice and they advised to call 911 and come to the ER and she was brought into the ER and her hemoglobin was found to be 5.3 and bilateral pleural effusion on chest x-ray. At home lately she was using 3 liters of oxygen; currently in the ER on 4 liters of oxygen, she is saturating fine and she is feeling better. Her acid reflux symptoms improved and she is talking in full sentences. She is hard of hearing, but denies any headaches. Vision is okay. No sore throat. She felt difficulty swallowing today when she had acid reflux symptoms, but otherwise, she is swallowing okay. Her appetite is not that bad. Denies any chest discomfort. No cough, no fever, no chills, no nausea, no vomiting, no abdominal pain. Normal bowel movements. No black stools or blood in the stools. No burning micturition, no hematuria. She has swelling in the legs for a long time, but lately they have been increasing. She thinks that maybe her diuretic dose needs to be increased. Her niece is from [place], who is the radiologist he has medical power of securities attorney.There is a family get-together on weekend of May 23 and she likes to hang on for the family get-together and she is okay for blood transfusion and also if needed thoracocentesis, also called her healthcare power of securities attorney and he is agreeable with the plan. ALLERGIES: ADHESIVE TAPE. PAST MEDICAL HISTORY: As mentioned above. PAST SURGICAL HISTORY: Colonoscopy with biopsy, colonoscopy with removal of the adenomas, EGDs, cervix biopsy, removal of the ovary and cyst, left ovary removed, tonsillectomy and adenoidectomy, total hip replacement. MEDICATIONS: The patient currently on Lopressor 75 mg p.o. b.i.d., Levaquin 500 mg p.o. daily, multivitamin 1 tablet daily, spironolactone 12.5 mg p.o. daily, isavuconazonium sulfate 372 mg p.o. daily, calcium plus vitamin D 1 tablet daily, acyclovir 400 mg p.o. b.i.d., omeprazole 20 mg p.o. daily. FAMILY HISTORY: Significant for father at age of 90. Mother at age of 90. Mother had lymphoma. Sister has macular degeneration. Maternal grandfather and maternal aunt had TB. SOCIAL HISTORY: Currently single, lives alone, on hospice care. Former smoker, quit in 1967, smoked half pack a day for 10 years. Alcohol occasional. No drug use. REVIEW OF SYMPTOMS: As per HPI. Rest of review of symptoms negative. PHYSICAL EXAMINATION: GENERAL: The patient is old and frail, not in acute distress. VITAL SIGNS: Temperature 37.1, pulse 101, respiratory 21, blood pressure 103/79 and oxygen 94% on 4 liters. HEENT: No pallor present, no icterus. Pupils equal, round, reactive to light. NECK: No JVD, no neck masses. Supple. CARDIOVASCULAR: S1, S2 heard. Tachycardia. No murmurs. RESPIRATORY SYSTEM: Normal AP diameter. No accessory muscle use. Bibasilar crackles present. No wheezing. ABDOMEN: Soft, bowel sounds present. Nontender. No distention. CENTRAL NERVOUS SYSTEM: Cranial nerves II-XII grossly intact. Nonfocal. EXTREMITIES: Lower extremity gross edema present. No erythema seen. SKIN: Bruises seen in the extremities. LABS: WBC 73.3, hemoglobin 5.3, hematocrit 17.1, platelets 26. PT 12.4, INR 1.2, APTT 22.5. Sodium 144, potassium 4.4, chloride 98, bicarbonate 44, BUN 22, creatinine 0.77, serum glucose 207, calcium 8.2, total bilirubin 0.4, AST 24, ALT 26, alkaline phosphatase 77. Urinalysis positive for trace 1+ blood. Chest x-ray, bilateral pleural effusion greater on the left with significant bibasilar infiltrates likely extensive atelectasis. EKG: Sinus tachycardia at rate of 106, nonspecific ST-T abnormality, no significant change from previous EKG. ASSESSMENT AND PLAN: This is an 83-year-old female with history of acute myelogenous leukemia, currently on hospice care who presents with shortness of breath, found to have anemia and bilateral pleural effusions. 1. Shortness of breath most likely secondary to anemia and acute on chronic right-sided heart failure, pulmonary hypertension, and pleural effusions. 2. Acute on chronic anemia. Hemoglobin of 7.6 at discharge on 04/23/2019. No obvious signs of bleeding, mostly secondary to acute myelogenous leukemia. She has required multiple transfusions in the past. We will transfuse 2 units of PRBCs and monitor the hemoglobin. 3. Acute on chronic hypoxic and hypercapnic respiratory failure secondary to acute right-sided heart failure, pleural effusions, pulmonary hypertension, she is chronically on oxygen lately using 3lts at home. Currently requiring 4 liters of oxygen. The patient received a dose of iv Lasix in the ER. We will follow the chest ultrasound. May need thoracocentesis which patient is agreeable. On last admission Lasix was discontinued because of alkalosis and she is on Aldactone 12.5 mg daily. May need to adjust the diuretic dose. 4. Thrombocytopenia, platelet count of 26,000. We will monitor the labs. If drops to less than 15,000, may need platelet transfusion or if any signs of bleeding. 5. Acute myeloblastic leukemia diagnosed in 10/2018, status post 2 full cycles of decitabine, last dose was in 01/2019. Last admission, given overall poor prognosis and age the chemotherapy was stopped and patient is currently in hospice care. The patient is on antifungal, antiviral for chronic suppression and also on chronic Levaquin for antibiotic prophylaxis as patient was having recurrent pneumonia. Plan to go back on hospice care when discharged from the hospital. 6. History of diabetes type 2, currently not on medication. Latest HbA1c was 6.1, currently she is somewhat hyperglycemic. We will monitor the blood sugars and if running high, we will place on insulin sliding scale. Follow the HbA1c level. 7. History of supraventricular tachycardia, on metoprolol. 8. Deep venous thrombosis prophylaxis, sequential compression devices for now. 9. Disposition: Admit to medical floor. Social Service to help with discharge planning. Plan to discharge back on hospice care when the patient is stable. 10. Code status DNR/DNI. The patient's healthcare power of securities attorney is her nephew Dr.Thomas Quinonez his phone number is [phone]. [facility]
[2019-05-15 04:43] LABS: BUN Creatinine Ratio 28.8 (10-20); Creatinine Clr Calc Pharmacy 48.7 ml/min; Est GFR (Non-African American) 75.1; Magnesium 2.2 mg/dl (1.8-2.4); Potassium 4.6 mmol/L (3.5-5.1)
[2019-05-15 04:57] LABS: Hematocrit (blood only) 14.5 % (37-47); Hemoglobin 4.5 g/dL (12.0-16.0); Mean Corpuscular Volume 108.2 fL (80-100); Mean Platelet Volume 10.9 fL (7.4-10.4); Nucleated RBC # (auto) 0.12 K/uL (0-0); Nucleated RBC % (auto) 0.2 %; Platelet Count 25 K/uL (130-400); Red Blood Count 1.34 M/uL (4.2-5.4); White Blood Count 79.81 K/uL (4.8-10.8)
--- NOTE | 2019-05-15 06:43 | Ultrasound Report ---
US effusion-chest/mediastinum HISTORY: 83 years-old Female pleural effusion follow-up study in a patient with history of pleural e ffusion COMPARISON: Chest radiograph 05/14/2019, CTA chest 04/16/2019 TECHNIQUE: Multiple real-time sonographic images of the chest were obtained assessing grayscale appea feliberto. FINDINGS: A right pleural effusion is noted with volume of approximately 97 mL. Left pleural effusion is noted with a volume of approximately 395 mL. Collapsed lung about the left lung base is noted, therefore th e posterior left chest wall was not marked. A large hiatal hernia redemonstrated. IMPRESSION: 1. Left greater than right bilateral pleural effusions. 2. Large hiatal hernia redemonstrated. The above report was generated using voice recognition software. It may contain grammatical, syntax o r spelling errors. Electronically signed by: Jhonny Berumen M.D. 05/15/2019 6:41 AM
[2019-05-15] MEDS: [UNRECOGNIZED DRUG - REMARK] SCH ×2 (07:34→15:43)
[2019-05-15] MEDS: MULTIVITAMIN TAB PO SCH ×2 (07:49→09:41)
[2019-05-15] MEDS: ACYCLOVIR 400 MG TAB PO SCH ×3 (07:49→21:53)
[2019-05-15] MEDS: METOPROLOL TARTRATE 50 MG TAB PO SCH ×3 (07:49→21:53)
[2019-05-15] MEDS: CALCIUM 600MG + VIT D 400 IU TAB PO SCH ×2 (07:49→09:41)
[2019-05-15] MEDS: SPIRONOLACTONE 25 MG TAB PO SCH ×2 (07:49→09:41)
[2019-05-15 08:12] LABS: Anisocytosis Present; Rouleaux 1+; Smudge Cells Present; Spherocytes 2+; Stomatocytes 1+
[2019-05-15 08:18] LABS: ALC (manual) 29.37 K/uL (1.2-3.4); Blast # (manual) 47.49 K/uL (0-0); Blast Cells % (manual) 59.5 %; Lymphocytes # (manual) 29.37 K/uL (1.2-3.4); Lymphocytes % (manual) 36.8 %; Monocytes # (manual) 1.52 K/uL (0.11-0.59); Monocytes % (manual) 1.9 %; Myelocytes # (manual) 0.72 K/uL (0-0); Myelocytes % (manual) 0.9 %; Neutrophils % (manual) 0.9 %
[2019-05-15] MEDS ORDERED: ACETAMINOPHEN 500 MG TAB PO PRN (08:47)
[2019-05-15] MEDS: levoFLOXacin 500 MG TAB PO SCH (10:28)
[2019-05-15] MEDS ORDERED: FUROSEMIDE 40 MG/4 ML VIAL IV STA (10:31)
[2019-05-15] MEDS ORDERED: FUROSEMIDE 40 MG in SYRINGE 0 ML IV ONE (11:00)
--- NOTE | 2019-05-15 11:26 | Palliative Care Consultation ---
Date of Consultation May 15, 2019 Assessment & Plan (1) Palliative care encounter: This is a 83 year old female known to palliative care services with PMH CVA, HTN, AML, symptomatic anemia requiring PRN transfusions, with recent hospitalization. She was recently discharged on 04/24 with [facility] after lengthy discussion regarding her poor functional status and decision for no additional chemotherapy. Patient was diagnosed with AML in October 2018, had previously been receiving Decitabine. Patient has had issues with pneumonia recently as well as anemia. She has chronic respiratory failure, supposed to be on home oxygen but is non-compliant with it and has had recent weight loss over the past 6 months of over 35 pounds. Patient today was having increased SOB and returned to the hospital. Her Hgb level is 4.5. Palliative Care was consulted to discuss goals of care. -I met with patient in room 420. Pt was resting with her eyes closed, but opened to my voice. -Patient stated that she was overall happy with hospice services but felt increasingly short of breath so she came to the ED -Her Hgb is 4.5 and she did accept a unit of blood for transfusion. We talked about goals and she stated that she has a family reunion where her family members from [place] were planning to come and see her. She said this is her end of life goal, to make it to this republic[place] that is being held just for her. -She is receptive to receiving transfusions and treatment until then. -That being said, she does not want anything heroic including CPR or intubation. -Patient is a DNR/DNI. We did review her POLST that was on the chart; however, not signed by a provider, so this is signed now. DNR/DNI, comfort measures only, no artificial tube feeding and a trial of abx is ok. -Patient did utilize family [facility] and after speaking with Dr. Wilson, they are able to provide outpatient transfusions through this hospice agency. -Case management to follow. Will observe how she responds to this transfusion. -If patient does not show response, would discuss further ordering Roxanol for air hunger and comfort. -PPS: 20% (2) Acute dyspnea: (3) Anemia: Anemia type: unspecified type Qualified Code(s): D64.9 - Anemia, unspecified (4) AML (acute myeloblastic leukemia): Leukemia Active/Remission status: without remission Qualified Code(s): C92.00 - Acute myeloblastic leukemia, not having achieved remission (5) Heart failure, diastolic, with acute decompensation: Supervising Physician Co-Signing Physician Notes Chart reviewed, patient seen and examined-no family at bedside. Collaborated with RADHA Sanford. PE: Patient appears comfortable, increased respiratory rate and fatigue with conversation. Thin, cachectic HEENT: Positive temporal wasting, EOMI, hearing within normal limits CV: Tachycardic, bounding precordium Respiratory: Comfortable at rest, on O2 for comfort, O2 sats adequate Abdomen: Soft nontender Extremities: 3+ pitting edema, left upper extremity edema Neuro: Alert and oriented x4 Psych: Appropriate mood Agree with above note, assessment and plan as per RADHA Sanford Patient likely required inpatient observation with transfusion given her diffuse edema. Patient reiterated her goal to live another week-will likely return home under hospice care. Will continue to follow while patient is inpatient and assist patient with medical decision making History of Present Illness Reason for Consultation: Goals of Care Requesting Physician: Dr. Campuzano Attending Physician: Ellis Campuzano MD History of Present Illness This is a 83 year old female known to palliative care services with PMH CVA, HTN, AML, symptomatic anemia requiring PRN transfusions, with recent hospitalization. She was recently discharged on 04/24 with [facility] after lengthy discussion regarding her poor functional status and decision for no additional chemotherapy. Patient was diagnosed with AML in October 2018, had previously been receiving Decitabine. Patient has had issues with pneumonia rec ently as well as anemia. She has chronic respiratory failure, supposed to be on home oxygen but is non-compliant with it and has had recent weight loss over the past 6 months of over 35 pounds. Patient today was having increased SOB and returned to the hospital. Her Hgb level is 4.5. Palliative Care was consulted to discuss goals of care. Please see A/P for further details. Thank you kindly for re-involving palliative care services with this patient. We will continue to follow. Allergies Allergy/AdvReac Type Severity Reaction Status Date / Time adhesive tape Allergy Unknown Verified 04/16/19 17:01 Home Medications Home Medications Medication Instructions Recorded Confirmed Type calcium carbonate-vitamin D3 1 tab PO QAM 10/31/18 05/14/19 History [Calcium 600 + D(3)] multivitamin 1 tab PO QAM 10/31/18 05/14/19 History acyclovir [Zovirax] 400 mg PO BID 12/27/18 05/14/19 History isavuconazonium sulfate 372 mg PO QAM 12/27/18 05/14/19 History levofloxacin 500 mg PO QAM 12/27/18 05/14/19 History metoprolol tartrate 75 mg PO BID 12/27/18 05/14/19 History spironolactone 12.5 mg PO DAILY 30 Days #15 tab 04/24/19 05/14/19 Rx Patient History Medical History Diabetes mellitus, type II (Chronic) Chronic respiratory failure with hypoxia (Chronic) Pancytopenia (Chronic) AML (acute myeloblastic leukemia) (Chronic) Rosacea (Chronic) SVT (supraventricular tachycardia) (Chronic) Pleural effusion (Chronic) Basal cell carcinoma (Chronic) AML (acute myeloblastic leukemia) CVA (cerebral vascular accident) LATA (iron deficiency anemia) Ovarian cyst, left removal Pancytopenia SVT (supraventricular tachycardia) Surgical History History of total hip arthroplasty (Chronic) History of cataract surgery (Chronic) History of total hip replacement Hx of removal of ovary Family History Mother Lymphoma Other Family history non-contributory Social History Preferred Language: Macedonian Communication Ability: Effective Visual Impairment: No Limitations Hearing Ability: Hard of Hearing Turn Supervisor Required: No Beliefs That Will Affect Care: None marital status: Single Current Living Situation: Alone Current Living Situation Comment: hospice current occupational status: retired Feels Safe at Home: Yes Smoking Status: Former smoker Smoking End Date: 1967 Second Hand Exposure: No Hx Alcohol Use: Yes Alcohol type: beer, wine and hard liquor Hx Substance Use: No Review of Systems Review of Systems: All systems reviewed & are unremarkable except as noted in HPI & below Pt states she is tired and working a little bit harder to breathe Physical Exam Constitutional: + ill appearing, + cachectic, + frail appearing, cooperative and + in distress Eyes: PERRL, conjunctivae normal, anicteric sclerae ENMT: external ear and nose normal, oropharynx normal Neck: trachea midline, no thyromegaly Respiratory: + uses accessory muscles Auscultation: + diminished lung sounds and + rhonchi Cardiovascular: Rate/Rhythm: + tachycardic Heart Sounds: normal S1 and normal S2 Extremities: + edema (B/L LE edema L > R) Gastrointestinal (Abdomen): normal bowel sounds, soft, nontender, no hepatosplenomegaly Skin: + skin tightening, + dry skin, + ecchymosis and + excoriations Psychiatric: A+Ox3, euthymic affect Lymphatic: no cervical or axillary lymphadenopathy Results & Data Vital Signs (Past 12 Hours) Vital Signs Temp Pulse Resp BP Pulse Ox 05/15/19 07:10 37.0 C 96 H 20 115/69 90 05/15/19 03:30 94 05/15/19 00:29 37.0 C 102 H 24 120/69 90 Time Spent Midlevel Total time spent 70 minutes with > 50% of that time spent assessing the patient, discussing goals of care and completing a POSLT formwith the patient.
[2019-05-15] MEDS: MoRPHine SULFATE 5 MG/0.25 ML UDP PO PRN ×2 (20:05→22:45)
--- NOTE | 2019-05-16 00:27 | Hospitalist Progress Note ---
Date of Service May 15, 2019 Assessment & Plan (1) Anemia: Profound anemia with hemoglobin of 4.5 this morning. Underlying AML. No gross GI bleeding. Transfuse with packed RBCs for palliation of symptoms. Hgb goal at least > 8, but consider a bit higher so that additional transfusions not immediately necessary. (2) Heart failure, diastolic, with acute decompensation: Chronic left ventricular diastolic heart failure as well as right-sided heart failure. Chest x-ray shows pulmonary edema and pleural effusions. 2-3+ dependent edema. Hypoalbuminemia contributing to edema and need to be careful to avoid excessive diuresis. IV furosemide today before and after packed RBCs. Follow exam and titrate diuretics. (3) Chronic respiratory failure with hypoxia: Continue supplemental oxygen as necessary. (4) Pleural effusion: Chest x-ray shows bilateral pleural effusions, left greater than right. Pleural effusion left is less than 500 mL. Feel that dyspnea is most likely secondary to combination of CHF and profound anemia. Thoracentesis unlikely to offer significant additional benefit and risks outweigh benefits. 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 White count 79,000. Receiving palliative care. (6) Thrombocytopenia: Platelet count this morning = 25,000. Underlying AML. No active bleeding. (7) Palliative care encounter: Already enrolled in hospice for AML. Palliative Care team consulted to assist with management. (8) Do not resuscitate status: Per patient's wishes/instructions. (9) DVT prophylaxis: No anticoagulants due to thrombocytopenia. SCDs. Ambulate as able. (10) Discharge planning issues: Discharge disposition to be determined. Patient lives at home independently. She is currently receiving hospice care at home, but does not have a sales department supervisor staying with her. May benefit from having additional help at home if finances allow. Family Medicine follow-up with Dr. Wei. Resume hospice care once acute care goals accomplished. Nephrich Quinonez is a physician and serves as patient's Durable Power of [employer]. He was given an update by phone. Subjective Recheck for multiple problems. Patient seen in their room around 1330. Hospice patient with AML. Admitted last evening due to increasing dyspnea and fatigue. Found to be severely anemic. No apparent gross GI bleeding. Still experiencing significant weakness and dyspnea today. Intermittent back pain. Review of Systems: Constitutional- no fever. Cardiac- no chest pain. Pulmonary- no cough. GI- no nausea, vomiting, diarrhea, melena, hematochezia. - no urinary symptoms. Otherwise, as noted above. Physical Exam Constitutional: + thin and + frail appearing; no acute distress Respiratory: no respiratory distress Auscultation: + diminished lung sounds (left base) Cardiovascular: Rate/Rhythm: regular rate and regular rhythm Vessels: + JVD Extremities: + edema (2+); no calf tenderness Gastrointestinal (Abdomen): normal bowel sounds, soft, nontender, no hepatosplenomegaly Skin: no rashes, warm and dry Psychiatric: Orientation: alert and oriented x 3 Results & Data Vital Signs (Past 12 Hours) Vital Signs Temp Pulse Pulse Resp BP BP Pulse Ox 05/15/19 23:00 37 C 94 H 20 150/74 H 90 05/15/19 19:13 37.4 C 91 H 18 156/75 H 92 05/15/19 16:34 36.8 C 98 H 20 137/78 92 05/15/19 16:07 36.3 C L 92 H 18 148/77 H 95 05/15/19 15:52 36.3 C L 98 H 20 134/71 93 05/15/19 15:50 36.4 C L 92 H 20 134/78 99 05/15/19 15:35 36.8 C 90 20 163/70 H 99 05/15/19 14:05 37.2 C 98 H 20 132/78 05/15/19 13:35 36.9 C 100 H 20 121/72 97 05/15/19 12:35 36.9 C 99 H 20 132/75 Laboratory Results Short CBC 05/14/19 05/15/19 Range/Units 20:06 03:51 WBC 73.37 H* 79.81 H* (4.8-10.8) K/uL Hgb 5.3 L* 4.5 L* (12.0-16.0) g/dL Hct 17.1 L* 14.5 L* (37-47) % Plt Count 26 L* 25 L* (130-400) K/uL BMP 05/15/19 03:51 Sodium 141 Potassium 4.6 Chloride 99 Carbon Dioxide 42 H* BUN 21 H Creatinine 0.73 Glucose 154 H Calcium 8.0 L (1) Anemia Anemia type: unspecified type Qualified Code(s): D64.9 - Anemia, unspecified (2) AML (acute myeloblastic leukemia) Leukemia Active/Remission status: without remission Qualified Code(s): C92.00 - Acute myeloblastic leukemia, not having achieved remission
[2019-05-16] MEDS: HEPARIN 100 UNIT/ML 5ML FLUSH FLUSH PRN (05:36)
[2019-05-16 06:41] LABS: Hematocrit (blood only) 25.4 % (37-47); Hemoglobin 8.3 g/dL (12.0-16.0); Mean Corpuscular Hgb Conc 32.7 g/dL (32-36); Mean Corpuscular Volume 98.1 fL (80-100); Mean Platelet Volume 9.5 fL (7.4-10.4); Nucleated RBC # (auto) 0.12 K/uL (0-0); Nucleated RBC % (auto) 0.1 %; Platelet Count 24 K/uL (130-400); RDW Coefficient of Variation 21.7 % (11.5-14.5); RDW Standard Deviation 69.9 fL (36.4-46.3); Red Blood Count 2.59 M/uL (4.2-5.4); White Blood Count 91.75 K/uL (4.8-10.8)
[2019-05-16 06:46] LABS: BUN Creatinine Ratio 24.4 (10-20); Calcium 7.9 mg/dl (8.5-10.1); Creatinine Clr Calc Pharmacy 46.7 ml/min; Est GFR (African American) 82.9; Est GFR (Non-African American) 71.5; Magnesium 2.2 mg/dl (1.8-2.4); Potassium 3.9 mmol/L (3.5-5.1)
[2019-05-16 07:19] LABS: ALC (manual) 14.77 K/uL (1.2-3.4); Anisocytosis Present; Blast # (manual) 61.29 K/uL (0-0); Blast Cells % (manual) 66.8 %; Lymphocytes # (manual) 14.77 K/uL (1.2-3.4); Lymphocytes % (manual) 16.1 %; Monocytes # (manual) 5.78 K/uL (0.11-0.59); Monocytes % (manual) 6.3 %; Myelocytes # (manual) 4.13 K/uL (0-0); Myelocytes % (manual) 4.5 %; Neutrophils % (manual) 6.3 %; Platelet Estimate Decreased (Normal); Smudge Cells Present; Spherocytes 1+
[2019-05-16 07:32] LABS: Estimated Average Glucose 146 mg/dl; Hemoglobin A1C 6.7 % (4.5-5.6)
[2019-05-16] MEDS: SPIRONOLACTONE 25 MG TAB PO SCH (08:20)
[2019-05-16] MEDS: ACYCLOVIR 400 MG TAB PO SCH ×2 (08:20→22:33)
[2019-05-16] MEDS: [UNRECOGNIZED DRUG - REMARK] SCH ×3 (08:20→15:29)
[2019-05-16] MEDS: METOPROLOL TARTRATE 50 MG TAB PO SCH ×2 (08:20→22:35)
[2019-05-16] MEDS: CALCIUM 600MG + VIT D 400 IU TAB PO SCH (08:20)
[2019-05-16] MEDS: MULTIVITAMIN TAB PO SCH (08:21)
[2019-05-16] MEDS: MoRPHine SULFATE 5 MG/0.25 ML UDP PO PRN ×3 (08:48→17:27)
--- NOTE | 2019-05-16 10:49 | Hospitalist Progress Note ---
Date of Service May 16, 2019 Assessment & Plan (1) Anemia: Profound anemia with hemoglobin as low as 4.5. Underlying AML. No gross GI bleeding. Transfusing with packed RBCs for palliation of symptoms. Hgb today = 8.3. Still very weak and dyspneic. Transfuse another unit of pRBC's today. (2) Heart failure, diastolic, with acute decompensation: Chronic left ventricular diastolic heart failure as well as right-sided heart failure. Chest x-ray shows pulmonary edema and pleural effusions. 2-3+ dependent edema. Hypoalbuminemia contributing to edema and need to be careful to avoid excessive diuresis. IV furosemide today before and after packed RBCs. Follow exam and titrate diuretics. (3) Chronic respiratory failure with hypoxia: Continue supplemental oxygen as necessary. (4) Pleural effusion: Chest x-ray shows bilateral pleural effusions, left greater than right. Pleural effusion left is less than 500 mL. Feel that dyspnea is most likely secondary to combination of CHF and profound anemia. Thoracentesis unlikely to offer significant additional benefit and risks outweigh benefits. 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 White count 91,000 with 66% blasts. Receiving palliative care. (6) Thrombocytopenia: Platelet count this morning = 25,000. Underlying AML. No active bleeding. (7) Palliative care encounter: Already enrolled in hospice for AML. Palliative Care team consulted to assist with management. (8) Do not resuscitate status: Per patient's wishes/instructions. (9) DVT prophylaxis: No anticoagulants due to thrombocytopenia. SCDs. Ambulate as able. (10) Discharge planning issues: Discharge disposition to be determined. Patient lives at home independently. She is currently receiving hospice care at home, but does not have a full-time national sales manager staying with her. May benefit from having additional help at home if finances allow. Patient makes it clear that she prefers being at home rather than the hospital or a prison. Family Medicine follow-up with Dr. Wei. Resume hospice care once acute care goals accomplished. Richie Quinonez is a physician and serves as patient's Durable Power of Manufacturing Specialist. He was given an update by phone today. Subjective Recheck for multiple problems. Patient seen in their room around 0950. Received 2 units of pRBC's yesterday. Dyspnea slightly improved. No cough. No chest pain. Still very weak. No pain. Using morphine sulfate elixir for dyspnea with benefit. Review of Systems: Constitutional- no fever. Cardiac- no chest pain. Pulmonary- as noted above. GI- no nausea, vomiting, diarrhea, melena, hematochezia. - no urinary symptoms. Otherwise, as noted above. Physical Exam Constitutional: + thin and + frail appearing; no acute distress Respiratory: no respiratory distress Auscultation: + diminished lung sounds (left base) Cardiovascular: Rate/Rhythm: regular rate and regular rhythm Vessels: + JVD Extremities: + edema (2+); no calf tenderness Gastrointestinal (Abdomen): normal bowel sounds, soft, nontender, no hepatosplenomegaly Skin: + ecchymosis (lower extremities) Psychiatric: Orientation: alert and oriented x 3 Results & Data Vital Signs (Past 12 Hours) Vital Signs Temp Pulse Pulse Resp BP Pulse Ox 05/16/19 07:30 36.8 C 100 H 20 152/65 H 93 05/16/19 03:59 37 C 100 H 20 147/76 H 90 05/15/19 23:00 37 C 94 H 20 150/74 H 90 Laboratory Results Laboratory Results - last 24 hr 05/14/19 05/14/19 05/16/19 20:06 22:17 05:36 WBC 73.37 H* 91.75 H* RBC 1.56 L 2.59 L Hgb 5.3 L* 8.3 L D Hct 17.1 L* 25.4 L MCV 109.6 H 98.1 D MCH 34.0 32.0 MCHC 31.0 L 32.7 RDW Std Deviation 92.7 H 69.9 H RDW Coeff of Rangel 23.6 H 21.7 H Plt Count 26 L* 24 L* MPV 11.6 H 9.5 Absolute Nucleated RBC 0.08 H 0.12 H Nucleated RBC % (auto) 0.1 0.1 Neutrophils % (Manual) 1.5 6.3 Band Neutrophils % 0.0 Lymphocytes % (Manual) 14.5 16.1 Reactive Lymphs % (Man) 0.0 Monocytes % (Manual) 1.0 6.3 Myelocytes % (Man) 4.5 Promyelocytes % (Man) 3.5 Blast Cells % (Manual) 79.5 66.8 Neutrophils # (Manual) 1.10 L 5.78 Total Absolute Neuts 1.10 L 5.78 Lymphocytes # (Manual) 10.64 H 14.77 H Total Abs Lymphocytes 10.64 H 14.77 H Monocytes # (Manual) 0.73 H 5.78 H Myelocytes # (Manual) 4.13 H Promyelocytes # (Man) 2.57 H Blast Cells # (Man) 58.33 H 61.29 H Large Granular Lymphs 0.0 Smudge Cells Present Platelet Estimate Decreased L Anisocytosis Present Present Spherocytes 2+ 1+ Stomatocytes 1+ Sodium Potassium Chloride Carbon Dioxide Anion Gap BUN Creatinine Est Cr Clr Drug Dosing Est GFR ( Amer) Est GFR (Non-Af Amer) BUN/Creatinine Ratio Glucose Estimat Average Glucose Hemoglobin A1c Calcium Magnesium Blood Type AB Positive Antibody Screen POSITIVE A Antibody Identification Anti-I Crossmatch See Detail 05/16/19 05/16/19 05:36 05:36 WBC RBC Hgb Hct MCV MCH MCHC RDW Std Deviation RDW Coeff of Rangel Plt Count MPV Absolute Nucleated RBC Nucleated RBC % (auto) Neutrophils % (Manual) Band Neutrophils % Lymphocytes % (Manual) Reactive Lymphs % (Man) Monocytes % (Manual) Myelocytes % (Man) Promyelocytes % (Man) Blast Cells % (Manual) Neutrophils # (Manual) Total Absolute Neuts Lymphocytes # (Manual) Total Abs Lymphocytes Monocytes # (Manual) Myelocytes # (Manual) Promyelocytes # (Man) Blast Cells # (Man) Large Granular Lymphs Smudge Cells Platelet Estimate Anisocytosis Spherocytes Stomatocytes Sodium 142 Potassium 3.9 D Chloride 98 Carbon Dioxide 43 H* Anion Gap 1.0 L BUN 19 H Creatinine 0.76 Est Cr Clr Drug Dosing 46.7 Est GFR ( Amer) 82.9 Est GFR (Non-Af Amer) 71.5 BUN/Creatinine Ratio 24.4 H Glucose 150 H Estimat Average Glucose 146 Hemoglobin A1c 6.7 H Calcium 7.9 L Magnesium 2.2 Blood Type Antibody Screen Antibody Identification Crossmatch (1) Anemia Anemia type: unspecified type Qualified Code(s): D64.9 - Anemia, unspecified (2) AML (acute myeloblastic leukemia) Leukemia Active/Remission status: without remission Qualified Code(s): C92.00 - Acute myeloblastic leukemia, not having achieved remission
[2019-05-16] MEDS ORDERED: SODIUM CHLORIDE 0.9% 250 ML IV PRN (10:51)
[2019-05-16] MEDS ORDERED: ACETAMINOPHEN 500 MG TAB PO ONE (11:15)
[2019-05-16] MEDS ORDERED: FUROSEMIDE 40 MG in SYRINGE 0 ML IV ONE (11:30)
[2019-05-16] MEDS: levoFLOXacin 500 MG TAB PO SCH (11:42)
[2019-05-16] MEDS ORDERED: MoRPHine SULFATE 5 MG/0.25 ML UDP PO ONE (13:59)
[2019-05-16] MEDS: POTASSIUM CHLORIDE 10 MEQ TABCR PO SCH ×2 (14:33→22:35)
[2019-05-17] MEDS: [UNRECOGNIZED DRUG - REMARK] SCH ×3 (01:35→15:15)
[2019-05-17] MEDS: HEPARIN 100 UNIT/ML 5ML FLUSH FLUSH PRN (05:33)
[2019-05-17 06:29] LABS: Hematocrit (blood only) 28.7 % (37-47); Hemoglobin 9.2 g/dL (12.0-16.0); Mean Corpuscular Hgb Conc 32.1 g/dL (32-36); Mean Corpuscular Volume 99.3 fL (80-100); Nucleated RBC # (auto) 0.17 K/uL (0-0); Nucleated RBC % (auto) 0.1 %; Platelet Count 15 K/uL (130-400); RDW Coefficient of Variation 21.6 % (11.5-14.5); RDW Standard Deviation 73.2 fL (36.4-46.3); Red Blood Count 2.89 M/uL (4.2-5.4); White Blood Count 119.77 K/uL (4.8-10.8)
[2019-05-17 06:37] LABS: BUN Creatinine Ratio 32.9 (10-20); Calcium 8.2 mg/dl (8.5-10.1); Creatinine Clr Calc Pharmacy 42.3 ml/min; Est GFR (African American) 73.5; Est GFR (Non-African American) 63.4; Potassium 4.6 mmol/L (3.5-5.1)
[2019-05-17] MEDS: SPIRONOLACTONE 25 MG TAB PO SCH (10:02)
[2019-05-17] MEDS: CALCIUM 600MG + VIT D 400 IU TAB PO SCH (10:02)
[2019-05-17] MEDS: POTASSIUM CHLORIDE 10 MEQ TABCR PO SCH (10:03)
[2019-05-17] MEDS: METOPROLOL TARTRATE 50 MG TAB PO SCH ×2 (10:03→20:14)
[2019-05-17] MEDS: ACYCLOVIR 400 MG TAB PO SCH (10:04)
[2019-05-17] MEDS: MULTIVITAMIN TAB PO SCH (10:04)
[2019-05-17] MEDS ORDERED: FUROSEMIDE 20 MG in SYRINGE 0 ML IV ONE (11:30)
[2019-05-17] MEDS: levoFLOXacin 500 MG TAB PO SCH (12:02)
[2019-05-17] MEDS ORDERED: LORazepam 0.5 MG TAB PO PRN (13:31)
[2019-05-17] MEDS ORDERED: LORazepam 0.25 MG/0.5 ML VIAL IV PRN (13:31)
[2019-05-17] MEDS ORDERED: ATROPINE SULFATE 1% OP SOLN 5 ML BTL PO PRN (13:31)
[2019-05-17] MEDS ORDERED: ACETAMINOPHEN 650 MG SUPP PR PRN (13:36)
--- NOTE | 2019-05-17 16:44 | Hospitalist Progress Note ---
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 White count 120,000 with blasts. Receiving palliative care. (2) Anemia: Profound anemia with hemoglobin as low as 4.5. Underlying AML. No gross GI bleeding. Transfusing with 2 units packed RBCs for palliation of symptoms. Hgb today = 9.2. Still very weak and dyspneic despite transfusion and diuretics. (3) Thrombocytopenia: Platelet count this morning = 15,000. Underlying AML. No active bleeding. Unlikely that platelet transfusion will offer any benefit. (4) Heart failure, diastolic, with acute decompensation: Chronic left ventricular diastolic heart failure as well as right-sided heart failure. Chest x-ray shows pulmonary edema and pleural effusions. 2-3+ dependent edema. Hypoalbuminemia contributing to edema and need to be careful to avoid excessive diuresis. Received IV furosemide without significant improvement of symptoms. (5) Chronic respiratory failure with hypoxia: Continue supplemental oxygen as necessary. (6) Pleural effusion: Chest x-ray shows bilateral pleural effusions, left greater than right. Pleural effusion left is less than 500 mL. Feel that dyspnea is most likely secondary to combination of CHF and profound anemia. Thoracentesis unlikely to offer significant additional benefit and risks outweigh benefits. (7) Palliative care encounter: Already enrolled in hospice for AML. Palliative Care team consulted to assist with management. Care coordinated with hospice nurse. Her condition is deteriorating due to blast crisis. Did not receive any benefit from pRBC's or diuresis. Unlikely that other interventions such as platelet transfusions or antibiotics will offer any benefit. Anticipate that patient will within the next 1-2 days. Care plan transitioned to comfort measures only. (8) Do not resuscitate status: Per patient's wishes/instructions. (9) DVT prophylaxis: No anticoagulants due to thrombocytopenia. SCDs were initially used, but will be discontinued with transition to comfort measures only. (10) Discharge planning issues: Anticipate that patient will within the next 1-2 days. Care plan transitioned to comfort measures only. Patient does not have a caregiver at home. Will provide end-of-life care here under [facility] hospice. Nephrich Quinonez is a physician and serves as patient's Durable Power of Supervisor [employer]. He was given an update by phone today. He would like to be contacted with updates / change of status: [phone]. Subjective Recheck for multiple problems. Patient seen in their room around 11:30. Weaker and more confused today. Occasional congested cough. O2 sats in high 90's, but feels SOB. Using morphine PRN for dyspnea. Review of Systems: Constitutional- no fever. Cardiac- no chest pain. Pulmonary- as noted above. GI- no nausea, vomiting, diarrhea, melena, hematochezia. - no urinary symptoms. Otherwise, as noted above. Physical Exam Constitutional: + thin and + frail appearing; no acute distress Respiratory: Auscultation: + diminished lung sounds (left base), + rhonchi and + wheezes Cardiovascular: Rate/Rhythm: regular rate and regular rhythm Vessels: + JVD Extremities: + edema (2+); no calf tenderness Gastrointestinal (Abdomen): Inspection/Auscultation: + abdomen distended Percussion/Palpation: abdomen soft; abdomen nontender Skin: no rashes, warm and dry + ecchymosis (lower extremities) Psychiatric: Orientation: + not alert and + not oriented x 3 Results & Data Vital Signs (Past 12 Hours) Vital Signs Temp Pulse Resp BP Pulse Ox 05/17/19 15:59 36.4 C L 83 20 118/67 93 05/17/19 07:09 36.7 C 80 18 127/75 98 Laboratory Results Short CBC 05/17/19 Range/Units 05:33 WBC 119.77 H* D (4.8-10.8) K/uL Hgb 9.2 L (12.0-16.0) g/dL Hct 28.7 L (37-47) % Plt Count 15 L* (130-400) K/uL BMP 05/17/19 05:33 Sodium 142 Potassium 4.6 D Chloride 98 Carbon Dioxide 47 H* BUN 28 H Creatinine 0.84 Glucose 171 H Calcium 8.2 L (1) Anemia Anemia type: unspecified type Qualified Code(s): D64.9 - Anemia, unspecified (2) AML (acute myeloblastic leukemia) Leukemia Active/Remission status: without remission Qualified Code(s): C92.00 - Acute myeloblastic leukemia, not having achieved remission
[2019-05-17] MEDS: MoRPHine SULFATE 5 MG/0.25 ML UDP PO PRN ×3 (18:32→23:41)
[2019-05-17] MEDS: MoRPHine SULFATE 2 MG/ML CARP IV PRN (20:12)
[2019-05-17] MEDS ORDERED: LORazepam 0.5 MG/1 ML VIAL IV PRN (23:03)
[2019-05-18] MEDS: HEPARIN 100 UNIT/ML 5ML FLUSH FLUSH PRN (01:05)
[2019-05-18] MEDS: MoRPHine SULFATE 2 MG/ML CARP IV PRN (01:05)
--- NOTE | 2019-05-24 20:26 | Discharge Summary ---
Date of Service Date of Admission: 05/14/19 Date of : 05/18/19 Admission HPI Per Admitting Provider This 83-year-old female with past medical history significant for AML status post 2 cycles of chemotherapy with decitabine Currently, she is on hospice care. Not on any chemo. History of symptomatic anemia requiring frequent transfusion in the past, chronic respiratory failure on 2 liters oxygen, history of supraventricular tachycardia, diabetes type 2, history of pleural effusions, history of nonmelanoma skin cancer, history of right-sided heart failure, hypertension, presents with shortness of breath. The patient was here in the hospital, admitted on 04/16/2019 with acute on chronic respiratory failure secondary to right-sided heart failure and pulmonary hypertension. During that time, Lasix was held because of alkalosis and Aldactone was continued and at that time it was determined the patient to be in a hospice care. The patient lives alone. Hospice nurse checks on her every day. She walks with help of cane but lately she is getting more weak and tired. She has to sit for 5 minutes to think about what to do next. Someone helps her with groceries and she cooks her own food. Today, in the morning hospice nurse came and checked on her and she was feeling good, but later in the afternoon she suddenly became short of breath and having acid reflux symptoms with combination made her feel worse and she called the hospice and they advised to call 911 and come to the ER and she was brought into the ER and her hemoglobin was found to be 5.3 and bilateral pleural effusion on chest x-ray. At home lately she was using 3 liters of oxygen; currently in the ER on 4 liters of oxygen, she is saturating fine and she is feeling better. Her acid reflux symptoms improved and she is talking in full sentences. She is hard of hearing, but denies any headaches. Vision is okay. No sore throat. She felt difficulty swallowing today when she had acid reflux symptoms, but otherwise, she is swallowing okay. Her appetite is not that bad. Denies any chest discomfort. No cough, no fever, no chills, no nausea, no vomiting, no abdominal pain. Normal bowel movements. No black stools or blood in the stools. No burning micturition, no hematuria. She has swelling in the legs for a long time, but lately they have been increasing. She thinks that maybe her diuretic dose needs to be increased. Her niece is from [place], who is the radiologist he has medical power of bike shop manager.There is a family get-together on weekend of May 23 and she likes to hang on for the family get-together and she is okay for blood transfusion and also if needed thoracocentesis, also called her healthcare power of bike shop manager and he is agreeable with the plan. Admission Exam Per Admitting Provider GENERAL: The patient is old and frail, not in acute distress. VITAL SIGNS: Temperature 37.1, pulse 101, respiratory 21, blood pressure 103/79 and oxygen 94% on 4 liters. HEENT: No pallor present, no icterus. Pupils equal, round, reactive to light. NECK: No JVD, no neck masses. Supple. CARDIOVASCULAR: S1, S2 heard. Tachycardia. No murmurs. RESPIRATORY SYSTEM: Normal AP diameter. No accessory muscle use. Bibasilar crackles present. No wheezing. ABDOMEN: Soft, bowel sounds present. Nontender. No distention. CENTRAL NERVOUS SYSTEM: Cranial nerves II-XII grossly intact. Nonfocal. EXTREMITIES: Lower extremity gross edema present. No erythema seen. SKIN: Bruises seen in the extremities. Principal Diagnosis acute myelogenous leukemia, end-stage with blast crisis thrombocytopenia anemia acute on chronic hypoxic respiratory failure Discharge Data Allergies Allergy/AdvReac Type Severity Reaction Status Date / Time adhesive tape Allergy Unknown Verified 04/16/19 17:01 Consultations 05/14/19 21:50 ED Decision to Admit Stat 05/15/19 00:28 Consult Case Management - Discharge Planning Routine 05/15/19 10:45 Consult Palliative Care Routine Ordered Studies 05/15/19 00:28 US effusion-chest/mediastinum Urgent Hospital Course (1) AML (acute myeloblastic leukemia): Hospice patient with end-stage AML, no longer receiving treatment. Admitted for inpatient hospice care to receive palliative pRBC transfusions. White count as high as 120,000 with blasts. Unfortunately, her condition continued to delcine and she early the morning of 05/18/19. (2) Anemia: Profound anemia with hemoglobin as low as 4.5. Underlying AML. No gross GI bleeding. Transfusing with 2 units packed RBCs for palliation of symptoms. (3) Thrombocytopenia: Platelet as low as 15,000. Underlying AML. (4) Heart failure, diastolic, with acute decompensation: Chronic left ventricular diastolic heart failure as well as right-sided heart failure. Chest x-ray shows pulmonary edema and pleural effusions. 2-3+ dependent edema. Hypoalbuminemia contributing to edema and need to be careful to avoid excessive diuresis. Received IV furosemide without significant improvement of symptoms. (5) Chronic respiratory failure with hypoxia: Received supplemental oxygen as necessary. (6) Pleural effusion: Chest x-ray shows bilateral pleural effusions, left greater than right. Pleural effusion left is less than 500 mL. Feel that dyspnea is most likely secondary to combination of CHF and profound anemia. Thoracentesis felt unlikely to offer significant additional benefit and risks outweighed benefits. (7) Do not resuscitate status: Per patient's wishes/instructions. (8) DVT prophylaxis: No anticoagulants due to thrombocytopenia. SCDs were initially used. (9) Palliative care encounter: Enrolled in hospice for AML and admitted for palliative transfusions under [facility] hospice care. Palliative Care team consulted to assist with management. Care coordinated with hospice nurse. Condition is deteriorating due to blast crisis. Did not receive any benefit from pRBC's or diuresis. Care plan transitioned to comfort measures only. Patient early the morning of 05/18/19. Cause of : AML with blast crisis Total Time Total Time Spent Total Time Spent (In Minutes): 0 Discharge Plan Discharge Items Patient Disposition: Admission Data Admit Date/Time: 05/14/19 23:17 Attending Provider: Ellis Campuzano Admit Provider: Lane Negron Primary Care Provider: Nydia Wei Service: Medical Other [place] Date/Time DO NOT enter until pt leaves facility: 05/18/19 04:15
== END 2019-05-18 04:15 | disposition expired | DRG 834 ==
LOC: ED 18:42 → 4E 23:17
DX: Z51.5 Encounter for palliative care; E11.9 Type 2 diabetes mellitus without complications; D69.6 Thrombocytopenia, unspecified; C92.00 Acute myeloblastic leukemia, not having achieved remission; I11.0 Hypertensive heart disease with heart failure; J90 Pleural effusion, not elsewhere classified; I50.31 Acute diastolic (congestive) heart failure; D64.9 Anemia, unspecified; I47.1 Supraventricular tachycardia; J96.10 Chronic respiratory failure, unspecified whether with hypoxia or hypercapnia; Z66 Do not resuscitate; I50.810 Right heart failure, unspecified